=== PATIENT | female | born 1940 | race Caucasian/White ===

== ENCOUNTER → 2018-03-11 12:59 | Outpatient (CLI) | payer MEDICARE, OTHER, SELFPAY ==
--- NOTE | 2018-03-11 | DI.CT.S_ITS ---
PROCEDURE: CT KIDNEY URETER BLADDER (KUB) INDICATIONS: 78 year-old female with hematuria for 2 weeks, and suspected kidney stone. TECHNIQUE: Noncontrast 5 mm thick sections acquired from the diaphragms to the symphysis. 5 mm thick coronal and sagittal reformats were then performed. For radiation dose reduction, the following was used: automated exposure control, adjustment of mA and/or kV according to patient size. COMPARISON: [facility], CT, KIDNEY/ URETER/BLADDER, 06/09/2017, 11:42. [facility], CT, KIDNEY/ URETER/BLADDER, 11/09/2016, 9:14. [facility], CT, IVP (ABD & PEL WWO CONTRAST), 05/30/2014, 10:50. FINDINGS: Image quality: Excellent. Lung bases: Lung bases are clear. Heart size is normal. Urinary system: Both kidneys are normal in size. Several small nonobstructing right renal stones are present, measuring up to 5 mm inferiorly. 2.0 x 1.2 x 1.2 cm inferior nonobstructing left renal stone is also present, measuring 616 Hounsfield units in density. No hydronephrosis or perinephric fat stranding. Both ureters appear non-dilated throughout their expected courses. Left double-J ureteral stent remains in expected position. Right ureteral stent has been withdrawn. Bladder wall thickness is normal; no calcified bladder stones. Other solid organs: Liver is normal in size, with several small hepatic cysts as before. Gallbladder is contracted at the time of scan. Pancreas is normal in contours. Spleen is normal in size. No adrenal nodules. Peritoneum and bowel: Unenhanced bowel loops demonstrate normal wall thickness and caliber. There is sigmoid colon diverticulosis. No free fluid or air. Nodes and vessels: No retroperitoneal or mesenteric adenopathy by size criteria. Aorta and inferior vena cava are normal in caliber. Abdominal wall: No ventral hernias. Pelvis: No free pelvic fluid. No inguinal hernias or adenopathy. Uterus is normal in size. The ovaries are not well seen in the absence of contrast. There is bilateral gluteus minimus muscle atrophy. Bones: No suspicious bony lesions. No vertebral body compression fractures. There is multilevel lumbar spine disc degeneration, with associated scoliosis again noted. IMPRESSION: 1. Inferior left renal nonobstructing staghorn calculus is not significantly changed, with density measurements consistent with cystine or struvite composition. Left double-J ureteral stent remains in expected position. No hydronephrosis. 2. Multifocal right staghorn calculi have significantly decreased in overall numbers and sizes, with several residual small nonobstructing stones measuring up to 5 mm. 3. Sigmoid colon diverticulosis, without acute diverticulitis. 4. Bilateral gluteus minimus muscle atrophy may reflect chronic full-thickness corresponding tendon tears. Dictated by: Garrett Mahan M.D. on 03/11/2018 at 14:43 Approved by: Garrett Mahan M.D. on 03/11/2018 at 15:24
== END ==
PROVIDERS: PCP Nurse Practitioner Family; Visit Provider Urology
DX: R31.9 Hematuria, unspecified (principal); N20.0 Calculus of kidney
CPT/HCPCS: 74176

== ENCOUNTER → 2018-04-05 09:45 | Outpatient (CLI) | payer MEDICARE, OTHER, SELFPAY ==
[2018-04-05 09:51] LABS: Bacteria Urine None Seen
[2018-04-05 10:35] LABS: Appearance Urine UA CLOUDY; Bilirubin Urine UA NEGATIVE (NEGATIVE); Glucose Urine UA NEGATIVE (Normal); Ketones Urine UA NEGATIVE (NEGATIVE); Leukocyte Esterase Urine UA 3+ (NEGATIVE); Nitrite Urine UA Negative (Negative); Occult Blood Urine UA 3+ (Negative); Protein Urine UA 1+ (Negative); Specific Gravity Urine UA <=1.005 (1.000-1.035); Urobilinogen Urine UA 0.2 E.U./dL (0.2)
[2018-04-05 10:44] LABS: Color Urine UA YELLOW
[2018-04-05 10:46] LABS: RBC Urine 10-30/HPF (0-5/HPF); WBC Urine 30-100/HPF (0-5/HPF)
[2018-04-05 10:47] LABS: Culture Indicated Urine Specimen Cultured
== END ==
PROVIDERS: PCP Nurse Practitioner Family; Visit Provider Urology
DX: N39.0 Urinary tract infection, site not specified (principal)
CPT/HCPCS: 81001; 87086

== ENCOUNTER → 2018-04-08 15:20 | Outpatient (CLI) | payer MEDICARE, OTHER, SELFPAY ==
[2018-04-08 15:30] LABS: Bacteria Urine None Seen; RBC Urine None Seen (0-5/HPF)
[2018-04-08 16:00] LABS: Appearance Urine UA CLOUDY; Bilirubin Urine UA NEGATIVE (NEGATIVE); Color Urine UA YELLOW; Glucose Urine UA NEGATIVE (Normal); Ketones Urine UA NEGATIVE (NEGATIVE); Leukocyte Esterase Urine UA 3+ (NEGATIVE); Nitrite Urine UA POSITIVE (Negative); Occult Blood Urine UA 2+ (Negative); Protein Urine UA 1+ (Negative); Specific Gravity Urine UA <=1.005 (1.000-1.035); Urobilinogen Urine UA 0.2 E.U./dL (0.2); pH Urine UA 5.5 (4.5-8.0)
[2018-04-08 16:08] LABS: Culture Indicated Urine Specimen Cultured; WBC Urine 30-100/HPF (0-5/HPF)
== END ==
PROVIDERS: PCP Nurse Practitioner Family; Visit Provider Urology
DX: R30.0 Dysuria (principal)
CPT/HCPCS: 81001; 87086

== ENCOUNTER → 2018-07-18 09:54 | Outpatient (CLI) | payer MEDICARE, OTHER, SELFPAY | PROVIDERS: PCP Nurse Practitioner Family; Visit Provider Urology | DX: N20.0 Calculus of kidney (principal) ==

== ENCOUNTER → 2018-07-23 13:23 | Outpatient (CLI) | payer MEDICARE, OTHER, SELFPAY ==
--- NOTE | 2018-07-23 13:25 | DI.MRI.S_ITS ---
PROCEDURE: MR CERVICAL SPINE WO CON INDICATIONS: CERVICALGIA TECHNIQUE: Noncontrast sagittal T1 spin echo and T2 fast spin echo, sagittal STIR, foraminal oblique sagittal T2 fast spin echo, and axial gradient echo or T2 fast spin echo through the cervical spine. COMPARISON: [facility], CT, UPPER EXTREMITY WO CONTRAST, 08/23/2017, 10:32. [facility], CR, XR CERVICAL SPINE 2 OR 3 VIEWS, 07/20/2018, 13:45. FINDINGS: Image quality: Excellent. Alignment and Curvature: There is mild, grade 1 anterolisthesis of C3 on C4, C4 and C5, and C7 on T1. There is mild, grade 1 retrolisthesis of C5 on C6. Bone Marrow: Marrow demonstrates normal overall signal. There is mild reactive signal within the endplates adjacent to the C3-C4, C4-C5, C5-C6, C6-C7, and C7-T1 intervertebral discs, as well as the endplates of the upper thoracic spine. Spinal Cord: Visualized spinal cord has normal size and signal. No cerebellar tonsillar herniation. Paraspinous Soft Tissues: No paravertebral masses. Prevertebral soft tissues are normal in thickness. Within the left paraspinous soft tissues at the T1-T2 level adjacent to the T1-T2 neural foramen, there is a 19 mm diameter well-circumscribed high T2 intensity focus which demonstrated water density on the ..17 CT examination, consistent with a perineural cyst. C2-C3: Disc desiccation and diffuse disc bulge. Mild bilateral facet hypertrophy. Moderate canal stenosis. Mild bilateral foraminal stenosis. C3-C4: Moderate disc desiccation and moderate diffuse disc bulge. Moderate facet and uncovertebral hypertrophy bilaterally. Moderate canal stenosis. Severe left and moderate right foraminal stenosis. C4-C5: Moderate disc height loss and desiccation. Mild diffuse disc bulge with superimposed left posterolateral and far lateral protrusion. Left greater than right facet and uncovertebral hypertrophy. Moderate canal stenosis. Severe left and moderate right foraminal stenosis. C5-C6: Moderate disc height loss and desiccation. Mild diffuse disc bulge/osteophyte. Moderate facet and uncovertebral hypertrophy bilaterally. Severe left and mild right foraminal stenosis. Moderate canal stenosis. C6-C7: Severe disc height loss and desiccation. Moderate diffuse disc bulge/osteophyte. Left greater than right facet and uncovertebral hypertrophy. Moderate canal stenosis. Severe left and mild right foraminal stenosis. C7-T1: Severe disc height loss and desiccation. Mild diffuse disc bulge. Mild facet and uncovertebral hypertrophy bilaterally. Mild canal stenosis. Mild bilateral foraminal stenosis. IMPRESSION: 1. Multilevel degenerative disc and facet disease, as well as uncovertebral hypertrophy. 2. Multilevel canal stenoses, worst at C3-C4, C4-C5, C5-C6, and C6-C7, where there are moderate canal stenoses. 3. Multilevel foraminal stenoses, worst on the left at C3-C4, C4-C5, C5-C6, and C6-C7, where there are severe foraminal stenosis present. 4. 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 Dictated by: Ramsey Gonzalez M.D. on 07/25/2018 at 11:00 Approved by: Ramsey Gonzalez M.D. on 07/25/2018 at 11:11
== END ==
PROVIDERS: PCP Nurse Practitioner Family; Visit Provider Orthopaedic Surgery
DX: M50.31 Other cervical disc degeneration, high cervical region (principal); M48.02 Spinal stenosis, cervical region; G96.19 Other disorders of meninges, not elsewhere classified
CPT/HCPCS: 72141

== ENCOUNTER 2018-07-26 03:36 | Emergency (ER) | payer MEDICARE, OTHER, SELFPAY ==
[2018-07-26 03:51] VITALS: BP 137/75; PULSE 78; RESP 16; TEMP 37.4; O2SAT 96; BMI 23.3
--- NOTE | 2018-07-26 04:09 | DI.CT.S_ITS ---
PROCEDURE: CT HEAD/BRAIN WO CON INDICATIONS: fall hit head left side TECHNIQUE: Noncontrast 4.5 mm thick angled axial sections acquired from the foramen magnum to the vertex, with coronal and sagittal reformats. For radiation dose reduction, the following was used: automated exposure control, adjustment of mA and/or kV according to patient size. COMPARISON: [facility], MR, MR CERVICAL SPINE WO CON, 07/23/2018, 13:42. FINDINGS: Image quality: Excellent. CSF spaces: Basal cisterns are patent. No extra-axial fluid collections. The ventricles are symmetric in size and shape. Brain: No intracranial bleeds or masses. There is cerebral volume loss for age, with resultant ventricular and sulcal prominence. There are periventricular and deep white matter chronic small vessel ischemic changes. There is intracranial internal carotid artery atherosclerosis. Skull and face: Calvarium and visualized facial bones appear intact, without suspicious lesions. Left parietal scalp hematoma and soft tissue swelling status post laceration repair. Sinuses: Visualized sinuses and mastoids are clear. IMPRESSION: No acute intracranial process. Dictated by: Peterson Forrester M.D. on 07/26/2018 at 7:27 Approved by: Peterson Forrester M.D. on 07/26/2018 at 7:29
--- NOTE | 2018-07-26 04:10 | ED.FALL ---
HPI - Fall General Chief Complaint: Fall Stated Complaint: dizziness, fall in bathroom, cut head Time Seen by Provider: 07/26/18 03:55 Source: patient Mode of arrival: ambulatory Limitations: no limitations History of Present Illness HPI Narrative: Patient is a 78-year-old female who presents with dizziness and head injury. She said she was seen by Urology yesterday who put in stents. She is actually supposed to have a lithotripsy later today. She said that the positions she was lying in really put a kink into her neck. She went home was doing okay and then felt dizzy every time she turned her head or neck. This evening she was sitting on the toilet when she fell she was dizzy she was lying herself down on the bathroom floor when she hit her head on the left side. She denies any loss of consciousness no numbness or tingling. She is not on any blood thinners. She has had dizziness in the past. She actually had an MRI of the cervical spine 2 days ago. Which did show multilevel degenerative disc disease is and multilevel foraminal stenosis. She currently does not want anything for her dizziness. She denies chest pain or heart palpitations. MD complaint: fall Onset (ago): minute(s) Place fall occurred: home Related Data Home Medications Medication Instructions Recorded Confirmed cyclosporine [Restasis] 1 drp OPHTH BID #0 09/24/16 estradiol [Vagifem] 10 mcg VG SEE INSTRUCTIONS #0 09/28/16 VITAMIN D (Vitamin D3) 1,000 units PO SEE INSTRUCTIONS #0 11/03/17 alprazolam 0.25 mg PO QDAYP PRN #0 11/03/17 ciprofloxacin HCl 125 mg PO HS #0 11/03/17 citalopram 30 mg PO QAM #0 11/03/17 Previous Rx's Medication Instructions Recorded docusate sodium [Colace] 100 mg PO BID PRN #20 cap 10/24/17 aspirin 81 mg PO BID #60 11/17/17 aspirin 81 mg PO BID #60 tab 11/17/17 hydrocodone-acetaminophen [[place]] 1 tab PO Q4H PRN #40 tab 11/17/17 cephalexin [Keflex] 500 mg PO Q6H 7 Days #0 cap 01/09/18 Allergies Allergy/AdvReac Type Severity Reaction Status Date / Time adhesive [ADHESIVE] AdvReac Severe THIN Unverified 01/05/18 11:45 SKIN, PULLS SKIN OFF PAPER/SILK TAPE OK Sulfa (Sulfonamide AdvReac Severe I GET Unverified 01/05/18 11:45 Antibiotics) EXTREMELY [SULFA (SULFONAMIDE NERVOUS, ANTIBIOTICS)] JITTERY PAIN MEDICATIONS AdvReac Unknown I GET ALL Uncoded 01/05/18 11:45 OF THE SIDE EFFECTS, NO PAIN RELIEF Review of Systems Review of Systems All systems reviewed & are unremarkable except as noted in HPI and below Constitutional Denies chills, Denies fever(s), Denies lethargy and Denies weakness Eyes Denies change in vision, Denies eye discharge, Denies irritation and Denies loss of vision Cardiovascular Denies chest pain, Denies irregular heart rhythm, Denies lightheadedness, Denies palpitations, Denies dyspnea, Denies dyspnea on exertion and Denies orthopnea Respiratory Denies cough, Denies dyspnea, Denies dyspnea on exertion and Denies wheezing Genitourinary Reports as per HPI Musculoskeletal Denies back pain, Denies muscle weakness, Denies numbness and Denies tingling Integumentary/Breasts Denies pruritus, Denies erythema, Denies rash and Denies wounds Neurologic Denies loss of vision, Denies numbness, Denies tingling and Denies weakness Endocrine Denies palpitations Allergic/Immunologic Denies wheezing Exam Initial Vital Signs Initial Vital Signs: Vital Signs Temperature 99.4 F 07/26/18 03:51 Pulse Rate 78 07/26/18 03:51 Respiratory Rate 16 07/26/18 03:51 Blood Pressure 137/75 07/26/18 03:51 Pulse Oximetry 96 07/26/18 03:51 GENERAL: Ambulatory alert well-appearing elderly female in no acute distress speaking easily A&O times 3 HEENT: Head left-sided soft spot and 2 cm laceration left temporal lobe. No crepitations or depression,EOMI, pupils reactive, face symmetric, CARDIOVASCULAR: Regular rate and rhythm without murmurs, rubs or gallops. RESPIRATORY: Breath sounds equal bilaterally, no wheezes rales or rhonchi. ABDOMEN: Soft, nontender. Normoactive bowel sounds all 4 quadrants. No guarding or rebound. EXTREMITIES: Normal range of motion, no clubbing or edema. Neurovascularly intact NEUROLOGICAL: Alert and oriented x4.Normal gait and speech. Cranial nerves II through XII grossly intact. 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 PFSH Medical History Kidney stones (Acute) Surgical History History of cataract removal with insertion of prosthetic lens History of knee replacement Family History Brother Age: 87 Dementia Heart disease Mental health disorder Pacemaker Grandfather Mental health disorder Grandmother Arthritis Grandmother Mental health disorder Procedures Laceration Repair Laceration 1: Site: scalp Side (If applicable): left Size (cm): 2 Description: linear Depth: simple, single layer Skin layer closed with: other (deisy) Number of sutures: 2 Course Orders Ordered: ED Orders 07/26/18 EKG-12 Lead Routine 07/26/18 04:09 CT head/brain wo con Stat Basic Metabolic Panel Stat Complete Blood Count AUTO DIFF Stat Vital Signs - 8 hr 07/26/18 03:51 Temperature 99.4 F Pulse Rate 78 Respiratory Rate 16 Blood Pressure 137/75 Pulse Oximetry 96 MDM - Fall Lab Data Attestation: I reviewed the patient's lab results. Result diagrams: 07/26/18 04:20 07/26/18 04:20 Lab Results 07/26/18 07/26/18 Range/Units 04:20 04:20 WBC 9.4 (4.5-11.0) X10^3/uL RBC 3.70 L (4.0-5.2) X10^6/uL Hgb 11.5 L (12.0-16.0) g/dL Hct 34.5 L (36-46) % MCV 93.2 (80-100) fL MCH 31.0 (26-34) PG MCHC 33.3 (30-36) % RDW 13.0 (11.6-14.8) % Plt Count 222 (150-400) X10^3/uL Neut % (Auto) 84.3 H (50-75) % Lymph % (Auto) 5.2 L (25-40) % [place] % (Auto) 9.4 (3-14) % Eos % (Auto) 0.4 L (2-4) % Baso % (Auto) 0.7 (0-2) % Neut # (Auto) 8000 H (6076-2694) /uL Sodium 136 L (137-145) mmol/L Potassium 4.0 (3.4-5.1) mmol/L Chloride 104 (98-107) mmol/L Carbon Dioxide 24 (22-32) mmol/L BUN 32 H (7-17) mg/dL Creatinine 1.50 H (0.52-1.04) mg/dL Estimated GFR 33.5 L (>60) mL/min BUN/Creatinine Ratio 21.3 (6-22) Glucose 108 (80-110) mg/dL Calcium 9.6 (8.4-10.2) mg/dL Imaging Data CT scan - head: Radiologist's impression: Night should report: Mild left parietal scalp hematoma/laceration repair. Age-related findings. No acute intracranial abnormality ECG Data Attestation: I personally reviewed and interpreted this ECG as follows: Prior ECG tracings: available for review Interpretation: Normal sinus rhythm rate [address] changes appear interval 141 QRS 92 no T-wave inversions Q-waves noted in V2 similar to previous EKGs MDM Narrative Medical decision making narrative: Patient overall is feeling better. She says that this is the same dizziness that she has had many times in past. She has no focal deficits. She is feeling better after just sitting here. Head CT is negative. She would like to try go to [facility] to have her lithotripsy. Discharge Plan Departure Patient Disposition: Home Clinical Impression: Laceration of head, Vertigo Discharge Date/Time: 07/26/18 05:12 Interventions: ED Discharge Assessment Last Done: 07/26/18 05:06 Instructions: DI for Laceration Repair -- [place], DI for Vertigo Activity Restrictions/Additional Instructions: *You have been diagnosed with a closed head injury, head laceration, vertigo *What to do: Deisy should be removed in 5-7 days. No hair cuts, may shower and bathe normally. May go to PCP, walk-in clinic or return to ED for staple removal. -carotid should be evaluated this can be done with her PCP *Continue to take medications as directed *Follow up with your primary care provider in 2-3 days *Return to ER if you should have worsening dizziness, heart palpitations, increased fall or any new, worsening or concerning symptoms Prescriptions: No Action cyclosporine [Restasis] 1 EACH dropperette 1 drp OPHTH BID Qty: 0 RF: 0 estradiol [Vagifem] 10 MCG tablet 10 mcg VG SEE INSTRUCTIONS Qty: 0 RF: 0 docusate sodium [Colace] 100 MG capsule 100 mg PO BID PRNQty: 20 RF: 0 ciprofloxacin HCl 250 MG tablet 125 mg PO HS Qty: 0 RF: 0 VITAMIN D (Vitamin D3) 1,000 units PO SEE INSTRUCTIONS Qty: 0 RF: 0 alprazolam 0.25 MG tablet 0.25 mg PO QDAYP PRNQty: 0 RF: 0 citalopram 20 MG tablet 30 mg PO QAM Qty: 0 RF: 0 hydrocodone-acetaminophen [[place]] 5 MG/325 MG tablet 1 tab PO Q4H PRNQty: 40 RF: 0 aspirin 81 MG tablet,delayed release (DR/EC) 81 mg PO BID Qty: 60 RF: 0 aspirin 81 MG tablet,delayed release (DR/EC) 81 mg PO BID Qty: 60 RF: 0 cephalexin [Keflex] 500 MG capsule 500 mg PO Q6H 7 Days Qty: 0 RF: 0 Referrals: [facility] [Provider Group] Yashira Willoughby ARNP [Primary Care Provider] -
[2018-07-26 04:40] LABS: Add Manual Diff / Slide Review NO; Basophils Percent Auto 0.7 % (0-2); Eosinophils Percent Auto 0.4 % (2-4); Hematocrit 34.5 % (36-46); Hemoglobin 11.5 g/dL (12.0-16.0); Lymphocytes Percent Auto 5.2 % (25-40); Mean Corpuscular HGB Conc 33.3 % (30-36); Mean Corpuscular Volume 93.2 fL (80-100); Monocytes Percent Auto 9.4 % (3-14); Neutrophils Absolute Auto 8000 /uL (3000-5900); Neutrophils Percent Auto 84.3 % (50-75); Platelet Count 222 X10^3/uL (150-400); White Blood Cell Count 9.4 X10^3/uL (4.5-11.0)
[2018-07-26 04:52] LABS: BUN Creatinine Ratio 21.3 (6-22); Blood Urea Nitrogen 32 mg/dL (7-17); Calcium 9.6 mg/dL (8.4-10.2); Carbon Dioxide 24 mmol/L (22-32); Chloride 104 mmol/L (98-107); Estimated Glomerular Filt Rate 33.5 mL/min (>60); Glucose 108 mg/dL (80-110); HEMOLYSIS < 15 (0-50); Sodium 136 mmol/L (137-145)
[2018-07-26 05:06] VITALS: BP 116/64; PULSE 60; RESP 16; TEMP 37.4; O2SAT 100
== END 2018-07-26 05:12 | disposition home or self-care (01) ==
PROVIDERS: Emergency Provider Emergency Medicine; PCP Nurse Practitioner Family
DX: S01.01XA Laceration without foreign body of scalp, initial encounter (principal); R42 Dizziness and giddiness; W18.11XA Fall from or off toilet without subsequent striking against object, initial encounter
CPT/HCPCS: 12001; 36591; 70450; 80048; 85025; 93005; 99283; 99285

== ENCOUNTER 2018-08-08 18:36 | Emergency (ER) | payer MEDICARE, OTHER, SELFPAY ==
[2018-08-08 18:40] VITALS: BP 141/89; PULSE 75; RESP 16; TEMP 36.9; O2SAT 100
[2018-08-08 20:34] LABS: Bacteria Urine Few (2-10); Culture Indicated Urine Specimen Cultured; RBC Urine 0-1/HPF (0-5/HPF); Squamous Epithelial Cell Urine 1-5 /HPF; WBC Urine 10-30/HPF (0-5/HPF)
[2018-08-08] MEDS: DOXYCYCLINE HYCLATE 100 MG TABLET PO ×2 (20:47)
--- NOTE | 2018-08-08 20:53 | ED_ITS ---
HPI - Wound/Laceration <Thu Dobson PA-C - Last Filed: 08/08/18 21:19> General Chief Complaint: Wound/Laceration Stated Complaint: KIDNEY INFECTION Time Seen by Provider: 08/08/18 20:24 Source: patient and family Mode of arrival: ambulatory Limitations: no limitations History of Present Illness HPI narrative: This 78-year-old female comes in due to concern for surgical wound infection. She states that she has kidney stones extracted on July 26. Since then, she has had some tenderness an irritation from the wound but today it has been draining fluid and her states that it was red, where as it was not previously Her thinks that it was draining thin fluid and some pus earlier (he pushed on it to remove it.). She states that she is feeling otherwise fine. She denies fever, chills, sweats. She denies appetite change, nausea, or vomiting or any other new complaints and states that she has been doing well postoperatively as far as any kidney pain, not having urinary symptoms at all Related Data Home Medications Medication Instructions Recorded Confirmed cyclosporine [Restasis] 1 drp OPHTH BID #0 09/24/16 estradiol [Vagifem] 10 mcg VG SEE INSTRUCTIONS #0 09/28/16 VITAMIN D (Vitamin D3) 1,000 units PO SEE INSTRUCTIONS #0 11/03/17 alprazolam 0.25 mg PO QDAYP PRN #0 11/03/17 ciprofloxacin HCl 125 mg PO HS #0 11/03/17 citalopram 30 mg PO QAM #0 11/03/17 Previous Rx's Medication Instructions Recorded docusate sodium [Colace] 100 mg PO BID PRN #20 cap 10/24/17 aspirin 81 mg PO BID #60 11/17/17 aspirin 81 mg PO BID #60 tab 11/17/17 hydrocodone-acetaminophen [[place]] 1 tab PO Q4H PRN #40 tab 11/17/17 cephalexin [Keflex] 500 mg PO Q6H 7 Days #0 cap 01/09/18 doxycycline monohydrate 100 mg PO BID #14 cap 08/08/18 Allergies Allergy/AdvReac Type Severity Reaction Status Date / Time adhesive [ADHESIVE] AdvReac Severe THIN Verified 08/08/18 18:40 SKIN, PULLS SKIN OFF PAPER/SILK TAPE OK Sulfa (Sulfonamide AdvReac Severe I GET Verified 08/08/18 18:40 Antibiotics) EXTREMELY [SULFA (SULFONAMIDE NERVOUS, ANTIBIOTICS)] JITTERY PAIN MEDICATIONS AdvReac Unknown I GET ALL Uncoded 08/08/18 18:40 OF THE SIDE EFFECTS, NO PAIN RELIEF Review of Systems <MARKOS Brito Last Filed: 08/08/18 21:19> Review of Systems All systems reviewed & are unremarkable except as noted in HPI and below PFSH <MARKOS Brito Last Filed: 08/08/18 21:19> Comment: Nonsmoker Exam <MARKOS Brito Last Filed: 08/08/18 21:19> Narrative Exam Narrative: GENERAL APPEARANCE: Patient sitting comfortably, in no distress. HEENT: PERRL, EOMI, no scleral icterus NECK: Supple LUNGS: Clear to auscultation bilaterally. HEART: Rate and rhythm regular, normal S1 and S2, no S3 or S4. ABDOMEN: Soft, nontender, nondistended, bowel sounds present x 4 quadrants, no CVAT DERMATOLOGIC: Left flank there is a tiny incision site which will drain a small amount of serous fluid with pressure on the area. Bandage is saturated with serous fluid. I am not able to express any pus. There is surrounding slightly warm erythema to 7 cm. Nontender. NEUROLOGIC: Alert and oriented with normal speech and coordination Initial Vital Signs Initial Vital Signs: Vital Signs Temperature 98.4 F 08/08/18 18:40 Pulse Rate 75 08/08/18 18:40 Respiratory Rate 16 08/08/18 18:40 Blood Pressure 141/89 H 08/08/18 18:40 Pulse Oximetry 100 18 18:40 <Yecenia Edmonds DO - Last Filed: 08/08/18 23:12> Initial Vital Signs Initial Vital Signs: Vital Signs Temperature 98.4 F 08/08/18 18:40 Pulse Rate 75 08/08/18 18:40 Respiratory Rate 16 08/08/18 18:40 Blood Pressure 141/89 H 08/08/18 18:40 Pulse Oximetry 100 08/08/18 18:40 Course <MARKOS Brito Last Filed: 08/08/18 21:19> Additional Information: It sounds like some pus may have drain from this wound earlier today along with serous fluid. I am not able to express any pus now. Advised hot packs, antibiotics started, and instructions given on monitoring. Advised follow up either with Urology or PCP after antibiotics for 72 hr, and she is agreeable. Bacteria noted on urinalysis but she is asymptomatic, likely asymptomatic bacteriuria, culture pending Orders Ordered: ED Orders 08/08/18 20:22 Urine Culture Stat Urine Microscopic Stat Discontinued Medications Doxycycline Hyclate (Vibramycin) 100 mg PO NOW ONE Stop: 08/08/18 20:43 Last Admin: 08/08/18 20:47 Dose: 100 mg Doxycycline Hyclate (Vibramycin) 100 mg PO NOW ONE Stop: 08/08/18 20:44 Last Admin: 08/08/18 20:47 Dose: 100 mg Vital Signs - 8 hr 08/08/18 18:40 08/08/18 21:04 Temperature 98.4 F Pulse Rate 75 77 Respiratory Rate 16 18 Blood Pressure 141/89 H 119/81 Pulse Oximetry 100 96 <Yecenia Edmonds DO - Last Filed: 08/08/18 23:12> Orders Ordered: ED Orders 08/08/18 20:22 Urine Culture Stat Urine Microscopic Stat Discontinued Medications Doxycycline Hyclate (Vibramycin) 100 mg PO NOW ONE Stop: 08/08/18 20:43 Last Admin: 08/08/18 20:47 Dose: 100 mg Doxycycline Hyclate (Vibramycin) 100 mg PO NOW ONE Stop: 08/08/18 20:44 Last Admin: 08/08/18 20:47 Dose: 100 mg Vital Signs - 8 hr 08/08/18 18:40 08/08/18 21:04 Temperature 98.4 F Pulse Rate 75 77 Respiratory Rate 16 18 Blood Pressure 141/89 H 119/81 Pulse Oximetry 100 96 MDM - Wound/Laceration <Thu Dobson PA-C - Last Filed: 08/08/18 21:19> Lab Data Lab Results 08/08/18 Range/Units 20:22 Urine RBC 0-1/hpf (0-5/HPF) Urine WBC 10-30/hpf H (0-5/HPF) Ur Squamous Epith Cells 1-5 /hpf Urine Bacteria Few (2-10) H (None) Ur Culture Indicated? Specimen cultured Micro UA Comment Not Reportable <Yecenia Edmonds DO - Last Filed: 08/08/18 23:12> Lab Data Lab Results 08/08/18 Range/Units 20:22 Urine RBC 0-1/hpf (0-5/HPF) Urine WBC 10-30/hpf H (0-5/HPF) Ur Squamous Epith Cells 1-5 /hpf Urine Bacteria Few (2-10) H (None) Ur Culture Indicated? Specimen cultured Micro UA Comment Not Reportable Discharge Plan Departure Patient Disposition: Home Clinical Impression: Postoperative wound infection, Gastroesophageal reflux disease Discharge Date/Time: 08/08/18 21:05 Interventions: ED Discharge Assessment Last Done: 08/08/18 21:04 Instructions: DI for Wound Infection Activity Restrictions/Additional Instructions: When I look at the wound now, it is draining what is called serous fluid, thin yellow fluid. This is not unusual, however it is red and it sounds like it was draining some pus earlier today. Please use a hot pack, such as a hot washcloth , on the area several times daily as this will help any pus and fluid drain out of the wound. You have been given the 1st dose of antibiotic tonight. Take the 2nd dose with food in about 12 hr, and picker tender helper the remainder from your pharmacy tomorrow. Please follow up at your PCP office or with your urologist for recheck after about 72 hr on the antibiotics to make sure improving. Please return here as we talked about if you have any acutely worsening symptoms or new symptoms such as fever. Thank you for your patience with the long wait this evening Prescriptions: New doxycycline monohydrate 100 mg capsule 100 mg PO BID Qty: 14 RF: 0 No Action cyclosporine [Restasis] 1 EACH dropperette 1 drp OPHTH BID Qty: 0 RF: 0 estradiol [Vagifem] 10 MCG tablet 10 mcg VG SEE INSTRUCTIONS Qty: 0 RF: 0 docusate sodium [Colace] 100 MG capsule 100 mg PO BID PRNQty: 20 RF: 0 ciprofloxacin HCl 250 MG tablet 125 mg PO HS Qty: 0 RF: 0 VITAMIN D (Vitamin D3) 1,000 units PO SEE INSTRUCTIONS Qty: 0 RF: 0 alprazolam 0.25 MG tablet 0.25 mg PO QDAYP PRNQty: 0 RF: 0 citalopram 20 MG tablet 30 mg PO QAM Qty: 0 RF: 0 hydrocodone-acetaminophen [Shepherd] 5 MG/325 MG tablet 1 tab PO Q4H PRNQty: 40 RF: 0 aspirin 81 MG tablet,delayed release (DR/EC) 81 mg PO BID Qty: 60 RF: 0 aspirin 81 MG tablet,delayed release (DR/EC) 81 mg PO BID Qty: 60 RF: 0 cephalexin [Keflex] 500 MG capsule 500 mg PO Q6H 7 Days Qty: 0 RF: 0 Referrals: [facility] [Provider Group] Alyx Umaña MD [Non-Staff] - <Yecenia Edmonds DO - Last Filed: 08/08/18 23:12> Cosign ED Attending Cosignature Attestation: I was immediately available in the department for consultation. This documentation has been reviewed and I agree with assessment and plan. Supervised by Yecenia Edmonds DO
[2018-08-08 21:04] VITALS: BP 119/81; PULSE 77; RESP 18; O2SAT 96
== END 2018-08-08 21:05 | disposition home or self-care (01) ==
PROVIDERS: Emergency Medicine; Emergency Provider Internal Medicine; PCP Nurse Practitioner Family
DX: T81.49XA Infection following a procedure, other surgical site, initial encounter (principal); K21.9 Gastro-esophageal reflux disease without esophagitis
CPT/HCPCS: 81003; 81015; 87086; 99283

== ENCOUNTER 2019-02-09 13:18 | Emergency (ER) | payer MEDICARE, OTHER, SELFPAY ==
[2019-02-09 13:32] VITALS: BP 131/76; PULSE 63; RESP 20; TEMP 36.7; O2SAT 97
--- NOTE | 2019-02-09 13:49 | ED_ITS ---
HPI - Fall <Rosanna Alamo DO - Last Filed: 02/09/19 18:33> General Chief Complaint: Fall Stated Complaint: Fell and split knee,hit head Time Seen by Provider: 02/09/19 13:48 Source: patient Mode of arrival: ambulatory Limitations: no limitations History of Present Illness HPI Narrative: Patient is a 78-year-old female presenting with ground level fall. She was walking in the [employer] parking lot when she tripped over a speed bump. Mostly landing on her knee and right wrist. She did hit her head but no loss of consciousness there is no laceration on her head. She denies any hip pain she is ambulatory. She does have a right knee skin tear. MD complaint: fall Onset (ago): minute(s) Fall from: standing Fall witnessed: yes, by family Place fall occurred: street Prolonged down time: no Symptoms prior to fall: none Related Data Home Medications Medication Instructions Recorded Confirmed Restasis 1 drp OPHTH BID #0 09/24/16 02/09/19 VITAMIN D (Vitamin D3) 1,000 units PO SEE INSTRUCTIONS #0 11/03/17 alprazolam 0.25 mg PO DAILY PRN #0 11/03/17 02/09/19 beclomethasone dipropionate [Qvar 02/09/19 RediHaler] citalopram 02/09/19 cyclosporine [Restasis] 02/09/19 esomeprazole magnesium 02/09/19 estradiol [Yuvafem] 02/09/19 pentosan polysulfate sodium 02/09/19 [Elmiron] Previous Rx's Medication Instructions Recorded aspirin 81 mg PO BID #60 11/17/17 hydrocodone-acetaminophen [[place]] 1 tab PO Q4H PRN #40 tab 11/17/17 Allergies Allergy/AdvReac Type Severity Reaction Status Date / Time adhesive [ADHESIVE] AdvReac Severe THIN Verified 08/08/18 18:40 SKIN, PULLS SKIN OFF PAPER/SILK TAPE OK Sulfa (Sulfonamide AdvReac Severe I GET Verified 08/08/18 18:40 Antibiotics) EXTREMELY [SULFA (SULFONAMIDE NERVOUS, ANTIBIOTICS)] JITTERY PAIN MEDICATIONS AdvReac Unknown I GET ALL Uncoded 08/08/18 18:40 OF THE SIDE EFFECTS, NO PAIN RELIEF Review of Systems <DO Tamera Guadarrama Last Filed: 02/09/19 18:33> Review of Systems GENERAL: Denies chills, fatigue, malaise, fever, sweats, travel HEENT: Denies sinus pain, ear pain, sore throat, difficulty swallowing, neck pain RESPIRATORY: Denies dyspnea, cough, wheezing, hemoptysis, sputum. CARDIOVASCULAR: Denies chest pain, palpitations, orthopnea, edema GASTROINTESTINAL: Denies nausea, vomiting, abdominal pain, diarrhea, constipation, melena. : Denies dysuria, frequency, incontinence, hematuria, urinary retention, flank pain. MUSCULOSKELETAL: Right wrist pain SKIN: Skin tear NEUROLOGIC: Denies weakness, dizziness, headache, numbness, change in speech, confusion PSYCHIATRIC: No concerning psychosocial issues. 12 point review of systems is negative except for those stated above and HPI Exam <Rosanna Alamo DO - Last Filed: 02/09/19 18:33> Initial Vital Signs Initial Vital Signs: Vital Signs Temperature 98.1 F 02/09/19 13:32 Pulse Rate 63 02/09/19 13:32 Respiratory Rate 20 02/09/19 13:32 Blood Pressure 131/76 02/09/19 13:32 Pulse Oximetry 97 02/09/19 13:32 GENERAL: Alert very pleasant and in no acute distress. HEENT: Head atraumatic, no contusion depression,EOMI, pupils reactive, face symmetric, moist mucous membranes Neck is supple no vertebral tenderness full range motion CARDIOVASCULAR: Regular rate and rhythm without murmurs, rubs or gallops. RESPIRATORY: Breath sounds equal bilaterally, no wheezes rales or rhonchi. EXTREMITIES: Normal range of motion, no clubbing or edema. Neurovascularly intact. Hips and pelvis stable. Able to flex fully. NEUROLOGICAL: Alert and oriented x4.Normal gait and speech. Cranial nerves II through XII grossly intact. SKIN: 8 cm laceration right knee superficial good skin approximation <RUSSELL Kaur - Last Filed: 02/09/19 14:59> Initial Vital Signs Initial Vital Signs: Vital Signs Temperature 98.1 F 02/09/19 13:32 Pulse Rate 63 02/09/19 13:32 Respiratory Rate 20 02/09/19 13:32 Blood Pressure 131/76 02/09/19 13:32 Pulse Oximetry 97 02/09/19 13:32 PFS <Rosanna Alamo DO - Last Filed: 02/09/19 18:33> Medical History Asthma (Chronic) GERD (gastroesophageal reflux disease) (Chronic) Osteoarthritis (Chronic) Kidney stones (Resolved) Surgical History History of cataract removal with insertion of prosthetic lens (Resolved) History of knee replacement (Resolved) History of shoulder surgery (Resolved) Family History (Updated 11/18/16 @ 00:00 by Conversion Provider) Brother Age: 88 Dementia Heart disease Mental health disorder Pacemaker Grandfather Mental health disorder Grandmother Arthritis Grandmother Mental health disorder Family History Brother Age: 88 Dementia Heart disease Mental health disorder Pacemaker Grandfather Mental health disorder Grandmother Arthritis Grandmother Mental health disorder Procedures <DO Tamera Guadarrama Last Filed: 02/09/19 18:33> Orthopedic Splinting/Casting Injury #1: Side: right Upper Extremity Injury Location: wrist Upper Extremity Immobilizer: wrist splint Post splinting neuro exam: intact Post splinting vascular exam: intact Placed by: Nursing <RUSSELL Kaur - Last Filed: 02/09/19 14:59> Laceration Repair Laceration 1: Site: lower extremity Side (If applicable): right Size (cm): 8.5 Description: linear and flap Depth: simple, single layer Local Anesthetic: lidocaine 1% and with epi Amount of anesthesia used (mL): 10 Pre-repair: wound explored and irrigated extensively Skin layer closed with: nylon Size (cm): 4-0 Number of sutures: 10 Technique: simple, interrupted Course <DO Tamera Guadarrama Last Filed: 02/09/19 18:33> Orders Ordered: ED Orders 02/09/19 13:54 XR wrist RT min 3V Stat Vital Signs - 8 hr 02/09/19 13:32 02/09/19 15:14 Temperature 98.1 F Pulse Rate 63 59 L Respiratory Rate 20 18 Blood Pressure 131/76 Blood Pressure [Left Arm] 152/74 H Pulse Oximetry 97 100 <RUSSELL Kaur - Last Filed: 02/09/19 14:59> Orders Ordered: ED Orders 02/09/19 13:54 XR wrist RT min 3V Stat Vital Signs - 8 hr 02/09/19 13:32 02/09/19 15:14 Temperature 98.1 F Pulse Rate 63 59 L Respiratory Rate 20 18 Blood Pressure 131/76 Blood Pressure [Left Arm] 152/74 H Pulse Oximetry 97 100 MDM - Fall <Rosanna Alamo, DO - Last Filed: 02/09/19 18:33> Imaging Data right wrist: Radiologist's impression: PROCEDURE: XR WRIST RT MIN 3V INDICATIONS: fall pain TECHNIQUE: 4 views of the wrist were acquired. COMPARISON: None. FINDINGS: Bones: There is possible fracture of the distal pole of scaphoid of uncertain ch ronicity. There is severe osteopenia. Severe osteoarthritic changes are present of the first carpometacarpal joint, triscaphe joint and the fifth proximal interphalangeal joint, and [id number] osteoarthritic changes of the radiocarpal joint and multiple metacarpal phalangeal joints. No suspicious bony lesions. Probable small intra-articular bodies at the distal radioulnar joint. There is triangular fibrocartilage calcification. Scaphoid view: Possible fracture of the distal pole of scaphoid Soft tissues: No suspicious soft tissue calcifications. Soft tissue swelling around the wrist. IMPRESSION: 1. Possible fracture of the distal pole of scaphoid of uncertain chronicity. 2. Severe osteopenia. 3. Osteoarthritis. Dictated by: Cesar Sung M.D. on 02/09/2019 at 14:16 Discharge Plan Departure Patient Disposition: Home Clinical Impression: Laceration of knee, right Qualifiers: Encounter type: initial encounter Qualified Code(s): S81.011A - Laceration without foreign body, right knee, initial encounter Closed fracture of right wrist Qualifiers: Encounter type: initial encounter Qualified Code(s): S62.101A - Fracture of unspecified carpal bone, right wrist, initial encounter for closed fracture Discharge Date/Time: 02/09/19 16:11 Interventions: ED Discharge Assessment Last Done: 02/09/19 16:11 Instructions: DI for Wrist Fracture, DI for Laceration Repair Activity Restrictions/Additional Instructions: *You have been diagnosed with right knee laceration, possible right wrist fr acture *What to do: Recommend repeating x-ray in 7-10 days with her PCP. It is possible that have a right wrist fracture recommend keeping the splint on to help with pain. -have sutures removed in 5-7 days. Keep clean and dry with soap and water. Apply antibacterial ointment on it 1-2 times daily. *Continue to take medications as directed Tylenol 650 mg every 4-6 hours if needed for pain *Follow up with your primary care provider in 2-3 days *Return to ER if you should have redness, pus, swelling, pain or any new, worsening or concerning symptoms Prescriptions: No Action Restasis 1 EACH dropperette 1 drp OPHTH BID Qty: 0 RF: 0 VITAMIN D (Vitamin D3) 1,000 units PO SEE INSTRUCTIONS Qty: 0 RF: 0 alprazolam 0.25 MG tablet 0.25 mg PO DAILY PRN (Reason: Anxiety) Qty: 0 RF: 0 hydrocodone-acetaminophen [[place]] 5 MG/325 MG tablet 1 tab PO Q4H PRNQty: 40 RF: 0 aspirin 81 MG tablet,delayed release (DR/EC) 81 mg PO BID Qty: 60 RF: 0 Elmiron 100 mg capsule RF: 0 citalopram 20 mg tablet RF: 0 esomeprazole magnesium 40 mg capsule,delayed release(DR/EC) RF: 0 Restasis 0.05 % dropperette RF: 0 estradiol [Yuvafem] 10 mcg tablet RF: 0 Qvar RediHaler 80 mcg/actuation HFA aerosol breath activated RF: 0 Referrals: Jean-Paul Olvera ARNP [Primary Care Provider] -
--- NOTE | 2019-02-09 13:54 | DI.RAD.S_ITS ---
PROCEDURE: XR WRIST RT MIN 3V INDICATIONS: fall pain TECHNIQUE: 4 views of the wrist were acquired. COMPARISON: None. FINDINGS: Bones: There is possible fracture of the distal pole of scaphoid of uncertain chronicity. There is severe osteopenia. Severe osteoarthritic changes are present of the first carpometacarpal joint, triscaphe joint and the fifth proximal interphalangeal joint, and [id number] osteoarthritic changes of the radiocarpal joint and multiple metacarpal phalangeal joints. No suspicious bony lesions. Probable small intra-articular bodies at the distal radioulnar joint. There is triangular fibrocartilage calcification. Scaphoid view: Possible fracture of the distal pole of scaphoid Soft tissues: No suspicious soft tissue calcifications. Soft tissue swelling around the wrist. IMPRESSION: 1. Possible fracture of the distal pole of scaphoid of uncertain chronicity. 2. Severe osteopenia. 3. Osteoarthritis. Dictated by: Cesar Sung M.D. on 02/09/2019 at 14:16 Approved by: Cesar Sung M.D. on 02/09/2019 at 14:24
[2019-02-09 15:14] VITALS: BP 152/74; PULSE 59; RESP 18; O2SAT 100
--- NOTE | 2019-02-09 16:07 | PC.NURSE ---
pt wanted an dylan wrap vs. wrist splint due to her osteoarthritis. aware.
== END 2019-02-09 16:11 | disposition home or self-care (01) ==
PROVIDERS: Emergency Provider Emergency Medicine; PCP Nurse Practitioner Family
DX: S81.011A Laceration without foreign body, right knee, initial encounter (principal); S62.101A Fracture of unspecified carpal bone, right wrist, initial encounter for closed fracture; W18.30XA Fall on same level, unspecified, initial encounter
CPT/HCPCS: 73110; 99283

== ENCOUNTER → 2019-05-09 13:54 | Outpatient (CLI) | payer MEDICARE, OTHER, SELFPAY ==
--- NOTE | 2019-05-09 | DI.RAD.S_ITS ---
PROCEDURE: XR HAND LT MIN 3V INDICATIONS: LEFT hand pain/5TH METACARPAL BRUISING/FALL ON WEDNESDAY TECHNIQUE: 3 views of the hand(s) acquired. COMPARISON: [facility], , HAND 2V LEFT, 01/09/2018, 20:37. FINDINGS: Bones: Severe diffuse osteopenia which lowers study sensitivity. There is question of irregularity at the base of the fifth metacarpal. However no definite or displaced fracture is identified. There is interphalangeal joint degeneration, with erosive appearance as before diffuse carpal joint degeneration. Severe DRUJ osteoarthritis. Soft tissues: No suspicious soft tissue calcifications. IMPRESSION: Mild cortical irregularity involving the base of the fifth metacarpal technically indeterminate. Diffuse osteopenia which lowers study sensitivity. If the patient's symptoms do not improve recommend followup radiographs in 10 days to assess for healing sclerosis/occult injury. Chronic changes as above. Dictated by: Peterson Forrester M.D. on 05/09/2019 at 17:17 Approved by: Peterson Forrester M.D. on 05/09/2019 at 17:20
--- NOTE | 2019-05-09 | DI.RAD.S_ITS ---
PROCEDURE: XR CHEST 2V INDICATIONS: Asthma TECHNIQUE: 2 views of the chest were acquired. COMPARISON: [facility], , CHEST 2 VIEW, 12/21/2016, 12:28. FINDINGS: Surgical changes and devices: Bilateral shoulder arthroplasties Lungs and pleura: Lungs are clear. No pleural effusions or pneumothorax. Mediastinum: Mediastinal contours are normal. Heart size is normal. Bones and chest wall: No suspicious bony abnormalities. Lateral curvature of the spine and spondylosis. Soft tissues appear unremarkable. IMPRESSION: No acute disease Dictated by: Peterson Forrester M.D. on 05/09/2019 at 17:20 Approved by: Peterson Forrester M.D. on 05/09/2019 at 17:21
== END ==
PROVIDERS: PCP Internal Medicine; Visit Provider Internal Medicine
DX: S60.222A Contusion of left hand, initial encounter (principal); M79.642 Pain in left hand; M85.842 Other specified disorders of bone density and structure, left hand; M19.042 Primary osteoarthritis, left hand; J45.40 Moderate persistent asthma, uncomplicated; W19.XXXA Unspecified fall, initial encounter
CPT/HCPCS: 71046; 73130

== ENCOUNTER 2019-05-19 14:03 | Emergency (ER) | payer MEDICARE, OTHER, SELFPAY ==
[2019-05-19 14:16] VITALS: BP 137/72; PULSE 72; RESP 14; TEMP 36.7; O2SAT 100; BMI 25.2
--- NOTE | 2019-05-19 15:28 | ED_ITS ---
HPI - URI/Sore Throat <RUSSELL Gregg - Last Filed: 05/19/19 22:01> General Chief Complaint: Upper Respiratory Symptoms Stated Complaint: states chest infection Time Seen by Provider: 05/19/19 14:37 Source: patient and family Mode of arrival: ambulatory Limitations: no limitations History of Present Illness HPI Narrative: This is pleasant 79-year-old female, nonsmoker, presents with her spouse with chest congestion, productive cough which is difficult to expectorated she for the last 4 days. Patient reports difficulty lying flat at night to sleep due to severe cough. Patient is currently on azithromycin for bronchitis for last 2 days. Her x-ray was done by her primary doctor, DR. Mcmillan, before the treatment with no acute findings. The patient reports T max was at home was up to 100.7 which gotten better with Tylenol intake. Patient reports she thinks actually dark green color mucus is improving. The patient reports has been orally hydrate well with fluid. Her energy level has been decreased from normal baseline. She reports resolved diarrhea after the 1st day. Related Data Home Medications Medication Instructions Recorded Confirmed alprazolam 0.25 mg PO DAILY PRN #0 11/03/17 02/09/19 cholecalciferol (vitamin D3) 1,000 unit PO DAILY #0 11/03/17 [Vitamin D3] cyclosporine [Restasis] 1 drp OPHTHALMIC (EYE) DIRECTED 02/09/19 05/19/19 esomeprazole magnesium 40 mg PO DAILY 02/09/19 05/19/19 albuterol sulfate [ProAir HFA] 1 puff INHALATION PRN PRN 05/19/19 05/19/19 azithromycin See Rx Instructions .ROUTE .COMPLEX 05/19/19 05/19/19 beclomethasone dipropionate [Qvar 1 puff INHALATION BID 05/19/19 05/19/19 RediHaler] citalopram 40 mg PO DAILY 05/19/19 05/19/19 estradiol [Yuvafem] 10 mcg VAGINAL 2XW 05/19/19 05/19/19 fluticasone propion-salmeterol 2 puff INHALATION BID 05/19/19 05/19/19 [Advair HFA] pentosan polysulfate sodium 100 mg PO TID 05/19/19 05/19/19 [Elmiron] Previous Rx's Medication Instructions Recorded aspirin 81 mg PO BID #60 11/17/17 benzonatate 150 mg PO Q8H PRN #14 cap 05/19/19 Allergies Allergy/AdvReac Type Severity Reaction Status Date / Time adhesive [ADHESIVE] AdvReac Severe THIN Verified 05/19/19 14:16 SKIN, PULLS SKIN OFF PAPER/SILK TAPE OK Sulfa (Sulfonamide AdvReac Severe I GET Verified 05/19/19 14:16 Antibiotics) EXTREMELY [SULFA (SULFONAMIDE NERVOUS, ANTIBIOTICS)] JITTERY PAIN MEDICATIONS AdvReac Unknown I GET ALL Uncoded 08/08/18 18:40 OF THE SIDE EFFECTS, NO PAIN RELIEF Review of Systems <RUSSELL Gregg - Last Filed: 05/19/19 22:01> Review of Systems ROS Unobtainable: All systems reviewed & are unremarkable except as noted in HPI and below PFSH <RUSSELL Gregg - Last Filed: 05/19/19 22:01> Medical History Asthma (Chronic) GERD (gastroesophageal reflux disease) (Chronic) Osteoarthritis (Chronic) Kidney stones (Resolved) Surgical History History of cataract removal with insertion of prosthetic lens (Resolved) History of knee replacement (Resolved) History of shoulder surgery (Resolved) Family History Brother Age: 88 Dementia Heart disease Mental health disorder Pacemaker Grandfather Mental health disorder Grandmother Arthritis Grandmother Mental health disorder Social History Smoking Status: Unknown if ever smoked Family History Brother Age: 88 Dementia Heart disease Mental health disorder Pacemaker Grandfather Mental health disorder Grandmother Arthritis Grandmother Mental health disorder Social History Smoking Status: Unknown if ever smoked Exam <RUSSELL Gregg - Last Filed: 05/19/19 22:01> Narrative Exam Narrative: General appearance: well developed, well nourished, in no acute distress. Head: normocephalic, atraumatic, no scalp lesions, non-tender. Eye: pupil equal, round. EOMI. Nose: nares patent. Oral: mucosa moist. Neck/Thyroid: neck supple, full range of motion, no visible masses. Skin: no suspicious rashes, lesions over visible areas. Warm and dry. Heart: S1 and S2 with RRR. no clubbing, no cyanosis, no edema. Lungs: Lungs CTAB. Breathing even and unlabored. No stridor. No accessory muscles used. Chest: normal shape and expansion. Abdomen: non-obese, non-distended. Neurologic: alert and oriented. 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 Psych: good eye contact, normal affect. Initial Vital Signs Initial Vital Signs: Vital Signs Temperature 98.1 F 05/19/19 14:16 Pulse Rate 72 05/19/19 14:16 Respiratory Rate 14 05/19/19 14:16 Blood Pressure 137/72 05/19/19 14:16 Pulse Oximetry 100 05/19/19 14:16 <Yecenia Edmonds DO - Last Filed: 05/23/19 07:22> Initial Vital Signs Initial Vital Signs: Vital Signs Temperature 98.1 F 05/19/19 14:16 Pulse Rate 72 05/19/19 14:16 Respiratory Rate 14 05/19/19 14:16 Blood Pressure 137/72 05/19/19 14:16 Pulse Oximetry 100 05/19/19 14:16 Course <RUSSELL Gregg - Last Filed: 05/19/19 22:01> Vital Signs - 8 hr 05/19/19 14:16 Temperature 98.1 F Pulse Rate 72 Respiratory Rate 14 Blood Pressure 137/72 Pulse Oximetry 100 <Yecenia Edmonds DO - Last Filed: 05/23/19 07:22> Vital Signs - 8 hr 05/19/19 14:16 Temperature 98.1 F Pulse Rate 72 Respiratory Rate 14 Blood Pressure 137/72 Pulse Oximetry 100 MDM - URI/Sore Throat <RUSSELL Gregg - Last Filed: 05/19/19 22:01> Differential Diagnosis Differential diagnosis: Likely upper respiratory infection and bronchitis Medical Records Attestation: I reviewed the patient's medical records. [facility] Narrative Medical decision making narrative: This is a pleasant 79-year-old female with chief complain of chest congestion, cough, difficulty with expectorating mucous that is worse at night when she is in supine position. She has started on azithromycin that was prescribed by Dr. Mcmillan, her primary physician with bronchitis/possible pneumonia. Chest x-ray two view on 05/09/19 shows no acute findings in patient reports her cough symptoms is actually improving after she started on azithromycin. Her thick green mucus has gotten child center assistant color and consistency. She denies chills, breathing difficulty, chest pain, swelling to her lower extremities, shortness breath with exertion or recent weight gain. Patient deferred another chest x-ray this time. Her physical finding is not consistent with heart failure and she does not have history CHF. We discussed in length about symptoms management to improve coughing and congestion. Patient discharged to home with Tessalon per and Mucinex DM. Return precautions were discussed with patient and no further questions were expressed at this time. The patient was advised to follow up with her primary care physician, Dr Mcmillan, next week. Discharge Plan Departure Patient Disposition: Home Clinical Impression: Bronchitis Discharge Date/Time: 05/19/19 15:25 Interventions: ED Discharge Assessment Last Done: 05/19/19 15:21 Instructions: DI for Acute Bronchitis Activity Restrictions/Additional Instructions: You have been diagnosed with [bronchitis. Please continue to take care azithromycin until it is gone]. What to do: *Take your medications as directed. You're medication has been transmitted to [facility] in [place]. Take cough per, Benzonatate as needed 3 times a day also please take maximum strength dose of Mucinex DS for cough and congestion. *Follow up with your primary care provider in 2-3 days, call for an appointment. Let them know you were seen in the ED and that we asked you to be seen in follow up. *Return to ED if you have any new, worsening, or concerning symptoms, such as [increasing breathing difficulty, chest pain, unable to tolerate fluids, any acute concerns]. Prescriptions: New benzonatate 150 mg capsule 150 mg PO Q8H PRN (Reason: cough) Qty: 14 RF: 0 No Action cholecalciferol (vitamin D3) [Vitamin D3] 1,000 unit Capsule 1,000 unit PO DAILY Qty: 0 RF: 0 alprazolam 0.25 MG tablet 0.25 mg PO DAILY PRN (Reason: Anxiety) Qty: 0 RF: 0 aspirin 81 MG tablet,delayed release (DR/EC) 81 mg PO BID Qty: 60 RF: 0 esomeprazole magnesium 40 mg capsule,delayed release(DR/EC) 40 mg PO DAILY RF: 0 Restasis 0.05 % dropperette 1 drp ophthalmic (eye) DIRECTED RF: 0 Elmiron 100 mg capsule 100 mg PO TID RF: 0 azithromycin 250 mg tablet See Rx Instructions .ROUTE .COMPLEX RF: 0 citalopram 20 mg tablet 40 mg PO DAILY RF: 0 albuterol sulfate [ProAir HFA] 90 mcg/actuation HFA aerosol inhaler 1 puff inhalation PRN PRN (Reason: Shortness Of Breath) RF: 0 Advair HFA 115-21 mcg/actuation HFA aerosol inhaler 2 puff inhalation BID RF: 0 estradiol [Yuvafem] 10 mcg tablet 10 mcg vaginal 2XW RF: 0 Qvar RediHaler 80 mcg/actuation HFA aerosol breath activated 1 puff inhalation BID RF: 0 Referrals: Percy Mcmillan MD [Primary Care Provider] - <Yecenia Edmonds DO - Last Filed: 05/23/19 07:22> Cosign ED Attending Cosignature Attestation: I was immediately available in the department for consultation. This documentation has been reviewed and I agree with assessment and plan. Supervised by Yecenia Edmonds DO
== END 2019-05-19 15:25 | disposition home or self-care (01) ==
PROVIDERS: Emergency Provider Nurse Practitioner Family; PCP Internal Medicine
DX: J40 Bronchitis, not specified as acute or chronic (principal)
CPT/HCPCS: 99282

== ENCOUNTER → 2019-06-23 13:30 | Outpatient (CLI) | payer MEDICARE, OTHER, SELFPAY | PROVIDERS: PCP Internal Medicine; Referring Provider Internal Medicine Rheumatology; Visit Provider Internal Medicine | DX: M81.0 Age-related osteoporosis without current pathological fracture (principal); Z78.0 Asymptomatic menopausal state | CPT/HCPCS: 77080 ==

== ENCOUNTER → 2019-09-05 14:38 | Outpatient (CLI) | payer MEDICARE, OTHER, SELFPAY ==
--- NOTE | 2019-09-05 | DI.RAD.S_ITS ---
PROCEDURE: XR HIP W PEL IF DONE LT 2V INDICATIONS: Left hip pain TECHNIQUE: 2 views of the hip were acquired. COMPARISON: None. FINDINGS: Bones: No fractures or dislocations. No suspicious bony lesions. The visualized pelvic ring appears intact. Mild joint narrowing with periarticular osteophyte formation. Soft tissues: No suspicious soft tissue calcifications or masses. IMPRESSION: Mild left hip joint degeneration. Dictated by: Solo OQUENDO Interpreted: Teresa Orozco MD on 09/05/2019 at 17:42 Approved by: Teresa Orozco M.D. on 09/05/2019 at 18:37
== END ==
PROVIDERS: PCP Internal Medicine; Visit Provider Internal Medicine
DX: M25.552 Pain in left hip (principal); M16.12 Unilateral primary osteoarthritis, left hip
CPT/HCPCS: 73502

== ENCOUNTER 2019-11-30 10:30 | Outpatient (RCR) | payer MEDICARE, OTHER, SELFPAY ==
--- NOTE | 2019-11-17 17:27 | ST.OPIE ---
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 Rosario, ENT. According to the records received and interview with Brian, she has had a rough voice for a while. She believes it is related to her asthma inhaler, which contains cortisone. She has used inhalers for years, she reported. Dr. Rosario viewed Brian's vocal folds via laryngoscopy, which indicated normally mobile vocal folds without lesion. There was evidence of tremor. At higher pitches ( singing pitches), her vocal quality was improved. Oral Motor Assessment Source: [place] [employer] ([employer]). Oral-Motor Eval Completed Yes: Informal observation noted structures/function to be WFL - Laryngeal Performance S/Z Ratio S/Z Ratio .69 Functional for Speech Yes Reduced Laryngeal Function Relative to No Respiration CAPE-V Overall Severity 85 Roughness 88 Breathiness 50 Strain 55 Pitch 85 Normal Resonance? Yes Additional Features Diplophonia,Glottal Rothman,Pitch Instability Maximum Phonation Time MPT Norms: Women (15-25) Men (25-35) Loudness (50-60 dB); Speaking Rate: Oral Reading of Sentences (190 Words Per Minute); Oral Reading of Paragraphs (160-170 WPM); Speaking Rate in Conversation (150-250 WPM) Maximum Phonation Time 14.2 Maximum Phonation Time Adequate for Speech Jitter/Shimmer Norms: Jitter (Less than or equal to 1.040% - Frequency) Norms: Shimmer (Less than or equal to 3.810% - Amplitude) Jitter 4.5 Shimmer 13.2 Pitch Homestead Pitch Homestead Pitch Breaks Pitch Homestead Comments Higher pitch observed to have better vocal quality than speaking voice Muscle Tension Assessment Muscle Tension Assessment None Breath Support Breath Support At Rest Abdominal Speaks on Room Air Yes Postural Alignment Stance Balanced Voice Pitch Range Norms: Women (100-300 Hz) Men (70-250 Hz) Fundamental Frequency Norms: Women (Mean: 225 Hz; Range: 155-334 Hz) Men ( Mean: 128 Hz; Range: 85-196 Hz) Voice Pitch Severely Low,Pitch Breaks, Diplophonia Voice Loudness Normal Voice Phonatory-based Quality Strident,Glottal Rothman, Diplophonia Fundamental Frequency 171.8 Hz (significantly low) Paradoxical Vocal Fold Movement No Indications Resonance Nasal Resonance Normal Oral Resonance Normal Therapeutic Techniques Other Tactics Vocal adduction exercises Findings Findings Moderate-Severe Impairment Observations Brian Carrillo presented with 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 She reported that she has used inhalers for decades, with and without corticosteroids. The use of these inhalers may be a contributing factor, however, Brian reported that she follows the instructions to rinse her mouth and drink water following inhaler use. 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 This may explain the diplophonia, high jitter/shimmer values and improved vocal quality with higher pitch. When pitch is elevated, the vocal folds elongate, increasing vocal tension. This tension may result in improved vocal fold vibration, improving vocal quality and reducing diplophonia. Prognosis Rehabilitation Potential Good - Recommendations Treatment Recommended Yes Treatment Frequency/Duration weekly Short Term Goals Pt will practice vocal adduction exercises daily to increase medial compression of the vocal folds. Pt will reduce glottal rothman and diplophonic qualities in her voice to WFL. Jitter/Shimmer values will be reduced to WNL. Referrals Referrals ENT Patient/Caregiver Education Patient/Family Education Described results of evaluation,Patient Understanding,Patient Demonstration Vocally Abusive Behavior Behavior Rating Mouth Breathing Always Environmental Irritant Exposure seasonal allergies Use of Inhalants Always
--- NOTE | 2019-11-24 12:03 | ST.OPTN ---
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 Brian has had a rough voice for a while. She believes it is related to her asthma inhaler, which contains cortisone. She has used inhalers for years, she reported. 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 Pt will reduce glottal candelario and diplophonic qualities in her voice to WFL. Pt's pitch will increase to between 185 and 225 Hz during most speaking setting. Care Home Goals Improved vocal quality and pitch Treatment Activities Pt reported that she is doing her vocal adduction exercises daily. She feels her voice may already be improving. Discussed optimal pitch range for pt. Her laugh and mm-hmm pitches were recorded and determined to be ~200-215Hz. She was introduced to a phone dannie for monitoring pitch as it is spoken. Target pitches for pt were set at minimum of 185 to maximum of 225. Pt to use automatic phrases to practice with her pitch. Assessment Patient Response to Treatment Excellent Rehab Potential Excellent Impairments Identified Vocal Quality Reviewed with Patient Goals,Home Exercise Program Plan Amount of Therapy Recommended 2 Months Frequency of Treatment Once a Week Length of Session 45 Minutes Therapeutic Contents Voice Training
--- NOTE | 2019-11-30 12:45 | ST.OPTN ---
Visit Care Team Role Provider Type Percy Mcmillan MD Primary Care Provider Physician Address: [address] [place] [address], [id number] Ramsey Rosario MD Attending Provider Physician Referring Provider Address: [address] [place] [address], [id number] EVENT STAFF Treatment Note EVENT STAFF Treatment Note Start: 11/17/19 16:45 Freq: Status: Active Protocol: Document 11/30/19 12:27 LL (Rec: 11/30/19 12:44 LL [email or web address]) Speech Pathology Treatment Note Session Time Visit Start Time 10:30 Visit Stop Time 11:20 Total Visit Minutes 50 Visit Information Visit Number 3 Plan of Care Dates 11/17/19-01/16/20 Setting Treatment Setting Outpatient Care Visit Type Note Type Treatment Note Next Note Type Next Note Type Treatment Note General Information General Information Brian Carrillo, age 79 years, was seen for a voice evaluation on 11/17/19. Brian has had a rough voice for a while. She believes it is related to her asthma inhaler, which contains cortisone. She has used inhalers for years, she reported. 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 Subjective Identification Type Name,Picture Others Present Family Chief Complaint(s) Voice Rehab Expectation/Goals: Patient Goals Improved vocal quality Patient Knowledge/Awareness of EVENT STAFF Role Good in Treatment Patient/Caregiver Compliance with Home Excellent Exercise Program Objective Short Term Goals Pt will practice vocal adduction exercises daily to increase medial compression of the vocal folds. Pt will reduce glottal candelario and diplophonic qualities in her voice to WFL. Pt's pitch will increaseto between 185 and 225 Hz during most speaking setting. [facility] Goals Improved vocal quality and pitch Treatment Activities Pt reported that she practices her vocal fold adduction exercises daily. Pt's maximum phonation time (MPT) was 9.82 seconds (e.g., 7.22 seconds, 14.12 seconds, and 8.14 seconds). Continuation of phone dannie training for monitoring pitch. Reviewed target pitches (e.g., minimum of 185 to maximum of 225) and practiced monitoring pitch during structured reading tasks. Pt's pitches were recorded and determined to be ~169-204Hz (e.g., 169 for first passage and 204 for second passage). Pt completed pitch range exercises (e.g., low to high, high to low, singing) given mod assistance to reduce glottal candelario, tension , and shimmer/jitter. EVENT STAFF reviewed and trained diaphragmatic breathing with patient to increase her breathing awareness and increase breath support. Patient reported that she frequently breathes and sleeps with her mouth open. EVENT STAFF instructed patient to practice diaphragmatic breathing at home as well as create a voice journal to keep track of vocal changes and/or progress. Patient verbalized understanding and agreement to home exercise program. Assessment Patient Response to Treatment Excellent Rehab Potential Excellent Impairments Identified Vocal Quality Reviewed with Patient Goals,Home Exercise Program Plan Amount of Therapy Recommended 2 Months Frequency of Treatment Once a Week Length of Session 45 Minutes Therapeutic Contents Voice Training
--- NOTE | 2020-03-06 16:07 | ST.OPDS ---
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 Brian has had a rough voice for a while. She believes it is related to her asthma inhaler, which contains cortisone. She has used inhalers for years, she reported. 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 Subjective Observations/Patient Presentation Brian called scheduling department on 02/22/2020 to request discharge from speech therapy. Brian stated that she will not be returning for some time. Objective Short Term Goals Pt will practice vocal adduction exercises daily to increase medial compression of the vocal folds. - DISCONTINUE GOAL Pt will reduce glottal candelario and diplophonic qualities in her voice to WFL. - DISCONTINUE GOAL Pt's pitch will increase to between 185 and 225 Hz during most speaking setting. 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 - DISCONTINUE GOAL Plan Amount of Therapy Recommended No Further Therapy Frequency of Treatment No Further Therapy Therapy Recommendations Discharge from Speech Therapy Reason for Discharge Patient request.
== END 2020-03-11 08:46 ==
LOC: SP 10:30
PROVIDERS: PCP Internal Medicine; Referring Provider Otolaryngology; Visit Provider Otolaryngology
DX: R49.0 Dysphonia (principal)
CPT/HCPCS: 92507; 92520; 92524

== ENCOUNTER 2020-02-29 15:30 | Emergency (ER) | payer MEDICARE, OTHER, SELFPAY ==
--- NOTE | 2020-02-29 15:33 | ED_ITS ---
HPI - General Adult General Chief complaint: Fall Stated complaint: GLF Time Seen by Provider: 02/29/20 15:33 Source: patient Mode of arrival: EMS Limitations: no limitations History of Present Illness HPI narrative: Patient is an 80-year-old female brought in by EMS for evaluation after she was on a walk with her on a gravel road and she states she tripped and fell forward. Hitting her face on the ground. She had no loss of consciousness. No neck pain. Was able to walk afterwards. Not on anticoagulation. Sustained injuries to the right side of her face in her right hand and her left knee. Is brought to the emergency department for evaluation of her injuries. No interventions prior to arrival. Related Data Home Medications Medication Instructions Recorded Confirmed alprazolam 0.25 mg PO DAILY PRN #0 11/03/17 02/09/19 cholecalciferol (vitamin D3) 1,000 unit PO DAILY #0 11/03/17 [Vitamin D3] cyclosporine [Restasis] 1 drp OPHTHALMIC (EYE) DIRECTED 02/09/19 05/19/19 esomeprazole magnesium 40 mg PO DAILY 02/09/19 05/19/19 albuterol sulfate [ProAir HFA] 1 puff INHALATION PRN PRN 05/19/19 05/19/19 azithromycin See Rx Instructions .ROUTE .COMPLEX 05/19/19 05/19/19 beclomethasone dipropionate [Qvar 1 puff INHALATION BID 05/19/19 05/19/19 RediHaler] citalopram 40 mg PO DAILY 05/19/19 05/19/19 estradiol [Yuvafem] 10 mcg VAGINAL 2XW 05/19/19 05/19/19 fluticasone propion-salmeterol 2 puff INHALATION BID 05/19/19 05/19/19 [Advair HFA] pentosan polysulfate sodium 100 mg PO TID 05/19/19 05/19/19 [Elmiron] Previous Rx's Medication Instructions Recorded aspirin 81 mg PO BID #60 11/17/17 benzonatate 150 mg PO Q8H PRN #14 cap 05/19/19 Allergies Allergy/AdvReac Type Severity Reaction Status Date / Time adhesive [ADHESIVE] AdvReac Severe THIN Verified 02/29/20 15:40 SKIN, PULLS SKIN OFF PAPER/SILK TAPE OK Sulfa (Sulfonamide AdvReac Severe I GET Verified 02/29/20 15:40 Antibiotics) EXTREMELY [SULFA (SULFONAMIDE NERVOUS, ANTIBIOTICS)] JITTERY PAIN MEDICATIONS AdvReac Unknown I GET ALL Uncoded 02/29/20 15:40 OF THE SIDE EFFECTS, NO PAIN RELIEF Review of Systems Constitutional Constitutional: Denies fever(s), Denies frequent falls and Denies headache(s) Eyes Eyes: Denies blurry vision and Denies change in vision ENT Ears, Nose, Mouth, and Throat: Denies headache(s) Cardiovascular Cardiovascular: Denies chest pain and Denies dyspnea Respiratory Respiratory: Denies dyspnea Gastrointestinal Gastrointestinal: Denies abdominal pain and Denies change in bowel habits Musculoskeletal Musculoskeletal: Denies arthralgias, Denies back pain and Denies myalgias Integumentary/Breasts Comments: Abrasions to the right side of face, skin tear right wrist and abrasions left knee Neurologic Neurologic: Denies behavioral changes, Denies frequent falls and Denies headache(s) Psychiatric Psychiatric: Denies behavioral changes Hematologic/Lymphatic Hematologic/Lymphatic: Denies easy bleeding and Denies easy bruising Allergic/Immunologic Allergic/Immunologic: Denies urticaria Patient History Medical History Asthma (Chronic) GERD (gastroesophageal reflux disease) (Chronic) Kidney stones (Resolved) Osteoarthritis (Chronic) Surgical History History of cataract removal with insertion of prosthetic lens (Resolved) History of knee replacement (Resolved) History of shoulder surgery (Resolved) Family History Brother Age: 89 Dementia Heart disease Mental health disorder Pacemaker Grandfather Mental health disorder Grandmother Arthritis Grandmother Mental health disorder Social History Smoking Status: Unknown if ever smoked Smoking Status: Unknown if ever smoked alcohol intake frequency: 0-2 drinks per day Substance Use Type: does not use Exam Initial Vital Signs Initial Vital Signs: Vital Signs Temperature 98.4 F 02/29/20 15:36 Pulse Rate 64 02/29/20 15:36 Respiratory Rate 16 02/29/20 15:36 Blood Pressure 180/91 H 02/29/20 15:36 Pulse Oximetry 99 02/29/20 15:36 Const General: cooperative, healthy appearing, comfortable and well developed Limitations: mental status not altered HENMT Head: normal to inspection and normocephalic Nose: septum normal, No epistaxis and No nasal discharge Face and sinus: abrasion on the right, no crepitus, edema on the right and no maxillary instability Mouth: oral mucosae normal and lip abnormal (Superficial laceration lower lip) Teeth and gingiva: dentition normal Throat: posterior oropharynx normal Eyes Pupils: PERRL EOM: EOM intact bilaterally Resp Effort & Inspection: normal respiratory effort Auscultation: clear to auscultation bilaterally Cardio Rate: regular rate Rhythm: regular rhythm Back/Spine/Pelvis Cervical Spine: No cervical spinal tenderness Skin Other: To left anterior knee, small superficial skin tear to the dorsum of the right hand. Abrasion to the palm of the right hand. Has multiple abrasions to the right side of the face. No active bleeding. Neuro General: patient alert, patient awake and patient oriented x3 Cognition: normal cognition Speech: speech normal Gait: normal gait Extrem General: normal to inspection and capillary refill normal Psych Appearance: grossly normal and well kempt Procedures Laceration Repair Laceration 1: Site: face Side (If applicable): right Size (cm): 0.5 Description: linear Depth: simple, single layer Pre-repair: irrigated extensively Skin layer closed with: other (Chromic) Size (cm): 5-0 Number of sutures: 1 Scores GCS Cristóbal coma scale eye opening: Spontaneous [place] coma scale verbal response: Orientated Cristóbal coma scale motor response: Obey commands Cristóbal coma scale total score: 15 Nexus Score for C-Spine Focal Neurologic deficit present: No Midline spinal tenderness present: No Altered level of conciousness present: No Intoxication present: No Distracting Injury Present: No Nexus Criteria for C-spine: 0 Course Orders Ordered: ED Orders 02/29/20 15:43 Urine Culture Stat Urine Microscopic Stat 02/29/20 15:54 CT facial bones wo con Stat CT head/brain wo con Stat Discontinued Medications Bacitracin (Bacitracin) 4 applic TOP NOW ONE Stop: 02/29/20 15:54 Vital Signs Vital signs: Vital Signs - 8 hr 02/29/20 15:36 Temperature 98.4 F Pulse Rate 64 Respiratory Rate 16 Blood Pressure 180/91 H Pulse Oximetry 99 Medical Decision Making Lab Data Lab results reviewed: Yes I reviewed the patient's lab results. Labs: Lab Results 02/29/20 Range/Units 15:43 Urine RBC 1-5/hpf (0-5/HPF) Urine WBC 10-30/hpf H (0-5/HPF) Ur Squamous Epith Cells 0-1 /hpf (0-5/HPF) Amorphous Sediment 1+ Urine Bacteria Few (2-10) H (None) Urine Mucus 1+ H (Negative) Ur Culture Indicated? Specimen cultured Urine Dip Bedside Urine Glucose Negative Bedside Urine Bilirubin - Negative Bedside Urine Ketone - Negative Urine Specific [place] 1.015 Bedside Urine Occult Blood + Bedside Urine pH 6.0 Bedside Urine Protein +/- 15 Bedside Urine Urobilinogen - Negative Bedside Urine Nitrite - Negative Bedside Urine Leukocytes +++ 500 Esterase Point of care testing: Urine Dip Bedside Urine Glucose Negative Bedside Urine Bilirubin - Negative Bedside Urine Ketone - Negative Urine Specific [place] 1.015 Bedside Urine Occult Blood + Bedside Urine pH 6.0 Bedside Urine Protein +/- 15 Bedside Urine Urobilinogen - Negative Bedside Urine Nitrite - Negative Bedside Urine Leukocytes +++ [address] scan - head: Radiologist's Impression: [address] [address] [address] Scan Report Signed Patient: Brian Carrillo [facility]#: [id number] : 1940Acct:[id number] Age/Sex: 80 / FDate of Service: 02/29/20 Loc: ED Accession Number: [id number] Procedure: CT head/brain wo con Ordering Provider: Reid Burkett D.O. PROCEDURE: CT HEAD/BRAIN WO CON INDICATIONS: Fall, hit right side of head TECHNIQUE: Noncontrast 4.5 mm thick angled axial sections acquired from the foramen magnum to the vertex, with coronal and sagittal reformats. For radiation dose reduction, the following was used: automated exposure control, adjustment of mA and/or kV according to patient size. COMPARISON: [facility], CT, CT HEAD/BRAIN WO CON, 07/26/2018, 4:09. FINDINGS: Image quality: Excellent. CSF spaces: Basal cisterns are patent. No extra-axial fluid collections. The ventricles are symmetric in size and shape. Brain: No intracranial bleeds or masses. There is cerebral volume loss for age, with resultant ventricular and sulcal prominence. There are mild periventricular and deep white matter chronic small vessel ischemic changes. There is intracranial internal carotid artery atherosclerosis. Skull and face: Calvarium and visualized facial bones appear intact, without suspicious lesions. Sinuses: Visualized sinuses and mastoids are clear. IMPRESSION: 1. Age related volume loss and mild small vessel ischemic change. 2. Negative for acute stroke, hemorrhage, or mass. 3. No evidence of significant intracranial sequelae of acute trauma. Dictated by: Daniel Hernandez M.D. on 02/29/2020 at 16:17 Approved by: Daniel Hernandez M.D. on 02/29/2020 at 16:1 CT face: Radiologist's Impression: [address] [address] [address] Scan Report Signed Patient: Brian Carrillo [facility]#: [id number] : 9Acct:[id number] Age/Sex: 80 / FDate of Service: 02/29/20 Loc: ED Accession Number: [id number] Procedure: CT facial bones wo con Ordering Provider: Reid Burkett D.O. PROCEDURE: CT FACIAL BONES WO CON INDICATIONS: Fall right-sided facial swelling concern for fracture TECHNIQUE: Noncontrast 2.5 mm thick axial images acquired from the mandible through the frontal sinuses, with coronal and sagittal reformatting. For radiation dose reduction, the following was used: automated exposure control, adjustment of mA and/or kV according to patient size. COMPARISON: [facility], CT, CT HEAD/BRAIN WO CON, 02/29/2020, 16:03. FINDINGS: Image quality: Excellent. Bones and teeth: Orbital kohler are intact. Sinus kohler show no fracture or deformity. Nasal bones and septum are intact. Visualized portions of the mandible d emonstrate no fractures or subluxation. Zygomatic arches are intact. Pterygoid plates are intact. Visualized portions of the skull base and auditory canals are intact. There is moderate to severe atlantoaxial joint effusion. 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 Sinuses: There is a small fluid level in the left sphenoid sinus. Sinuses are otherwise the clear. Mastoid air cells are aerated. Soft tissues: Right periorbital and premaxillary soft tissue contusion. Sub cutaneous gas collections are noted in the right cheek. No enlarged lymph nodes. No soft tissue lacerations or debris. Vascular: Visualized vascular structures appear normal in the absence of co ntrast. Bony vascular foramina and canals are intact. IMPRESSION: 1. No acute facial bone fractures. 2. Right periorbital and premaxillary soft tissue contusions. 3. Degenerative changes in cervical spine. 4. 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 Dictated by: Cesar Sung M.D. on 02/29/2020 at 16:24 Approved by: Cesar Sung M.D. on 02/29/2020 at 16:39 MDM Narrative Medical decision making narrative: Head CT facial CT unremarkable. Has multiple abrasions and skin tears most of which she no intervention. The small laceration on her right cheek was closed with 1 stitch. Patient was given return precautions and follow-up instructions. She expressed understanding and agreement. Discharge Plan Departure Patient Disposition: Home Clinical Impression: Skin tear Abrasion of face Qualifiers: Encounter type: initial encounter Qualified Code(s): S00.81XA - Abrasion of other part of head, initial encounter Facial laceration Qualifiers: Encounter type: initial encounter Qualified Code(s): S01.81XA - Laceration without foreign body of other part of head, initial encounter Fall Qualifiers: Encounter type: initial encounter Qualified Code(s): W19.XXXA - Unspecified fall, initial encounter Activity Restrictions/Additional Instructions: You can shower like normal. The 1 stitch that was placed in her right cheek will dissolve on its own. You will have a black eye on the right. Use some ice over this area. Contact your primary provider for follow-up. Return to the emergency department for any new or worsening symptoms Prescriptions: No Action cholecalciferol (vitamin D3) [Vitamin D3] 1,000 unit Capsule 1,000 unit PO DAILY Qty: 0 RF: 0 alprazolam 0.25 MG tablet 0.25 mg PO DAILY PRN (Reason: Anxiety) Qty: 0 RF: 0 aspirin 81 MG tablet,delayed release (DR/EC) 81 mg PO BID Qty: 60 RF: 0 esomeprazole magnesium 40 mg capsule,delayed release(DR/EC) 40 mg PO DAILY RF: 0 Restasis 0.05 % dropperette 1 drp ophthalmic (eye) DIRECTED RF: 0 Elmiron 100 mg capsule 100 mg PO TID RF: 0 azithromycin 250 mg tablet See Rx Instructions .ROUTE .COMPLEX RF: 0 citalopram 20 mg tablet 40 mg PO DAILY RF: 0 albuterol sulfate [ProAir HFA] 90 mcg/actuation HFA aerosol inhaler 1 puff inhalation PRN PRN (Reason: Shortness Of Breath) RF: 0 Advair HFA 115-21 mcg/actuation HFA aerosol inhaler 2 puff inhalation BID RF: 0 estradiol [Yuvafem] 10 mcg tablet 10 mcg vaginal 2XW RF: 0 Qvar RediHaler 80 mcg/actuation HFA aerosol breath activated 1 puff inhalation BID RF: 0 benzonatate 150 mg capsule 150 mg PO Q8H PRN (Reason: cough) Qty: 14 RF: 0 Referrals: Percy Mcmillan MD [Primary Care Provider] -
[2020-02-29 15:36] VITALS: BP 180/91; PULSE 64; RESP 16; TEMP 36.9; O2SAT 99; BMI 23.8
--- NOTE | 2020-02-29 15:54 | DI.CT.S_ITS ---
PROCEDURE: CT HEAD/BRAIN WO CON INDICATIONS: Fall, hit right side of head TECHNIQUE: Noncontrast 4.5 mm thick angled axial sections acquired from the foramen magnum to the vertex, with coronal and sagittal reformats. For radiation dose reduction, the following was used: automated exposure control, adjustment of mA and/or kV according to patient size. COMPARISON: [facility], CT, CT HEAD/BRAIN WO CON, 07/26/2018, 4:09. FINDINGS: Image quality: Excellent. CSF spaces: Basal cisterns are patent. No extra-axial fluid collections. The ventricles are symmetric in size and shape. Brain: No intracranial bleeds or masses. There is cerebral volume loss for age, with resultant ventricular and sulcal prominence. There are mild periventricular and deep white matter chronic small vessel ischemic changes. There is intracranial internal carotid artery atherosclerosis. Skull and face: Calvarium and visualized facial bones appear intact, without suspicious lesions. Sinuses: Visualized sinuses and mastoids are clear. IMPRESSION: 1. Age related volume loss and mild small vessel ischemic change. 2. Negative for acute stroke, hemorrhage, or mass. 3. No evidence of significant intracranial sequelae of acute trauma. Dictated by: Daniel Hernandez M.D. on 02/29/2020 at 16:17 Approved by: Daniel Hernandez M.D. on 02/29/2020 at 16:18
--- NOTE | 2020-02-29 15:54 | DI.CT.S_ITS ---
PROCEDURE: CT FACIAL BONES WO CON INDICATIONS: Fall right-sided facial swelling concern for fracture TECHNIQUE: Noncontrast 2.5 mm thick axial images acquired from the mandible through the frontal sinuses, with coronal and sagittal reformatting. For radiation dose reduction, the following was used: automated exposure control, adjustment of mA and/or kV according to patient size. COMPARISON: [facility], CT, CT HEAD/BRAIN WO CON, 02/29/2020, 16:03. FINDINGS: Image quality: Excellent. Bones and teeth: Orbital kohler are intact. Sinus kohler show no fracture or deformity. Nasal bones and septum are intact. Visualized portions of the mandible demonstrate no fractures or subluxation. Zygomatic arches are intact. Pterygoid plates are intact. Visualized portions of the skull base and auditory canals are intact. There is moderate to severe atlantoaxial joint effusion. 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 Sinuses: There is a small fluid level in the left sphenoid sinus. Sinuses are otherwise the clear. Mastoid air cells are aerated. Soft tissues: Right periorbital and premaxillary soft tissue contusion. Subcutaneous gas collections are noted in the right cheek. No enlarged lymph nodes. No soft tissue lacerations or debris. Vascular: Visualized vascular structures appear normal in the absence of contrast. Bony vascular foramina and canals are intact. IMPRESSION: 1. No acute facial bone fractures. 2. Right periorbital and premaxillary soft tissue contusions. 3. Degenerative changes in cervical spine. 4. 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 Dictated by: Cesar Sung M.D. on 02/29/2020 at 16:24 Approved by: Cesar Sung M.D. on 02/29/2020 at 16:39
[2020-02-29 16:00] LABS: Amorphous Sediment Urine 1+; Bacteria Urine Few (2-10); Culture Indicated Urine Specimen Cultured; Mucus Urine 1+ (Negative); RBC Urine 1-5/HPF (0-5/HPF); Squamous Epithelial Cell Urine 0-1 /HPF (0-5/HPF); WBC Urine 10-30/HPF (0-5/HPF)
[2020-02-29 16:58] VITALS: BP 159/71; PULSE 64; RESP 16; O2SAT 100
[2020-02-29] MEDS: BACITRACIN OINT 0.9 GM PCKT 4 APPLIC TOP (17:21)
== END 2020-02-29 17:23 | disposition home or self-care (01) ==
PROVIDERS: Emergency Provider Emergency Medicine; PCP Internal Medicine
DX: S01.411A Laceration without foreign body of right cheek and temporomandibular area, initial encounter (principal); S80.212A Abrasion, left knee, initial encounter; S60.511A Abrasion of right hand, initial encounter; W01.0XXA Fall on same level from slipping, tripping and stumbling without subsequent striking against object, initial encounter; Y93.01 Activity, walking, marching and hiking
CPT/HCPCS: 12011; 70450; 70486; 81003; 81015; 87086; 99283; 99284

== ENCOUNTER → 2020-07-11 12:08 | Outpatient (CLI) | payer MEDICARE, OTHER, SELFPAY ==
--- NOTE | 2020-07-11 | DI.US.S_ITS ---
7PROCEDURE: US ABDOMEN COMPLETE INDICATIONS: PAIN TECHNIQUE: Real-time scanning was performed of the abdominal and retroperitoneal organs, with image documentation. COMPARISON: None. FINDINGS: Liver: Liver is normal in size and homogeneous in echotexture. Simple appearing cyst seen in the left lobe measuring 2.1 cm. There is a septated cyst in the left lobe measuring 0.8 x 0.8 x 0.7 cm. Gallbladder: Sludge is noted within the gallbladder. There is no definite wall thickening or pericholecystic fluid. No sonographic Mayes sign identified. Incidentally noted Phrygian cap Biliary ducts: Intrahepatic bile ducts are non-dilated. Extrahepatic bile duct caliber measures 4-5 mm. Normal is 6-7 mm or less in diameter, or 10 mm or less post-cholecystectomy. Pancreas: Visualized portions of the pancreas are sonographically normal. Spleen: Spleen is normal in size and homogeneous in echotexture. Kidneys: Kidneys are normal in size and echotexture. Right kidney measures 8.3 cm long; left kidney measures 11.1 cm long. No hydronephrosis. Nonobstructive 5-6 mm calculus seen in the inferior pole the right kidney. 1.4 cm upper pole simple appearing right renal cyst.. No solid masses. Aorta: Visualized aorta is normal in caliber at less than 3 cm. Iliacs: Proximal common iliac arteries are normal in caliber at less than 2.5 cm. IVC: Intrahepatic inferior vena cava is patent. Miscellaneous: No free abdominal fluid. IMPRESSION: Hepatic and renal cysts. Gallbladder sludge however no other sonographic criteria for acute cholecystitis. Nonobstructive right renal calculus Dictated by: Peterson Forrester M.D. on 07/11/2020 at 16:12 Approved by: Peterson Forrester M.D. on 07/11/2020 at 16:15
--- NOTE | 2020-07-11 | DI.US.S_ITS ---
PROCEDURE: US PELVIC COMPLETE INDICATIONS: LEFT LOWER QUADRANT MASS TECHNIQUE: Real-time scanning was performed of the pelvic organs, with image documentation. Additional endovaginal scanning was not performed at the patient's request. COMPARISON: None. FINDINGS: Transabdominal scanning: Limited scanning through the kidneys shows no hydronephrosis. No pathologic free abdominal or pelvic fluid. Endovaginal scanning: Uterus: Uterus is normal in size at 6.4 x 2.6 x 4.8 cm. The endometrium measures 2.6 mm in combined thickness. Ovaries: Ovaries not identified. No adnexal masses. No left inguinal hernia. IMPRESSION: No pelvic mass identified. If there is continued clinical concern for pelvic mass, consider CT or MRI. Dictated by: Solo OQUENDO Interpreted: Ramsey Gonzalez MD on 07/11/2020 at 16:18 Approved by: Ramsey Gonzalez M.D. on 07/11/2020 at 16:33
== END ==
PROVIDERS: PCP Internal Medicine; Referring Provider Internal Medicine; Visit Provider Internal Medicine
DX: R10.32 Left lower quadrant pain (principal); K76.89 Other specified diseases of liver; N28.1 Cyst of kidney, acquired; N20.0 Calculus of kidney; K83.8 Other specified diseases of biliary tract
CPT/HCPCS: 76700; 76856

== ENCOUNTER 2020-07-28 11:11 | Emergency (ER) | payer MEDICARE, OTHER, SELFPAY ==
[2020-07-28 11:15] VITALS: BP 120/57; PULSE 79; RESP 16; TEMP 36.8; O2SAT 97; BMI 23.9
--- NOTE | 2020-07-28 12:20 | DI.RAD.S_ITS ---
PROCEDURE: XR CHEST 2V INDICATIONS: Chills, bodyaches, vomiting TECHNIQUE: 2 views of the chest were acquired. COMPARISON: [facility], CR, XR CHEST 2V, 05/09/2019, 14:05. FINDINGS: Surgical changes and devices: None. Lungs and pleura: Lungs are clear. No pleural effusions or pneumothorax. Mediastinum: Mediastinal contours are normal. Heart size is normal. Bones and chest wall: No suspicious bony abnormalities. Soft tissues appear unremarkable. IMPRESSION: No findings of pneumonia or other acute cardiopulmonary process. Dictated by: Matias Dickson M.D. on 07/28/2020 at 12:50 Approved by: Matias Dickson M.D. on 07/28/2020 at 12:50
--- NOTE | 2020-07-28 12:29 | ED.ALLEREA ---
HPI - Allergic Reaction <Jean-Paul Olvera DRAWING KILN SUPERVISOR - Last Filed: 07/28/20 17:52> General Chief complaint: Allergic Reaction Stated complaint: allergic reaction to shingles shot Time Seen by Provider: 07/28/20 12:04 Source: patient Mode of arrival: Ambulatory Limitations: no limitations History of Present Illness HPI narrative: This is a 80-year-old female, nonsmoker, with past medical history significant for arthritis, anxiety, osteoarthritis, GERD, asthma, interstitial cystitis presents to ED with spouse with chief complain of reaction to Shingles vaccination. Patient reports she had received a 2nd dose of Shingrix 3 days ago and had emesis following day and yesterday with chills, muscle aches, feeling tired, and exacerbation of arthritis pain, headache. Patient denies runny nose, sore throat, diarrhea, fever, nausea or cough. Patient denies unusual rashes. Reports mild tenderness to left submandibular/anterior cervical lymph nodes. She denies abnormal urinary symptoms. Patient had taken Tylenol regular strength 2 tabs this morning at 7 with limited efficacy. Patient has been pushing fluids to hydrate herself. Related Data Home Medications Medication Instructions Recorded Confirmed alprazolam 0.25 mg PO DAILY PRN #0 11/03/17 02/09/19 cholecalciferol (vitamin D3) 1,000 unit PO DAILY #0 11/03/17 [Vitamin D3] cyclosporine [Restasis] 1 drp OPHTHALMIC (EYE) DIRECTED 02/09/19 05/19/19 esomeprazole magnesium 40 mg PO DAILY 02/09/19 05/19/19 albuterol sulfate [ProAir HFA] 1 puff INHALATION PRN PRN 05/19/19 05/19/19 azithromycin See Rx Instructions .ROUTE .COMPLEX 05/19/19 05/19/19 beclomethasone dipropionate [Qvar 1 puff INHALATION BID 05/19/19 05/19/19 RediHaler] citalopram 40 mg PO DAILY 05/19/19 05/19/19 estradiol [Yuvafem] 10 mcg VAGINAL 2XW 05/19/19 05/19/19 fluticasone propion-salmeterol 2 puff INHALATION BID 05/19/19 05/19/19 [Advair HFA] pentosan polysulfate sodium 100 mg PO TID 05/19/19 05/19/19 [Elmiron] Previous Rx's Medication Instructions Recorded aspirin 81 mg PO BID #60 11/17/17 benzonatate 150 mg PO Q8H PRN #14 cap 05/19/19 lidocaine 1 patch TOP Q24H PRN #15 each 07/28/20 Allergies Allergy/AdvReac Type Severity Reaction Status Date / Time adhesive [ADHESIVE] AdvReac Severe THIN Verified 02/29/20 15:40 SKIN, PULLS SKIN OFF PAPER/SILK TAPE OK Sulfa (Sulfonamide AdvReac Severe I GET Verified 02/29/20 15:40 Antibiotics) EXTREMELY [SULFA (SULFONAMIDE NERVOUS, ANTIBIOTICS)] JITTERY PAIN MEDICATIONS AdvReac Unknown I GET ALL Uncoded 02/29/20 15:40 OF THE SIDE EFFECTS, NO PAIN RELIEF Review of Systems <RUSSELL Gregg - Last Filed: 07/28/20 17:52> Review of Systems Narrative: General: Denies fever, (+) chills, fatigue, malaise, sweats. HEENT: Denies sinus pain, ear pain, sore throat, difficulty swallowing, dizziness. Respiratory: Denies dyspnea, cough, wheezing, hemoptysis, sputum. Cardiovascular: Denies chest pain, palpitations, orthopnea, edema. Gastrointestinal: See HPI : Denies dysuria, frequency, incontinence, hematuria, urinary retention. Musculoskeletal: See HPI Skin: Denies rash, skin lesions, or other. Neurologic: Denies weakness, headache, numbness, change in speech, confusion, seizures, incoordination. Psychiatric: No concerning psychosocial issues. 12-point review of systems is negative except for those stated above. Patient History <RUSSELL Gregg - Last Filed: 07/28/20 17:52> Medical History (Updated 07/28/20 @ 15:00 by RUSSELL Gregg) Asthma (Chronic) GERD (gastroesophageal reflux disease) (Chronic) Kidney stones (Resolved) Osteoarthritis (Chronic) Surgical History History of cataract removal with insertion of prosthetic lens (Resolved) History of knee replacement (Resolved) History of shoulder surgery (Resolved) Family History Brother Age: 89 Dementia Heart disease Mental health disorder Pacemaker Grandfather Mental health disorder Grandmother Arthritis Grandmother Mental health disorder Social History Smoking Status: Unknown if ever smoked Smoking Status: Unknown if ever smoked alcohol intake frequency: 0-2 drinks per day Substance Use Type: does not use Exam <RUSSELL Gregg - Last Filed: 07/28/20 17:52> Narrative Exam Narrative: GEN: Alert, oriented x 3, well appearing and nourished, and in no acute distress. Head: Normal cephalic, atraumatic. No scalp or temporal tenderness, palpable mass or rash. EYES: Pupils are equal, round, and reactive to light and accommodation. Extraocular muscles are intact bilaterally. There is no subconjunctival hemorrhage, exudate and sclera non-icteric. ENT: Bilateral auditory canals and tympanic membranes clear. Hearing grossly intact. Nose without bleeding, purulent discharge or deviation. Facial sinuses nontender to palpate. Mucous membrane moist, no mucosal lesion. Throat without erythema, tonsillar hypertrophy or exudate. Uvula in midline, airway patent. Neck: Trachea in midline. No JVD, non-tender without lymphadenopathy. No masses or thyroid megaly. Supple, non-tender and no meningeal signs. CARDIAC: Normal regular rate and rhythm without murmurs, gallops, or rubs. No chest wall tenderness. No peripheral edema, cyanosis or pallor. Capillary refill is less than 2 seconds. RESPIRATORY: Lungs are clear to auscultate bilaterally. No cough, wheezes, rales, or rhonchi. No stridor, respiratory distress, increase work of breathing, or accessary muscle used. ABD: Abdomen soft, nontender and non-distended. No guarding or rebound tenderness to palpate. Bowel sounds are normal in all 4 quadrants. There is no palpable masses or organomegaly. EXT: Full painless ROM of all extremities with no loss of sensation, strength, effusion or edema. SKIN: Warm, dry, normal color for patient. No erythema, lesions or rash over visible areas. BACK: Nontender without deformity or crepitance. No flank tenderness. NEUROLOGICAL: Alert and oriented to place, time and person. Sensation and motor function intact bilaterally. No facial droops, dysphasia. PSYCHIATRIC: Good judgement and reason, without hallucinations, abnormal affect or abnormal behaviors during the examination. Patient is not suicidal. Initial Vital Signs Initial Vital Signs: Vital Signs Temperature 98.2 F 07/28/20 11:15 Pulse Rate 79 07/28/20 11:15 Respiratory Rate 16 07/28/20 11:15 Blood Pressure 120/57 L 07/28/20 11:15 Pulse Oximetry 97 07/28/20 11:15 <Rosanna Alamo DO - Last Filed: 08/09/20 07:22> Initial Vital Signs Initial Vital Signs: Vital Signs Temperature 98.2 F 07/28/20 11:15 Pulse Rate 79 07/28/20 11:15 Respiratory Rate 16 07/28/20 11:15 Blood Pressure 120/57 L 07/28/20 11:15 Pulse Oximetry 97 07/28/20 11:15 Scores <ESTELA GreggP - Last Filed: 07/28/20 17:52> GCS Piggott coma scale eye opening: Spontaneous P[place]ott coma scale verbal response: Orientated Cristóbal coma scale motor response: Obey commands Piggott coma scale total score: 15 qSOFA Altered Mental Status (GCS <15): No Respiratory rate greater than/equal to 22: No Systolic blood pressure less than or equal to 100: No qSOFA Total: 0 0-1 Not High Risk 1-3 High risk Course <ESTELA GreggP - Last Filed: 07/28/20 17:52> Orders Ordered: Discontinued Medications Acetaminophen (Tylenol) 650 mg PO NOW ONE Stop: 07/28/20 12:24 Last Admin: 07/28/20 12:57 Dose: 650 mg Documented by: KULWANT Lidocaine (Lidoderm) 1 each TOP NOW ONE Stop: 07/28/20 14:06 Last Admin: 07/28/20 14:09 Dose: 1 each Documented by: DESI Vital Signs Vital signs: Vital Signs - 8 hr 07/28/20 11:15 07/28/20 15:09 Temperature 98.2 F Pulse Rate 79 58 L Respiratory Rate 16 18 Blood Pressure 120/57 L 101/57 L Pulse Oximetry 97 98 <Rosanna Alamo DO - Last Filed: 08/09/20 07:22> Orders Ordered: Discontinued Medications Acetaminophen (Tylenol) 650 mg PO NOW ONE Stop: 07/28/20 12:24 Last Admin: 07/28/20 12:57 Dose: 650 mg Documented by: KULWANT Lidocaine (Lidoderm) 1 each TOP NOW ONE Stop: 07/28/20 14:06 Last Admin: 07/28/20 14:09 Dose: 1 each Documented by: DESI Vital Signs Vital signs: Vital Signs - 8 hr 07/28/20 11:15 07/28/20 15:09 Temperature 98.2 F Pulse Rate 79 58 L Respiratory Rate 16 18 Blood Pressure 120/57 L 101/57 L Pulse Oximetry 97 98 MDM - Allergic Reaction <Jean-Paul HorowitzRUSSELL Ferrer - Last Filed: 07/28/20 17:52> Differential Diagnosis Differential diagnosis: Likely other (Reaction to shingrix, UTI, pneumonia, viral illness,) Medical Records Attestation: I reviewed the patient's medical records. Lab Data Attestation: I reviewed the patient's lab results. Result diagrams: 07/28/20 13:20 07/28/20 13:20 Labs: Lab Results 07/28/20 07/28/20 07/28/20 Range/Units 13:01 13:20 13:20 WBC 13.9 H (4.5-11.0) X10^3/uL RBC 3.56 L (4.0-5.2) X10^6/uL Hgb 11.2 L (12.0-16.0) g/dL Hct 33.8 L (36-46) % MCV 95.1 (80-100) fL MCH 31.4 (26-34) PG MCHC 33.0 (30-36) % RDW 13.6 (11.6-14.8) % Plt Count 124 L (150-400) X10^3/uL Neut % (Auto) 80.1 H (50-75) % Lymph % (Auto) 6.9 L (25-40) % [place] % (Auto) 12.6 (3-14) % Eos % (Auto) 0.1 L (2-4) % Baso % (Auto) 0.3 (0-2) % Neut # (Auto) 67306 H (8579-0170) /uL Lymph # (Auto) 1000 L (8293-2977) /uL [place] # (Auto) 1800 H (0-900) /uL Eos # (Auto) 0 (0-450) /uL Baso # (Auto) 0 (0-100) /uL Sodium 132 L (137-145) mmol/L Potassium 4.3 (3.4-5.1) mmol/L Chloride 103 (98-107) mmol/L Carbon Dioxide 26 (22-32) mmol/L BUN 18 H (7-17) mg/dL Creatinine 1.21 H (0.52-1.04) mg/dL Estimated GFR 42.7 L (>60) mL/min BUN/Creatinine Ratio 14.9 (6-22) Glucose 115 H (80-110) mg/dL Lactate (0.7-2.1) mmol/L Calcium 9.3 (8.4-10.2) mg/dL Total Bilirubin 0.7 (0.2-1.3) mg/dL AST 71 H (14-36) IU/L ALT 171 H (<35) IU/L Alkaline Phosphatase 97 (38-126) U/L Total Protein 6.1 L (6.3-8.2) g/dL Albumin 3.3 L (3.5-5.0) g/dL Globulin 2.8 (1.7-4.1) g/dL Albumin/Globulin Ratio 1.2 (1.0-2.8) Urine RBC (0-5/HPF) Urine WBC (0-5/HPF) Ur Squamous Epith Cells (0-5/HPF) Amorphous Sediment Urine Bacteria (None) Ur Culture Indicated? COVID-19 PCR Negative (Negative) 07/28/20 07/28/20 Range/Units 13:20 14:20 WBC (4.5-11.0) X10^3/uL RBC (4.0-5.2) X10^6/uL Hgb (12.0-16.0) g/dL Hct (36-46) % MCV (80-100) fL MCH (26-34) PG MCHC (30-36) % RDW (11.6-14.8) % Plt Count (150-400) X10^3/uL Neut % (Auto) (50-75) % Lymph % (Auto) (25-40) % [place] % (Auto) (3-14) % Eos % (Auto) (2-4) % Baso % (Auto) (0-2) % Neut # (Auto) (7299-7770) /uL Lymph # (Auto) (8631-3814) /uL [place] # (Auto) (0-900) /uL Eos # (Auto) (0-450) /uL Baso # (Auto) (0-100) /uL Sodium (137-145) mmol/L Potassium (3.4-5.1) mmol/L Chloride (98-107) mmol/L Carbon Dioxide (22-32) mmol/L BUN (7-17) mg/dL Creatinine (0.52-1.04) mg/dL Estimated GFR (>60) mL/min BUN/Creatinine Ratio (6-22) Glucose (80-110) mg/dL Lactate 1.1 (0.7-2.1) mmol/L Calcium (8.4-10.2) mg/dL Total Bilirubin (0.2-1.3) mg/dL AST (14-36) IU/L ALT (<35) IU/L Alkaline Phosphatase (38-126) U/L Total Protein (6.3-8.2) g/dL Albumin (3.5-5.0) g/dL Globulin (1.7-4.1) g/dL Albumin/Globulin Ratio (1.0-2.8) Urine RBC 0-1/hpf (0-5/HPF) Urine WBC 10-30/hpf H (0-5/HPF) Ur Squamous Epith Cells 1-5 /hpf (0-5/HPF) Amorphous Sediment 1+ Urine Bacteria Few (2-10) H (None) Ur Culture Indicated? Specimen cultured COVID-19 PCR (Negative) Urine Dip Bedside Urine Glucose Negative Bedside Urine Bilirubin - Negative Bedside Urine Ketone - Negative Urine Specific [place] 1.015 Bedside Urine Occult Blood +/- Bedside Urine pH 6.0 Bedside Urine Protein + 30 Bedside Urine Urobilinogen - Negative Bedside Urine Nitrite - Negative Bedside Urine Leukocytes +/- 15 Esterase Imaging Data Chest x-ray: Radiologist's Impression: [address] [address] XRay Report Signed Patient: Brian Carrillo SMR#: [id number] : 9Acct:[id number] Age/Sex: 80 / FDate of Service: 07/28/20 Loc: ED Accession Number: [id number] Procedure: XR chest 2V Ordering Provider: Jean-Paul Olvera PROCEDURE: XR CHEST 2V INDICATIONS: Chills, bodyaches, vomiting TECHNIQUE: 2 views of the chest were acquired. COMPARISON: Located Within [facility], CR, XR CHEST 2V, 05/09/2019, 14:05. FINDINGS: Surgical changes and devices: None. Lungs and pleura: Lungs are clear. No pleural effusions or pneumothorax. Mediastinum: Mediastinal contours are normal. Heart size is normal. Bones and chest wall: No suspicious bony abnormalities. Soft tissues appear unremarkable. IMPRESSION: No findings of pneumonia or other acute cardiopulmonary process. Dictated by: Matias Dickson M.D. on 07/28/2020 at 12:50 Approved by: Matias Dickson M.D. on 07/28/2020 at 12:50 MDM Narrative Medical decision making narrative: This is a 80 year female who presents to ED with generalized body aches, headache, chills, worsening arthritis pain, vomiting after she received 2nd dose of Shingrix 3 days ago. Patient is afebrile with normal intensive and heart rate. Covid test was negative. Mild leukocytosis of 13.9 and slightly decreased H&H of 11.2/33.8 which is patient's near baseline. Test shows mild hyponatremia of 132. BUN slightly increased to 18 with creatinine level of 1.21 and estimated GFR of 42.7 which is her baseline/slightly improved. Elevated AST and ALT from her baseline 71/171. US of abdomen 2 weeks ago does not show cholecystitis and patient does not have epigastric or abdominal pain associated with this lab results. Chest x-ray is negative for acute findings. Patient is able to hydrate orally without nausea and vomiting. UA shows small amount of leukoesterase without nitrites. Micro urine test was positive for 10-30/hpf with few urine bacteria and scant amount of epithelia cells. In the past urine culture does not have growth or greater than 3+ growths. In shared decision making, she would like to wait for urine culture to come back before using antibiotic medication for possible UTI. She was advised to hydrate in small amount frequently with water and sports drinks. Considered short duration of prednisone course with the patient's request but deferred at this time. Patient advised to take [id number] Tylenol and tried lidocaine patch or Voltaren gel for neck and hand arthritic pain. Return precautions were discussed with patient and advised to follow up with primary care physician in 2-3 days as scheduled. <Rosanna Alamo DO - Last Filed: 08/09/20 07:22> Lab Data Labs: Lab Results 07/28/20 07/28/20 07/28/20 Range/Units 13:01 13:20 13:20 WBC 13.9 H (4.5-11.0) X10^3/uL RBC 3.56 L (4.0-5.2) X10^6/uL Hgb 11.2 L (12.0-16.0) g/dL Hct 33.8 L (36-46) % MCV 95.1 (80-100) fL MCH 31.4 (26-34) PG MCHC 33.0 (30-36) % RDW 13.6 (11.6-14.8) % Plt Count 124 L (150-400) X10^3/uL Neut % (Auto) 80.1 H (50-75) % Lymph % (Auto) 6.9 L (25-40) % [place] % (Auto) 12.6 (3-14) % Eos % (Auto) 0.1 L (2-4) % Baso % (Auto) 0.3 (0-2) % Neut # (Auto) 71739 H (0856-9572) /uL Lymph # (Auto) 1000 L (1654-6435) /uL [place] # (Auto) 1800 H (0-900) /uL Eos # (Auto) 0 (0-450) /uL Baso # (Auto) 0 (0-100) /uL Sodium 132 L (137-145) mmol/L Potassium 4.3 (3.4-5.1) mmol/L Chloride 103 (98-107) mmol/L Carbon Dioxide 26 (22-32) mmol/L BUN 18 H (7-17) mg/dL Creatinine 1.21 H (0.52-1.04) mg/dL Estimated GFR 42.7 L (>60) mL/min BUN/Creatinine Ratio 14.9 (6-22) Glucose 115 H (80-110) mg/dL Lactate (0.7-2.1) mmol/L Calcium 9.3 (8.4-10.2) mg/dL Total Bilirubin 0.7 (0.2-1.3) mg/dL AST 71 H (14-36) IU/L ALT 171 H (<35) IU/L Alkaline Phosphatase 97 (38-126) U/L Total Protein 6.1 L (6.3-8.2) g/dL Albumin 3.3 L (3.5-5.0) g/dL Globulin 2.8 (1.7-4.1) g/dL Albumin/Globulin Ratio 1.2 (1.0-2.8) Urine RBC (0-5/HPF) Urine WBC (0-5/HPF) Ur Squamous Epith Cells (0-5/HPF) Amorphous Sediment Urine Bacteria (None) Ur Culture Indicated? COVID-19 PCR Negative (Negative) 07/28/20 07/28/20 Range/Units 13:20 14:20 WBC (4.5-11.0) X10^3/uL RBC (4.0-5.2) X10^6/uL Hgb (12.0-16.0) g/dL Hct (36-46) % MCV (80-100) fL MCH (26-34) PG MCHC (30-36) % RDW (11.6-14.8) % Plt Count (150-400) X10^3/uL Neut % (Auto) (50-75) % Lymph % (Auto) (25-40) % [place] % (Auto) (3-14) % Eos % (Auto) (2-4) % Baso % (Auto) (0-2) % Neut # (Auto) (6152-9858) /uL Lymph # (Auto) (8416-7659) /uL [place] # (Auto) (0-900) /uL Eos # (Auto) (0-450) /uL Baso # (Auto) (0-100) /uL Sodium (137-145) mmol/L Potassium (3.4-5.1) mmol/L Chloride (98-107) mmol/L Carbon Dioxide (22-32) mmol/L BUN (7-17) mg/dL Creatinine (0.52-1.04) mg/dL Estimated GFR (>60) mL/min BUN/Creatinine Ratio (6-22) Glucose (80-110) mg/dL Lactate 1.1 (0.7-2.1) mmol/L Calcium (8.4-10.2) mg/dL Total Bilirubin (0.2-1.3) mg/dL AST (14-36) IU/L ALT (<35) IU/L Alkaline Phosphatase (38-126) U/L Total Protein (6.3-8.2) g/dL Albumin (3.5-5.0) g/dL Globulin (1.7-4.1) g/dL Albumin/Globulin Ratio (1.0-2.8) Urine RBC 0-1/hpf (0-5/HPF) Urine WBC 10-30/hpf H (0-5/HPF) Ur Squamous Epith Cells 1-5 /hpf (0-5/HPF) Amorphous Sediment 1+ Urine Bacteria Few (2-10) H (None) Ur Culture Indicated? Specimen cultured COVID-19 PCR (Negative) Urine Dip Bedside Urine Glucose Negative Bedside Urine Bilirubin - Negative Bedside Urine Ketone - Negative Urine Specific [place] 1.015 Bedside Urine Occult Blood +/- Bedside Urine pH 6.0 Bedside Urine Protein + 30 Bedside Urine Urobilinogen - Negative Bedside Urine Nitrite - Negative Bedside Urine Leukocytes +/- 15 Esterase Discharge Plan Departure Patient Disposition: Home Clinical Impression: Immunization reaction Qualifiers: Encounter type: initial encounter Qualified Code(s): T50.Z95A - Adverse effect of other vaccines and biological substances, initial encounter Discharge Date/Time: 07/28/20 15:10 Instructions: DI for Immunization Reaction-Adult Activity Restrictions/Additional Instructions: You have been diagnosed with [reaction to immunization Shingrix. White count of 13.9 and mild hyponatremia of 132. Kidney function is on your baseline. Slightly elevated liver function test of AST and ALT. Ultrasound on abdomen 2 weeks ago does not show cholecystitis. Urine culture is pending and you will receive a phone call if you require antibiotic medication treatment. Covid test and chest x-ray test were negative.]. What to do: *Take your medications as directed. You can take [id number] Tylenol as needed for discomfort. Lidocaine patch on right-sided neck for discomfort. The patch stays on for 12 hours and off for 12 hours. If you elected you can use Voltaren gel on painful areas on her bilateral hands and right-sided neck as needed when you are not using patch. *Follow up with your primary care provider in 2-3 days, call for an appointment. Let them know you were seen in the ED and that we asked you to be seen in follow up. *Return to ED if you have any new, worsening, or concerning symptoms, such as [chest pain, breathing difficulty, unable to tolerate fluids, fever, near fainting episode or any acute concerns]. Prescriptions: New lidocaine 5 % adhesive patch,medicated 1 patch TOP Q24H PRN (Reason: pain) Qty: 15 RF: 0 No Action cholecalciferol (vitamin D3) [Vitamin D3] 1,000 unit Capsule 1,000 unit PO DAILY Qty: 0 RF: 0 alprazolam 0.25 MG tablet 0.25 mg PO DAILY PRN (Reason: Anxiety) Qty: 0 RF: 0 aspirin 81 MG tablet,delayed release (DR/EC) 81 mg PO BID Qty: 60 RF: 0 esomeprazole magnesium 40 mg capsule,delayed release(DR/EC) 40 mg PO DAILY RF: 0 Restasis 0.05 % dropperette 1 drp ophthalmic (eye) DIRECTED RF: 0 Elmiron 100 mg capsule 100 mg PO TID RF: 0 azithromycin 250 mg tablet See Rx Instructions .ROUTE .COMPLEX RF: 0 citalopram 20 mg tablet 40 mg PO DAILY RF: 0 albuterol sulfate [ProAir HFA] 90 mcg/actuation HFA aerosol inhaler 1 puff inhalation PRN PRN (Reason: Shortness Of Breath) RF: 0 Advair HFA 115-21 mcg/actuation HFA aerosol inhaler 2 puff inhalation BID RF: 0 estradiol [Yuvafem] 10 mcg tablet 10 mcg vaginal 2XW RF: 0 Qvar RediHaler 80 mcg/actuation HFA aerosol breath activated 1 puff inhalation BID RF: 0 benzonatate 150 mg capsule 150 mg PO Q8H PRN (Reason: cough) Qty: 14 RF: 0 Referrals: Lucy Ye ARNP [Primary Care Provider] - <Rosanna Alamo DO - Last Filed: 08/09/20 07:22> Cosign ED Attending Rajinder Attestation: I was immediately available in the department for consultation. Documentation has been reviewed. I agree with assessment and plan.
[2020-07-28] MEDS: ACETAMINOPHEN 325 MG TABLET 650 MG PO (12:57)
[2020-07-28 13:22] LABS: COVID19 -Nasal RAPID Negative (Negative)
[2020-07-28 13:29] LABS: Add Manual Diff / Slide Review NO; Basophils Absolute Auto 0 /uL (0-100); Basophils Percent Auto 0.3 % (0-2); Eosinophils Absolute Auto 0 /uL (0-450); Eosinophils Percent Auto 0.1 % (2-4); Hematocrit 33.8 % (36-46); Hemoglobin 11.2 g/dL (12.0-16.0); Lymphocytes Absolute Auto 1000 /uL (1100-4500); Lymphocytes Percent Auto 6.9 % (25-40); Mean Corpuscular Hemoglobin 31.4 PG (26-34); Mean Corpuscular Volume 95.1 fL (80-100); Monocytes Absolute Auto 1800 /uL (0-900); Monocytes Percent Auto 12.6 % (3-14); Neutrophils Absolute Auto 11100 /uL (1500-7000); Neutrophils Percent Auto 80.1 % (50-75); Platelet Count 124 X10^3/uL (150-400); Red Blood Cell Count 3.56 X10^6/uL (4.0-5.2); Red Cell Distribution Width 13.6 % (11.6-14.8); White Blood Cell Count 13.9 X10^3/uL (4.5-11.0)
[2020-07-28 13:40] LABS: Alanine Aminotransferase 171 IU/L (<35); Albumin 3.3 g/dL (3.5-5.0); Albumin Globulin Ratio 1.2 (1.0-2.8); Alkaline Phosphatase 97 U/L (38-126); Aspartate Aminotransferase 71 IU/L (14-36); BUN Creatinine Ratio 14.9 (6-22); Bilirubin Total 0.7 mg/dL (0.2-1.3); Blood Urea Nitrogen 18 mg/dL (7-17); Calcium 9.3 mg/dL (8.4-10.2); Carbon Dioxide 26 mmol/L (22-32); Chloride 103 mmol/L (98-107); Estimated Glomerular Filt Rate 42.7 mL/min (>60); Globulin 2.8 g/dL (1.7-4.1); Glucose 115 mg/dL (80-110); HEMOLYSIS < 15 (0-50); Lactate (Lactic Acid) 1.1 mmol/L (0.7-2.1); Potassium 4.3 mmol/L (3.4-5.1); Sodium 132 mmol/L (137-145); Total Protein 6.1 g/dL (6.3-8.2)
[2020-07-28] MEDS: LIDOCAINE PATCH 1 EACH ADH..PATCH TOP (14:09)
[2020-07-28 14:47] LABS: Amorphous Sediment Urine 1+; Bacteria Urine Few (2-10); Culture Indicated Urine Specimen Cultured; RBC Urine 0-1/HPF (0-5/HPF); Squamous Epithelial Cell Urine 1-5 /HPF (0-5/HPF); WBC Urine 10-30/HPF (0-5/HPF)
[2020-07-28 15:09] VITALS: BP 101/57; PULSE 58; RESP 18; O2SAT 98
== END 2020-07-28 15:10 | disposition home or self-care (01) ==
PROVIDERS: Emergency Provider Nurse Practitioner Family; PCP Internal Medicine
DX: T78.40XA Allergy, unspecified, initial encounter (principal); T50.Z95A Adverse effect of other vaccines and biological substances, initial encounter; R51.9 Headache, unspecified; R11.10 Vomiting, unspecified; R68.83 Chills (without fever)
CPT/HCPCS: 36415; 71046; 80053; 81003; 81015; 83605; 85025; 87086; 87635; 99283; 99284

== ENCOUNTER → 2020-10-23 09:53 | Outpatient (CLI) | payer MEDICARE, OTHER, SELFPAY ==
--- NOTE | 2020-10-23 | DI.RAD.S_ITS ---
PROCEDURE: XR SHOULDER LT MIN 2V INDICATIONS: left shoulder injury, fall, hx of L shoulder replacement TECHNIQUE: 3 views of the shoulder were acquired. COMPARISON: [facility], , SHOULDER 1 VIEW LEFT, 11/16/2017, 10:13. FINDINGS: Bones: Patient is status post left shoulder arthroplasty. Alignment of shoulder is anatomic. No fractures or dislocations. No gross hardware loosening or failure. Moderate acromioclavicular joint osteoarthritic changes are seen. No suspicious bony lesions. Visualized ribs appear intact. Soft tissues: No suspicious soft tissue calcifications. IMPRESSION: No acute left shoulder fracture or dislocation. No gross hardware complication. Moderate acromioclavicular joint osteoarthritis. Dictated by: Jay Varela M.D. on 10/23/2020 at 10:31 Approved by: Jay Varela M.D. on 10/23/2020 at 10:32
== END ==
PROVIDERS: PCP Internal Medicine; Referring Provider Internal Medicine; Visit Provider Internal Medicine
DX: S49.92XA Unspecified injury of left shoulder and upper arm, initial encounter (principal); M19.012 Primary osteoarthritis, left shoulder; W19.XXXA Unspecified fall, initial encounter; Z96.612 Presence of left artificial shoulder joint
CPT/HCPCS: 73030

== ENCOUNTER → 2021-03-25 12:42 | Outpatient (CLI) | payer MEDICARE, OTHER, SELFPAY ==
--- NOTE | 2021-03-25 | DI.CT.S_ITS ---
PROCEDURE: CT HEAD/BRAIN WO CON INDICATIONS: contusion of other part of head, initial encounter TECHNIQUE: Noncontrast 4.5 mm thick angled axial sections acquired from the foramen magnum to the vertex, with coronal and sagittal reformats. For radiation dose reduction, the following was used: automated exposure control, adjustment of mA and/or kV according to patient size. COMPARISON: [facility], CT, CT HEAD/BRAIN WO CON, 02/29/2020, 16:03. FINDINGS: Image quality: Excellent. CSF spaces: Basal cisterns are patent. No extra-axial fluid collections. The ventricles are symmetric in size and shape. Brain: No intracranial bleeds or masses. There is cerebral volume loss for age, with resultant ventricular and sulcal prominence. There are periventricular and deep white matter chronic small vessel ischemic changes. There is intracranial internal carotid artery atherosclerosis. Chronic appearing lacunar infarct noted in the head of the left caudate nucleus. Skull and face: Calvarium and visualized facial bones appear intact, without suspicious lesions. Bilateral intraocular lens replacements noted. Sinuses: Visualized sinuses and mastoids are clear. IMPRESSION: 1. Atrophy and chronic ischemic change without acute hemorrhage or mass effect. The 2. Stable lacunar infarct, left basal ganglia Dictated by: Magen Monge M.D. on 03/25/2021 at 16:55 Approved by: Magen Monge M.D. on 03/25/2021 at 16:59
== END ==
PROVIDERS: PCP Internal Medicine; Referring Provider Internal Medicine; Visit Provider Internal Medicine
DX: S00.83XA Contusion of other part of head, initial encounter (principal); W19.XXXA Unspecified fall, initial encounter
CPT/HCPCS: 70450

== ENCOUNTER → 2021-03-28 10:16 | Outpatient (CLI) | payer MEDICARE, OTHER, SELFPAY | PROVIDERS: PCP Internal Medicine; Referring Provider Internal Medicine; Visit Provider Nurse Practitioner Family | DX: S81.802A Unspecified open wound, left lower leg, initial encounter (principal); S81.801A Unspecified open wound, right lower leg, initial encounter; S00.93XA Contusion of unspecified part of head, initial encounter; S61.002A Unspecified open wound of left thumb without damage to nail, initial encounter; R60.0 Localized edema | CPT/HCPCS: 97597; 97598; 99203; 99213 ==

== ENCOUNTER → 2021-04-04 13:46 | Outpatient (CLI) | payer MEDICARE, OTHER, SELFPAY | PROVIDERS: PCP Internal Medicine; Referring Provider Internal Medicine; Visit Provider Family Medicine | DX: R60.0 Localized edema (principal); S81.802A Unspecified open wound, left lower leg, initial encounter; S81.801A Unspecified open wound, right lower leg, initial encounter | CPT/HCPCS: 29581 ==

== ENCOUNTER → 2021-04-07 12:11 | Outpatient (CLI) | payer MEDICARE, OTHER, SELFPAY | PROVIDERS: PCP Internal Medicine; Referring Provider Internal Medicine; Visit Provider Family Medicine | DX: S81.802A Unspecified open wound, left lower leg, initial encounter (principal); S81.801A Unspecified open wound, right lower leg, initial encounter; L08.9 Local infection of the skin and subcutaneous tissue, unspecified | CPT/HCPCS: 11042; 87070; 87075; 87077; 87147; 87186; 87205; 97597; 99214 ==

== ENCOUNTER → 2021-04-14 13:02 | Outpatient (CLI) | payer MEDICARE, OTHER, SELFPAY | PROVIDERS: PCP Internal Medicine; Referring Provider Internal Medicine; Visit Provider Family Medicine | DX: S81.802A Unspecified open wound, left lower leg, initial encounter (principal); S81.801A Unspecified open wound, right lower leg, initial encounter; B95.7 Other staphylococcus as the cause of diseases classified elsewhere; B95.61 Methicillin susceptible Staphylococcus aureus infection as the cause of diseases classified elsewhere; R60.0 Localized edema | CPT/HCPCS: 11042; 99213 ==

== ENCOUNTER → 2021-04-21 14:35 | Outpatient (CLI) | payer MEDICARE, OTHER, SELFPAY | PROVIDERS: PCP Internal Medicine; Referring Provider Internal Medicine; Visit Provider Family Medicine | DX: S81.802A Unspecified open wound, left lower leg, initial encounter (principal); S81.801A Unspecified open wound, right lower leg, initial encounter | CPT/HCPCS: 97597 ==

== ENCOUNTER → 2021-04-28 14:46 | Outpatient (CLI) | payer MEDICARE, OTHER, SELFPAY | PROVIDERS: PCP Internal Medicine; Referring Provider Internal Medicine; Visit Provider Family Medicine | DX: S81.802A Unspecified open wound, left lower leg, initial encounter (principal); S81.801A Unspecified open wound, right lower leg, initial encounter; R60.0 Localized edema | CPT/HCPCS: 97597; 99212 ==

== ENCOUNTER → 2021-05-05 14:55 | Outpatient (CLI) | payer MEDICARE, OTHER, SELFPAY | PROVIDERS: PCP Internal Medicine; Referring Provider Internal Medicine; Visit Provider Family Medicine | DX: S81.802A Unspecified open wound, left lower leg, initial encounter (principal); S81.801A Unspecified open wound, right lower leg, initial encounter; R60.0 Localized edema | CPT/HCPCS: 99212 ==

== ENCOUNTER → 2021-10-08 10:16 | Outpatient (CLI) | payer MEDICARE, OTHER, SELFPAY ==
--- NOTE | 2021-10-08 10:20 | DI.RAD.S_ITS ---
PROCEDURE: XR HAND LT MIN 3V INDICATIONS: LT HAND INJURY POST FALL TECHNIQUE: 3 views of the hand(s) acquired. COMPARISON: None. FINDINGS: Bones: Diffuse osteopenia. Mildly displaced oblique fracture of the proximal 4th metacarpal. Multifocal joint space narrowing and periarticular osteophyte formation, indicating osteoarthritis, worst at the scaphoid trapezial, radiocarpal, 1st carpometacarpal joint, as well as the interphalangeal joints of the digits. Carpal bones are normally aligned. No suspicious bony lesions. Soft tissues: No suspicious soft tissue calcifications. IMPRESSION: 1. 4th metacarpal fracture. 2. Multifocal osteoarthritis. Dictated by: Ramsey Gonzalez M.D. on 10/08/2021 at 11:29 Approved by: Ramsey Gonzalez M.D. on 10/08/2021 at 11:30
== END ==
PROVIDERS: PCP Internal Medicine; Referring Provider Internal Medicine; Visit Provider Internal Medicine
DX: S62.325A Displaced fracture of shaft of fourth metacarpal bone, left hand, initial encounter for closed fracture (principal); M19.042 Primary osteoarthritis, left hand; W19.XXXA Unspecified fall, initial encounter
CPT/HCPCS: 73130

== ENCOUNTER 2021-10-22 13:29 | Emergency (ER) | payer MEDICARE, OTHER, SELFPAY ==
[2021-10-22] VITALS (18 sets, daily range): BP systolic 109–149; BP diastolic 57–94; PULSE 62–89; RESP 17–34; TEMP 37.1; O2SAT 92–99; BMI 27.0
--- NOTE | 2021-10-22 13:50 | DI.RAD.S_ITS ---
PROCEDURE: XR CHEST 1V INDICATIONS: chest pain TECHNIQUE: One view of the chest was acquired. COMPARISON: [facility], CR, XR CHEST 2V, 05/09/2019, 14:05. [facility], CR, XR CHEST 2V, 07/28/2020, 12:14. FINDINGS: Surgical changes and devices: Bilateral shoulder arthroplasty hardware is seen. Lungs and pleura: On this semiupright portable chest examination, no large pneumothorax or large pleural effusions are seen. No focal infiltrates are seen. Mediastinum: The cardiac contours are within normal limits. The aorta demonstrates calcification and tortuosity. Bones and chest wall: No suspicious bony lesions. Age-appropriate bony degenerative changes are seen. Mild dextroconvex scoliotic curvature is seen. Overlying soft tissues appear unremarkable. IMPRESSION: Portable chest within normal limits for age, with note made of postoperative and degenerative changes. Dictated by: Bobby Alex M.D. on 10/22/2021 at 13:14 Approved by: Bobby Alex M.D. on 10/22/2021 at 13:15
[2021-10-22 14:01] LABS: Add Manual Diff / Slide Review NO; Basophils Absolute Auto 0 /uL (0-100); Basophils Percent Auto 0.2 % (0-2); Eosinophils Absolute Auto 0 /uL (0-450); Eosinophils Percent Auto 0.2 % (2-4); Hematocrit 34.6 % (36-46); Hemoglobin 11.5 g/dL (12.0-16.0); INR 1.2 (0.9-1.3); Lymphocytes Absolute Auto 700 /uL (1100-4500); Lymphocytes Percent Auto 5.6 % (25-40); Mean Corpuscular HGB Conc 33.4 % (30-36); Mean Corpuscular Hemoglobin 31.1 PG (26-34); Mean Corpuscular Volume 93.3 fL (80-100); Monocytes Absolute Auto 1200 /uL (0-900); Monocytes Percent Auto 9.8 % (3-14); Neutrophils Absolute Auto 10300 /uL (1500-7000); Neutrophils Percent Auto 84.2 % (50-75); Platelet Count 167 X10^3/uL (150-400); Prothrombin Time 13.6 SECONDS (10.1-12.7); Red Blood Cell Count 3.71 X10^6/uL (4.0-5.2); Red Cell Distribution Width 13.5 % (11.6-14.8); White Blood Cell Count 12.2 X10^3/uL (4.5-11.0)
[2021-10-22 14:04] LABS: PTT Partial Thromboplastin Tim 28 SECONDS (26.4-36.2)
[2021-10-22 14:06] LABS: Alanine Aminotransferase 179 IU/L (<35); Albumin 3.8 g/dL (3.5-5.0); Albumin Globulin Ratio 1.2 (1.0-2.8); Alkaline Phosphatase 113 U/L (38-126); Aspartate Aminotransferase 120 IU/L (14-36); BUN Creatinine Ratio 13.3 (6-22); Bilirubin Total 2.1 mg/dL (0.2-1.3); Blood Urea Nitrogen 14 mg/dL (7-17); Calcium 9.6 mg/dL (8.4-10.2); Carbon Dioxide 25 mmol/L (22-32); Chloride 101 mmol/L (98-107); Creatine Kinase 105 U/L (30-135); Estimated Glomerular Filt Rate 50.2 mL/min (>60); Globulin 3.1 g/dL (1.7-4.1); Glucose 104 mg/dL (80-110); HEMOLYSIS < 15 (0-50); Lipase 82 U/L (23-300); Sodium 130 mmol/L (137-145); Total Protein 6.9 g/dL (6.3-8.2)
[2021-10-22 14:17] LABS: Troponin I < 0.012 ng/mL (0.01-0.034)
[2021-10-22 14:34] LABS: COVID19 -Nasal RAPID Negative (Negative)
--- NOTE | 2021-10-22 14:35 | ED.NAVMDI ---
HPI - Nausea/Vomiting/Diarrhea <Reid Burkett, DO - Last Filed: 10/23/21 08:36> General Chief complaint: Nausea/Vomiting/Diarrhea Stated complaint: throwing up, dizzy, gas Time Seen by Provider: 10/22/21 14:27 Source: patient and family Mode of arrival: Ambulatory History of Present Illness HPI Narrative: Patient is an 81-year-old female who is here for evaluation of several days of feeling nauseous. Feeling like she has a lot of gas and has to burp but is unable to. She has been vomiting. Epigastric abdominal discomfort. All this causing her to be somewhat dizzy. No chest pain. No shortness of breath. No change in bowel habits. No urinary symptoms. No prior abdominal surgeries. She has had a history of reflux in the past is on medication for this. Has been tolerating oral intake. She states the oral intake does not change any of the discomfort. She is here for evaluation of the symptoms. She also has a splint on her left hand. This was from a injury several weeks ago. She would like an x-ray of her hand because she states she was scheduled to have 1 today. Related Data Home Medications Medication Instructions Recorded Confirmed alprazolam 0.25 mg tablet 0.25 mg PO DAILY PRN #0 11/03/17 02/09/19 cholecalciferol (vitamin D3) 25 1,000 unit PO DAILY #0 11/03/17 mcg (1,000 unit) capsule (Vitamin D3) cyclosporine 0.05 % eye drops in a 1 drp OPHTHALMIC (EYE) DIRECTED 02/09/19 05/19/19 dropperette esomeprazole magnesium 40 mg 40 mg PO DAILY 02/09/19 05/19/19 capsule,delayed release albuterol sulfate 90 mcg/actuation 1 puff INHALATION PRN PRN 05/19/19 05/19/19 aerosol inhaler azithromycin 250 mg tablet See Rx Instructions .ROUTE .COMPLEX 05/19/19 05/19/19 beclomethasone dipropionate 80 1 puff INHALATION BID 05/19/19 05/19/19 mcg/actuation HFA breath activated aerosol citalopram 20 mg tablet 40 mg PO DAILY 05/19/19 05/19/19 estradiol 10 mcg vaginal tablet 10 mcg VAGINAL 2XW 05/19/19 05/19/19 fluticasone propionate 115 2 puff INHALATION BID 05/19/19 05/19/19 mcg-salmeterol 21 mcg/actuation HFA inhaler pentosan polysulfate sodium 100 mg 100 mg PO TID 05/19/19 05/19/19 capsule Previous Rx's Medication Instructions Recorded aspirin 81 mg tablet,delayed 81 mg PO BID #60 11/17/17 release benzonatate 150 mg capsule 150 mg PO Q8H PRN #14 cap 05/19/19 lidocaine 5 % topical patch 1 patch TOP Q24H PRN #15 each 07/28/20 Allergies Allergy/AdvReac Type Severity Reaction Status Date / Time adhesive [ADHESIVE] AdvReac Severe THIN Verified 10/22/21 15:21 SKIN, PULLS SKIN OFF PAPER/SILK TAPE OK Sulfa (Sulfonamide AdvReac Severe I GET Verified 10/22/21 15:21 Antibiotics) EXTREMELY [SULFA (SULFONAMIDE NERVOUS, ANTIBIOTICS)] JITTERY PAIN MEDICATIONS AdvReac Unknown I GET ALL Uncoded 10/22/21 15:21 OF THE SIDE EFFECTS, NO PAIN RELIEF Review of Systems <Reid Burkett DO - Last Filed: 10/23/21 08:36> Constitutional Constitutional: Denies fever(s) Cardiovascular Cardiovascular: Denies chest pain and Denies dyspnea Respiratory Respiratory: Denies dyspnea Gastrointestinal Gastrointestinal: Reports as per HPI and Reports system reviewed and no additional complaints, except as documented Genitourinary Genitourinary: Reports system reviewed and no additional complaints, except as documented Musculoskeletal Musculoskeletal: Reports system reviewed and no additional complaints, except as documented and Denies back pain Integumentary/Breasts Skin/Breast: Reports system reviewed and no additional complaints, except as documented Neurologic Neurologic: Reports system reviewed and no additional complaints, except as documented Hematologic/Lymphatic On Anticoagulants: No Allergic/Immunologic Allergic/Immunologic: Reports system reviewed and no additional complaints, except as documented Patient History <Reid Burkett DO - Last Filed: 10/23/21 08:36> Medical History (Updated 10/22/21 @ 20:21 by Tyrone Guerrero DO) Asthma GERD (gastroesophageal reflux disease) Kidney stones Osteoarthritis Surgical History History of cataract removal with insertion of prosthetic lens History of knee replacement History of shoulder surgery Family History Brother Age: 90 Dementia Heart disease Mental health disorder Pacemaker Grandfather Mental health disorder Grandmother Arthritis Grandmother Mental health disorder Social History Smoking Status: Unknown if ever smoked Smoking Status: Unknown if ever smoked alcohol intake frequency: 0-2 drinks per day Substance Use Type: does not use Exam <DO Tamera Lerma Last Filed: 10/23/21 08:36> Initial Vital Signs Initial Vital Signs: Vital Signs Temperature 98.8 F 10/22/21 13:35 Pulse Rate 79 10/22/21 13:35 Respiratory Rate 17 10/22/21 13:35 Blood Pressure 120/57 L 10/22/21 13:35 Pulse Oximetry 98 10/22/21 13:35 HENMT Head: normal to inspection and normocephalic Resp Effort & Inspection: normal respiratory effort and able to speak in complete sentences Cardio Rate: regular rate Rhythm: regular rhythm GI Palpation: soft, No firm and tender (Epigastric and right upper quadrant pain. No Mayes sign) Skin General: no rashes or lesions noted Neuro General: patient alert, patient awake, patient oriented x3 and moves all extremities Speech: speech normal Gait: normal gait Extrem General: normal to inspection and capillary refill normal Psych Appearance: grossly normal and well kempt Speech and Movement: speech and movement normal <Tyrone Guerrero DO - Last Filed: 10/23/21 19:44> Initial Vital Signs Initial Vital Signs: Vital Signs Temperature 98.8 F 10/22/21 13:35 Pulse Rate 79 10/22/21 13:35 Respiratory Rate 17 10/22/21 13:35 Blood Pressure 120/57 L 10/22/21 13:35 Pulse Oximetry 98 10/22/21 13:35 Scores <DO Tamera Lerma Last Filed: 10/23/21 08:36> GCS Mountain coma scale eye opening: Spontaneous Mountain coma scale verbal response: Orientated Mountain coma scale motor response: Obey commands Cristóbal coma scale total score: 15 <DO Tamera Flores Last Filed: 10/23/21 19:44> GCS Cristóbal coma scale total score: 15 Course <DO Tamera Lerma Last Filed: 10/23/21 08:36> Orders Ordered: Discontinued Medications Piperacillin Sod/Tazobactam (Sod 4.5 gm/ Sodium Chloride) 100 mls @ 200 mls/hr IV NOW ONE Stop: 10/22/21 20:22 Last Infusion: 10/22/21 21:14 Dose: 0 mls/hr Documented by: [email or web address] Admin: 10/22/21 20:32 Dose: 200 mls/hr Documented by: [email or web address] Lactated Ringer's (Lactated Ringers) 1,000 mls @ 125 mls/hr IV CONT KENYON Last Infusion: 10/23/21 08:40 Dose: 0 mls/hr Documented by: Admin: 10/23/21 02:11 Dose: 125 mls/hr Documented by: [email or web address] Infusion: 10/23/21 02:08 Dose: 0 mls/hr Documented by: Infusion: 10/22/21 21:30 Dose: 125 mls/hr Documented by: [email or web address] Infusion: 10/22/21 21:15 Dose: 999 mls/hr Documented by: [email or web address] Infusion: 10/22/21 20:34 Dose: 0 mls/hr Documented by: [email or web address] Admin: 10/22/21 20:33 Dose: 125 mls/hr Documented by: [email or web address] Piperacillin Sod/Tazobactam (Sod 4.5 gm/ Sodium Chloride) 100 mls @ 25 mls/hr IV Q8H [facility] Last Infusion: 10/23/21 08:40 Dose: 0 mls/hr Documented by: Admin: 10/23/21 07:13 Dose: 25 mls/hr Documented by: [email or web address] Vital Signs Vital signs: Vital Signs - 8 hr 10/23/21 01:00 10/23/21 01:30 10/23/21 02:00 Pulse Rate 63 64 65 Respiratory Rate 30 H 30 H 29 H Blood Pressure 126/64 Pulse Oximetry 94 94 95 10/23/21 02:30 10/23/21 03:00 10/23/21 03:30 Pulse Rate 59 L 58 L 58 L Respiratory Rate 28 H 27 H 27 H Blood Pressure Pulse Oximetry 94 95 95 10/23/21 04:00 10/23/21 04:30 10/23/21 05:00 Pulse Rate 58 L 59 L 58 L Respiratory Rate 27 H Blood Pressure 128/63 Pulse Oximetry 95 95 94 10/23/21 05:30 10/23/21 06:00 10/23/21 06:30 Pulse Rate 60 60 63 Respiratory Rate Blood Pressure 143/71 H Pulse Oximetry 93 93 94 10/23/21 07:00 10/23/21 07:20 10/23/21 07:30 Pulse Rate 59 L 56 L 57 L Respiratory Rate 20 20 22 Blood Pressure 138/65 Pulse Oximetry 96 96 92 10/23/21 07:40 10/23/21 08:00 Pulse Rate 63 Respiratory Rate Blood Pressure 154/68 H Pulse Oximetry 96 <Tyrone Guerrero, DO - Last Filed: 10/23/21 19:44> Orders Ordered: Discontinued Medications Piperacillin Sod/Tazobactam (Sod 4.5 gm/ Sodium Chloride) 100 mls @ 200 mls/hr IV NOW ONE Stop: 10/22/21 20:22 Last Infusion: 10/22/21 21:14 Dose: 0 mls/hr Documented by: [email or web address] Admin: 10/22/21 20:32 Dose: 200 mls/hr Documented by: [email or web address] Lactated Ringer's (Lactated Ringers) 1,000 mls @ 125 mls/hr IV CONT [facility] Last Infusion: 10/23/21 08:40 Dose: 0 mls/hr Documented by: Admin: 10/23/21 02:11 Dose: 125 mls/hr Documented by: [email or web address] Infusion: 10/23/21 02:08 Dose: 0 mls/hr Documented by: Infusion: 10/22/21 21:30 Dose: 125 mls/hr Documented by: [email or web address] Infusion: 10/22/21 21:15 Dose: 999 mls/hr Documented by: Infusion: 10/22/21 20:34 Dose: 0 mls/hr Documented by: [email or web address] Admin: 10/22/21 20:33 Dose: 125 mls/hr Documented by: SBALDW Piperacillin Sod/Tazobactam (Sod 4.5 gm/ Sodium Chloride) 100 mls @ 25 mls/hr IV Q8H [facility] Last Infusion: 10/23/21 08:40 Dose: 0 mls/hr Documented by: Admin: 10/23/21 07:13 Dose: 25 mls/hr Documented by: DANNY Vital Signs Vital signs: Vital Signs - 8 hr 10/23/21 01:00 10/23/21 01:30 10/23/21 02:00 Pulse Rate 63 64 65 Respiratory Rate 30 H 30 H 29 H Blood Pressure 126/64 Pulse Oximetry 94 94 95 10/23/21 02:30 10/23/21 03:00 10/23/21 03:30 Pulse Rate 59 L 58 L 58 L Respiratory Rate 28 H 27 H 27 H Blood Pressure Pulse Oximetry 94 95 95 10/23/21 04:00 10/23/21 04:30 10/23/21 05:00 Pulse Rate 58 L 59 L 58 L Respiratory Rate 27 H Blood Pressure 128/63 Pulse Oximetry 95 95 94 10/23/21 05:30 10/23/21 06:00 10/23/21 06:30 Pulse Rate 60 60 63 Respiratory Rate Blood Pressure 143/71 H Pulse Oximetry 93 93 94 10/23/21 07:00 10/23/21 07:20 10/23/21 07:30 Pulse Rate 59 L 56 L 57 L Respiratory Rate 20 20 22 Blood Pressure 138/65 Pulse Oximetry 96 96 92 10/23/21 07:40 10/23/21 08:00 Pulse Rate 63 Respiratory Rate Blood Pressure 154/68 H Pulse Oximetry 96 MDM - Nausea/Vomiting/Diarrhea <Reid Burkett DO - Last Filed: 10/23/21 08:36> Lab Data Attestation: I reviewed the patient's lab results. Result diagrams: 10/23/21 07:17 10/23/21 07:17 Labs: Lab Results 10/22/21 10/22/21 10/22/21 Range/Units 13:45 13:45 13:45 WBC 12.2 H (4.5-11.0) X10^3/uL RBC 3.71 L (4.0-5.2) X10^6/uL Hgb 11.5 L (12.0-16.0) g/dL Hct 34.6 L (36-46) % MCV 93.3 (80-100) fL MCH 31.1 (26-34) PG MCHC 33.4 (30-36) % RDW 13.5 (11.6-14.8) % Plt Count 167 (150-400) X10^3/uL Neut % (Auto) 84.2 H (50-75) % Lymph % (Auto) 5.6 L (25-40) % [place] % (Auto) 9.8 (3-14) % Eos % (Auto) 0.2 L (2-4) % Baso % (Auto) 0.2 (0-2) % Neut # (Auto) 66012 H (2857-2707) /uL Lymph # (Auto) 700 L (9128-4344) /uL [place] # (Auto) 1200 H (0-900) /uL Eos # (Auto) 0 (0-450) /uL Baso # (Auto) 0 (0-100) /uL Total Counted Seg Neutrophils % (38-70) % Band Neutrophils % (3-7) % Lymphocytes % (Manual) (25-45) % Monocytes % (Manual) (2-11) % Eosinophils % (Manual) (2-4) % Basophils % (Manual) (0-1) % Neutrophils # (Manual) (8722-5192) /uL RBC Morphology PT 13.6 H (10.1-12.7) SECONDS INR 1.2 (0.9-1.3) APTT 28 (26.4-36.2) SECONDS Sodium 130 L (137-145) mmol/L Potassium 4.0 (3.4-5.1) mmol/L Chloride 101 (98-107) mmol/L Carbon Dioxide 25 (22-32) mmol/L BUN 14 (7-17) mg/dL Creatinine 1.05 H (0.52-1.04) mg/dL Estimated GFR 50.2 L (>60) mL/min BUN/Creatinine Ratio 13.3 (6-22) Glucose 104 (80-110) mg/dL Calcium 9.6 (8.4-10.2) mg/dL Magnesium 2.0 (1.6-2.3) mg/dL Total Bilirubin 2.1 H (0.2-1.3) mg/dL AST 120 H (14-36) IU/L ALT 179 H (<35) IU/L Alkaline Phosphatase 113 (38-126) U/L Total Creatine Kinase 105 (30-135) U/L CK-MB (CK-2) 1.25 (<2.37) ng/mL CK-MB (CK-2) Rel Index 1.2 L (1.5-5.0) % Troponin I < 0.012 (0.01-0.034) ng/mL Total Protein 6.9 (6.3-8.2) g/dL Albumin 3.8 (3.5-5.0) g/dL Globulin 3.1 (1.7-4.1) g/dL Albumin/Globulin Ratio 1.2 (1.0-2.8) Lipase 82 (23-300) U/L Urine Color Urine Appearance Urine pH (4.5-8.0) Ur Specific [place] (1.000-1.035) Urine Protein (Negative) Urine Glucose (UA) (Negative) g/dL Urine Ketones (NEGATIVE) Urine Occult Blood (Negative) Urine Nitrate (Negative) Urine Bilirubin (NEGATIVE) Ur Bilirubin Confirm (Negative) Urine Urobilinogen (0.2) E.U./dL Ur Leukocyte Esterase (NEGATIVE) Urine RBC (0-5/HPF) Urine WBC (0-5/HPF) Ur Squamous Epith Cells (0-5/HPF) Urine Bacteria (None) Ur Culture Indicated? SARS-CoV-2 (PCR) (Negative) 10/22/21 10/22/21 10/23/21 Range/Units 13:45 13:45 07:17 WBC 9.3 (4.5-11.0) X10^3/uL RBC 3.31 L (4.0-5.2) X10^6/uL Hgb 10.6 L (12.0-16.0) g/dL Hct 30.9 L (36-46) % MCV 93.5 (80-100) fL MCH 32.2 (26-34) PG MCHC 34.4 (30-36) % RDW 14.0 (11.6-14.8) % Plt Count 139 L (150-400) X10^3/uL Neut % (Auto) Not Reportable (50-75) % Lymph % (Auto) Not Reportable (25-40) % [place] % (Auto) Not Reportable (3-14) % Eos % (Auto) Not Reportable (2-4) % Baso % (Auto) Not Reportable (0-2) % Neut # (Auto) (7529-7985) /uL Lymph # (Auto) Not Reportable (8259-8624) /uL [place] # (Auto) Not Reportable (0-900) /uL Eos # (Auto) (0-450) /uL Baso # (Auto) Not Reportable (0-100) /uL Total Counted 100 Seg Neutrophils % 66.0 (38-70) % Band Neutrophils % 2.0 L (3-7) % Lymphocytes % (Manual) 15.0 L (25-45) % Monocytes % (Manual) 13.0 H (2-11) % Eosinophils % (Manual) 2.0 (2-4) % Basophils % (Manual) 2.0 H (0-1) % Neutrophils # (Manual) 6324 H (2818-7171) /uL RBC Morphology Normal morphology PT (10.1-12.7) SECONDS INR (0.9-1.3) APTT (26.4-36.2) SECONDS Sodium (137-145) mmol/L Potassium (3.4-5.1) mmol/L Chloride (98-107) mmol/L Carbon Dioxide (22-32) mmol/L BUN (7-17) mg/dL Creatinine (0.52-1.04) mg/dL Estimated GFR (>60) mL/min BUN/Creatinine Ratio (6-22) Glucose (80-110) mg/dL Calcium (8.4-10.2) mg/dL Magnesium (1.6-2.3) mg/dL Total Bilirubin (0.2-1.3) mg/dL AST (14-36) IU/L ALT (<35) IU/L Alkaline Phosphatase (38-126) U/L Total Creatine Kinase (30-135) U/L CK-MB (CK-2) (<2.37) ng/mL CK-MB (CK-2) Rel Index (1.5-5.0) % Troponin I (0.01-0.034) ng/mL Total Protein (6.3-8.2) g/dL Albumin (3.5-5.0) g/dL Globulin (1.7-4.1) g/dL Albumin/Globulin Ratio (1.0-2.8) Lipase (23-300) U/L Urine Color Yellow Urine Appearance Sl cloudy Urine pH 6.5 (4.5-8.0) Ur Specific [place] 1.010 (1.000-1.035) Urine Protein 1+ H (Negative) Urine Glucose (UA) Trace H (Negative) g/dL Urine Ketones Negative (NEGATIVE) Urine Occult Blood 1+ H (Negative) Urine Nitrate Negative (Negative) Urine Bilirubin 1+ H (NEGATIVE) Ur Bilirubin Confirm Negative (Negative) Urine Urobilinogen 1.0 (0.2) E.U./dL Ur Leukocyte Esterase 2+ H (NEGATIVE) Urine RBC 1-5/hpf (0-5/HPF) Urine WBC 10-30/hpf H (0-5/HPF) Ur Squamous Epith Cells 10-30 /hpf H D (0-5/HPF) Urine Bacteria Few (2-10) H (None) Ur Culture Indicated? Cult not indicated SARS-CoV-2 (PCR) Negative (Negative) 10/23/21 Range/Units 07:17 WBC (4.5-11.0) X10^3/uL RBC (4.0-5.2) X10^6/uL Hgb (12.0-16.0) g/dL Hct (36-46) % MCV (80-100) fL MCH (26-34) PG MCHC (30-36) % RDW (11.6-14.8) % Plt Count (150-400) X10^3/uL Neut % (Auto) (50-75) % Lymph % (Auto) (25-40) % [place] % (Auto) (3-14) % Eos % (Auto) (2-4) % Baso % (Auto) (0-2) % Neut # (Auto) (1340-5550) /uL Lymph # (Auto) (0116-2943) /uL [place] # (Auto) (0-900) /uL Eos # (Auto) (0-450) /uL Baso # (Auto) (0-100) /uL Total Counted Seg Neutrophils % (38-70) % Band Neutrophils % (3-7) % Lymphocytes % (Manual) (25-45) % Monocytes % (Manual) (2-11) % Eosinophils % (Manual) (2-4) % Basophils % (Manual) (0-1) % Neutrophils # (Manual) (4044-2428) /uL RBC Morphology PT (10.1-12.7) SECONDS INR (0.9-1.3) APTT (26.4-36.2) SECONDS Sodium 134 L (137-145) mmol/L Potassium 3.7 (3.4-5.1) mmol/L Chloride 106 (98-107) mmol/L Carbon Dioxide 24 (22-32) mmol/L BUN 10 (7-17) mg/dL Creatinine 1.05 H (0.52-1.04) mg/dL Estimated GFR 50.2 L (>60) mL/min BUN/Creatinine Ratio 9.5 (6-22) Glucose 83 (80-110) mg/dL Calcium 9.4 (8.4-10.2) mg/dL Magnesium (1.6-2.3) mg/dL Total Bilirubin 1.0 (0.2-1.3) mg/dL AST 50 H (14-36) IU/L ALT 123 H (<35) IU/L Alkaline Phosphatase 91 (38-126) U/L Total Creatine Kinase (30-135) U/L CK-MB (CK-2) (<2.37) ng/mL CK-MB (CK-2) Rel Index (1.5-5.0) % Troponin I (0.01-0.034) ng/mL Total Protein 5.9 L (6.3-8.2) g/dL Albumin 3.2 L (3.5-5.0) g/dL Globulin 2.7 (1.7-4.1) g/dL Albumin/Globulin Ratio 1.2 (1.0-2.8) Lipase (23-300) U/L Urine Color Urine Appearance Urine pH (4.5-8.0) Ur Specific [place] (1.000-1.035) Urine Protein (Negative) Urine Glucose (UA) (Negative) g/dL Urine Ketones (NEGATIVE) Urine Occult Blood (Negative) Urine Nitrate (Negative) Urine Bilirubin (NEGATIVE) Ur Bilirubin Confirm (Negative) Urine Urobilinogen (0.2) E.U./dL Ur Leukocyte Esterase (NEGATIVE) Urine RBC (0-5/HPF) Urine WBC (0-5/HPF) Ur Squamous Epith Cells (0-5/HPF) Urine Bacteria (None) Ur Culture Indicated? SARS-CoV-2 (PCR) (Negative) Imaging Data Chest x-ray: Radiologist's Impression: [address] [address] XRay Report Signed Patient: Brian Carrillo MR#: [id number] : 1940 Acct:[id number] Age/Sex: 81 / F Date of Service: 10/22/21 Loc: ED Accession Number: [id number] ?? Procedure: XR chest 1V Ordering Provider: Reid Burkett D.O. PROCEDURE:? XR CHEST 1V ? INDICATIONS:? chest pain ? TECHNIQUE:? One view of the chest was acquired.? ? COMPARISON:? [facility], CR, XR CHEST 2V, 05/09/2019, 14:05.? [facility], CR, XR CHEST 2V, 07/28/2020, 12:14. ? FINDINGS:? ? Surgical changes and devices:? Bilateral shoulder arthroplasty hardware is seen. ? Lungs and pleura:? On this semiupright portable chest examination, no large pneumothorax or large pleural effusions are seen.? No focal infiltrates are seen.? ? Mediastinum:? The cardiac contours are within normal limits. The aorta demonstrates calcification and tortuosity. ? Bones and chest wall:? No suspicious bony lesions.? Age-appropriate bony degenerative changes are seen.? Mild dextroconvex scoliotic curvature is seen. ? ? Overlying soft tissues appear unremarkable.? ? ? IMPRESSION:? ? Portable chest within normal limits for age, with note made of postoperative and degenerative changes. ? ? ? Dictated by: Bobby Alex M.D. on 10/22/2021 at 13:14 ? ? Approved by: Bobby Alex M.D. on 10/22/2021 at 13:15?? Extremity x-ray #1: Radiologist's Impression: [address] [address] XRay Report Signed Patient: Brian Carrillo MR#: [id number] : 1940 Acct:[id number] Age/Sex: 81 / F Date of Service: 10/22/21 Loc: ED Accession Number: [id number] ?? Procedure: XR hand LT min 3V Ordering Provider: Reid Burkett D.O. PROCEDURE:? XR HAND LT MIN 3V ? INDICATIONS:? follow up on fracture ? TECHNIQUE:? 3 views of the hand(s) acquired.? ? COMPARISON:? [facility], CR, XR HAND LT MIN 3V, 10/08/2021, 10:12. ? FINDINGS:? ? Bones:? There is relatively unchanged appearance of proximal 4th metacarpal fracture.? No appreciable bridging callus is identified.? Significant diffuse arthritic changes are present, including 1st CMC IP joints, scaphoid, trapezial and radiocarpal. ? Soft tissues:? No suspicious soft tissue calcifications.? ? ? IMPRESSION:? Stable appearance of mildly displaced 4th metacarpal fracture without visualized interval healing.? Significant diffuse arthritic changes are present. ? ? Dictated by: Teresa Orozco M.D. on 10/22/2021 at 15:14 ? ? Approved by: Teresa Orozco M.D. on 10/22/2021 at 15:23 US - abdomen: Radiologist's Impression: [place] [address] Ultrasound Report Signed Patient: Brian Carrillo MR#: [id number] : 1940 Acct:[id number] Age/Sex: 81 / F Date of Service: 10/22/21 Loc: ED Accession Number: [id number] ?? Procedure: US abdomen limited Ordering Provider: Reid Burkett D.O. PROCEDURE:? US ABDOMEN LIMITED ? INDICATIONS:? ?GALLBLADDER PATHOLOGY ? TECHNIQUE:? Real-time scanning was performed of the upper abdomen, with image documentation.? ? COMPARISON:? [facility], CT, CT KIDNEY URETER BLADDER (KUB), 03/11/2018, 12:58.? [facility], US, US ABDOMEN COMPLETE, 07/11/2020, 12:46. ? FINDINGS:? ? Liver:? Liver is normal in size and homogeneous in echotexture.? Small anechoic cysts.? Left lower lobe medial measuring 2.4 cm. Left lower lobe mid measuring 1.3 cm.? ? Gallbladder:? Enlarged measuring 11.7 x 4.9 x 3.3 cm. Mobile gallstones and sludge.? Gallbladder wall is mildly thickened measuring 3.2 mm. No pericholecystic fluid. Negative sonographic Mayes's sign.? Overall the gallbladder appears similar to the prior ultrasound from 2019.? ? Biliary ducts:? Intrahepatic bile ducts are non-dilated.? Extrahepatic bile duct caliber measures 7 mm.? Normal is 6-7 mm or less in diameter, or 10 mm or less post-cholecystectomy.? ? Pancreas:? The visualized portions of the pancreatic head and body are unremarkable.? There is trace fluid anterior to the pancreas. ? ? IMPRESSION:? 1. Enlarged gallbladder with minimal gallbladder wall thickening.? Gallbladder is filled with stones and sludge.? However, the gallbladder appears similar to the prior ultrasound from 2019. Findings could be seen in cholecystitis.? ? 2. Trace fluid anterior to the pancreas. ? 3. Extrahepatic bile ducts are mildly prominent. ? Consider further evaluation with CT abdomen pelvis with IV contrast.? HIDA scan could also be considered for further evaluation. ? ? ? Dictated by: Luís Dixon M.D. on 10/22/2021 at 15:41 ? ? Approved by: Luís Dixon M.D. on 10/22/2021 at 15:48?? CT scan - abdomen/pelvis: Radiologist's Impression: [place] [address] CT Scan Report Signed Patient: Brian Carrillo MR#: [id number] : 1940 Acct:[id number] Age/Sex: 81 / F Date of Service: 10/22/21 Loc: ED Accession Number: [id number] ?? Procedure: CT abdomen pelvis w con Ordering Provider: Reid Burkett D.O. PROCEDURE:? CT ABDOMEN PELVIS W CON ? INDICATIONS:? epigastric abdomen pain ? TECHNIQUE:? After the administration of intravenous contrast, axial sections acquired from the lung bases to the pubic symphysis.? Coronal and sagittal reformats were performed.? For radiation dose reduction, the following was used:? automated exposure control, adjustment of mA and/or kV according to patient size.? ? COMPARISON:? None. ? FINDINGS:? Image quality:? Excellent.? ? Lung bases:? Unremarkable. Heart:? No significant findings. ? ABDOMEN: Liver:? Several hepatic cysts measure up to 2.3 cm.? There is intra and extrahepatic bile duct dilatation without calcified obstructing lesion.? Common bile duct measures up to 9 mm Gallbladder:? Distended without pericholecystic inflammation. Biliary ducts:? Unremarkable.? ? Pancreas:? Unremarkable.? ? Spleen:? Unremarkable.? ? Adrenal Glands:? Unremarkable.? ? Kidneys and Ureters:? Bilateral renal scarring noted.? Nonobstructing renal calculi measure up to 5 mm.? No hydronephrosis. ? Stomach and Bowel:? The stomach is nondistended, however, there is irregular mucosal hypertrophy in the stomach which is incompletely assessed.? No evidence of obstruction.? No hiatal hernia. Peritoneum:? No abnormal intraperitoneal fluid.? No free air.? ? Ventral Wall: ? No hernias.? Abdominal Nodes:? No retroperitoneal or mesenteric adenopathy by size criteria.? Vessels:? Aorta and inferior vena cava are normal in size.? ? PELVIS: Pelvic Organs:? Unremarkable.? ? Bladder:? Unremarkable.? ? Pelvic Nodes: No enlarged lymph nodes.? Miscellaneous: No hernias are seen. ? ? ? Bones:? Convex right thoracolumbar scoliosis as well as advanced degenerative disc disease and arthropathy noted.? No lytic or blastic lesion. ? ? IMPRESSION: ? 1. Irregular gastric mucosal hypertrophy may be related to gastritis.? Consider follow-up upper GI or direct visualization.? No obstruction. ? 2. Mild intra and extrahepatic bile duct dilatation and gallbladder distention.? Consider follow up MRCP for further evaluation.? No evidence of acute inflammation.? ? 3. Renal scarring and nonobstructive calculi.? No hydronephrosis. ? 4.? 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 ? Approved by: Magen Monge M.D. on 10/22/2021 at 16:17? ECG Data Attestation: I personally reviewed and interpreted this ECG as follows: Interpretation: Sinus rhythm Ventricular rate is 71 Left axis deviation Normal QRS Normal QTC ST T wave changes MDM Narrative Medical decision making narrative: Patient is nontoxic appearing. Afebrile. Not tachycardic. Does have a leukocytosis with a left shift. Has an elevation in her bilirubin and LFTs. Lipase is unremarkable. Discomfort is epigastric region right upper quadrant. Does have gallbladder disease with stones and sludge noted on the ultrasound. Confirmed with CT scan without other obvious potential etiology. Discussed the case with Dr. Lauren with General surgery. Concern is common bile duct stone potentially needing a ERCP. We will obtain a MRCP and disposition for these results. Case turned over to Dr. Guerrero to follow up and disposition. 1899 - (Cesar): Patient received in sign-out from Dr. Burkett. I performed an independent history and physical exam. MRCP shows a filling defect in the distal common bile duct. I have re-contacted general surgery on-call suggest this is sufficient criteria to transfer patient as we cannot perform ERCP at this facility. Antibiotics order, fluids continued, patient will remain NPO. Patient and understand and are in agreement with the plan. 2100 - Currently have multiple calls [facility] - no beds, received fax [facility] - no beds Prov - no beds [facility] - no outside beds [facility] - no beds, 4 ahead, will have GI call if available [facility] - accepted fax [phone] - Calls back. No luck thus far, will touch base at noon 0545 - [facility] requests we contact [facility] after 0800 to discuss with their GI/ERCP provider 0650 - Discussion with Dr. Soto () happy to accept, requets we speak to hospitalist Dr burkett 10/23/21: Received turned over from Dr. Guerrero. I did review patient's overnight events. Repeat labs today show an improvement in the leukocytosis and a slight improvement of her LFTs and also an improvement in her bilirubin. Patient has been getting antibiotics. Dr. Guerrero discussed the case with GI who is happy to see the patient. I discussed the case with Dr. Ramirez hospitalist at [place] who accepts the patient for transfer. Patient is stable for transport. Patient is aware of the need for transport. <Tyrone Guerrero, DO - Last Filed: 10/23/21 19:44> Lab Data Labs: Lab Results 10/22/21 10/22/21 10/22/21 Range/Units 13:45 13:45 13:45 WBC 12.2 H (4.5-11.0) X10^3/uL RBC 3.71 L (4.0-5.2) X10^6/uL Hgb 11.5 L (12.0-16.0) g/dL Hct 34.6 L (36-46) % MCV 93.3 (80-100) fL MCH 31.1 (26-34) PG MCHC 33.4 (30-36) % RDW 13.5 (11.6-14.8) % Plt Count 167 (150-400) X10^3/uL Neut % (Auto) 84.2 H (50-75) % Lymph % (Auto) 5.6 L (25-40) % [place] % (Auto) 9.8 (3-14) % Eos % (Auto) 0.2 L (2-4) % Baso % (Auto) 0.2 (0-2) % Neut # (Auto) 75577 H (5816-9235) /uL Lymph # (Auto) 700 L (8698-6986) /uL [place] # (Auto) 1200 H (0-900) /uL Eos # (Auto) 0 (0-450) /uL Baso # (Auto) 0 (0-100) /uL Total Counted Seg Neutrophils % (38-70) % Band Neutrophils % (3-7) % Lymphocytes % (Manual) (25-45) % Monocytes % (Manual) (2-11) % Eosinophils % (Manual) (2-4) % Basophils % (Manual) (0-1) % Neutrophils # (Manual) (0713-4204) /uL RBC Morphology PT 13.6 H (10.1-12.7) SECONDS INR 1.2 (0.9-1.3) APTT 28 (26.4-36.2) SECONDS Sodium 130 L (137-145) mmol/L Potassium 4.0 (3.4-5.1) mmol/L Chloride 101 (98-107) mmol/L Carbon Dioxide 25 (22-32) mmol/L BUN 14 (7-17) mg/dL Creatinine 1.05 H (0.52-1.04) mg/dL Estimated GFR 50.2 L (>60) mL/min BUN/Creatinine Ratio 13.3 (6-22) Glucose 104 (80-110) mg/dL Calcium 9.6 (8.4-10.2) mg/dL Magnesium 2.0 (1.6-2.3) mg/dL Total Bilirubin 2.1 H (0.2-1.3) mg/dL AST 120 H (14-36) IU/L ALT 179 H (<35) IU/L Alkaline Phosphatase 113 (38-126) U/L Total Creatine Kinase 105 (30-135) U/L CK-MB (CK-2) 1.25 (<2.37) ng/mL CK-MB (CK-2) Rel Index 1.2 L (1.5-5.0) % Troponin I < 0.012 (0.01-0.034) ng/mL Total Protein 6.9 (6.3-8.2) g/dL Albumin 3.8 (3.5-5.0) g/dL Globulin 3.1 (1.7-4.1) g/dL Albumin/Globulin Ratio 1.2 (1.0-2.8) Lipase 82 (23-300) U/L Urine Color Urine Appearance Urine pH (4.5-8.0) Ur Specific [place] (1.000-1.035) Urine Protein (Negative) Urine Glucose (UA) (Negative) g/dL Urine Ketones (NEGATIVE) Urine Occult Blood (Negative) Urine Nitrate (Negative) Urine Bilirubin (NEGATIVE) Ur Bilirubin Confirm (Negative) Urine Urobilinogen (0.2) E.U./dL Ur Leukocyte Esterase (NEGATIVE) Urine RBC (0-5/HPF) Urine WBC (0-5/HPF) Ur Squamous Epith Cells (0-5/HPF) Urine Bacteria (None) Ur Culture Indicated? SARS-CoV-2 (PCR) (Negative) 10/22/21 10/22/21 10/23/21 Range/Units 13:45 13:45 07:17 WBC 9.3 (4.5-11.0) X10^3/uL RBC 3.31 L (4.0-5.2) X10^6/uL Hgb 10.6 L (12.0-16.0) g/dL Hct 30.9 L (36-46) % MCV 93.5 (80-100) fL MCH 32.2 (26-34) PG MCHC 34.4 (30-36) % RDW 14.0 (11.6-14.8) % Plt Count 139 L (150-400) X10^3/uL Neut % (Auto) Not Reportable (50-75) % Lymph % (Auto) Not Reportable (25-40) % [place] % (Auto) Not Reportable (3-14) % Eos % (Auto) Not Reportable (2-4) % Baso % (Auto) Not Reportable (0-2) % Neut # (Auto) (2004-0351) /uL Lymph # (Auto) Not Reportable (1701-3670) /uL [place] # (Auto) Not Reportable (0-900) /uL Eos # (Auto) (0-450) /uL Baso # (Auto) Not Reportable (0-100) /uL Total Counted 100 Seg Neutrophils % 66.0 (38-70) % Band Neutrophils % 2.0 L (3-7) % Lymphocytes % (Manual) 15.0 L (25-45) % Monocytes % (Manual) 13.0 H (2-11) % Eosinophils % (Manual) 2.0 (2-4) % Basophils % (Manual) 2.0 H (0-1) % Neutrophils # (Manual) 6324 H (3181-5838) /uL RBC Morphology Normal morphology PT (10.1-12.7) SECONDS INR (0.9-1.3) APTT (26.4-36.2) SECONDS Sodium (137-145) mmol/L Potassium (3.4-5.1) mmol/L Chloride (98-107) mmol/L Carbon Dioxide (22-32) mmol/L BUN (7-17) mg/dL Creatinine (0.52-1.04) mg/dL Estimated GFR (>60) mL/min BUN/Creatinine Ratio (6-22) Glucose (80-110) mg/dL Calcium (8.4-10.2) mg/dL Magnesium (1.6-2.3) mg/dL Total Bilirubin (0.2-1.3) mg/dL AST (14-36) IU/L ALT (<35) IU/L Alkaline Phosphatase (38-126) U/L Total Creatine Kinase (30-135) U/L CK-MB (CK-2) (<2.37) ng/mL CK-MB (CK-2) Rel Index (1.5-5.0) % Troponin I (0.01-0.034) ng/mL Total Protein (6.3-8.2) g/dL Albumin (3.5-5.0) g/dL Globulin (1.7-4.1) g/dL Albumin/Globulin Ratio (1.0-2.8) Lipase (23-300) U/L Urine Color Yellow Urine Appearance Sl cloudy Urine pH 6.5 (4.5-8.0) Ur Specific [place] 1.010 (1.000-1.035) Urine Protein 1+ H (Negative) Urine Glucose (UA) Trace H (Negative) g/dL Urine Ketones Negative (NEGATIVE) Urine Occult Blood 1+ H (Negative) Urine Nitrate Negative (Negative) Urine Bilirubin 1+ H (NEGATIVE) Ur Bilirubin Confirm Negative (Negative) Urine Urobilinogen 1.0 (0.2) E.U./dL Ur Leukocyte Esterase 2+ H (NEGATIVE) Urine RBC 1-5/hpf (0-5/HPF) Urine WBC 10-30/hpf H (0-5/HPF) Ur Squamous Epith Cells 10-30 /hpf H D (0-5/HPF) Urine Bacteria Few (2-10) H (None) Ur Culture Indicated? Cult not indicated SARS-CoV-2 (PCR) Negative (Negative) 10/23/21 Range/Units 07:17 WBC (4.5-11.0) X10^3/uL RBC (4.0-5.2) X10^6/uL Hgb (12.0-16.0) g/dL Hct (36-46) % MCV (80-100) fL MCH (26-34) PG MCHC (30-36) % RDW (11.6-14.8) % Plt Count (150-400) X10^3/uL Neut % (Auto) (50-75) % Lymph % (Auto) (25-40) % [place] % (Auto) (3-14) % Eos % (Auto) (2-4) % Baso % (Auto) (0-2) % Neut # (Auto) (6631-4460) /uL Lymph # (Auto) (4124-2554) /uL [place] # (Auto) (0-900) /uL Eos # (Auto) (0-450) /uL Baso # (Auto) (0-100) /uL Total Counted Seg Neutrophils % (38-70) % Band Neutrophils % (3-7) % Lymphocytes % (Manual) (25-45) % Monocytes % (Manual) (2-11) % Eosinophils % (Manual) (2-4) % Basophils % (Manual) (0-1) % Neutrophils # (Manual) (7097-4957) /uL RBC Morphology PT (10.1-12.7) SECONDS INR (0.9-1.3) APTT (26.4-36.2) SECONDS Sodium 134 L (137-145) mmol/L Potassium 3.7 (3.4-5.1) mmol/L Chloride 106 (98-107) mmol/L Carbon Dioxide 24 (22-32) mmol/L BUN 10 (7-17) mg/dL Creatinine 1.05 H (0.52-1.04) mg/dL Estimated GFR 50.2 L (>60) mL/min BUN/Creatinine Ratio 9.5 (6-22) Glucose 83 (80-110) mg/dL Calcium 9.4 (8.4-10.2) mg/dL Magnesium (1.6-2.3) mg/dL Total Bilirubin 1.0 (0.2-1.3) mg/dL AST 50 H (14-36) IU/L ALT 123 H (<35) IU/L Alkaline Phosphatase 91 (38-126) U/L Total Creatine Kinase (30-135) U/L CK-MB (CK-2) (<2.37) ng/mL CK-MB (CK-2) Rel Index (1.5-5.0) % Troponin I (0.01-0.034) ng/mL Total Protein 5.9 L (6.3-8.2) g/dL Albumin 3.2 L (3.5-5.0) g/dL Globulin 2.7 (1.7-4.1) g/dL Albumin/Globulin Ratio 1.2 (1.0-2.8) Lipase (23-300) U/L Urine Color Urine Appearance Urine pH (4.5-8.0) Ur Specific [place] (1.000-1.035) Urine Protein (Negative) Urine Glucose (UA) (Negative) g/dL Urine Ketones (NEGATIVE) Urine Occult Blood (Negative) Urine Nitrate (Negative) Urine Bilirubin (NEGATIVE) Ur Bilirubin Confirm (Negative) Urine Urobilinogen (0.2) E.U./dL Ur Leukocyte Esterase (NEGATIVE) Urine RBC (0-5/HPF) Urine WBC (0-5/HPF) Ur Squamous Epith Cells (0-5/HPF) Urine Bacteria (None) Ur Culture Indicated? SARS-CoV-2 (PCR) (Negative) Imaging Data MRCP: Radiologist's Impression: [address] [address] XRay Report Signed Patient: Davy Singh MR#: [id number] : 04/12/1957 Acct:[id number] Age/Sex: 64 / M Date of Service: 10/22/21 Loc: ED Accession Number: [id number] ?? Procedure: XR acute abdomen series Ordering Provider: Tyrone Guerrero D.O. PROCEDURE:? XR ACUTE ABDOMEN SERIES ? INDICATIONS:? N/V, weakness ? TECHNIQUE:? One view chest and two views of the abdomen were acquired.? ? COMPARISON:? None. ? FINDINGS:? ? Surgical changes and devices:? None.? ? Chest:? Lungs are clear.? Heart size is normal.? No pleural effusions.? No pneumoperitoneum.? ? Abdomen:? Bowel gas pattern is normal.? No suspicious calcifications.? Visualized solid organ contours appear normal.? ? Bones:? No suspicious bony lesions.? ? IMPRESSION:? No acute cardiopulmonary process demonstrated radiographically.? Large burden of formed stool throughout the colon.? Otherwise unremarkable abdominal radiograph. ? ? Dictated by: Matias Dickson M.D. on 10/22/2021 at 20:01 ? ? Approved by: Matias Dickson M.D. on 10/22/2021 at 20:01 ? MDM Narrative Medical decision making narrative: Patient is nontoxic appearing. Afebrile. Not tachycardic. Does have a leukocytosis with a left shift. Has an elevation in her bilirubin and LFTs. Lipase is unremarkable. Discomfort is epigastric region right upper quadrant. Does have gallbladder disease with stones and sludge noted on the ultrasound. Confirmed with CT scan without other obvious potential etiology. Discussed the case with Dr. Lauren with General surgery. Concern is common bile duct stone potentially needing a ERCP. We will obtain a MRCP and disposition for these results. Case turned over to Dr. Guerrero to follow up and disposition. 1899 - (Cesar): Patient received in sign-out from Dr. Burkett. I performed an independent history and physical exam. MRCP shows a filling defect in the distal common bile duct. I have re-contacted general surgery on-call suggest this is sufficient criteria to transfer patient as we cannot perform ERCP at this facility. Antibiotics order, fluids continued, patient will remain NPO. Patient and understand and are in agreement with the plan. 2100 - Currently have multiple calls [facility] - no beds, received fax [facility] - no beds Prov - no beds [facility] - no outside beds [facility] - no beds, 4 ahead, will have GI call if available [facility] - accepted fax [phone] - Calls back. No luck thus far, will touch base at noon 0545 - [facility] requests we contact [facility] after 0800 to discuss with their GI/ERCP provider 0650 - Discussion with Dr. Soto (GI) happy to accept, requets we speak to hospitalist Discharge Plan Departure Patient Disposition: [facility] Clinical Impression: Choledocholithiasis with acute cholecystitis Prescriptions: No Action cholecalciferol (vitamin D3) [Vitamin D3] 1,000 unit Capsule 1,000 unit PO DAILY Qty: 0 0RF alprazolam 0.25 MG tablet 0.25 mg PO DAILY PRN (Reason: Anxiety) Qty: 0 0RF aspirin 81 MG tablet,delayed release (DR/EC) 81 mg PO BID Qty: 60 0RF esomeprazole magnesium 40 mg capsule,delayed release(DR/EC) 40 mg PO DAILY 0RF Restasis 0.05 % dropperette 1 drp ophthalmic (eye) DIRECTED 0RF Elmiron 100 mg capsule 100 mg PO TID 0RF azithromycin 250 mg tablet See Rx Instructions .ROUTE .COMPLEX 0RF Label Comments: TAKE 2 TABLETS BY MOUTH TODAY, THEN TAKE 1 TABLET DAILY FOR 4 DAYS. Rx Instructions: 1 dose orally citalopram 20 mg tablet 40 mg PO DAILY 0RF albuterol sulfate [ProAir HFA] 90 mcg/actuation HFA aerosol inhaler 1 puff inhalation PRN PRN (Reason: Shortness Of Breath) 0RF Advair HFA 115-21 mcg/actuation HFA aerosol inhaler 2 puff inhalation BID 0RF Label Comments: inhale 2 puffs by mouth twice a day WITH SPACER Rinse mouth after use estradiol [Yuvafem] 10 mcg tablet 10 mcg vaginal 2XW 0RF Qvar RediHaler 80 mcg/actuation HFA aerosol breath activated 1 puff inhalation BID 0RF benzonatate 150 mg capsule 150 mg PO Q8H PRN (Reason: cough) Qty: 14 0RF lidocaine 5 % adhesive patch,medicated 1 patch TOP Q24H PRN (Reason: pain) Qty: 15 0RF Rx Instructions: leave on most painful area for up to 12 hrs Referrals: Lucy Ye ARNP [Primary Care Provider] -
--- NOTE | 2021-10-22 14:36 | DI.RAD.S_ITS ---
PROCEDURE: XR HAND LT MIN 3V INDICATIONS: follow up on fracture TECHNIQUE: 3 views of the hand(s) acquired. COMPARISON: [facility], CR, XR HAND LT MIN 3V, 10/08/2021, 10:12. FINDINGS: Bones: There is relatively unchanged appearance of proximal 4th metacarpal fracture. No appreciable bridging callus is identified. Significant diffuse arthritic changes are present, including 1st CMC IP joints, scaphoid, trapezial and radiocarpal. Soft tissues: No suspicious soft tissue calcifications. IMPRESSION: Stable appearance of mildly displaced 4th metacarpal fracture without visualized interval healing. Significant diffuse arthritic changes are present. Dictated by: Teresa Orozco M.D. on 10/22/2021 at 15:14 Approved by: Teresa Orozco M.D. on 10/22/2021 at 15:23
--- NOTE | 2021-10-22 14:36 | DI.US.S_ITS ---
PROCEDURE: US ABDOMEN LIMITED INDICATIONS: ?GALLBLADDER PATHOLOGY TECHNIQUE: Real-time scanning was performed of the upper abdomen, with image documentation. COMPARISON: [facility], CT, CT KIDNEY URETER BLADDER (KUB), 03/11/2018, 12:58. [facility], US, US ABDOMEN COMPLETE, 07/11/2020, 12:46. FINDINGS: Liver: Liver is normal in size and homogeneous in echotexture. Small anechoic cysts. Left lower lobe medial measuring 2.4 cm. Left lower lobe mid measuring 1.3 cm. Gallbladder: Enlarged measuring 11.7 x 4.9 x 3.3 cm. Mobile gallstones and sludge. Gallbladder wall is mildly thickened measuring 3.2 mm. No pericholecystic fluid. Negative sonographic Mayes's sign. Overall the gallbladder appears similar to the prior ultrasound from 2019. Biliary ducts: Intrahepatic bile ducts are non-dilated. Extrahepatic bile duct caliber measures 7 mm. Normal is 6-7 mm or less in diameter, or 10 mm or less post-cholecystectomy. Pancreas: The visualized portions of the pancreatic head and body are unremarkable. There is trace fluid anterior to the pancreas. IMPRESSION: 1. Enlarged gallbladder with minimal gallbladder wall thickening. Gallbladder is filled with stones and sludge. However, the gallbladder appears similar to the prior ultrasound from 2019. Findings could be seen in cholecystitis. 2. Trace fluid anterior to the pancreas. 3. Extrahepatic bile ducts are mildly prominent. Consider further evaluation with CT abdomen pelvis with IV contrast. HIDA scan could also be considered for further evaluation. Dictated by: Luís Dixon M.D. on 10/22/2021 at 15:41 Approved by: Luís Dixon M.D. on 10/22/2021 at 15:48
[2021-10-22 14:37] LABS: CKMB % Relative Index 1.2 % (1.5-5.0); Creatine Kinase MB 1.25 ng/mL (<2.37)
[2021-10-22 14:43] LABS: Appearance Urine UA SL CLOUDY; Bilirubin Urine UA 1+ (NEGATIVE); Color Urine UA YELLOW; Glucose Urine UA TRACE g/dL (Negative); Ketones Urine UA NEGATIVE (NEGATIVE); Leukocyte Esterase Urine UA 2+ (NEGATIVE); Nitrite Urine UA NEGATIVE (Negative); Occult Blood Urine UA 1+ (Negative); Protein Urine UA 1+ (Negative)
[2021-10-22 14:44] LABS: pH Urine UA 6.5 (4.5-8.0)
[2021-10-22 14:57] LABS: Bacteria Urine Few (2-10); Culture Indicated Urine Cult Not Indicated; Ictotest Urine Negative (Negative); RBC Urine 1-5/HPF (0-5/HPF); Squamous Epithelial Cell Urine 10-30 /HPF (0-5/HPF); WBC Urine 10-30/HPF (0-5/HPF)
--- NOTE | 2021-10-22 16:13 | DI.CT.S_ITS ---
PROCEDURE: CT ABDOMEN PELVIS W CON INDICATIONS: epigastric abdomen pain TECHNIQUE: After the administration of intravenous contrast, axial sections acquired from the lung bases to the pubic symphysis. Coronal and sagittal reformats were performed. For radiation dose reduction, the following was used: automated exposure control, adjustment of mA and/or kV according to patient size. COMPARISON: None. FINDINGS: Image quality: Excellent. Lung bases: Unremarkable. Heart: No significant findings. ABDOMEN: Liver: Several hepatic cysts measure up to 2.3 cm. There is intra and extrahepatic bile duct dilatation without calcified obstructing lesion. Common bile duct measures up to 9 mm Gallbladder: Distended without pericholecystic inflammation. Biliary ducts: Unremarkable. Pancreas: Unremarkable. Spleen: Unremarkable. Adrenal Glands: Unremarkable. Kidneys and Ureters: Bilateral renal scarring noted. Nonobstructing renal calculi measure up to 5 mm. No hydronephrosis. Stomach and Bowel: The stomach is nondistended, however, there is irregular mucosal hypertrophy in the stomach which is incompletely assessed. No evidence of obstruction. No hiatal hernia. Peritoneum: No abnormal intraperitoneal fluid. No free air. Ventral Wall: No hernias. Abdominal Nodes: No retroperitoneal or mesenteric adenopathy by size criteria. Vessels: Aorta and inferior vena cava are normal in size. PELVIS: Pelvic Organs: Unremarkable. Bladder: Unremarkable. Pelvic Nodes: No enlarged lymph nodes. Miscellaneous: No hernias are seen. Bones: Convex right thoracolumbar scoliosis as well as advanced degenerative disc disease and arthropathy noted. No lytic or blastic lesion. IMPRESSION: 1. Irregular gastric mucosal hypertrophy may be related to gastritis. Consider follow-up upper GI or direct visualization. No obstruction. 2. Mild intra and extrahepatic bile duct dilatation and gallbladder distention. Consider follow up MRCP for further evaluation. No evidence of acute inflammation. 3. Renal scarring and nonobstructive calculi. No hydronephrosis. 4. 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 on 10/22/2021 at 16:17
--- NOTE | 2021-10-22 18:00 | DI.MRI.S_ITS ---
PROCEDURE: MR ABDOMEN WO CON INDICATIONS: eval for common GB stones TECHNIQUE: Coronal HASTE through the abdomen, axial 2-D FLASH in- and [id number], and breath-hold T2 FSE with fat saturation through the biliary system and pancreas. Oblique coronal and axial thin-slice HASTE, radial thick-slab HASTE centered on the extrahepatic bile ducts. Intravenous secretin: Not requested. COMPARISON: [facility], CT, CT ABDOMEN PELVIS W CON, 10/22/2021, 16:22. FINDINGS: There are multiple small filling defects within the cystic duct and in the distal common bile duct measuring up to 3 mm. A total 3 filling defects are identified in the cystic duct and 1 filling defect in the distal common bile duct. There are also tiny gallstones layering dependently in the gallbladder fundus. Trace pericholecystic fluid. No gallbladder wall thickening. Intrahepatic biliary ductal dilatation is similar. No pancreatic ductal dilatation. IMPRESSION: At least 1 filling defect consistent with common bile duct stone near the ampulla Vater. Additional cystic duct filling defects likely representing tiny calculi. Dictated by: Matias Dickson M.D. on 10/22/2021 at 20:02 Approved by: Matias Dickson M.D. on 10/22/2021 at 20:08
[2021-10-22] MEDS: PIPERACILLIN/TAZO 4.5 GM in SODIUM CHLORIDE 0.9% 100 ML 200 ML IV (20:32)
[2021-10-22] MEDS: LACTATED RINGERS 1,000 ML 125 ML IV (20:33)
--- NOTE | 2021-10-22 21:16 | PC.NURSE ---
Per MD verbal order, Dr. Guerrero wanted a 500 mL bolus of LR to run initially, followed with the remainder of the bag at a rate of 125 mL. DAVID Allen aware.
--- NOTE | 2021-10-22 21:58 | PC.NURSE ---
Agree with care/assessment/charting by Wolf Arciniega
[2021-10-23] VITALS (19 sets, daily range): BP systolic 117–154; BP diastolic 56–71; PULSE 56–69; RESP 20–30; O2SAT 92–96
[2021-10-23] MEDS: LACTATED RINGERS 1,000 ML 125 ML IV (02:11)
[2021-10-23] MEDS: PIPERACILLIN/TAZO 4.5 GM in SODIUM CHLORIDE 0.9% 100 ML 25 ML IV (07:13)
[2021-10-23 07:29] LABS: Hematocrit 30.9 % (36-46); Hemoglobin 10.6 g/dL (12.0-16.0); Mean Corpuscular HGB Conc 34.4 % (30-36); Mean Corpuscular Hemoglobin 32.2 PG (26-34); Mean Corpuscular Volume 93.5 fL (80-100); Platelet Count 139 X10^3/uL (150-400); Red Blood Cell Count 3.31 X10^6/uL (4.0-5.2); White Blood Cell Count 9.3 X10^3/uL (4.5-11.0)
[2021-10-23 07:34] LABS: Alanine Aminotransferase 123 IU/L (<35); Albumin 3.2 g/dL (3.5-5.0); Albumin Globulin Ratio 1.2 (1.0-2.8); Alkaline Phosphatase 91 U/L (38-126); Aspartate Aminotransferase 50 IU/L (14-36); BUN Creatinine Ratio 9.5 (6-22); Blood Urea Nitrogen 10 mg/dL (7-17); Calcium 9.4 mg/dL (8.4-10.2); Carbon Dioxide 24 mmol/L (22-32); Chloride 106 mmol/L (98-107); Estimated Glomerular Filt Rate 50.2 mL/min (>60); Globulin 2.7 g/dL (1.7-4.1); Glucose 83 mg/dL (80-110); HEMOLYSIS < 15 (0-50); Potassium 3.7 mmol/L (3.4-5.1); Sodium 134 mmol/L (137-145); Total Protein 5.9 g/dL (6.3-8.2)
[2021-10-23 07:35] LABS: Add Manual Diff / Slide Review YES
[2021-10-23 07:55] LABS: Neutrophils Absolute Manual 6324 /uL (3000-5900); Total Cells Counted 100
[2021-10-23 07:57] LABS: RBC Morphology Normal Morphology
--- NOTE | 2021-10-23 08:41 | PC.NURSE ---
Transfer report given to DAVID Castillo at [facility]. [phone] at 0838. Patient left with belongings via [facility] stretcher at 0843.
== END 2021-10-23 08:57 | disposition short-term general hospital (02) ==
PROVIDERS: Emergency Medicine; Emergency Provider Emergency Medicine; PCP Internal Medicine
DX: K80.42 Calculus of bile duct with acute cholecystitis without obstruction (principal); Z88.6 Allergy status to analgesic agent; Z88.2 Allergy status to sulfonamides; Z20.822 Contact with and (suspected) exposure to COVID-19
CPT/HCPCS: 36415; 71045; 73130; 74177; 74181; 76705; 80053; 81001; 82550; 82553; 83690; 83735; 84484; 85007; 85025; 85610; 85730; 87086; 87635; 93005; 96361; 96365; 96366; 99285; C9803; J2543; Q9967

== ENCOUNTER → 2021-12-02 11:01 | Outpatient (CLI) | payer MEDICARE, OTHER, SELFPAY ==
--- NOTE | 2021-12-02 | DI.RAD.S_ITS ---
PROCEDURE: XR HAND LT MIN 3V INDICATIONS: LEFT HAND PAIN TECHNIQUE: 3 views of the hand(s) acquired. COMPARISON: [facility], CR, XR HAND LT MIN 3V, 10/08/2021, 10:12. [facility], CR, XR HAND LT MIN 3V, 10/22/2021, 14:37. FINDINGS: Bones: Diffuse osteopenia. Stable alignment of known oblique fracture involving the left 4th metacarpal shaft. Possible nondisplaced fracture involving the base of the left 5th finger proximal phalanx. Severe polyarticular osteoarthritic changes with advanced joint space loss involving the distal interphalangeal and proximal interphalangeal joints of the 2nd through 5th fingers as well as the interphalangeal joint of the left thumb. Moderate degenerative changes of the metacarpophalangeal joints of the 2nd through 5th finger as well as severe degenerative changes at the 1st carpometacarpal joint and triscaphe joint. Significant joint space loss of the radiocarpal joint and distal radial ulnar joint. Subchondral degenerative cystic changes of the distal ulna. No fractures or dislocations. Carpal bones are normally aligned. No suspicious bony lesions. Soft tissues: No suspicious soft tissue calcifications. IMPRESSION: 1. Stable alignment of known oblique fracture of the left 4th metacarpal shaft. 2. Possible nondisplaced fracture involving the base of the left 5th finger proximal phalanx. Recommend correlation with physical examination for point tenderness in this region. 3. Diffuse osteopenia. 4. 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 Dictated by: Alfred Mcdaniel M.D. on 12/02/2021 at 14:16 Approved by: Alfred Mcdaniel M.D. on 12/02/2021 at 14:21
[2021-12-02 14:36] LABS: Blood Urea Nitrogen 19 mg/dL (7-17); Calcium 9.9 mg/dL (8.4-10.2); Carbon Dioxide 29 mmol/L (22-32); Chloride 103 mmol/L (98-107); Estimated Glomerular Filt Rate 40.3 mL/min (>60); Glucose 89 mg/dL (80-110); HEMOLYSIS < 15 (0-50); Potassium 4.4 mmol/L (3.4-5.1); Sodium 136 mmol/L (137-145)
== END ==
PROVIDERS: Otolaryngology; PCP Internal Medicine; Referring Provider Internal Medicine; Visit Provider Internal Medicine
DX: S62.325D Displaced fracture of shaft of fourth metacarpal bone, left hand, subsequent encounter for fracture with routine healing (principal); M85.842 Other specified disorders of bone density and structure, left hand; M79.642 Pain in left hand; X58.XXXD Exposure to other specified factors, subsequent encounter
CPT/HCPCS: 36415; 73130; 80048

== ENCOUNTER → 2021-12-04 10:03 | Outpatient (CLI) | payer MEDICARE, OTHER, SELFPAY ==
--- NOTE | 2021-12-04 10:18 | DI.CT.S_ITS ---
PROCEDURE: CT SOFT TISSUE NECK W CON INDICATIONS: Localized swelling, mass and lump, neck TECHNIQUE: After the administration of intravenous contrast, 3.0 mm axial sections acquired from the sella to the aortic arch. Additional oblique axial 3.0 mm sections acquired through the pharynx. 3 mm thick coronal and sagittal reformats were generated. For radiation dose reduction, the following was used: automated exposure control. COMPARISON: None. FINDINGS: Image quality: Limited by beam hardening artifact related to metallic dental hardware and metallic right shoulder arthroplasty prosthesis. Lymph nodes: No enlarged lymph nodes seen throughout the neck. Vessels: Visualized vasculature appears patent. Neck spaces: The oropharynx, nasopharynx, and pharynx demonstrate no mucosal lesions. The vocal cords, false vocal cords, pyriform sinuses, epiglottis, vallecula, and tongue base all appear normal. Extramucosal spaces appear unremarkable. Glands: There is a 1.9 x 2.2 x 2.3 centimeter enhancing mass involving the superficial and deep lobes of the left parotid gland that corresponds to clinically palpable lesion. Mass has relatively well-defined, slightly lobular margins. No necrosis or calcifications are identified in the mass. No inflammatory changes noted adjacent to the mass. Right parotid gland is normal in appearance. The submandibular glands appear normal. Thyroid gland is poorly visualized due to beam hardening artifact related to right shoulder arthroplasty. Miscellaneous: Visualized brain and orbits appear normal. Lung apices appear clear. Superficial soft tissues appear normal. Bones: No suspicious bony lesions. Spine degenerative disc disease and facet arthropathy. Visualized sinuses and mastoids appear unremarkable. IMPRESSION: 1. 1.9 x 2.2 x 2.3 centimeter enhancing mass in the right parotid gland corresponds to clinically palpable lesion. 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 2. No lymphadenopathy based on size criteria. Dictated by: Chhaya Rollins MD, PhD on 12/04/2021 at 15:04 Approved by: Chhaya Rollins MD, PhD on 12/04/2021 at 15:11
== END ==
PROVIDERS: PCP Internal Medicine; Referring Provider Otolaryngology; Visit Provider Otolaryngology
DX: R22.1 Localized swelling, mass and lump, neck (principal)
CPT/HCPCS: 70491

== ENCOUNTER → 2022-03-11 12:39 | Outpatient (CLI) | payer MEDICARE, OTHER, SELFPAY | PROVIDERS: PCP Internal Medicine; Referring Provider Internal Medicine; Visit Provider Internal Medicine | DX: M81.0 Age-related osteoporosis without current pathological fracture (principal); M85.89 Other specified disorders of bone density and structure, multiple sites | CPT/HCPCS: 77080 ==

== ENCOUNTER 2022-09-11 14:57 | Observation (INO) | payer MEDICARE, OTHER, SELFPAY ==
[2022-09-11] VITALS (18 sets, daily range): BP systolic 126–207; BP diastolic 66–125; PULSE 59–82; RESP 16–35; TEMP 36.8; O2SAT 97–99; BMI 26.2
--- NOTE | 2022-09-11 15:19 | DI.CT.S_ITS ---
PROCEDURE: CT HEAD/BRAIN WO CON INDICATIONS: dizziness TECHNIQUE: Noncontrast 4.5 mm thick angled axial sections acquired from the foramen magnum to the vertex, with coronal and sagittal reformats. For radiation dose reduction, the following was used: automated exposure control, adjustment of mA and/or kV according to patient size. COMPARISON: None. FINDINGS: Image quality: Excellent. CSF spaces: Basal cisterns are patent. No extra-axial fluid collections. The ventricles are symmetric in size and shape. Brain: No intracranial bleeds or masses. There is cerebral volume loss for age, with resultant ventricular and sulcal prominence. There are periventricular and deep white matter chronic small vessel ischemic changes. There is intracranial internal carotid artery atherosclerosis. Skull and face: Calvarium and visualized facial bones appear intact, without suspicious lesions. Sinuses: Visualized sinuses and mastoids are clear. IMPRESSION: No evidence acute intracranial abnormality. Dictated by: Daniel Hernandez M.D. on 09/11/2022 at 15:52 Approved by: Daniel Hernandez M.D. on 09/11/2022 at 15:55
--- NOTE | 2022-09-11 15:19 | ED.DIZZY ---
HPI - Dizziness General Chief Complaint: Dizziness Stated Complaint: Dizzy Time Seen by Provider: 09/11/22 15:06 Source: patient Mode of arrival: Wheelchair History of Present Illness HPI Narrative: 82-year-old female nonsmoker with a history of frequent UTIs, anemia, depression, anxiety presents with her in the chief complaint of increasing episodes of dizziness since yesterday. She denies any falls or trauma. She denies any recent upper respiratory infections with runny nose, nasal congestion, sore throat or cough. She is had no headaches or blurred vision or any chest pain, shortness of breath or palpitations. She has no shortness of breath, nausea, vomiting or diarrhea. She states that she feels like things are spinning and she becomes unsteady when she stands up but that seems to go away when she sits still. She denies any change in symptoms when she turns her head [id number], only when she stands. She denies any recent change in medications or appetite Related Data Home Medications Medication Instructions Recorded Confirmed alprazolam 0.25 mg tablet 0.25 mg PO DAILY PRN Anxiety ##0 11/03/17 02/09/19 cholecalciferol (vitamin D3) 25 1,000 unit PO DAILY ##0 11/03/17 mcg (1,000 unit) capsule (Vitamin D3) cyclosporine 0.05 % eye drops in a 1 drp ophthalmic (eye) DIRECTED 02/09/19 05/19/19 dropperette esomeprazole magnesium 40 mg 40 mg PO DAILY 02/09/19 05/19/19 capsule,delayed release albuterol sulfate 90 mcg/actuation 1 puff inhalation PRN PRN 05/19/19 05/19/19 aerosol inhaler Shortness Of Breath azithromycin 250 mg tablet See Rx Instructions .Route .COMPLEX 05/19/19 05/19/19 beclomethasone dipropionate 80 1 puff inhalation BID 05/19/19 05/19/19 mcg/actuation HFA breath activated aerosol citalopram 20 mg tablet 40 mg PO DAILY 05/19/19 05/19/19 estradiol 10 mcg vaginal tablet 10 mcg vaginal 2XW 05/19/19 05/19/19 fluticasone propionate 115 2 puff inhalation BID 05/19/19 05/19/19 mcg-salmeterol 21 mcg/actuation HFA inhaler pentosan polysulfate sodium 100 mg 100 mg PO TID 05/19/19 05/19/19 capsule Previous Rx's Medication Instructions Recorded aspirin 81 mg tablet,delayed 81 mg PO BID ##60 11/17/17 release benzonatate 150 mg capsule 150 mg PO Q8H PRN cough #14 caps 05/19/19 lidocaine 5 % topical patch 1 patch topical Q24H PRN pain #15 07/28/20 ea Allergies Allergy/AdvReac Type Severity Reaction Status Date / Time Penicillins Allergy Severe Swelling Verified 09/11/22 15:15 of Lip/Tongue/Throat adhesive [ADHESIVE] AdvReac Severe THIN Verified 09/11/22 15:08 SKIN, PULLS SKIN OFF PAPER/SILK TAPE OK Sulfa (Sulfonamide AdvReac Severe I GET Verified 09/11/22 15:08 Antibiotics) EXTREMELY [SULFA (SULFONAMIDE NERVOUS, ANTIBIOTICS)] JITTERY trazodone AdvReac Severe Agitated Verified 09/11/22 15:15 amitriptyline AdvReac Intermediate Insomnia Verified 09/11/22 15:15 PAIN MEDICATIONS AdvReac Unknown I GET ALL Uncoded 12/03/21 12:10 OF THE SIDE EFFECTS, NO PAIN RELIEF Review of Systems Review of Systems Narrative: GENERAL: Denies chills, fatigue, malaise, fever, sweats. HEENT: Denies sinus pain, ear pain, sore throat, difficulty swallowing, dizziness. RESPIRATORY: Denies dyspnea, cough, wheezing, hemoptysis, sputum. CARDIOVASCULAR: Denies chest pain, palpitations, orthopnea, edema, GASTROINTESTINAL: Denies nausea, vomiting, abdominal pain, diarrhea, constipation, melena. : Denies dysuria, frequency, incontinence, hematuria, urinary retention. MUSCULOSKELETAL: denies weakness, joint pain, or bony pain SKIN: Denies rash, skin lesions, or other NEUROLOGIC: See HPI PSYCHIATRIC: No concerning psychosocial issues. 12 point review of systems is negative except for those stated above Patient History Medical History Asthma GERD (gastroesophageal reflux disease) Kidney stones Osteoarthritis Surgical History History of cataract removal with insertion of prosthetic lens History of knee replacement History of shoulder surgery Family History Brother Age: 91 Dementia Heart disease Mental health disorder Pacemaker Grandfather Mental health disorder Grandmother Arthritis Grandmother Mental health disorder Social History household members: spouse Smoking Status: Never smoker Smoking Status: Unknown if ever smoked alcohol intake frequency: 0-2 drinks per day Substance Use Type: does not use Exam Narrative Exam Narrative: GENERAL: [82] year old patient appears stated age. Well-developed patient, in mild distress. HEAD: Atraumatic. Normocephalic. EYES: Pupils equal round and reactive. Extraocular motions intact. No scleral icterus. No injection or drainage. ENT: Nose without bleeding, purulent drainage. Throat without erythema, tonsillar hypertrophy or exudate. Airway patent. NECK: Trachea midline. Non tender CARDIOVASCULAR: Regular rate and rhythm without murmurs, gallops, or rubs. RESPIRATORY: Clear to auscultation. Breath sounds equal bilaterally. No wheezes, rales, or rhonchi. GASTROINTESTINAL: Abdomen soft, non-tender, nondistended. EXTREMITIES: No edema or joint tenderness. BACK: Nontender without deformity or crepitance. No flank tenderness. NEURO: AOx3. SKIN: No rash or erythema of visible areas Initial Vital Signs Initial Vital Signs: Vital Signs Temperature 98.2 F 09/11/22 15:08 Pulse Rate 69 09/11/22 15:08 Respiratory Rate 18 09/11/22 15:08 Blood Pressure 126/66 09/11/22 15:08 Pulse Oximetry 99 09/11/22 15:08 Oxygen Delivery Method 09/11/22 15:08 Course Orders Ordered: ED Orders 09/12/22 07:10 Troponin & CK Cardiac Panel Stat Discontinued Medications Furosemide (Furosemide 40 Mg/4 Ml Vial) 40 mg IV NOW ONE Stop: 09/11/22 19:45 Last Admin: 09/11/22 20:06 Dose: 40 mg Documented By: ISADORA Sodium Chloride (Normal Saline 0.9%) 500 mls @ 1,000 mls/hr IV BOLUS ONE Stop: 09/11/22 15:47 Last Infusion: 09/11/22 17:19 Dose: 0 mls/hr Documented By: Admin: 09/11/22 16:14 Dose: 1,000 mls/hr Documented By: CHARLETTE Sodium Chloride (Normal Saline 0.9%) 1,823.43 mls @ 607.81 mls/hr 30 ml/kg infuse over 3 hr (1823.43 ml) IV NOW ONE Stop: 09/11/22 20:39 Last Admin: 09/11/22 17:43 Dose: Not Given Documented By: CHARLETTE Meclizine HCl (Meclizine Hcl 12.5 Mg Tablet) 25 mg PO NOW ONE Stop: 09/11/22 15:35 Last Admin: 09/11/22 16:12 Dose: 25 mg Documented By: CHARLETTE Vital Signs Vital signs: Vital Signs - 8 hr 09/11/22 15:08 09/11/22 15:42 09/11/22 15:43 Temperature 98.2 F Pulse Rate 69 62 61 Respiratory Rate 18 26 H 20 Blood Pressure 126/66 Pulse Oximetry 99 99 Oxygen Delivery Method Room Air 09/11/22 15:43 09/11/22 15:55 09/11/22 15:55 Temperature Pulse Rate 63 Respiratory Rate 23 Blood Pressure 143/69 H 152/76 H Pulse Oximetry 99 Oxygen Delivery Method Room Air 09/11/22 16:00 09/11/22 16:00 Temperature Pulse Rate 60 Respiratory Rate 18 Blood Pressure 142/70 H Pulse Oximetry 99 Oxygen Delivery Method MDM - Dizziness Lab Data Result diagrams: 09/11/22 16:05 09/11/22 15:18 Labs: Lab Results 09/11/22 09/11/22 09/11/22 Range/Units 15:18 15:18 16:00 WBC (4.5-11.0) X10^3/uL RBC (4.0-5.2) X10^6/uL Hgb (12.0-16.0) g/dL Hct (36-46) % MCV (80-100) fL MCH (26-34) PG MCHC (30-36) % RDW (11.6-14.8) % Plt Count (150-400) X10^3/uL Neut % (Auto) (50-75) % Lymph % (Auto) (25-40) % [place] % (Auto) (3-14) % Eos % (Auto) (2-4) % Baso % (Auto) (0-2) % Neut # (Auto) (1541-0990) /uL Lymph # (Auto) (7823-4707) /uL [place] # (Auto) (0-900) /uL Eos # (Auto) (0-450) /uL Baso # (Auto) (0-100) /uL D-Dimer 447 (<500) ng/ml Sodium 135 L (137-145) mmol/L Potassium 4.3 (3.4-5.1) mmol/L Chloride 103 (98-107) mmol/L Carbon Dioxide 26 (22-32) mmol/L BUN 33 H (7-17) mg/dL Creatinine 1.16 H (0.52-1.04) mg/dL Estimated GFR 47 L (>60) mL/min BUN/Creatinine Ratio 28.4 H (6-22) Glucose 95 (80-110) mg/dL Calcium 9.7 (8.4-10.2) mg/dL Magnesium 2.1 (1.6-2.3) mg/dL Total Bilirubin 0.3 (0.2-1.3) mg/dL AST 23 (14-36) IU/L ALT 20 (<35) IU/L Alkaline Phosphatase 56 (38-126) U/L Total Creatine Kinase 81 (30-135) U/L CK-MB (CK-2) TNP CK-MB (CK-2) Rel Index TNP Troponin I 0.093 H (0.01-0.034) ng/mL NT-Pro-B Natriuret Pep 954 H (<450) pg/mL Total Protein 7.0 (6.3-8.2) g/dL Albumin 3.8 (3.5-5.0) g/dL Globulin 3.2 (1.7-4.1) g/dL Albumin/Globulin Ratio 1.2 (1.0-2.8) Urine RBC 5-10/hpf H (0-5/HPF) Urine WBC 30-100/hpf H (0-5/HPF) Ur Squamous Epith Cells 1-5 /hpf D (0-5/HPF) Ur Transition Epith Cell 1-5/hpf (0-5/HPF) Urine Bacteria Moderate (10-30) H (None) Ur Culture Indicated? Specimen cultured SARS-CoV-2 (PCR) (Negative) 09/11/22 09/11/22 09/11/22 Range/Units 16:05 18:48 22:10 WBC 9.3 (4.5-11.0) X10^3/uL RBC 3.88 L (4.0-5.2) X10^6/uL Hgb 12.2 (12.0-16.0) g/dL Hct 36.6 (36-46) % MCV 94.3 (80-100) fL MCH 31.5 (26-34) PG MCHC 33.4 (30-36) % RDW 13.6 (11.6-14.8) % Plt Count 261 (150-400) X10^3/uL Neut % (Auto) 71.0 (50-75) % Lymph % (Auto) 19.5 L (25-40) % [place] % (Auto) 8.0 (3-14) % Eos % (Auto) 0.9 L (2-4) % Baso % (Auto) 0.6 (0-2) % Neut # (Auto) 6600 (1196-8895) /uL Lymph # (Auto) 1800 (3084-9910) /uL [place] # (Auto) 700 (0-900) /uL Eos # (Auto) 100 (0-450) /uL Baso # (Auto) 100 (0-100) /uL D-Dimer (<500) ng/ml Sodium (137-145) mmol/L Potassium (3.4-5.1) mmol/L Chloride (98-107) mmol/L Carbon Dioxide (22-32) mmol/L BUN (7-17) mg/dL Creatinine (0.52-1.04) mg/dL Estimated GFR (>60) mL/min BUN/Creatinine Ratio (6-22) Glucose (80-110) mg/dL Calcium (8.4-10.2) mg/dL Magnesium (1.6-2.3) mg/dL Total Bilirubin (0.2-1.3) mg/dL AST (14-36) IU/L ALT (<35) IU/L Alkaline Phosphatase (38-126) U/L Total Creatine Kinase 87 (30-135) U/L CK-MB (CK-2) TNP CK-MB (CK-2) Rel Index TNP Troponin I 0.102 H (0.01-0.034) ng/mL NT-Pro-B Natriuret Pep (<450) pg/mL Total Protein (6.3-8.2) g/dL Albumin (3.5-5.0) g/dL Globulin (1.7-4.1) g/dL Albumin/Globulin Ratio (1.0-2.8) Urine RBC (0-5/HPF) Urine WBC (0-5/HPF) Ur Squamous Epith Cells (0-5/HPF) Ur Transition Epith Cell (0-5/HPF) Urine Bacteria (None) Ur Culture Indicated? SARS-CoV-2 (PCR) Negative (Negative) Urine Dip Bedside Urine Glucose Negative Bedside Urine Bilirubin - Negative Bedside Urine Ketone - Negative Urine Specific [place] 1.01 Bedside Urine Occult Blood +/- Bedside Urine pH 6.0 Bedside Urine Protein - Negative Bedside Urine Urobilinogen - Negative Bedside Urine Nitrite - Negative Bedside Urine Leukocytes ++ 125 Esterase Imaging Data Chest x-ray: Radiologist's Impression: [address] [address] XRay Report Signed Patient: Brian Carrillo MR#: [id number] : 1940 Acct:[id number] Age/Sex: 82 / F Date of Service: 09/11/22 Loc: ED Accession Number: [id number] ?? Procedure: XR chest 2V Ordering Provider: Tyrone Guerrero D.O. PROCEDURE:? XR CHEST 2V ? INDICATIONS:? weakness, SOB ? TECHNIQUE:? 2 views of the chest were acquired.? ? COMPARISON:? None. ? FINDINGS:? ? Surgical changes and devices:? Patient is status post bilateral shoulder arthroplasty.? ? Lungs and pleura:? Lungs are clear.? No pleural effusions or pneumothorax.? ? Mediastinum:? Mediastinal contours are normal.? Heart size is normal.? ? Bones and chest wall:? No suspicious bony abnormalities.? Soft tissues appear unremarkable.? ? IMPRESSION:? No acute cardiopulmonary pathology. ? ? Dictated by: Jay Varela M.D. on 09/11/2022 at 18:39 ? ? Approved by: Jay Varela M.D. on 09/11/2022 at 18:40 ? ECG Data Interpretation: 1525] EKG is normal sinus rhythm rate [60 ] and free of any signs of ischemia or ectopy. No ST segmental elevation or depression. No T wave inversions Discharge Plan Departure Patient Disposition: Admitted as Observation Clinical Impression: Dizziness, Elevated troponin, Elevated brain natriuretic peptide (BNP) level Admit Date/Time: 09/11/22 23:42 Admit Provider: Bishop Gibson
[2022-09-11] MEDS: MECLIZINE HCL 12.5 MG TABLET 25 MG PO (16:12)
[2022-09-11] MEDS: SODIUM CHLORIDE 0.9% 500 ML 1000 ML IV (16:14)
[2022-09-11 16:33] LABS: Add Manual Diff / Slide Review NO; Basophils Absolute Auto 100 /uL (0-100); Basophils Percent Auto 0.6 % (0-2); Eosinophils Absolute Auto 100 /uL (0-450); Eosinophils Percent Auto 0.9 % (2-4); Hematocrit 36.6 % (36-46); Hemoglobin 12.2 g/dL (12.0-16.0); Lymphocytes Absolute Auto 1800 /uL (1100-4500); Lymphocytes Percent Auto 19.5 % (25-40); Mean Corpuscular HGB Conc 33.4 % (30-36); Mean Corpuscular Hemoglobin 31.5 PG (26-34); Mean Corpuscular Volume 94.3 fL (80-100); Monocytes Absolute Auto 700 /uL (0-900); Neutrophils Absolute Auto 6600 /uL (1500-7000); Platelet Count 261 X10^3/uL (150-400); Red Blood Cell Count 3.88 X10^6/uL (4.0-5.2); Red Cell Distribution Width 13.6 % (11.6-14.8); White Blood Cell Count 9.3 X10^3/uL (4.5-11.0)
[2022-09-11 16:44] LABS: Alanine Aminotransferase 20 IU/L (<35); Albumin 3.8 g/dL (3.5-5.0); Albumin Globulin Ratio 1.2 (1.0-2.8); Alkaline Phosphatase 56 U/L (38-126); Aspartate Aminotransferase 23 IU/L (14-36); BUN Creatinine Ratio 28.4 (6-22); Bilirubin Total 0.3 mg/dL (0.2-1.3); Blood Urea Nitrogen 33 mg/dL (7-17); Calcium 9.7 mg/dL (8.4-10.2); Carbon Dioxide 26 mmol/L (22-32); Chloride 103 mmol/L (98-107); Creatine Kinase 81 U/L (30-135); Estimated Glomerular Filt Rate 47 mL/min (>60); Globulin 3.2 g/dL (1.7-4.1); Glucose 95 mg/dL (80-110); HEMOLYSIS < 15 (0-50); Magnesium 2.1 mg/dL (1.6-2.3); Potassium 4.3 mmol/L (3.4-5.1); Sodium 135 mmol/L (137-145)
[2022-09-11 16:53] LABS: RBC Urine 5-10/HPF (0-5/HPF); WBC Urine 30-100/HPF (0-5/HPF)
[2022-09-11 16:54] LABS: Bacteria Urine Moderate (10-30); Culture Indicated Urine Specimen Cultured; Squamous Epithelial Cell Urine 1-5 /HPF (0-5/HPF); Transitional Epi Cells Urine 1-5/HPF (0-5/HPF)
[2022-09-11 16:56] LABS: NT-proBNP (BNP-Adult 18+) 954 pg/mL (<450); Troponin I 0.093 ng/mL (0.01-0.034)
--- NOTE | 2022-09-11 17:35 | DI.RAD.S_ITS ---
PROCEDURE: XR CHEST 2V INDICATIONS: weakness, SOB TECHNIQUE: 2 views of the chest were acquired. COMPARISON: None. FINDINGS: Surgical changes and devices: Patient is status post bilateral shoulder arthroplasty. Lungs and pleura: Lungs are clear. No pleural effusions or pneumothorax. Mediastinum: Mediastinal contours are normal. Heart size is normal. Bones and chest wall: No suspicious bony abnormalities. Soft tissues appear unremarkable. IMPRESSION: No acute cardiopulmonary pathology. Dictated by: Jay Varela M.D. on 09/11/2022 at 18:39 Approved by: Jay Varela M.D. on 09/11/2022 at 18:40
[2022-09-11 18:24] LABS: D Dimer 447 ng/ml (<500)
[2022-09-11 19:04] LABS: Creatine Kinase 87 U/L (30-135)
[2022-09-11 19:17] LABS: Troponin I 0.102 ng/mL (0.01-0.034)
[2022-09-11] MEDS: FUROSEMIDE 40 MG/4 ML VIAL IV (20:06)
[2022-09-11 22:33] LABS: COVID19 -Nasal RAPID Negative (Negative)
[2022-09-12 00:16] VITALS: BMI 26.2
--- NOTE | 2022-09-12 01:08 | PC.NURSE ---
Admit/NOC Shift Note- Patient arrived to room via wheelchair at 2400. Patient alert and oriented and able to make needs known to staff. No complaints of pain or discomfort. Admit questions done, physical assessment done, medications reviewed, and skin check completed. Patient oriented to bed and bed controls, room, bathroom, lights, menu, phone, and call wray/tv remote. Patient agrees to call for assistance due to dizziness. Safety measures in place. call wray and phone within reach. will continue to monitor.
[2022-09-12 01:16] VITALS: BP 145/72; PULSE 66; RESP 16; TEMP 37; O2SAT 99
[2022-09-12 04:00] VITALS: BP 142/68; PULSE 72; RESP 16; TEMP 36.9; O2SAT 99
[2022-09-12 07:39] LABS: Creatine Kinase 135 U/L (30-135)
[2022-09-12 07:52] LABS: Troponin I 0.073 ng/mL (0.01-0.034)
[2022-09-12 07:54] LABS: CKMB % Relative Index 1.4 % (1.5-5.0); Creatine Kinase MB 1.95 ng/mL (<2.37)
[2022-09-12 08:45] VITALS: BP 151/67; PULSE 78; RESP 16; TEMP 36.8; O2SAT 97
--- NOTE | 2022-09-12 09:11 | P.HP_ITS ---
History of Present Illness History of Present Illness Date Patient Seen: 09/12/22 Time Patient Seen: 09:11 Date of Onset of Symptoms: 09/10/22 Chief complaint: Dizzy Narrative: Pt presented to ED with CC of increased dizziness and was found to have bacteriuria and a mild troponinemia. She chronically has interstitial cystitis and leukocyturia however she is surprised to hear there was pallavi bacteriuria on UA. She feels a bit better this morning after resting overnight. she ate breakfast and is interested in lunch. Feels a bit steadier on her feet but cannot say the dizziness is gone at this time. Denies any other previous cardiac history. Patient History Medical History Asthma GERD (gastroesophageal reflux disease) Kidney stones Osteoarthritis Surgical History History of cataract removal with insertion of prosthetic lens History of knee replacement History of shoulder surgery Family & Social History Family History Brother Age: 91 Dementia Heart disease Mental health disorder Pacemaker Grandfather Mental health disorder Grandmother Arthritis Grandmother Mental health disorder Social History: household members spouse Prior Living Arrangements House Safety & Behavioral: Feels Safe in Current Yes Environment Been Physically Hurt or No Threatened By a Person Tobacco & Substance use: Smoking Status Never smoker alcohol intake frequency 0-2 drinks per day Substance Use Type does not use Meds Home Medications and Allergies Home Medications Medication Instructions Recorded Confirmed Type alprazolam 0.25 mg tablet 0.25 mg PO DAILY PRN Anxiety ##0 11/03/17 02/09/19 History cholecalciferol (vitamin D3) 25 1,000 unit PO DAILY ##0 11/03/17 History mcg (1,000 unit) capsule (Vitamin D3) aspirin 81 mg tablet,delayed 81 mg PO BID ##60 11/17/17 Rx release cyclosporine 0.05 % eye drops in a 1 drp ophthalmic (eye) DIRECTED 02/09/19 05/19/19 History dropperette esomeprazole magnesium 40 mg 40 mg PO DAILY 02/09/19 05/19/19 History capsule,delayed release albuterol sulfate 90 mcg/actuation 1 puff inhalation PRN PRN 05/19/19 05/19/19 History aerosol inhaler Shortness Of Breath azithromycin 250 mg tablet See Rx Instructions .Route .COMPLEX 05/19/19 05/19/19 History beclomethasone dipropionate 80 1 puff inhalation BID 05/19/19 05/19/19 History mcg/actuation HFA breath activated aerosol benzonatate 150 mg capsule 150 mg PO Q8H PRN cough #14 caps 05/19/19 Rx citalopram 20 mg tablet 40 mg PO DAILY 05/19/19 05/19/19 History estradiol 10 mcg vaginal tablet 10 mcg vaginal 2XW 05/19/19 05/19/19 History fluticasone propionate 115 2 puff inhalation BID 05/19/19 05/19/19 History mcg-salmeterol 21 mcg/actuation HFA inhaler pentosan polysulfate sodium 100 mg 100 mg PO TID 05/19/19 05/19/19 History capsule lidocaine 5 % topical patch 1 patch topical Q24H PRN pain #15 07/28/20 Rx ea Allergies Allergy/AdvReac Type Severity Reaction Status Date / Time Penicillins Allergy Severe Swelling Verified 09/11/22 15:15 of Lip/Tongue/Throat adhesive [ADHESIVE] AdvReac Severe THIN Verified 09/11/22 15:08 SKIN, PULLS SKIN OFF PAPER/SILK TAPE OK Sulfa (Sulfonamide AdvReac Severe I GET Verified 09/11/22 15:08 Antibiotics) EXTREMELY [SULFA (SULFONAMIDE NERVOUS, ANTIBIOTICS)] JITTERY trazodone AdvReac Severe Agitated Verified 09/11/22 15:15 amitriptyline AdvReac Intermediate Insomnia Verified 09/11/22 15:15 PAIN MEDICATIONS AdvReac Unknown I GET ALL Uncoded 12/03/21 12:10 OF THE SIDE EFFECTS, NO PAIN RELIEF Review of Systems Review of Systems Narrative: all systems reviewed and negative except as otherwise documented in HPI Exam Vital Signs (past 8 hours): - 09/12/22 01:16 09/12/22 04:00 Temperature 98.6 F 98.4 F Pulse Rate 66 72 Respiratory Rate 16 16 Blood Pressure 145/72 H 142/68 H Pulse Oximetry 99 99 Oxygen Flow Rate 0 0 Oxygen Delivery Method Room Air Oxygen Flow Rate 0 Narrative Exam Narrative: alert elder in bed examining lunch menu Const General: cooperative, healthy appearing and comfortable Nutritional Appearance: well nourished HENNJ Head: normocephalic and atraumatic Eyes General: appearance normal, both eyes and all related structures Resp Auscultation: clear to auscultation bilaterally Cardio Rate: regular rate Rhythm: regular rhythm Heart Sounds: S1 normal and S2 normal GI Auscultation: normal bowel sounds Other: no CVA ttp Neuro General: patient oriented x3, moves all extremities and no focal motor deficits Extrem General: no pedal edema Psych Appearance: grossly normal Mental Status: mental status grossly normal Speech and Movement: speech and movement normal Objective Labs Result Diagrams: 09/11/22 16:05 09/11/22 15:18 Labs: Laboratory Results - last 24 hr 09/11/22 09/11/22 09/11/22 15:18 15:18 16:00 WBC RBC Hgb Hct MCV MCH MCHC RDW Plt Count Neut % (Auto) Lymph % (Auto) [place] % (Auto) Eos % (Auto) Baso % (Auto) Neut # (Auto) Lymph # (Auto) [place] # (Auto) Eos # (Auto) Baso # (Auto) D-Dimer 447 Sodium 135 L Potassium 4.3 Chloride 103 Carbon Dioxide 26 BUN 33 H Creatinine 1.16 H Estimated GFR 47 L BUN/Creatinine Ratio 28.4 H Glucose 95 Calcium 9.7 Magnesium 2.1 Total Bilirubin 0.3 AST 23 ALT 20 Alkaline Phosphatase 56 Total Creatine Kinase 81 CK-MB (CK-2) TNP CK-MB (CK-2) Rel Index TNP Troponin I 0.093 H NT-Pro-B Natriuret Pep 954 H Total Protein 7.0 Albumin 3.8 Globulin 3.2 Albumin/Globulin Ratio 1.2 Urine RBC 5-10/hpf H Urine WBC 30-100/hpf H Ur Squamous Epith Cells 1-5 /hpf D Ur Transition Epith Cell 1-5/hpf Urine Bacteria Moderate (10-30) H Ur Culture Indicated? Specimen cultured SARS-CoV-2 (PCR) 09/11/22 09/11/22 09/11/22 16:05 18:48 22:10 WBC 9.3 RBC 3.88 L Hgb 12.2 Hct 36.6 MCV 94.3 MCH 31.5 MCHC 33.4 RDW 13.6 Plt Count 261 Neut % (Auto) 71.0 Lymph % (Auto) 19.5 L [place] % (Auto) 8.0 Eos % (Auto) 0.9 L Baso % (Auto) 0.6 Neut # (Auto) 6600 Lymph # (Auto) 1800 [place] # (Auto) 700 Eos # (Auto) 100 Baso # (Auto) 100 D-Dimer Sodium Potassium Chloride Carbon Dioxide BUN Creatinine Estimated GFR BUN/Creatinine Ratio Glucose Calcium Magnesium Total Bilirubin AST ALT Alkaline Phosphatase Total Creatine Kinase 87 CK-MB (CK-2) TNP CK-MB (CK-2) Rel Index TNP Troponin I 0.102 H NT-Pro-B Natriuret Pep Total Protein Albumin Globulin Albumin/Globulin Ratio Urine RBC Urine WBC Ur Squamous Epith Cells Ur Transition Epith Cell Urine Bacteria Ur Culture Indicated? SARS-CoV-2 (PCR) Negative 09/12/22 07:10 WBC RBC Hgb Hct MCV MCH MCHC RDW Plt Count Neut % (Auto) Lymph % (Auto) [place] % (Auto) Eos % (Auto) Baso % (Auto) Neut # (Auto) Lymph # (Auto) [place] # (Auto) Eos # (Auto) Baso # (Auto) D-Dimer Sodium Potassium Chloride Carbon Dioxide BUN Creatinine Estimated GFR BUN/Creatinine Ratio Glucose Calcium Magnesium Total Bilirubin AST ALT Alkaline Phosphatase Total Creatine Kinase 135 CK-MB (CK-2) 1.95 CK-MB (CK-2) Rel Index 1.4 L Troponin I 0.073 H NT-Pro-B Natriuret Pep Total Protein Albumin Globulin Albumin/Globulin Ratio Urine RBC Urine WBC Ur Squamous Epith Cells Ur Transition Epith Cell Urine Bacteria Ur Culture Indicated? SARS-CoV-2 (PCR) Assessment & Plan Assessment & Plan narrative: #dizziness #elevated troponins #demand ischemia vs NSTEMI clinical improvement with rest, troponins trending down, quality assurance monitor final PT consulted use RW #Bacteriuria #chronic interstitial cystitis Will tx with levaquin given allergies, QT interval looks ok discussed with pharmacy #MDD stable continue home SSRI and benzo prn dispo: if improved today may be able to discharge home PCP: Yvrose Ye code: DNR diet: heart healthy dvt: lovenox lowdose MDM: Malik [id number] Time Spent With Patient Critical Care time: I spent a total of [] minutes of critical care time on this patient's care today; this time is exclusive of procedural time. Quality VTE Deep Vein Thrombosis/Pulmonary Embolism Present on Admission: No
[2022-09-12] MEDS: CITALOPRAM 10 MG TABLET 20 MG PO (10:15)
[2022-09-12] MEDS: levoFLOXacin 250 MG TABLET 750 MG PO (10:15)
[2022-09-12] MEDS: ALPRAZolam 0.25 MG TABLET PO (10:25)
--- NOTE | 2022-09-12 10:32 | PT.IIE ---
Surgical History (Last Reviewed 09/11/22 @ 15:35 by Tyrone Guerrero DO) History of cataract removal with insertion of prosthetic lens History of knee replacement History of shoulder surgery Medical History (Last Reviewed 09/11/22 @ 15:35 by Tyrone Guerrero DO) Asthma GERD (gastroesophageal reflux disease) Kidney stones Osteoarthritis Physical Therapy Inpatient Evaluation/Re-Eval M1 PT/OT-IP Prior Functional Status Start: 09/12/22 12:02 Freq: NEEDED Status: Active Protocol: Document 09/12/22 10:32 AB (Rec: 09/12/22 12:14 AB [id number]) Medical Review Prior Functional Status Medical History Reviewed Yes Communication able to make needs known Mobility and Gait pt stated that she is modified independent with all mobilities and ambulation without AD indoors and uses a SPC for outdoor mobility. spouse provided SBA to pt as needed Social History Household Members spouse Living Arrangements House Number of Floors (Floors) One Floor Number of Stairs To Enter/Railing? 2 steps to enter without rails Home Environment High Toilet,Walk in Shower Home Equipment Front Wheel Walker,Straight Cane,Hand Held Shower M2 PT-IP Current Condition Start: 09/12/22 12:02 Freq: NEEDED Status: Active Protocol: Document 09/12/22 10:32 AB (Rec: 09/12/22 12:14 AB [id number]) Physical Therapy Current Condition Current Condition Evaluation Date 09/12/22 Treatment Diagnosis dizziness; difficulty in walking Onset Date 09/11/22 M3 PT-IP Subjective Start: 09/12/22 12:02 Freq: NEEDED Status: Active Protocol: Document 09/12/22 10:32 AB (Rec: 09/12/22 12:14 AB [id number]) Subjective Physical Therapy Visit Type Type Initial Evaluation Visit Start Time 10:32 Visit Stop Time 11:00 Total Visit Minutes 28 Number of SEO ASSISTANT Visits 0 Physical Therapy Visit Comments Patient Comments agreeable to do PT M4 PT-IP Mobility and Gait Start: 09/12/22 12:02 Freq: NEEDED Status: Active Protocol: Document 09/12/22 10:32 AB (Rec: 09/12/22 12:14 AB [id number]) PT-Bed Mobility Assessment Supine to Sit Supine to Sit Independent Sit to Supine Sit to Supine Independent PT-Transfer Assessment Sit to and From Stand Sit to and from Stand Standby Assistance Equipment Transfer Assistive Device None,Straight Cane Orthotic/Prosthetic Devices or Brace: No Transfers Transfer Destination Bed,Chair Transfer Technique ambulated Transfer Ability Level of Assist Standby Assistance,1 Person Assistance,Use of Upper Extremities Comments Mobility Comments checked on pt and pt walking out from the toilet with spouse assisting pt. pt sat on window bench. pt stated that she feels unsteady and has been using the FWW in the hospital. nurse has allowed pt to walk in the hallway using FWW with spouse. pt stated that she prefer a SPC to use. assessed ambulation without AD . pt completed sit to stand SBA and ambulated in room ~ 20 ft without AD SBA. presents with unsteady antalgic gait without LOB but very guarded. pt sat on EOB. demonstrated bed mobility mod I. assessed ambulation using SPC and pt completed SBA ~ 125 ft. steadier gait compared to without AD but continues to have antalgic gait with RLE tending to cross midline during heel down phase. cued pt to correct. pt also has increase forward trunk flexion and lateral trunk lean to the L affecting balance and ambulation but no LOB during ambulation. pt completed up/down step stool using SPC and PARALEGAL SECRETARY min A. spouse will be able to provide assistance to pt. pt repeated x 2 sets. pt sat on window seat. Left pt with spouse. pt agreed that no further PT intervention needed. Gait Assessment Gait Gait Assistance Required: Standby Assistance,1 Person Assist Distance (Feet) 125 Able to Maintain Weight Bearing Status Yes During Gait Assistive Devices Assistive Device None,Gait Belt,Straight Cane Orthotic/Prosthetic Devices or Brace: No Gait Deviations General Gait Pattern Antalgic,Decreased Stride Length,Decreased Feet Clearance,Flexed Trunk,Lateral Trunk Lean Factors Limiting Gait Function Factors Limiting Gait Function Decreased Activity Tolerance, Decreased Strength,Limited Range of Motion,Poor Balance, Poor Safety Awareness Stair Climbing Assessment Evaluation Level of Assist On Stairs Minimal Assistance Devices Stair Climbing Assistive Devices Straight Cane Technique/Endurance Stair Climbing Direction Ascend and Descend Stair Climbing Technique Step to Step Number of Steps Climbed 1 Query Text: Stair Climbing Set # Repetitions (reps) 2 Comments Stair Climbing Comments pls refer to mobility section for details PT-Balance Assessment Sitting Balance and Reactions Static Sitting Balance Ability Normal Dynamic Sitting Balance Ability Normal Standing Balance and Reactions Static Standing Balance Ability Good Dynamic Standing Balance Ability Fair Device Used SPC M5 PT-IP Objective Assessments Start: 09/12/22 12:02 Freq: NEEDED Status: Active Protocol: Document 09/12/22 10:32 AB (Rec: 09/12/22 12:14 AB [id number]) Orientation Orientation/Cognition Level of Alertness Alert Orientation Name,Place,Situation Language Function Ability No Deficits Noted Safety Awareness Understands Safety Issues Memory Description No Deficits Noted Gross Range of Motion Lower Extremity ROM Assessment Within Functional Limits Strength Lower Extremity Strength Hip 4-/5 Knee 4-/5 Coordination Assessment Gross Coordination Gross Coordination WNL Sensation Assessment Sensation Gross Sensation WNL Muscle Tone Muscle Tone WNL Yes M6 PT-IP Treatment Start: 09/12/22 12:02 Freq: NEEDED Status: Active Protocol: Document 09/12/22 10:32 AB (Rec: 09/12/22 12:14 AB [id number]) Physical Therapy Treatment Education Education Provided Safety M7 PT-IP Assessment and Plan Start: 09/12/22 12:02 Freq: NEEDED Status: Active Protocol: Document 09/12/22 10:32 AB (Rec: 09/12/22 12:14 AB [id number]) PT Summary Assessment and Plan Potential Rehabilitation Potential Good Status of Condition at Evaluation Stable Summary Impairments Balance,Transfers,Gait, Activity Tolerance Assessment Summary PT eval completed and no further PT intervention indicated at this time. pt will have her spouse at home to assist her as needed. Frequency of Treatment Frequency Of Treatment Discharge Recommendations To Nursing Amount of Assist Needed Standby Assistance Discharge Recommendations PT Discharge Recommendations Home with Assistance Transportation Needs at Discharge Private Vehicle
--- NOTE | 2022-09-12 11:50 | CM.DANOTE ---
DCP: Case received, EMR reviewed and met with patient. Introduced self and role. Was able to obtain information regarding patient's baseline activity status prior to hospitalization. DCP assessment completed with information currently available. Patient is an 82 year old female who admitted yesterday to the care of the hospitalist team. PCP: confirmed: RUSSELL Lindquist. Payer: confirmed: Medicare/[facility]. Patient came to the hospital via private vehicle secondary to having dizziness. Patient has history of UTIs, anemia, depression and anxiety. Patient was noted to be admitted for observation, dizziness, elevated troponin and BNP. Met with patient in her room. She is alert and oriented, and resides here in [facility] on [facility], with spouse, Malik. She uses a cane, otherwise, is independent at her baseline. P: DCP to continue to follow. Dr. Gibson indicated, if symptoms improve, should be able to go home today, may wirk with P.T. first. Veronica Quiros RN/Lighting Director Discharge Planning/Care Management CM Discharge Assessment Start: 09/12/22 11:49 Freq: Status: Active Protocol: Document 09/12/22 11:49 (Rec: 09/12/22 11:50 [id number]) Discharge Planning Assessment Assigned Sewing Pattern Layout Technician Veronica Quiros RN/Lighting Director Advance Directives? Yes: POLST Advance Directives on File Yes History Provided By Patient,Medical Record Prior Living Arrangements House Household Members spouse Type of transporation used prior to Drives own vehicle admit Independent with ADL's Yes Is patient alert and oriented? Yes Caregiver for Another No Barriers to Discharge No Discharge Plan Home Transportation Arrangement Spouse Referrals Initiated None needed Whiteboard Updated in Patient Room with Yes name and ext. # of Sewing Pattern Layout Technician Review Status In Process Next Review Type Continued Stay Review
[2022-09-12 13:05] VITALS: BP 118/74; PULSE 78; RESP 16; O2SAT 100
--- NOTE | 2022-09-12 13:30 | P.DS_ITS ---
History of Present Illness History of Present Illness Date Patient Seen: 09/12/22 Time Patient Seen: 13:30 Date of Onset of Symptoms: 09/10/22 Chief complaint: Dizzy Narrative: Later now in the day, she reports the dizziness is basically gone and she has been able to work with PT who see no issue with her gait requiring further intervention. Ate lunch just fine and reports the dizziness is gone at this time. Has her cane in the car, which she usually uses. Discharge Providers Provider Date of admission: 09/11/22 23:42 Discharge Date: 09/12/22 Primary care physician: RUSSELL Lindquist Consults: 09/12/22 09:20 Consult to Physical Therapy Evaluate & Treat Comment: Physician Instructions: Evaluate and Treat Discharge provider: Bishop Gibson MD Summary Hospital Course Discharge Diagnosis: #dizziness #elevated troponins - demand ischemia vs NSTEMI #Bacteriuria #chronic interstitial cystitis #MDD Hospital Course: Pt presented to ED with CC of increased dizziness and was found to have b acteriuria and a mild troponinemia. She chronically has interstitial cystitis and leukocyturia however she is surprised to hear there was pallavi bacteriuria on UA. She felt a bit better this morning after resting overnight. she ate breakfast and is interested in lunch. Clements a bit steadier on her feet. Later now in the day, she reports the dizziness is basically gone and she has been able to work with PT who see no issue with her gait requiring further intervention. Ate lunch just fine and reports the dizziness is gone at this time. Status at Discharge Cognitive/behavioral status at discharge: at baseline, oriented Functional status at discharge: uses cane/walker Overall status at discharge: patient is progressing back to baseline Exam Vital Signs (past 8 hours): - 09/12/22 08:45 09/12/22 13:05 Temperature 98.3 F Pulse Rate 78 78 Respiratory Rate 16 16 Blood Pressure 151/67 H 118/74 Pulse Oximetry 97 100 Oxygen Delivery Method Room Air Oxygen Flow Rate 0 Narrative Exam Narrative: wearing street clothes in chair Const Nutritional Appearance: average body habitus HENMT Head: normocephalic and atraumatic Eyes General: appearance normal, both eyes and all related structures Resp Auscultation: clear to auscultation bilaterally Cardio Rate: regular rate Rhythm: regular rhythm Heart Sounds: S1 normal and S2 normal GI Auscultation: normal bowel sounds Back/Spine/Pelvis Other: no CVA ttp Extrem General: full ROM and no pedal edema Psych Mental Status: mental status grossly normal Objective Labs Result Diagrams: 09/11/22 16:05 09/11/22 15:18 Labs: Laboratory Results - last 24 hr 09/11/22 09/11/22 09/11/22 15:18 15:18 16:00 WBC RBC Hgb Hct MCV MCH MCHC RDW Plt Count Neut % (Auto) Lymph % (Auto) Allen % (Auto) Eos % (Auto) Baso % (Auto) Neut # (Auto) Lymph # (Auto) Allen # (Auto) Eos # (Auto) Baso # (Auto) D-Dimer 447 Sodium 135 L Potassium 4.3 Chloride 103 Carbon Dioxide 26 BUN 33 H Creatinine 1.16 H Estimated GFR 47 L BUN/Creatinine Ratio 28.4 H Glucose 95 Calcium 9.7 Magnesium 2.1 Total Bilirubin 0.3 AST 23 ALT 20 Alkaline Phosphatase 56 Total Creatine Kinase 81 CK-MB (CK-2) TNP CK-MB (CK-2) Rel Index TNP Troponin I 0.093 H NT-Pro-B Natriuret Pep 954 H Total Protein 7.0 Albumin 3.8 Globulin 3.2 Albumin/Globulin Ratio 1.2 Urine RBC 5-10/hpf H Urine WBC 30-100/hpf H Ur Squamous Epith Cells 1-5 /hpf D Ur Transition Epith Cell 1-5/hpf Urine Bacteria Moderate (10-30) H Ur Culture Indicated? Specimen cultured SARS-CoV-2 (PCR) 09/11/22 09/11/22 09/11/22 16:05 18:48 22:10 WBC 9.3 RBC 3.88 L Hgb 12.2 Hct 36.6 MCV 94.3 MCH 31.5 MCHC 33.4 RDW 13.6 Plt Count 261 Neut % (Auto) 71.0 Lymph % (Auto) 19.5 L Allen % (Auto) 8.0 Eos % (Auto) 0.9 L Baso % (Auto) 0.6 Neut # (Auto) 6600 Lymph # (Auto) 1800 Allen # (Auto) 700 Eos # (Auto) 100 Baso # (Auto) 100 D-Dimer Sodium Potassium Chloride Carbon Dioxide BUN Creatinine Estimated GFR BUN/Creatinine Ratio Glucose Calcium Magnesium Total Bilirubin AST ALT Alkaline Phosphatase Total Creatine Kinase 87 CK-MB (CK-2) TNP CK-MB (CK-2) Rel Index TNP Troponin I 0.102 H NT-Pro-B Natriuret Pep Total Protein Albumin Globulin Albumin/Globulin Ratio Urine RBC Urine WBC Ur Squamous Epith Cells Ur Transition Epith Cell Urine Bacteria Ur Culture Indicated? SARS-CoV-2 (PCR) Negative 09/12/22 07:10 WBC RBC Hgb Hct MCV MCH MCHC RDW Plt Count Neut % (Auto) Lymph % (Auto) Allen % (Auto) Eos % (Auto) Baso % (Auto) Neut # (Auto) Lymph # (Auto) Allen # (Auto) Eos # (Auto) Baso # (Auto) D-Dimer Sodium Potassium Chloride Carbon Dioxide BUN Creatinine Estimated GFR BUN/Creatinine Ratio Glucose Calcium Magnesium Total Bilirubin AST ALT Alkaline Phosphatase Total Creatine Kinase 135 CK-MB (CK-2) 1.95 CK-MB (CK-2) Rel Index 1.4 L Troponin I 0.073 H NT-Pro-B Natriuret Pep Total Protein Albumin Globulin Albumin/Globulin Ratio Urine RBC Urine WBC Ur Squamous Epith Cells Ur Transition Epith Cell Urine Bacteria Ur Culture Indicated? SARS-CoV-2 (PCR) [facility] Medical History Asthma GERD (gastroesophageal reflux disease) Kidney stones Osteoarthritis Surgical History History of cataract removal with insertion of prosthetic lens History of knee replacement History of shoulder surgery Family History Brother Age: 91 Dementia Heart disease Mental health disorder Pacemaker Grandfather Mental health disorder Grandmother Arthritis Grandmother Mental health disorder Social History household members: spouse Smoking Status: Never smoker Discharge Assessment & Plan Assessment and Plan Assessment: #dizziness #elevated troponins #demand ischemia vs NSTEMI clinical improvement with rest, troponins trending down, youth nutritional monitor unconcerning ok to dc home and f/u with PCP #Bacteriuria #chronic interstitial cystitis Improving, continue levaquin as outpt to complete 5 day course #MDD stable continue home SSRI and benzo prn dispo: home with PCP:? E Ephraim code: DNR diet: heart healthy dvt: lovenox lowdose MDM: Malik [phone] Discharge Plan Discharge Plan Patient Disposition: Home Nursing Discharge Comment: call MD / return to ER if symptoms return or increase: (signs of dizziness, any palpitations, shortness of breath, or panic symptoms that do not resolve w/ xanax use) follow up w/ PCP w/in 7 days of d/c from [facility]. take your time w/ moving at home, make sure your footing is secure, youre wearing your fancy black shoes ( : and that you are using your cane. if you go from a laying position up to sitting, take your time and sit for a moment before getting up to walk. drink plenty of fluids, take your medications as instructed. talk to your doctor about the xanax taper you wanted to do. it was a pleasure to be your nurse today, please take care of yourself and have a very nice [place] w/ your hubby of 65 years! Discharge orders & Medications Prescriptions: New levofloxacin 750 mg tablet 750 mg PO Q24H Qty: 4 0RF Continued cholecalciferol (vitamin D3) [Vitamin D3] 1,000 unit Capsule 1,000 unit PO DAILY Qty: 0 alprazolam 0.25 MG tablet 0.25 mg PO DAILY PRN (Reason: Anxiety) Qty: 0 aspirin 81 MG tablet,delayed release (DR/EC) 81 mg PO BID Qty: 60 0RF esomeprazole magnesium 40 mg capsule,delayed release(DR/EC) 40 mg PO DAILY cyclosporine 0.05 % dropperette 1 drp ophthalmic (eye) DIRECTED pentosan polysulfate sodium 100 mg capsule 100 mg PO TID azithromycin 250 mg tablet See Rx Instructions .ROUTE .COMPLEX Label Comments: TAKE 2 TABLETS BY MOUTH TODAY, THEN TAKE 1 TABLET DAILY FOR 4 DAYS. Rx Instructions: 1 dose orally citalopram 20 mg tablet 40 mg PO DAILY albuterol sulfate 90 mcg/actuation HFA aerosol inhaler 1 puff inhalation PRN PRN (Reason: Shortness Of Breath) fluticasone propion-salmeterol 115-21 mcg/actuation HFA aerosol inhaler 2 puff inhalation BID Label Comments: inhale 2 puffs by mouth twice a day WITH SPACER Rinse mouth after use estradiol 10 mcg tablet 10 mcg vaginal 2XW beclomethasone dipropionate 80 mcg/actuation HFA aerosol breath activated 1 puff inhalation BID benzonatate 150 mg capsule 150 mg PO Q8H PRN (Reason: cough) Qty: 14 0RF lidocaine 5 % adhesive patch,medicated 1 patch TOP Q24H PRN (Reason: pain) Qty: 15 0RF Rx Instructions: leave on most painful area for up to 12 hrs Follow up/Referrals: Lucy Ye ARNP [Primary Care Provider] - Discharge Data Primary Care Provider: Lucy Ye Quality VTE Deep Vein Thrombosis/Pulmonary Embolism Present on Admission: No
== END 2022-09-12 14:14 | disposition home or self-care (01) ==
LOC: ED 19:41 → AC 23:53
PROVIDERS: Admitting Provider Family Medicine; Emergency Provider Emergency Medicine; PCP Internal Medicine; Referring Provider Emergency Medicine; Visit Provider Family Medicine
DX: R42 Dizziness and giddiness (principal); R77.8 Other specified abnormalities of plasma proteins; R82.71 Bacteriuria; N30.10 Interstitial cystitis (chronic) without hematuria; Z20.822 Contact with and (suspected) exposure to COVID-19
CPT/HCPCS: 36415; 70450; 71046; 80053; 81003; 81015; 82550; 82553; 83735; 83880; 84484; 85025; 85379; 87077; 87086; 87186; 87635; 93005; 93010; 96361; 96374; 97161; 99284; C9803; G0378; J1940

== ENCOUNTER → 2022-10-20 09:58 | Outpatient (CLI) | payer MEDICARE, OTHER, SELFPAY ==
--- NOTE | 2022-10-20 10:43 | DI.CT.S_ITS ---
PROCEDURE: CT IVP A/P W/WO INDICATIONS: Hematuria TECHNIQUE: Optional 5 mm thick noncontrast images acquired from the diaphragm to the symphysis pubis. After the administration of intravenous contrast, 5 mm thick images acquired from the diaphragm to the symphysis pubis after a 10-minute delay. 2 mm thick coronal and sagittal reformats were then performed of the kidneys and ureters. For radiation dose reduction, the following was used: automated exposure control, adjustment of mA and/or kV according to patient size. COMPARISON: [facility], CT, CT ABDOMEN PELVIS W CON, 10/22/2021, 16:22. [facility], MR, MR ABDOMEN WO CON, 10/22/2021, 18:55. FINDINGS: Image quality: Good Lower chest: Basal atelectasis/scarring. Mild cardiomegaly and biatrial enlargement. Solid organs: Hepatic cysts. Gallbladder is absent. Moderate dilation of the biliary tree, slightly increased compared to 2021 imaging, with CBD measuring up to 1.1 cm No splenomegaly. No pathologic pancreatic ductal dilation. Similar adrenal thickening. No hydronephrosis. Nonobstructing bilateral renal calculi are present, under 5 mm. Prominent projection of cortex is seen in the right interpolar region (3/66), appears to be stable compared to 2018. This is likely related to asymmetric scarring. No ureteral dilation. Wall thickening of the bladder, with mild perivesicular stranding, particularly around the UVJ is bilaterally. Vessels and lymph nodes: No abdominal aortic aneurysm. No pathologic adenopathy by size criteria. Bowel and peritoneum: No bowel obstruction or pathologic ascites. Colonic diverticula. Body wall: Unremarkable Pelvis: Bladder findings as above. Reproductive organs are not well evaluated on CT. Overall appearance is physiologic. There is laxity of the right levator, with outpouching of the rectosigmoid junction Bones: Degenerative changes and scoliosis without acute or suspicious osseous abnormality. IMPRESSION: Bilateral calcified nonobstructing renal calculi measuring under 5 mm. Outpouching of the right interpolar region cortex, stable, favored to represent asymmetric scarring (3/66). Bilateral cortical scarring may be from prior infection or inflammation. No hydronephrosis. Fat stranding and wall thickening, particularly around the posterior bladder and UVJ insertions. Lower tract disease is better evaluated with cystoscopy. Moderately dilated biliary system, even allowing for post cholecystectomy state. Consider correlation with LFTs and repeat MRCP if necessary. Other senescent findings as above. Dictated by: Shlomo Peres M.D. on 10/20/2022 at 13:40 Approved by: Shlomo Peres M.D. on 10/20/2022 at 13:51
== END ==
PROVIDERS: PCP Internal Medicine; Referring Provider Internal Medicine; Visit Provider Internal Medicine
DX: N30.11 Interstitial cystitis (chronic) with hematuria (principal); N20.0 Calculus of kidney; K83.8 Other specified diseases of biliary tract; I51.7 Cardiomegaly; K76.89 Other specified diseases of liver; K57.90 Diverticulosis of intestine, part unspecified, without perforation or abscess without bleeding; Z90.49 Acquired absence of other specified parts of digestive tract; Z87.440 Personal history of urinary (tract) infections
CPT/HCPCS: 74178; Q9967

== ENCOUNTER 2023-05-23 08:32 | Emergency (ER) | payer MEDICARE, OTHER, SELFPAY ==
[2023-05-23] VITALS (14 sets, daily range): BP systolic 122–144; BP diastolic 60–79; PULSE 61–78; RESP 16–20; TEMP 36.4; O2SAT 94–99; BMI 26.4
--- NOTE | 2023-05-23 08:34 | ED_ITS ---
HPI - General Adult General Chief complaint: Abdominal Pain Stated complaint: rt side abd pain, poss appendix per pt Time Seen by Provider: 05/23/23 08:34 History of Present Illness HPI narrative: 83-year-old female nonsmoker with a history of UTI and sepsis, constipation, GERD, basal cell carcinoma presents with her in the chief complaint of gradually worsening lower abdominal pain over the past week or so. She states it is becoming increasingly intense and though initially she noticed it most on the right lower quadrant it is now probably more pronounced in the left lower quadrant. Her pain is worse when she moves and improves with rest. She denies nausea, vomiting or diarrhea. She admits that she does not have a great appetite but is unclear if it is related to this. She denies dysuria, frequency or urgency. She is concerned that she may have appendicitis. She does state that her symptoms may have started possibly after using a recumbent bicycle. She states that her pain was worsened when she got a haircut yesterday and was reclined in their chair. Related Data Home Medications Medication Instructions Recorded Confirmed alprazolam 0.25 mg tablet 0.25 mg PO DAILY PRN Anxiety ##0 11/03/17 02/09/19 cholecalciferol (vitamin D3) 25 1,000 unit PO DAILY ##0 11/03/17 mcg (1,000 unit) capsule (Vitamin D3) cyclosporine 0.05 % eye drops in a 1 drp ophthalmic (eye) DIRECTED 02/09/19 05/19/19 dropperette esomeprazole magnesium 40 mg 40 mg PO DAILY 02/09/19 05/19/19 capsule,delayed release albuterol sulfate 90 mcg/actuation 1 puff inhalation PRN PRN 05/19/19 05/19/19 aerosol inhaler Shortness Of Breath azithromycin 250 mg tablet See Rx Instructions .Route .COMPLEX 05/19/19 05/19/19 beclomethasone dipropionate 80 1 puff inhalation BID 05/19/19 05/19/19 mcg/actuation HFA breath activated aerosol citalopram 20 mg tablet 40 mg PO DAILY 05/19/19 05/19/19 estradiol 10 mcg vaginal tablet 10 mcg vaginal 2XW 05/19/19 05/19/19 fluticasone propionate 115 2 puff inhalation BID 08/23/19 08/23/19 mcg-salmeterol 21 mcg/actuation HFA inhaler pentosan polysulfate sodium 100 mg 100 mg PO TID 05/19/19 05/19/19 capsule Previous Rx's Medication Instructions Recorded aspirin 81 mg tablet,delayed 81 mg PO BID ##60 11/17/17 release benzonatate 150 mg capsule 150 mg PO Q8H PRN cough #14 caps 05/19/19 lidocaine 5 % topical patch 1 patch topical Q24H PRN pain #15 07/28/20 ea levofloxacin 750 mg tablet 750 mg PO Q24H #4 tabs 09/12/22 Allergies Allergy/AdvReac Type Severity Reaction Status Date / Time Penicillins Allergy Severe Swelling Verified 09/11/22 15:15 of Lip/Tongue/Throat adhesive [ADHESIVE] AdvReac Severe THIN Verified 09/11/22 15:08 SKIN, PULLS SKIN OFF PAPER/SILK TAPE OK Sulfa (Sulfonamide AdvReac Severe I GET Verified 09/11/22 15:08 Antibiotics) EXTREMELY [SULFA (SULFONAMIDE NERVOUS, ANTIBIOTICS)] JITTERY trazodone AdvReac Severe Agitated Verified 09/11/22 15:15 amitriptyline AdvReac Intermediate Insomnia Verified 09/11/22 15:15 PAIN MEDICATIONS AdvReac Unknown I GET ALL Uncoded 12/03/21 12:10 OF THE SIDE EFFECTS, NO PAIN RELIEF Review of Systems Review of Systems Narrative: GENERAL: Denies chills, fatigue, malaise, fever, sweats. HEENT: Denies sinus pain, ear pain, sore throat, difficulty swallowing, dizziness. RESPIRATORY: Denies dyspnea, cough, wheezing, hemoptysis, sputum. CARDIOVASCULAR: Denies chest pain, palpitations, orthopnea, edema, GASTROINTESTINAL: See HPI : Denies dysuria, frequency, incontinence, hematuria, urinary retention. MUSCULOSKELETAL: denies weakness, joint pain, or bony pain SKIN: Denies rash, skin lesions, or other NEUROLOGIC: Denies weakness, headache, numbness, change in speech, confusion, seizures, incoordination. PSYCHIATRIC: No concerning psychosocial issues. 12 point review of systems is negative except for those stated above Patient History Medical History Asthma GERD (gastroesophageal reflux disease) Kidney stones Osteoarthritis Surgical History History of cataract removal with insertion of prosthetic lens History of knee replacement History of shoulder surgery Family History Brother Age: 92 Dementia Heart disease Mental health disorder Pacemaker Grandfather Mental health disorder Grandmother Arthritis Grandmother Mental health disorder Social History household members: spouse Smoking Status: Never smoker Smoking Status: Never smoker alcohol intake frequency: 0-2 drinks per day Substance Use Type: does not use Exam Narrative Exam Narrative: GENERAL: [83] year old patient appears stated age. Well-developed patient, in mild distress. HEAD: Atraumatic. Normocephalic. EYES: Pupils equal round and reactive. Extraocular motions intact. No scleral icterus. No injection or drainage. ENT: Nose without bleeding, purulent drainage. Throat without erythema, tonsillar hypertrophy or exudate. Airway patent. NECK: Trachea midline. Non tender CARDIOVASCULAR: Regular rate and rhythm without murmurs, gallops, or rubs. RESPIRATORY: Clear to auscultation. Breath sounds equal bilaterally. No wheezes, rales, or rhonchi. GASTROINTESTINAL: Abdomen soft, tender in the left lower quadrant with voluntary guarding, fullness over the bladder but patient denies pain, nondistended. Bowel sounds present EXTREMITIES: No edema or joint tenderness. BACK: Nontender without deformity or crepitance. No flank tenderness. NEURO: AOx3. SKIN: No rash or erythema of visible areas Initial Vital Signs Initial Vital Signs: Vital Signs Pulse Rate 77 05/23/23 08:44 Respiratory Rate 20 05/23/23 08:44 Blood Pressure 126/69 05/23/23 08:44 Pulse Oximetry 99 05/23/23 08:44 Oxygen Delivery Method Room Air 05/23/23 08:44 Course Orders Ordered: ED Orders 05/23/23 08:51 CT abdomen pelvis w con Stat Complete Blood Count AUTO DIFF Stat Comprehensive Metabolic Panel Stat Lactate (Lactic Acid) Stat Lipase Stat Magnesium Stat 05/23/23 09:17 Urinalysis and Microscopic Stat Urine Culture Stat 05/23/23 12:35 HH [Hemoglobin and Hematocrit] Stat Discontinued Medications Fentanyl (Fentanyl 100 Mcg/2 Ml Inj) 25 mcg IV Q1H PRN PRN Reason: Pain, Severe (7-10) Last Admin: 05/23/23 09:00 Dose: 25 mcg Documented By: STUART Sodium Chloride (Normal Saline 0.9%) 1,000 mls @ 1,000 mls/hr IV BOLUS ONE Stop: 05/23/23 09:49 Last Infusion: 05/23/23 10:40 Dose: 0 mls/hr Documented By: Admin: 05/23/23 09:00 Dose: 1,000 mls/hr Documented By: STUART Ondansetron HCl (Ondansetron 4 Mg/2 Ml Inj) 4 mg IV NOW ONE Stop: 05/23/23 08:51 Last Admin: 05/23/23 09:00 Dose: 4 mg Documented By: STUART Vital Signs Vital signs: Vital Signs - 8 hr 05/23/23 08:48 05/23/23 08:44 05/23/23 08:44 Temperature 97.6 F Pulse Rate 75 77 Respiratory Rate 16 20 Blood Pressure 126/69 126/69 Pulse Oximetry 97 99 Oxygen Delivery Method Room Air Room Air Oxygen Flow Rate 05/23/23 09:00 05/23/23 09:00 05/23/23 09:30 Temperature Pulse Rate 61 Respiratory Rate Blood Pressure 122/60 133/79 Pulse Oximetry 98 Oxygen Delivery Method Oxygen Flow Rate 05/23/23 09:30 05/23/23 10:07 05/23/23 10:30 Temperature Pulse Rate 66 70 70 Respiratory Rate Blood Pressure Pulse Oximetry 96 99 94 Oxygen Delivery Method Oxygen Flow Rate 05/23/23 10:39 05/23/23 10:39 05/23/23 11:00 Temperature Pulse Rate 71 Respiratory Rate Blood Pressure 137/63 133/71 Pulse Oximetry 96 Oxygen Delivery Method Oxygen Flow Rate 05/23/23 11:00 05/23/23 11:30 05/23/23 11:30 Temperature Pulse Rate 69 70 Respiratory Rate Blood Pressure 131/68 Pulse Oximetry 95 96 Oxygen Delivery Method Oxygen Flow Rate 05/23/23 12:00 05/23/23 12:00 05/23/23 12:30 Temperature Pulse Rate 68 Respiratory Rate Blood Pressure 136/65 138/65 Pulse Oximetry 97 Oxygen Delivery Method Oxygen Flow Rate 05/23/23 12:30 05/23/23 13:00 05/23/23 13:00 Temperature Pulse Rate 78 68 Respiratory Rate Blood Pressure 134/70 Pulse Oximetry 98 97 Oxygen Delivery Method Oxygen Flow Rate 05/23/23 13:30 05/23/23 13:30 05/23/23 14:00 Temperature Pulse Rate 66 Respiratory Rate Blood Pressure 144/69 H 133/75 Pulse Oximetry 96 Oxygen Delivery Method Nasal Cannula Oxygen Flow Rate 1 05/23/23 14:00 Temperature Pulse Rate 74 Respiratory Rate Blood Pressure Pulse Oximetry 97 Oxygen Delivery Method Room Air Oxygen Flow Rate Medical Decision Making Lab Data 05/23/23 12:35 05/23/23 08:51 Labs: Lab Results 05/23/23 05/23/23 05/23/23 Range/Units 08:51 08:51 08:51 WBC 15.7 H (4.5-11.0) X10^3/uL RBC 3.58 L (4.0-5.2) X10^6/uL Hgb 11.4 L (12.0-16.0) g/dL Hct 34.4 L (36-46) % MCV 96.1 (80-100) fL MCH 31.9 (26-34) PG MCHC 33.2 (30-36) % RDW 13.7 (11.6-14.8) % Plt Count 244 (150-400) X10^3/uL Neut % (Auto) 81.5 H (50-75) % Lymph % (Auto) 10.3 L (25-40) % Lawrence % (Auto) 6.9 (3-14) % Eos % (Auto) 0.9 L (2-4) % Baso % (Auto) 0.4 (0-2) % Neut # (Auto) 58690 H (7611-5283) /uL Lymph # (Auto) 1600 (2858-1987) /uL Lawrence # (Auto) 1100 H (0-900) /uL Eos # (Auto) 100 (0-450) /uL Baso # (Auto) 100 (0-100) /uL Sodium 135 L (137-145) mmol/L Potassium 4.3 (3.4-5.1) mmol/L Chloride 104 (98-107) mmol/L Carbon Dioxide 26 (22-32) mmol/L BUN 42 H (7-17) mg/dL Creatinine 1.21 H (0.52-1.04) mg/dL Estimated GFR 44 L (>60) mL/min BUN/Creatinine Ratio 34.7 H (6-22) Glucose 111 H (80-110) mg/dL Lactate 1.2 (0.7-2.1) mmol/L Calcium 10.1 (8.4-10.2) mg/dL Magnesium (1.6-2.3) mg/dL Total Bilirubin 0.5 (0.2-1.3) mg/dL AST 28 (14-36) IU/L ALT 19 (<35) IU/L Alkaline Phosphatase 52 (38-126) U/L Total Protein 6.8 (6.3-8.2) g/dL Albumin 3.9 (3.5-5.0) g/dL Globulin 2.9 (1.7-4.1) g/dL Albumin/Globulin Ratio 1.3 (1.0-2.8) Lipase (23-300) U/L Urine Color Urine Appearance Urine pH (4.5-8.0) Ur Specific [place] (1.000-1.035) Urine Protein (Negative) Urine Glucose (UA) (Negative) g/dL Urine Ketones (NEGATIVE) Urine Occult Blood (Negative) Urine Nitrate (Negative) Urine Bilirubin (NEGATIVE) Urine Urobilinogen (0.2) E.U./dL Ur Leukocyte Esterase (NEGATIVE) Urine RBC (0-5/HPF) Urine WBC (0-5/HPF) Ur Squamous Epith Cells (0-5/HPF) Urine Bacteria (None) Ur Culture Indicated? 05/23/23 05/23/23 05/23/23 Range/Units 08:51 09:17 12:35 WBC (4.5-11.0) X10^3/uL RBC (4.0-5.2) X10^6/uL Hgb 11.0 L (12.0-16.0) g/dL Hct 32.4 L (36-46) % MCV (80-100) fL MCH (26-34) PG MCHC (30-36) % RDW (11.6-14.8) % Plt Count (150-400) X10^3/uL Neut % (Auto) (50-75) % Lymph % (Auto) (25-40) % Lawrence % (Auto) (3-14) % Eos % (Auto) (2-4) % Baso % (Auto) (0-2) % Neut # (Auto) (6962-2659) /uL Lymph # (Auto) (5321-4749) /uL Lawrence # (Auto) (0-900) /uL Eos # (Auto) (0-450) /uL Baso # (Auto) (0-100) /uL Sodium (137-145) mmol/L Potassium (3.4-5.1) mmol/L Chloride (98-107) mmol/L Carbon Dioxide (22-32) mmol/L BUN (7-17) mg/dL Creatinine (0.52-1.04) mg/dL Estimated GFR (>60) mL/min BUN/Creatinine Ratio (6-22) Glucose (80-110) mg/dL Lactate (0.7-2.1) mmol/L Calcium (8.4-10.2) mg/dL Magnesium 2.0 (1.6-2.3) mg/dL Total Bilirubin (0.2-1.3) mg/dL AST (14-36) IU/L ALT (<35) IU/L Alkaline Phosphatase (38-126) U/L Total Protein (6.3-8.2) g/dL Albumin (3.5-5.0) g/dL Globulin (1.7-4.1) g/dL Albumin/Globulin Ratio (1.0-2.8) Lipase 143 (23-300) U/L Urine Color Yellow Urine Appearance Clear Urine pH 6.0 (4.5-8.0) Ur Specific [place] 1.010 (1.000-1.035) Urine Protein Negative (Negative) Urine Glucose (UA) Negative (Negative) g/dL Urine Ketones Negative (NEGATIVE) Urine Occult Blood Negative (Negative) Urine Nitrate Negative (Negative) Urine Bilirubin Negative (NEGATIVE) Urine Urobilinogen 0.2 (0.2) E.U./dL Ur Leukocyte Esterase 1+ H (NEGATIVE) Urine RBC 0-1/hpf (0-5/HPF) Urine WBC 0-1/hpf (0-5/HPF) Ur Squamous Epith Cells None seen (0-5/HPF) Urine Bacteria None seen (None) Ur Culture Indicated? Specimen cultured MDM Narrative Medical decision making narrative: CC: 83-year-old female with gradually worsening lower abdominal pain over the past week Complicating co-morbidities: Age, chronic UTI, asthma Data collected from: Patient Medical records reviewed: Prior notes reviewed in our EMR Differential considered, but not limited to: Appendicitis versus diverticulitis versus UTI versus bowel obstruction versus musculoskeletal such as abdominal wall strain versus other Exam documented above, pertinent findings include: Heart rate regular, lungs clear, abdomen is soft but tender in the lower portions of her abdomen, most notably in the left lower quadrant Lab Test results independently reviewed as above. Pertinent findings: Independently reviewed EKG as above Imaging studies independently reviewed: CT of the abdomen and pelvis with IV contrast demonstrates abdominal wall hematoma Consultations: Discussed with on-call general surgeon (Dr. Lauren). We discussed history and physical exam as well as vital signs, labs and imaging findings. We are both quite reassured by her hemodynamic stability and repeat labs being normal. He recommends that she is safe for discharge, arrange for outpatient repeat H&H in the next day or 2 Treatments: Fentanyl, saline and ondansetron Re-evaluations: Patient with improved symptoms Discussion: Patient has left lower abdominal pain for the past week or so. Her symptoms are worse when she moves and improves with rest. She denies fever or chills nor change in bowel habits. She denies change in appetite. Labs are jennifer ssuring and imaging demonstrates a left abdominal wall hematoma. Patient is hemodynamically stable and H/H remains unchanged x2, stable with her baseline. She is not anticoagulated and there is no evidence of ongoing bleeding. Pain is well controlled and she is appropriate for discharge Disposition: see below, along with detailed discharge instructions that have been reviewed with patient as well as indications for ED re-evaluation and additional outpatient follow up Discharge Plan Departure Patient Disposition: Home Clinical Impression: Acute retention of urine, Abdominal wall hematoma Instructions: DI for Urinary Retention in Women Activity Restrictions/Additional Instructions: *You have been diagnosed with [abdominal wall hematoma and urinary retention. As we discussed your labs and imaging are very reassuring and there is no evidence of active bleeding or anemia, you have no signs of bowel obstruction or appendicitis. The pain in your abdomen is from a collection blood within your abdominal muscles which will resolve with time.] *What to do: *Please continue to take your regular medications as directed. [ ] New medication prescriptions sent to your pharmacy: [ ] [ ] New medication written as a paper prescription [ ] No new medications given * as we discussed please use the outpatient lab form to get a repeat blood count tomorrow or the following day, and habits so the result goes to your primary care provider and also the surgeon's office. Please contact your urologist in [place] tomorrow, let them know that you were seen in the emergency department and we would like you seen in follow-up for urinary retention. *Return to Emergency Department if you should have any new, worsening or concerning symptoms, such as [fever greater than 101 F, shaking chills, worsening pain, persistent vomiting or other bothersome symptoms] Prescriptions: No Action cholecalciferol (vitamin D3) [Vitamin D3] 1,000 unit Capsule 1,000 unit PO DAILY Qty: 0 alprazolam 0.25 MG tablet 0.25 mg PO DAILY PRN (Reason: Anxiety) Qty: 0 aspirin 81 MG tablet,delayed release (DR/EC) 81 mg PO BID Qty: 60 0RF esomeprazole magnesium 40 mg capsule,delayed release(DR/EC) 40 mg PO DAILY cyclosporine 0.05 % dropperette 1 drp ophthalmic (eye) DIRECTED pentosan polysulfate sodium 100 mg capsule 100 mg PO TID azithromycin 250 mg tablet See Rx Instructions .ROUTE .COMPLEX Patient Comments: TAKE 2 TABLETS BY MOUTH TODAY, THEN TAKE 1 TABLET DAILY FOR 4 DAYS. Rx Instructions: 1 dose orally citalopram 20 mg tablet 40 mg PO DAILY albuterol sulfate 90 mcg/actuation HFA aerosol inhaler 1 puff inhalation PRN PRN (Reason: Shortness Of Breath) fluticasone propion-salmeterol 115-21 mcg/actuation HFA aerosol inhaler 2 puff inhalation BID Patient Comments: inhale 2 puffs by mouth twice a day WITH SPACER Rinse mouth after use estradiol 10 mcg tablet 10 mcg vaginal 2XW beclomethasone dipropionate 80 mcg/actuation HFA aerosol breath activated 1 puff inhalation BID benzonatate 150 mg capsule 150 mg PO Q8H PRN (Reason: cough) Qty: 14 0RF lidocaine 5 % adhesive patch,medicated 1 patch TOP Q24H PRN (Reason: pain) Qty: 15 0RF Rx Instructions: leave on most painful area for up to 12 hrs levofloxacin 750 mg tablet 750 mg PO Q24H Qty: 4 0RF Referrals: Lucy Ye ARNP [Primary Care Provider] - Stand Alone Forms: Patient Portal/API
--- NOTE | 2023-05-23 08:51 | DI.CT.S_ITS ---
PROCEDURE: CT ABDOMEN PELVIS W CON INDICATIONS: severe lower ABD pain TECHNIQUE: After the administration of intravenous contrast, axial sections acquired from the lung bases to the pubic symphysis. Coronal and sagittal reformats were performed. For radiation dose reduction, the following was used: automated exposure control, adjustment of mA and/or kV according to patient size. COMPARISON: None. FINDINGS: Image quality: Excellent. Lung bases: Bibasilar atelectasis.. Heart: No significant findings. ABDOMEN: Liver: Stable hepatic cysts.. Gallbladder: Status post cholecystectomy. Biliary ducts: Similar moderate dilatation of the biliary tree since 10/20/2022. Pancreas: Unremarkable. Spleen: Unremarkable. Adrenal Glands: Unremarkable. Kidneys and Ureters: Unremarkable. Stomach and Bowel: Stomach, small bowel loops, and colon are unremarkable. Colonic diverticula without evidence of acute diverticulitis. Peritoneum: No abnormal intraperitoneal fluid. No free air. Ventral Wall: Large left rectus abdominus sheath hematoma measuring 4.6 x 9.6 x 11.0 cm. Small right rectal sheath hematoma measuring 1.4 x 3.2 x 2.9 cm. Abdominal Nodes: No retroperitoneal or mesenteric adenopathy by size criteria. Vessels: Aorta and inferior vena cava are normal in size. PELVIS: Pelvic Organs: Unremarkable. Bladder: Bladder is decompressed around a Lux catheter in situ. Pelvic Nodes: No enlarged lymph nodes. Miscellaneous: No hernias are seen. Trace pelvic fluid in the cul-de-sac. Bones: No acute or suspicious osseous lesion. IMPRESSION: 1. Bilateral left greater than right rectus abdominus hematomas. 2. Status post cholecystectomy with similar dilation of the biliary system since 10/20/2022. Dictated by: Virginia Che M.D. on 05/23/2023 at 10:59 Approved by: Virginia Che M.D. on 05/23/2023 at 11:13
[2023-05-23] MEDS: ONDANSETRON 4 MG/2 ML INJ IV (09:00)
[2023-05-23] MEDS: fentaNYL 100 MCG/2 ML INJ 25 MCG IV (09:00)
[2023-05-23] MEDS: SODIUM CHLORIDE 0.9% 1,000 ML 1000 ML IV (09:00)
[2023-05-23 09:01] LABS: Add Manual Diff / Slide Review NO; Basophils Absolute Auto 100 /uL (0-100); Basophils Percent Auto 0.4 % (0-2); Eosinophils Absolute Auto 100 /uL (0-450); Eosinophils Percent Auto 0.9 % (2-4); Hematocrit 34.4 % (36-46); Hemoglobin 11.4 g/dL (12.0-16.0); Lymphocytes Absolute Auto 1600 /uL (1100-4500); Lymphocytes Percent Auto 10.3 % (25-40); Mean Corpuscular HGB Conc 33.2 % (30-36); Mean Corpuscular Hemoglobin 31.9 PG (26-34); Mean Corpuscular Volume 96.1 fL (80-100); Monocytes Absolute Auto 1100 /uL (0-900); Monocytes Percent Auto 6.9 % (3-14); Neutrophils Absolute Auto 12800 /uL (1500-7000); Neutrophils Percent Auto 81.5 % (50-75); Platelet Count 244 X10^3/uL (150-400); Red Blood Cell Count 3.58 X10^6/uL (4.0-5.2); Red Cell Distribution Width 13.7 % (11.6-14.8); White Blood Cell Count 15.7 X10^3/uL (4.5-11.0)
[2023-05-23 09:28] LABS: Alanine Aminotransferase 19 IU/L (<35); Albumin 3.9 g/dL (3.5-5.0); Albumin Globulin Ratio 1.3 (1.0-2.8); Alkaline Phosphatase 52 U/L (38-126); Aspartate Aminotransferase 28 IU/L (14-36); BUN Creatinine Ratio 34.7 (6-22); Bilirubin Total 0.5 mg/dL (0.2-1.3); Blood Urea Nitrogen 42 mg/dL (7-17); Calcium 10.1 mg/dL (8.4-10.2); Carbon Dioxide 26 mmol/L (22-32); Chloride 104 mmol/L (98-107); Estimated Glomerular Filt Rate 44 mL/min (>60); Globulin 2.9 g/dL (1.7-4.1); Glucose 111 mg/dL (80-110); HEMOLYSIS < 15 (0-50); Potassium 4.3 mmol/L (3.4-5.1); Sodium 135 mmol/L (137-145); Total Protein 6.8 g/dL (6.3-8.2)
[2023-05-23 09:29] LABS: Lactate (Lactic Acid) 1.2 mmol/L (0.7-2.1)
[2023-05-23 09:30] LABS: Lipase 143 U/L (23-300)
--- NOTE | 2023-05-23 09:31 | PC.NURSE ---
Pt reports she has been unable to urinate since yesterday. States she has cystitis and is seeing urology. Bladder scan = 233 ml. Provider notified. Pt asked to urinate in order to obtain true PVR. Pt is unable. Lux catheter placed, specimen obtained, and sent to lab.
[2023-05-23 09:41] LABS: Bilirubin Urine UA NEGATIVE (NEGATIVE); Color Urine UA YELLOW; Glucose Urine UA NEGATIVE (Negative); Ketones Urine UA NEGATIVE (NEGATIVE); Leukocyte Esterase Urine UA 1+ (NEGATIVE); Nitrite Urine UA NEGATIVE (Negative); Occult Blood Urine UA NEGATIVE (Negative); Protein Urine UA NEGATIVE (Negative); Urobilinogen Urine UA 0.2 E.U./dL (0.2)
[2023-05-23 09:53] LABS: Appearance Urine UA Clear; Bacteria Urine None Seen; Culture Indicated Urine Specimen Cultured; RBC Urine 0-1/HPF (0-5/HPF); Squamous Epithelial Cell Urine None Seen (0-5/HPF); WBC Urine 0-1/HPF (0-5/HPF)
[2023-05-23 12:39] LABS: Hematocrit 32.4 % (36-46)
== END 2023-05-23 15:02 | disposition home or self-care (01) ==
PROVIDERS: Emergency Provider Emergency Medicine; PCP Internal Medicine
DX: R33.8 Other retention of urine (principal); S30.1XXA Contusion of abdominal wall, initial encounter; Z79.899 Other long term (current) drug therapy
CPT/HCPCS: 36415; 74177; 80053; 81001; 83605; 83690; 83735; 85014; 85018; 85025; 87086; 96361; 96374; 96375; 99284; 99285; J2405; J3010; Q9967

== ENCOUNTER → 2023-05-24 14:22 | Outpatient (CLI) | payer MEDICARE, OTHER, SELFPAY ==
[2023-05-24 15:04] LABS: Hematocrit 29.7 % (36-46)
== END ==
PROVIDERS: PCP Internal Medicine; Referring Provider Surgery; Visit Provider Surgery
DX: S30.1XXA Contusion of abdominal wall, initial encounter (principal); D64.9 Anemia, unspecified
CPT/HCPCS: 36415; 85014; 85018

== ENCOUNTER 2023-05-31 15:54 | Emergency (ER) | payer MEDICARE, OTHER, SELFPAY ==
[2023-05-31 16:26] VITALS: BP 171/91; PULSE 63; RESP 17; TEMP 37.2; O2SAT 98; BMI 27.3
[2023-05-31 16:43] LABS: Appearance Urine UA CLOUDY; Bilirubin Urine UA NEGATIVE (NEGATIVE); Color Urine UA YELLOW; Glucose Urine UA NEGATIVE (Negative); Ketones Urine UA NEGATIVE (NEGATIVE); Leukocyte Esterase Urine UA 1+ (NEGATIVE); Nitrite Urine UA NEGATIVE (Negative); Occult Blood Urine UA 3+ (Negative); Protein Urine UA 1+ (Negative); Urobilinogen Urine UA 0.2 E.U./dL (0.2)
[2023-05-31 16:55] LABS: Bacteria Urine Few (2-10); Culture Indicated Urine Specimen Cultured; RBC Urine >100/HPF (0-5/HPF); Squamous Epithelial Cell Urine 0-1 /HPF (0-5/HPF); WBC Urine 1-5/HPF (0-5/HPF)
--- NOTE | 2023-05-31 17:33 | PC.NURSE ---
Called @ [phone]. No answer.
--- NOTE | 2023-05-31 19:09 | ED_ITS ---
HPI - Female Genitourinary <Cresencio James PA-C - Last Filed: 06/01/23 19:35> General Chief complaint: Urogenital-Female Stated complaint: Catheter issues Time Seen by Provider: 05/31/23 16:53 Source: patient Mode of arrival: Ambulatory History of Present Illness HPI Narrative: 83-year-old female presents to the ED complaining of discomfort from a urinary catheter. Patient had a urinary catheter put in since she had an abdominal hematoma which was causing difficulties in urinating. Patient states that the urinary catheter has been painful and that her urethra feels inflamed. Patient would like the catheter removed today. Patient denies fever, chills, nausea, vomiting. Related Data Home Medications Medication Instructions Recorded Confirmed alprazolam 0.25 mg tablet 0.25 mg PO DAILY PRN Anxiety ##0 11/03/17 02/09/19 cholecalciferol (vitamin D3) 25 1,000 unit PO DAILY ##0 11/03/17 mcg (1,000 unit) capsule (Vitamin D3) cyclosporine 0.05 % eye drops in a 1 drp ophthalmic (eye) DIRECTED 02/09/19 05/19/19 dropperette esomeprazole magnesium 40 mg 40 mg PO DAILY 02/09/19 05/19/19 capsule,delayed release albuterol sulfate 90 mcg/actuation 1 puff inhalation PRN PRN 05/19/19 05/19/19 aerosol inhaler Shortness Of Breath azithromycin 250 mg tablet See Rx Instructions .Route .COMPLEX 05/19/19 05/19/19 beclomethasone dipropionate 80 1 puff inhalation BID 05/19/19 05/19/19 mcg/actuation HFA breath activated aerosol citalopram 20 mg tablet 40 mg PO DAILY 05/19/19 05/19/19 estradiol 10 mcg vaginal tablet 10 mcg vaginal 2XW 05/19/19 05/19/19 fluticasone propionate 115 2 puff inhalation BID 05/19/19 05/19/19 mcg-salmeterol 21 mcg/actuation HFA inhaler pentosan polysulfate sodium 100 mg 100 mg PO TID 05/19/19 05/19/19 capsule Previous Rx's Medication Instructions Recorded aspirin 81 mg tablet,delayed 81 mg PO BID ##60 11/17/17 release benzonatate 150 mg capsule 150 mg PO Q8H PRN cough #14 caps 05/19/19 lidocaine 5 % topical patch 1 patch topical Q24H PRN pain #15 07/28/20 ea levofloxacin 750 mg tablet 750 mg PO Q24H #4 tabs 09/12/22 Allergies Allergy/AdvReac Type Severity Reaction Status Date / Time Penicillins Allergy Severe Swelling Verified 09/11/22 15:15 of Lip/Tongue/Throat adhesive [ADHESIVE] AdvReac Severe THIN Verified 09/11/22 15:08 SKIN, PULLS SKIN OFF PAPER/SILK TAPE OK Sulfa (Sulfonamide AdvReac Severe I GET Verified 09/11/22 15:08 Antibiotics) EXTREMELY [SULFA (SULFONAMIDE NERVOUS, ANTIBIOTICS)] JITTERY trazodone AdvReac Severe Agitated Verified 09/11/22 15:15 amitriptyline AdvReac Intermediate Insomnia Verified 09/11/22 15:15 PAIN MEDICATIONS AdvReac Unknown I GET ALL Uncoded 12/03/21 12:10 OF THE SIDE EFFECTS, NO PAIN RELIEF Review of Systems <Cresencio James PA-C - Last Filed: 06/01/23 19:35> Review of Systems ROS Unobtainable: All systems reviewed & are unremarkable except as noted in HPI and below Constitutional Constitutional: Denies chills, Denies fatigue, Denies fever(s), Denies frequent falls, Denies lethargy and Denies weakness Eyes Eyes: Denies change in vision, Denies eye discharge, Denies irritation and Denies loss of vision ENT Ears, Nose, Mouth, and Throat: Denies change in voice, Denies dizziness, Denies neck pain, Denies sore throat and Denies throat swelling Cardiovascular Cardiovascular: Denies chest pain, Denies irregular heart rhythm, Denies lightheadedness, Denies palpitations, Denies dyspnea, Denies dyspnea on exertion and Denies orthopnea Respiratory Respiratory: Denies cough, Denies dyspnea, Denies dyspnea on exertion and Denies wheezing Gastrointestinal Gastrointestinal: Denies abdominal pain, Denies change in bowel habits, Denies diarrhea, Denies nausea and Denies vomiting Genitourinary Genitourinary: Denies hematuria, Denies flank pain, Denies urinary incontinence and Denies urinary urgency Comments: Discomfort from urinary catheter Musculoskeletal Musculoskeletal: Denies back pain, Denies muscle weakness, Denies neck pain, Denies numbness and Denies tingling Integumentary/Breasts Skin/Breast: Denies pruritus, Denies erythema, Denies rash and Denies wounds Neurologic Neurologic: Denies behavioral changes, Denies confusion, Denies dizziness, Denies frequent falls, Denies loss of vision, Denies numbness, Denies tingling and Denies weakness Psychiatric Psychiatric: Denies anxiety, Denies behavioral changes, Denies confusion, Denies depression, Denies homicidal ideation and Denies suicidal ideation Endocrine Endocrine: Denies fatigue, Denies flushing and Denies palpitations Hematologic/Lymphatic Hematologic/Lymphatic: Denies easy bruising Allergic/Immunologic Allergic/Immunologic: Denies urticaria, Denies throat swelling and Denies wheezing Patient History <Cresencio James PA-C - Last Filed: 06/01/23 19:35> Medical History Asthma GERD (gastroesophageal reflux disease) Kidney stones Osteoarthritis Surgical History History of cataract removal with insertion of prosthetic lens History of knee replacement History of shoulder surgery Family History Brother Age: 92 Dementia Heart disease Mental health disorder Pacemaker Grandfather Mental health disorder Grandmother Arthritis Grandmother Mental health disorder alcohol intake frequency: 0-2 drinks per day Substance Use Type: does not use Exam <Cresencio James PA-C - Last Filed: 06/01/23 19:35> Narrative Exam Narrative: Const General:?cooperative, healthy appearing and comfortable [facility] Head:?normal to inspection Ears:?hearing grossly normal bilaterally Nose:?external nose normal Face and sinus:?normal facial exam and sinuses nontender Mouth:?oral mucosae normal Throat:?posterior oropharynx normal Eyes General:?appearance normal, both eyes and all related structures Neck Neck:?normal visual inspection and no lymphadenopathy noted Resp Effort & Inspection:?normal respiratory effort Auscultation:?clear to auscultation bilaterally Cardio Rate:?regular rate Rhythm:?regular rhythm Urethra appears somewhat inflamed but no signs of infection. Neuro General:?patient alert, patient awake and patient oriented x3 Initial Vital Signs Initial Vital Signs: Vital Signs Temperature 98.9 F 05/31/23 16:26 Pulse Rate 63 05/31/23 16:26 Respiratory Rate 17 05/31/23 16:26 Blood Pressure 171/91 H 05/31/23 16:26 Pulse Oximetry 98 05/31/23 16:26 Oxygen Delivery Method Room Air 05/31/23 16:26 <Yecenia Bernal MD - Last Filed: 06/02/23 13:05> Initial Vital Signs Initial Vital Signs: Vital Signs Temperature 98.9 F 05/31/23 16:26 Pulse Rate 63 05/31/23 16:26 Respiratory Rate 17 05/31/23 16:26 Blood Pressure 171/91 H 05/31/23 16:26 Pulse Oximetry 98 05/31/23 16:26 Oxygen Delivery Method Room Air 05/31/23 16:26 Course <Cresencio James PA-C - Last Filed: 06/01/23 19:35> Orders Ordered: ED Orders 05/31/23 16:30 Urinalysis and Microscopic Stat Urine Culture Stat Vital Signs Vital signs: Vital Signs - 8 hr 05/31/23 16:26 Temperature 98.9 F Pulse Rate 63 Respiratory Rate 17 Blood Pressure 171/91 H Pulse Oximetry 98 Oxygen Delivery Method Room Air <Yecenia Bernal MD - Last Filed: 06/02/23 13:05> Orders Ordered: ED Orders 05/31/23 16:30 Urinalysis and Microscopic Stat Urine Culture Stat Vital Signs Vital signs: Vital Signs - 8 hr 05/31/23 16:26 Temperature 98.9 F Pulse Rate 63 Respiratory Rate 17 Blood Pressure 171/91 H Pulse Oximetry 98 Oxygen Delivery Method Room Air MDM - Female Genitourinary <Cresencio James PA-C - Last Filed: 06/01/23 19:35> Lab Data Labs: Lab Results 05/31/23 Range/Units 16:30 Urine Color Yellow Urine Appearance Cloudy Urine pH 7.0 (4.5-8.0) Ur Specific [place] 1.010 (1.000-1.035) Urine Protein 1+ H (Negative) Urine Glucose (UA) Negative (Negative) g/dL Urine Ketones Negative (NEGATIVE) Urine Occult Blood 3+ H (Negative) Urine Nitrate Negative (Negative) Urine Bilirubin Negative (NEGATIVE) Urine Urobilinogen 0.2 (0.2) E.U./dL Ur Leukocyte Esterase 1+ H (NEGATIVE) Urine RBC >100/hpf H (0-5/HPF) Urine WBC 1-5/hpf (0-5/HPF) Ur Squamous Epith Cells 0-1 /hpf (0-5/HPF) Urine Bacteria Few (2-10) H (None) Ur Culture Indicated? Specimen cultured MDM Narrative Medical decision making narrative: 83-year-old female presents to the ED complaining of discomfort from a urinary catheter. Catheter was removed and trial of urination performed. Patient was able to successfully void, with no significant residual urine on postvoid bladder scan. UA without infection. Discussed ED return precautions with patient. Patient verbalized understanding. Medical records reviewed: Yes <Yecenia Bernal MD - Last Filed: 06/02/23 13:05> Lab Data Labs: Lab Results 05/31/23 Range/Units 16:30 Urine Color Yellow Urine Appearance Cloudy Urine pH 7.0 (4.5-8.0) Ur Specific [place] 1.010 (1.000-1.035) Urine Protein 1+ H (Negative) Urine Glucose (UA) Negative (Negative) g/dL Urine Ketones Negative (NEGATIVE) Urine Occult Blood 3+ H (Negative) Urine Nitrate Negative (Negative) Urine Bilirubin Negative (NEGATIVE) Urine Urobilinogen 0.2 (0.2) E.U./dL Ur Leukocyte Esterase 1+ H (NEGATIVE) Urine RBC >100/hpf H (0-5/HPF) Urine WBC 1-5/hpf (0-5/HPF) Ur Squamous Epith Cells 0-1 /hpf (0-5/HPF) Urine Bacteria Few (2-10) H (None) Ur Culture Indicated? Specimen cultured Discharge Plan Departure Patient Disposition: Home Clinical Impression: Lux catheter problem Instructions: DI for Urinary Catheter Removal Activity Restrictions/Additional Instructions: You were evaluated in the ED today for discomfort from a urinary catheter. We removed your catheter today, and you were able to empty your bladder successfully without it. Please return to the ED if you have trouble emptying your bladder, discomfort with urination, persistent vomiting, fever, chills. Please follow-up with your PCP as soon as possible. Prescriptions: No Action cholecalciferol (vitamin D3) [Vitamin D3] 1,000 unit Capsule 1,000 unit PO DAILY Qty: 0 alprazolam 0.25 MG tablet 0.25 mg PO DAILY PRN (Reason: Anxiety) Qty: 0 aspirin 81 MG tablet,delayed release (DR/EC) 81 mg PO BID Qty: 60 0RF esomeprazole magnesium 40 mg capsule,delayed release(DR/EC) 40 mg PO DAILY cyclosporine 0.05 % dropperette 1 drp ophthalmic (eye) DIRECTED pentosan polysulfate sodium 100 mg capsule 100 mg PO TID azithromycin 250 mg tablet See Rx Instructions .ROUTE .COMPLEX Patient Comments: TAKE 2 TABLETS BY MOUTH TODAY, THEN TAKE 1 TABLET DAILY FOR 4 DAYS. Rx Instructions: 1 dose orally citalopram 20 mg tablet 40 mg PO DAILY albuterol sulfate 90 mcg/actuation HFA aerosol inhaler 1 puff inhalation PRN PRN (Reason: Shortness Of Breath) fluticasone propion-salmeterol 115-21 mcg/actuation HFA aerosol inhaler 2 puff inhalation BID Patient Comments: inhale 2 puffs by mouth twice a day WITH SPACER Rinse mouth after use estradiol 10 mcg tablet 10 mcg vaginal 2XW beclomethasone dipropionate 80 mcg/actuation HFA aerosol breath activated 1 puff inhalation BID benzonatate 150 mg capsule 150 mg PO Q8H PRN (Reason: cough) Qty: 14 0RF lidocaine 5 % adhesive patch,medicated 1 patch TOP Q24H PRN (Reason: pain) Qty: 15 0RF Rx Instructions: leave on most painful area for up to 12 hrs levofloxacin 750 mg tablet 750 mg PO Q24H Qty: 4 0RF Referrals: Lucy Ye ARNP [Primary Care Provider] - Stand Alone Forms: Patient Portal/API <Yecenia Bernal MD - Last Filed: 06/02/23 13:05> Cosign ED Attending Cosignature Attestation: I did not see this patient. I was available all times for consultation.
== END 2023-05-31 18:50 | disposition home or self-care (01) ==
PROVIDERS: Emergency Medicine; Emergency Provider Student in an Organized Health Care Education/Training Program; PCP Internal Medicine
DX: T83.9XXA Unspecified complication of genitourinary prosthetic device, implant and graft, initial encounter (principal)
CPT/HCPCS: 51798; 81001; 87077; 87086; 87185; 87186; 99282; 99283

== ENCOUNTER 2024-08-29 08:02 | Inpatient (IN) | payer MEDICARE, OTHER, SELFPAY ==
[2024-08-23 14:34] VITALS: BMI 26.4
[2024-08-29] VITALS (15 sets, daily range): BP systolic 106–152; BP diastolic 62–85; PULSE 63–99; RESP 12–22; TEMP 35.6–36.8; O2SAT 95–98; BMI 25.7
--- NOTE | 2024-08-29 | PATH_ITS ---
[facility] Accession Number: [id number] No. of containers..01 Tissue . 01 Material submitted: . rectum - RECTUM, SEGMENTAL RESECTION . 01 Diagnosis: RECTUM, SEGMENTAL RESECTION: Segment of rectal tissue, with no diagnostic histologic alterations. No active inflammation or dysplasia identified. [facility] 08/31/2024 1257 Local . 01 Electronically signed: . Robert Reilly MD, Pathologist NPI- [id number] . 01 Gross description: . Received in formalin with two patient identifiers and rectum, is an unoriented segment of rectum (6.3 cm in length and ranging from 2.0 to 4.2 cm in diameter) with a diffusely ragged external surface and a small amount of violaceous smooth serosa. Both ends are patent with the narrower end inked blue and the wider end inked black, with a small amount of mucoid material. The mucosa is roman to brown and velvety with slightly edematous folds. The kohler average 0.4 cm thick with no diverticula or lesions identified. Outside Cutter Hand sections are submitted as follows: . A1: Proximal and distal margins, en face. A2: Full thickness sections. ([id number]) /MRV 08/31/2024 1257 Local . 01 Pathologist provided ICD-10: K62.3 . 01 CPT . 906199 Specimen Comment: A courtesy copy of this report has been sent to [phone] Performed at: [address] [id number] MD Robert Reilly MD Phone: [phone]
[2024-08-29] MEDS: LACTATED RINGERS 1,000 ML 42 ML IV (08:30)
--- NOTE | 2024-08-29 08:44 | SUR.OPER ---
Prone on padded OR bed, head in foam head support, gel chest rolls, gel pad under knees, pillow under lower legs, toes free of pressure, arms secured on padded arm boards at <90 degrees abduction. Safety belt at thigh.
--- NOTE | 2024-08-29 08:50 | PM.PREOP ---
Pre-operative Note COVID-19 COVID-19 status: Not tested Interval Note History & Physical reviewed/Exam performed by Physician: Yes Changes to H&P: No ASA Class (for procedural sedation): II
[2024-08-29] MEDS: CLINDAMYCIN 900 MG/50 ML PIGGYBACK 50 MG IV ×2 (09:26→16:42)
[2024-08-29] MEDS: BUPIVACAINE 0.5% W/ EPI (PF) 30 ML VIAL INJ ×2 (10:47→17:06)
--- NOTE | 2024-08-29 11:03 | PM.OP.1 ---
Operative Date/Time/Diagnoses Date of procedure: 08/29/24 Time of procedure: 11:04 Pre-op diagnosis: Rectal prolapse Post-op diagnosis: same Procedure & Clinicians Procedure: Altemeier procedure (perineal rectosigmoidectomy) Same procedure as scheduled: Yes Surgeon: Jan Lauren Commissioner Of Conciliation: Frandy Monteiro Anesthesia Type: General Operative Notes Procedure in detail: The patient was intubated on the gurney and placed on the table in the prone jacknife position. Bharati projections were padded. She was secured to the operating room table. The buttocks were taped apart. The perineum was prepped with betadine. Clindamycin was administered. We used Allis clamps to reduce rectal prolapse. We used the bovie cautery to jan a line about 2.5 cm proximal to the dentate line. We cauterized through the mucosa and the layers of smooth muscle, entering the pouch of Leo anteriorly. A finger was inserted into the vagina and the rectovaginal seputm was noted to be quite thin but intact. We then continued the division of the bowel wall circumferentially. We then took down the mesentery with a ligasure staying close to the bowel. We resected roughly 12 cm of rectum and colon. We set up the lone star retractor to retract the skin away from the anus. We then performed a hand sewn anastomosis using multiple 3-0 vicryl sutures in an interrupted fashion. At the conclusion of the case there was no prolapse and a digital rectal exam revealed average sphincter tone. A gel foam was placed into the rectum followed by some guaze and mesh underwear. EBL: 60 mL Frandy HARRISON provided assistance with exposure, retraction and closure of incisions. Post-operative Condition: stable Disposition: PACU
[2024-08-29] MEDS: IBUPROFEN 600 MG TABLET PO (12:06)
[2024-08-29] MEDS: ACETAMINOPHEN 325 MG TABLET 650 MG PO (12:07)
[2024-08-29] MEDS: HYDROMORPHONE 0.5 MG INJ 0.25 MG IV ×2 (13:03→14:59)
[2024-08-29] MEDS: ONDANSETRON 4 MG/2 ML INJ IV (14:59)
--- NOTE | 2024-08-29 15:55 | PM.PN.1 ---
Subjective Subjective Date Patient Seen: 08/29/24 Time Patient Seen: 15:55 Interval history: Called to bedside for report of recurrent prolapse. She reports low back pain and bladder pain in the lower abdomen. Exam Vital Signs (past 8 hours): - 08/29/24 08:31 08/29/24 11:13 08/29/24 11:18 Temperature 97.7 F 97.6 F Pulse Rate 82 81 Respiratory Rate 15 12 Blood Pressure 141/79 H 141/75 H Pulse Oximetry 95 95 Oxygen Delivery Method Blow By Room Air Room Air 08/29/24 11:23 08/29/24 11:29 Temperature 97.6 F 97.6 F Pulse Rate 77 71 Respiratory Rate 19 14 Blood Pressure 131/76 146/71 H Pulse Oximetry 95 96 Oxygen Delivery Method Room Air Room Air Oxygen Delivery Method Room Air Narrative Exam Narrative: There are several loops of dusky small bowel protruding through the anus [facility] Medical History (Updated 08/29/24 @ 15:57 by Darell Lauren MD) GERD (gastroesophageal reflux disease) Osteoarthritis Asthma Kidney stones Surgical History (Updated 08/23/24 @ 14:50 by Nicole Mcmillan RN) 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) History of bilateral knee replacement History of cataract removal with insertion of prosthetic lens Family History Brother Age: 92 Dementia Heart disease Mental health disorder Pacemaker Grandfather Mental health disorder Grandmother Arthritis Grandmother Mental health disorder Social History household members: spouse Smoking Status: Never smoker alcohol intake: current Assessment & Plan Assessment and plan (1) Evisceration of bowel: Status: Acute Plan It appears that Brian has eviscerated loops of small bowel through her anastomosis and the bowel is now coming through her anal canal. It appears viable but dusky. I will take her back to the operating room to try to reduce the bowel, close the gap in the anastomosis and possibly perform a exploratory laparotomy to observe the bowel to make sure it is well perfused. If it is not well perfused she we will need a small-bowel resection. Time-Based Coding :: [TOTAL MINUTES] spent with patient and on the chart (including review of chart, obtaining history, exam, reviewing outside data, placing orders, documenting exam and treatment plan, and counseling patient) on [DATE]. Quality VTE Deep Vein Thrombosis/Pulmonary Embolism Present on Admission: No
--- NOTE | 2024-08-29 16:52 | SUR.OPER ---
Lithotomy on padded OR bed, head on pillow, arms secured on padded arm boards at <90 degrees abduction. Legs secured in padded yellow fins stirrups.
--- NOTE | 2024-08-29 18:02 | PC.NURSE ---
@1500 0.25 IV Dilaudid was given to Pt for abdominal pain. I went to reassess Pain @1544 and pain was mildly improved in abdomen but Pt reported 10/10 Bck pain. We were going to reposition Pt to chair to help pain at this time I noticed a small amount of prolapsed bowel coming out of anus w/ scant blood. @[address] Lauren to inform him of Pt status. Message was relayed to him while he was in OR performing surgery.No new orders given. Dr. Lauren arrived on floor to see Pt @ 1638 and @ that time more of the Pt's bowel had come out and we covered bowel w/saline soaked gauze. Pt was taken from acute care to OR @1655
--- NOTE | 2024-08-29 18:51 | P.OP_ITS ---
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 Several hours after she went to her room she developed back pain and abdominal pain and it was noted that she had bowel protruding through her anus. She was consented for an exploratory laparotomy. The patient was given a dose of clindamycin. She was positioned in lithotomy and the abdomen was prepped and draped in the usual fashion and a time-out was performed. A first, an attempt was made to manually reduce the dusky small bowel through the anus however could not be completed from a perianal approach so we made a low midline incision. There is a distended bladder obscuring the view into the pelvis and so a Lux catheter was inserted to decompress the bladder. The urine came out red consistent with her history of cystitis. A combination of pulling the small bowel back into the abdomen and pushing from the perineum resulted in complete reduction of the small bowel. It appeared rather dusky but viable. We then covered the bowel was a moist lap. Next, we went between the legs and inspected the anastomosis using a Hill- Floyd type retractor. We also examined the anastomosis using the rigid s igmoidoscope. It became clear that there was a gap in the left lateral position. The gap was then closed using several interrupted full-thickness sutures with 3-0 Vicryl. The anastomosis was again visualized with the rigid sigmoidoscope and appeared to be complete. We then returned to the abdomen. There was a peritoneal defect in the pelvis from the Altemeier procedure which was closed with a running 3-0 Vicryl to ensure that there would be no further herniation of small bowel in the pelvis. The peritoneal cavity was irrigated with 3 L warm saline which all returned clear. We then injected Exparel and Marcaine into the abdominal wall and closed the low midline incision with a running 0 PDS. The skin was closed with deisy. Dressings were applied over the midline wound. Mesh panties were applied. EBL: 30 mL Frandy HARRISON provided assistance with exposure, retraction and closure of incisions. Post-operative Condition: stable Disposition: PACU
[2024-08-29] MEDS: ACETAMINOPHEN IV 1,000 MG/100 ML VIAL 400 MG IV (19:24)
[2024-08-30] VITALS (14 sets, daily range): BP systolic 112–200; BP diastolic 63–103; PULSE 65–94; RESP 14–17; TEMP 36.6–37.2; O2SAT 92–96
--- NOTE | 2024-08-30 05:39 | PC.NURSE ---
Addendum entered by Noa Bobby R.N. 08/30/24 06:12: Patient given an electrolyte drink. Original Note: Pt reports pain in her bladder, urine draining, 300cc of brownish urine draining. Flushed catheter , able to flush, no blood clots noted. Unable to bladder scan due to surgical site. Noted small amount of vaginal bleeding. Notified Dr. Lauren, he stated that she feels like she has to pee because she has the catheter in , to tell her not to focus on her bladder so much. No new orders at this time.
[2024-08-30] MEDS: PANTOPRAZOLE DR 40 MG TABLET PO (05:57)
[2024-08-30 06:35] LABS: Add Manual Diff / Slide Review NO; Basophils Absolute Auto 0 /uL (0-100); Eosinophils Absolute Auto 0 /uL (0-450); Hematocrit 38.4 % (36-46); Hemoglobin 12.7 g/dL (12.0-16.0); Lymphocytes Absolute Auto 1000 /uL (1100-4500); Lymphocytes Percent Auto 4.4 % (25-40); Mean Corpuscular HGB Conc 33.1 % (30-36); Mean Corpuscular Hemoglobin 31.8 PG (26-34); Mean Corpuscular Volume 96.2 fL (80-100); Monocytes Absolute Auto 2000 /uL (0-900); Monocytes Percent Auto 8.6 % (3-14); Neutrophils Absolute Auto 20300 /uL (1500-7000); Platelet Count 258 X10^3/uL (150-400); Red Blood Cell Count 3.99 X10^6/uL (4.0-5.2); Red Cell Distribution Width 13.8 % (11.6-14.8); White Blood Cell Count 23.4 X10^3/uL (4.5-11.0)
--- NOTE | 2024-08-30 08:33 | P.PN_ITS ---
Subjective Subjective Date Patient Seen: 08/30/24 Time Patient Seen: 08:33 Interval history: Brian states she is a mess today. Primary complaint seemed to be related to not receiving enough alprazolam and cramping in her legs. She has also had some lower abdominal incisional pain. Exam Vital Signs (past 8 hours): - 08/30/24 00:45 08/30/24 05:34 Temperature 97.8 F Pulse Rate 79 86 Respiratory Rate 16 16 Blood Pressure 112/63 112/74 Pulse Oximetry 92 96 Oxygen Flow Rate 0 Oxygen Delivery Method Room Air Oxygen Flow Rate 0 Narrative Exam Narrative: Abdomen is soft Dressings clean dry and intact No recurrence of prolapsed viscera Objective Labs 08/30/24 05:52 Labs: Laboratory Results - last 24 hr 08/30/24 05:52 WBC 23.4 H RBC 3.99 L Hgb 12.7 Hct 38.4 MCV 96.2 MCH 31.8 MCHC 33.1 RDW 13.8 Plt Count 258 Neut % (Auto) 87.0 H Lymph % (Auto) 4.4 L [place] % (Auto) 8.6 Eos % (Auto) 0.0 L Baso % (Auto) 0.0 Neut # (Auto) 12240 H Lymph # (Auto) 1000 L [place] # (Auto) 2000 H Eos # (Auto) 0 Baso # (Auto) 0 PFSH Medical History (Updated 08/29/24 @ 15:57 by Darell Lauren MD) GERD (gastroesophageal reflux disease) Osteoarthritis Asthma Kidney stones Surgical History (Updated 08/23/24 @ 14:50 by Nicole Mcmillan RN) 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) History of bilateral knee replacement History of cataract removal with insertion of prosthetic lens Family History Brother Age: 92 Dementia Heart disease Mental health disorder Pacemaker Grandfather Mental health disorder Grandmother Arthritis Grandmother Mental health disorder Social History household members: spouse Smoking Status: Never smoker alcohol intake: current Assessment & Plan Assessment and plan (1) Evisceration of bowel: Status: Acute Plan I suspect that the evisceration of small bowel through the suture line was due to a combination of incomplete suturing at the anastomosis and bearing down to void after surgery. Apparently this is common for her since developing bladder problems. I recommend she continue Lux catheterization for at least first postoperative week. Continue with clear liquid diet until she is passing flatus We will start Lovenox today Time-Based Coding :: [TOTAL MINUTES] spent with patient and on the chart (including review of chart, obtaining history, exam, reviewing outside data, placing orders, documenting exam and treatment plan, and counseling patient) on [DATE]. Quality VTE Deep Vein Thrombosis/Pulmonary Embolism Present on Admission: No
[2024-08-30] MEDS: BUDESONIDE 0.5 MG/2 ML NEB INH (08:34)
[2024-08-30] MEDS: ALPRAZolam 0.25 MG TABLET PO (09:03)
[2024-08-30] MEDS: CITALOPRAM 10 MG TABLET 40 MG PO (09:03)
[2024-08-30] MEDS: ENOXAPARIN 40 MG/0.4 ML SYRINGE SUBCUT (09:03)
[2024-08-30] MEDS: ONDANSETRON 4 MG/2 ML INJ IV (09:14)
[2024-08-30] MEDS: METOCLOPRAMIDE 10 MG/2 ML INJ 5 MG IV ×2 (10:23→17:48)
[2024-08-30] MEDS: HYDROMORPHONE 0.5 MG INJ 0.25 MG IV ×4 (10:48→20:25)
--- NOTE | 2024-08-30 13:32 | CM.DANOTE ---
Initial DCP Assessment Visit Note Reviewed EMR and team rounds for status updates. Met with pt and spouse at bedside to introduce self and role. Pt was found to be somnolent, had hardly eaten very much of his lunch, but able to answer simple questions. Pt's is the primary cg and historian for his healthcare hx and home functional status. Pt lives semi independently with his spouse in their own home here in [place]. He uses a walker for mobility, and relies on his spouse for care coordination, IADL's, and transportation needs. Spouse will also transport him home once he's medically cleared for home d/c. Payor: Medicare PCP: Lucycamilla Haganer Pt is a 84 year-old F with a hx of rectal prolapse, with symptoms having started about 6-months ago. She met with Dr. Leonidas PEDROZA and the decision was made to move forward for a planned Altemeier fixation surgery. Unfortunately, pt had a postoperative complication and needed to be brought back to surgery again for additional repair. This morning she did c/o leg cramping and anxiety, however no further issues during the day. Plan postoperatively is for her to d/c with her peterson in place for 1-week until her surgical f/u appt. DCP will continue to monitor for any further evolving needs and recommendations for d/c. Discharge Planning/Care Management CM Discharge Assessment Start: 08/30/24 13:29 Freq: Status: Active Protocol: Document 08/30/24 13:29 DPL (Rec: 08/30/24 13:32 DPL [id number]) Discharge Planning Assessment Assigned Pusher Runner DOMO Looney Advance Directives? Yes: ADDIS Advance Directives on File Yes History Provided By Patient,Medical Record Has Patient been admitted in last 30 No days? Prior Living Arrangements House Household Members spouse Type of transporation used prior to Relies on Others admit Comment provides all of the driving. Independent with ADL's No Is patient alert and oriented? No: Pt is oriented to self, has mild dementia/memory loss. Needs Assistance With Meal Prep,Managing Medications ,Home Chores / Shopping Caregiver for Another No Comment N/A DME Already Rented / Owned Bath Bench,Elevated Toilet Seat,FWW / Walker Comment No identified home d/c needs at this time. Barriers to Discharge No Discharge Plan Home Transportation Arrangement Spouse Referrals Initiated None needed Whiteboard Updated in Patient Room with Yes name and ext. # of Pusher Runner Review Status In Process Please Provide Date Initial DC 08/30/24 Assessment Was Performed Pre-Anesthesia Assessment Start: 08/23/24 14:33 Freq: Status: Active Protocol: Document 08/23/24 14:34 LB (Rec: 08/23/24 14:54 LB [id number]) Pre-Anesthesia Assessment PAC Comment 08/23/24 Chart review. Patient Information Reviewed Via Chart Review Comment No recent testing identified. 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 No Hx Sleep Apnea No Currently Taking a Beta Daniel No Anti-Coagulant Therapy No Cardiac Testing No Hx Pacemaker/ICD No Cardiac Clearance Received Not Applicable Gastrointestinal Symptoms Reflux Chronic UTI Yes Bladder Pattern Retention Urinary Catheter Present No Hx Urinary Self Catheterization No Diabetes No Patient No Lactating No Presence of External or Internal Medical Yes: Bilat knees, right Devices shoulder, IOL. Received a COVID vaccine? Yes Marital Status Lives With spouse Patient Discharge Plan Description Return Home Do You Have Any Spiritual Beliefs That No May Affect Your HC Choices? Do You Have Any Cultural Practices That No May Affect Your HC Choices? Emergency Contact Name Malik Carrillo - . Emergency Contact Advance Directives? Yes: POL Advance Directives on File Yes Power of Pet Store Merchandiser Yes Power of Pet Store Merchandiser Name Malik Carrillo - Power of Pet Store Merchandiser
[2024-08-30 13:40] LABS: Add Manual Diff / Slide Review NO; Basophils Absolute Auto 0 /uL (0-100); Basophils Percent Auto 0.1 % (0-2); Eosinophils Absolute Auto 0 /uL (0-450); Eosinophils Percent Auto 0.1 % (2-4); Hematocrit 39.1 % (36-46); Hemoglobin 12.9 g/dL (12.0-16.0); Lymphocytes Absolute Auto 800 /uL (1100-4500); Lymphocytes Percent Auto 3.6 % (25-40); Mean Corpuscular HGB Conc 33.1 % (30-36); Mean Corpuscular Hemoglobin 31.7 PG (26-34); Mean Corpuscular Volume 95.7 fL (80-100); Monocytes Absolute Auto 1900 /uL (0-900); Monocytes Percent Auto 8.2 % (3-14); Neutrophils Absolute Auto 20200 /uL (1500-7000); Platelet Count 238 X10^3/uL (150-400); Red Blood Cell Count 4.09 X10^6/uL (4.0-5.2)
[2024-08-30 13:46] LABS: BUN Creatinine Ratio 21.3 (6-22); Blood Urea Nitrogen 47 mg/dL (7-17); Calcium 9.1 mg/dL (8.4-10.2); Carbon Dioxide 19 mmol/L (22-32); Chloride 104 mmol/L (98-107); Estimated Glomerular Filt Rate 21 mL/min (>60); Glucose 139 mg/dL (80-110); HEMOLYSIS < 15 (0-50); Lactate (Lactic Acid) 0.9 mmol/L (0.7-2.1); Potassium 4.7 mmol/L (3.4-5.1); Sodium 132 mmol/L (137-145)
[2024-08-30] MEDS: HYDRALAZINE 20 MG/ML VIAL 10 MG IV (15:01)
--- NOTE | 2024-08-30 15:38 | PC.NURSE ---
Day shift: Patient stated feeling a mess and anxious at 0800 this AM. Spoke with MD Lauren and corrected PO alazopram dose. Pt emesis x 2 and absent bowel sounds. Notified MD Lauren, who ordered IV reglan which provided some relief. Still no appetite today. At 1300, patient's BP began to climb. Notified MD Lauren that patient has unexplained high BP and is diaphoretic. Pt denies increase in pain. Checked Lux, patent and draining. Bladder scanned - <9cc in bladder visualized. Urine cloudy. Sent UA to lab. Checked incision, Lux placement and rectum again, nothing concerning/no changes. Patient's BP still elevated at 1400 - notified MD Lauren again. Consult to MD Jane ordered. MD Jane ordered IV hydralazine but then said that patient is cared for by MD Gibson and MD Lauren will need to contact him. Let MD Lauren know who left [facility] a message. In the meantime, after IV hydralazine given BP slightly improved to 166/87. Notified MD Lauren and also that Lux output 100cc this shift. IV fluids ordered. Will contine to closely monitor.
[2024-08-30] MEDS: LACTATED RINGERS 1,000 ML 100 ML IV (15:55)
--- NOTE | 2024-08-30 17:05 | P.CONS_ITS ---
History of Present Illness Consult details Date Patient Seen: 08/30/24 Time Patient Seen: 17:05 Chief complaint: Altemeier procedure Reason for consult: Hypertension Requesting provider: Darell Lauren Narrative: Patient was a 84-year-old Altemeier procedure (perineal rectosigmoidectomy) on August 29 for rectal prolapse. The patient had complication of small-bowel coming through the anus requiring exploratory laparotomy and reduction on August 29 later in the day. Today she has been hypertensive. She was given a dose of hydralazine with minimal improvement of her symptoms. Her systolic blood pressure has been over 200. She denies symptoms of headache, confusion, dyspnea, or chest pain. She also denies a history of hypertension. She does take clonazepam chronically and has not been getting as much of this possibly. She does have a leukocytosis but denies any significant pain at the time of this interview. She rates her pain at 0/10, earlier was 5/10. Meds Home Medications and Allergies Home Medications Medication Instructions Recorded Confirmed Type alprazolam 0.25 mg tablet 0.25 mg PO DAILY PRN Anxiety ##0 11/03/17 08/29/24 History cholecalciferol (vitamin D3) 25 1,000 unit PO DAILY ##0 11/03/17 08/29/24 History mcg (1,000 unit) capsule (Vitamin D3) esomeprazole magnesium 40 mg 40 mg PO DAILY 02/09/19 08/29/24 History capsule,delayed release citalopram 20 mg tablet 40 mg PO DAILY 05/19/19 08/29/24 History krill oil 500 mg capsule 500 mg PO DAILY 08/02/24 08/29/24 History lactobacillus combination no.9 4 4,000 mmu cells PO DAILY 08/02/24 08/29/24 History billion cell capsule (Adult 50 Plus Probiotic) fluticasone furoate 100 1 ea inhalation DAILY 08/29/24 08/29/24 History mcg-vilanterol 25 mcg/dose inhalation powder (Breo Ellipta) Allergies Allergy/AdvReac Type Severity Reaction Status Date / Time Penicillins Allergy Severe Swelling Verified 08/29/24 08:39 of Lip/Tongue/Throat adhesive [ADHESIVE] AdvReac Severe THIN Verified 08/29/24 08:39 SKIN, PULLS SKIN OFF PAPER/SILK TAPE OK Sulfa (Sulfonamide AdvReac Severe I GET Verified 08/29/24 08:39 Antibiotics) EXTREMELY [SULFA (SULFONAMIDE NERVOUS, ANTIBIOTICS)] JITTERY trazodone AdvReac Severe Agitated Verified 08/29/24 08:39 amitriptyline AdvReac Intermediate Insomnia Verified 08/29/24 08:39 latex AdvReac Intermediate Rash Verified 08/29/24 08:39 PAIN MEDICATIONS AdvReac Unknown I GET ALL Uncoded 08/29/24 08:39 OF THE SIDE EFFECTS, NO PAIN RELIEF Review of Systems Review of Systems Narrative: All else reviewed and otherwise unremarkable except as noted in the history and physical. Exam Vital Signs (past 8 hours): - 08/30/24 12:00 08/30/24 13:30 08/30/24 14:00 Temperature 98.3 F 98.1 F Pulse Rate 73 73 Respiratory Rate 17 14 Blood Pressure 178/96 H 189/103 H 200/99 H Pulse Oximetry 93 94 Oxygen Flow Rate 0 0 08/30/24 15:01 08/30/24 15:32 Temperature Pulse Rate 80 Respiratory Rate Blood Pressure 186/102 H 166/87 H Pulse Oximetry Oxygen Flow Rate Oxygen Delivery Method Room Air Oxygen Flow Rate 0 Narrative Exam Narrative: NAD, alert and oriented, fluent speech, calm. Normocephalic skull, EOMI, anicteric sclera, symmetric pupils. Oropharynx unremarkable, no droop. Neck supple, midline trachea, no adenopathy. Lungs clear, normal rate and effort. Heart regular, no murmur gallop or rub. Abdomen is soft, non distended and non tender. She was dressings over her surgical wounds, there is no drainage. She was also not tender with palpation over the abdomen. Extremities are free of edema. Skin is free of rash or lesions. Joints are not swollen or deformed. Judgment appears to be normal. Objective Labs 08/30/24 13:25 08/30/24 13:25 Labs: Laboratory Results - last 24 hr 08/30/24 08/30/24 05:52 13:25 WBC 23.4 H 23.0 H RBC 3.99 L 4.09 Hgb 12.7 12.9 Hct 38.4 39.1 MCV 96.2 95.7 MCH 31.8 31.7 MCHC 33.1 33.1 RDW 13.8 14.0 Plt Count 258 238 Neut % (Auto) 87.0 H 88.0 H Lymph % (Auto) 4.4 L 3.6 L [place] % (Auto) 8.6 8.2 Eos % (Auto) 0.0 L 0.1 L Baso % (Auto) 0.0 0.1 Neut # (Auto) 87907 H 54554 H Lymph # (Auto) 1000 L 800 L [place] # (Auto) 2000 H 1900 H Eos # (Auto) 0 0 Baso # (Auto) 0 0 Sodium 132 L Potassium 4.7 Chloride 104 Carbon Dioxide 19 L BUN 47 H Creatinine 2.21 H Estimated GFR 21 L BUN/Creatinine Ratio 21.3 Glucose 139 H Lactate 0.9 Calcium 9.1 PFSH Medical History GERD (gastroesophageal reflux disease) Osteoarthritis Asthma Kidney stones Surgical History 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 Chronic use of clonazepam, present on admission and active. Chronic medical issues of asthma, GERD, nephrolithiasis, and osteoarthritis all appear to be stable. Plan: -hydralazine as needed for systolics over 170. -trial of amlodipine 5 mg p.o. daily, start now and monitor blood pressure. Time-Based Coding :: 35 min spent with patient and on the chart (including review of chart, obtaining history, exam, reviewing outside data, placing orders, documenting exam and treatment plan, and counseling patient) on 08/30.
[2024-08-30 17:29] LABS: Appearance Urine UA CLEAR; Bilirubin Urine UA NEGATIVE (NEGATIVE); Color Urine UA YELLOW; Glucose Urine UA NEGATIVE (Negative); Ketones Urine UA NEGATIVE (NEGATIVE); Leukocyte Esterase Urine UA TRACE (NEGATIVE); Nitrite Urine UA NEGATIVE (Negative); Occult Blood Urine UA 3+ (Negative); Protein Urine UA 1+ (Negative); Urobilinogen Urine UA 0.2 E.U./dL (0.2)
[2024-08-30] MEDS: AMLODIPINE 5 MG TABLET PO (17:29)
[2024-08-30 17:30] LABS: pH Urine UA 5.5 (4.5-8.0)
[2024-08-30 17:40] LABS: Bacteria Urine Moderate (10-30); RBC Urine 5-10/HPF (0-5/HPF); Squamous Epithelial Cell Urine 1-5 /HPF (0-5/HPF); Urine Volume 10mL (spun); WBC Urine 5-10/HPF (0-5/HPF)
[2024-08-30 17:41] LABS: Amorphous Sediment Urine 1+; Culture Indicated Urine Specimen Cultured
[2024-08-30] MEDS: cefTRIAXone 1,000 MG in SODIUM CHLORIDE 0.9% 100 ML 200 MG IV (18:41)
[2024-08-30] MEDS: SODIUM CHLORIDE 0.9% 1,000 ML 100 ML IV (18:41)
[2024-08-30] MEDS: ALPRAZolam 0.25 MG TABLET 0.5 MG PO (20:25)
[2024-08-30] MEDS: HYDRALAZINE 10 MG TABLET PO (20:26)
[2024-08-31] VITALS (10 sets, daily range): BP systolic 101–136; BP diastolic 54–91; PULSE 89–170; RESP 14–28; TEMP 36.8–37.2; O2SAT 93–98
[2024-08-31] MEDS: HYDRALAZINE 10 MG TABLET PO (05:10)
[2024-08-31] MEDS: SODIUM CHLORIDE 0.9% 1,000 ML 100 ML IV ×2 (05:12→15:57)
[2024-08-31] MEDS: PANTOPRAZOLE DR 40 MG TABLET PO (05:12)
[2024-08-31 05:42] LABS: Add Manual Diff / Slide Review NO; Basophils Absolute Auto 0 /uL (0-100); Basophils Percent Auto 0.1 % (0-2); Eosinophils Absolute Auto 0 /uL (0-450); Eosinophils Percent Auto 0.1 % (2-4); Hemoglobin 11.9 g/dL (12.0-16.0); Lymphocytes Absolute Auto 1000 /uL (1100-4500); Lymphocytes Percent Auto 4.8 % (25-40); Mean Corpuscular HGB Conc 33.1 % (30-36); Mean Corpuscular Hemoglobin 31.8 PG (26-34); Mean Corpuscular Volume 96.1 fL (80-100); Monocytes Absolute Auto 2100 /uL (0-900); Monocytes Percent Auto 10.5 % (3-14); Neutrophils Absolute Auto 16800 /uL (1500-7000); Neutrophils Percent Auto 84.5 % (50-75); Platelet Count 236 X10^3/uL (150-400); Red Blood Cell Count 3.75 X10^6/uL (4.0-5.2); White Blood Cell Count 19.9 X10^3/uL (4.5-11.0)
[2024-08-31 05:53] LABS: BUN Creatinine Ratio 22.9 (6-22); Blood Urea Nitrogen 49 mg/dL (7-17); Calcium 8.4 mg/dL (8.4-10.2); Carbon Dioxide 20 mmol/L (22-32); Chloride 106 mmol/L (98-107); Estimated Glomerular Filt Rate 22 mL/min (>60); Glucose 114 mg/dL (80-110); HEMOLYSIS < 15 (0-50); Potassium 4.3 mmol/L (3.4-5.1); Sodium 133 mmol/L (137-145)
--- NOTE | 2024-08-31 07:23 | PM.PN.1 ---
Subjective Subjective Interval history: Summary: Patient was a 84-year-old Altemeier procedure (perineal rectosigmoidectomy) on August 29 for rectal prolapse. The patient had complication of small-bowel coming through the anus requiring exploratory laparotomy and reduction on August 29 later in the day. Today she has been hypertensive. She was given a dose of hydralazine with minimal improvement of her symptoms. Her systolic blood pressure has been over 200. She denies symptoms of headache, confusion, dyspnea, or chest pain. She also denies a history of hypertension. She does take clonazepam chronically and has not been getting as much of this possibly. She does have a leukocytosis but denies any significant pain at the time of this interview. She rates her pain at 0/10, earlier was 5/10. S: Doing better today. No rectal or abdominal pain. Her blood pressure is better as well. She was started on blood pressure medications but has no history of blood pressure issues. We will monitor today. Exam Vital Signs (past 8 hours): - 08/31/24 00:00 08/31/24 04:00 08/31/24 05:10 Temperature 98.5 F 98.9 F Pulse Rate 92 H 94 H 95 H Respiratory Rate 14 14 Blood Pressure 136/84 119/74 129/75 Pulse Oximetry 95 94 08/31/24 06:05 Temperature Pulse Rate 96 H Respiratory Rate Blood Pressure 121/70 Pulse Oximetry Oxygen Delivery Method Room Air Oxygen Flow Rate 0 Narrative Exam Narrative: NAD, alert and oriented. Fluent speech. Lungs are clear, normal rate and effort. Heart is regular, no murmur gallop or rub. Abdomen is soft, non distended. There is minimal tenderness around the midline wound. No guarding. Extremities are free of edema. Objective Labs 08/31/24 05:20 08/31/24 05:20 Labs: Laboratory Results - last 24 hr 08/30/24 08/30/24 08/31/24 13:25 17:00 05:20 WBC 23.0 H 19.9 H RBC 4.09 3.75 L Hgb 12.9 11.9 L Hct 39.1 36.0 MCV 95.7 96.1 MCH 31.7 31.8 MCHC 33.1 33.1 RDW 14.0 14.0 Plt Count 238 236 Neut % (Auto) 88.0 H 84.5 H Lymph % (Auto) 3.6 L 4.8 L [place] % (Auto) 8.2 10.5 Eos % (Auto) 0.1 L 0.1 L Baso % (Auto) 0.1 0.1 Neut # (Auto) 10786 H 54059 H Lymph # (Auto) 800 L 1000 L [place] # (Auto) 1900 H 2100 H Eos # (Auto) 0 0 Baso # (Auto) 0 0 Sodium 132 L 133 L Potassium 4.7 4.3 Chloride 104 106 Carbon Dioxide 19 L 20 L BUN 47 H 49 H Creatinine 2.21 H 2.14 H Estimated GFR 21 L 22 L BUN/Creatinine Ratio 21.3 22.9 H Glucose 139 H 114 H Lactate 0.9 Calcium 9.1 8.4 Urine Color Yellow Urine Appearance Clear Urine pH 5.5 Ur Specific [place] 1.020 Urine Protein 1+ H Urine Glucose (UA) Negative Urine Ketones Negative Urine Occult Blood 3+ H Urine Nitrate Negative Urine Bilirubin Negative Urine Urobilinogen 0.2 Ur Leukocyte Esterase Trace H Urine RBC 5-10/hpf H Urine WBC 5-10/hpf H Ur Squamous Epith Cells 1-5 /hpf Amorphous Sediment 1+ Urine Bacteria Moderate (10-30) H Ur Culture Indicated? 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 Uncontrolled hypertension in the postoperative phase, new and improved. 2. Chronic use of clonazepam, present on admission and active. Chronic medical issues of asthma, GERD, nephrolithiasis, and osteoarthritis all appear to be stable. Plan: -discontinue hydralazine 10 PO TID. -continue amlodipine 5 mg p.o. daily -monitor creatinine to see if there is any improvement. Unclear if this is acute or more subacute in nature. -slow diet advanced per General surgery. VALE: 09/01 (per surgery) Time-Based Coding :: [TOTAL MINUTES] spent with patient and on the chart (including review of chart, obtaining history, exam, reviewing outside data, placing orders, documenting exam and treatment plan, and counseling patient) on [DATE]. Quality VTE Deep Vein Thrombosis/Pulmonary Embolism Present on Admission: No
[2024-08-31] MEDS: HYDROMORPHONE 0.5 MG INJ 0.25 MG IV ×3 (07:53→17:39)
[2024-08-31] MEDS: METOCLOPRAMIDE 10 MG/2 ML INJ 5 MG IV (07:53)
[2024-08-31] MEDS: CITALOPRAM 10 MG TABLET 40 MG PO (08:50)
[2024-08-31] MEDS: AMLODIPINE 5 MG TABLET PO (08:51)
[2024-08-31] MEDS: ALPRAZolam 0.25 MG TABLET PO (08:51)
[2024-08-31] MEDS: BUDESONIDE 0.5 MG/2 ML NEB INH (09:00)
[2024-08-31] MEDS: ENOXAPARIN 40 MG/0.4 ML SYRINGE SUBCUT (09:03)
--- NOTE | 2024-08-31 09:10 | PM.PN.1 ---
Subjective Subjective Date Patient Seen: 08/31/24 Time Patient Seen: 09:10 Interval history: Feeling slightly better today but denies recent flatus. No nausea but she does not have her appetite back yet. Exam Vital Signs (past 8 hours): - 08/31/24 04:00 08/31/24 05:10 08/31/24 06:05 Temperature 98.9 F Pulse Rate 94 H 95 H 96 H Respiratory Rate 14 Blood Pressure 119/74 129/75 121/70 Pulse Oximetry 94 Oxygen Delivery Method 08/31/24 09:01 Temperature Pulse Rate 89 Respiratory Rate 16 Blood Pressure Pulse Oximetry 96 Oxygen Delivery Method Room Air Oxygen Delivery Method Room Air Oxygen Flow Rate 0 Narrative Exam Narrative: There was some clot coming through the incision Abdomen is soft nontender Objective Labs 08/31/24 05:20 08/31/24 05:20 Labs: Laboratory Results - last 24 hr 08/30/24 08/30/24 08/31/24 13:25 17:00 05:20 WBC 23.0 H 19.9 H RBC 4.09 3.75 L Hgb 12.9 11.9 L Hct 39.1 36.0 MCV 95.7 96.1 MCH 31.7 31.8 MCHC 33.1 33.1 RDW 14.0 14.0 Plt Count 238 236 Neut % (Auto) 88.0 H 84.5 H Lymph % (Auto) 3.6 L 4.8 L [place] % (Auto) 8.2 10.5 Eos % (Auto) 0.1 L 0.1 L Baso % (Auto) 0.1 0.1 Neut # (Auto) 03055 H 94855 H Lymph # (Auto) 800 L 1000 L [place] # (Auto) 1900 H 2100 H Eos # (Auto) 0 0 Baso # (Auto) 0 0 Sodium 132 L 133 L Potassium 4.7 4.3 Chloride 104 106 Carbon Dioxide 19 L 20 L BUN 47 H 49 H Creatinine 2.21 H 2.14 H Estimated GFR 21 L 22 L BUN/Creatinine Ratio 21.3 22.9 H Glucose 139 H 114 H Lactate 0.9 Calcium 9.1 8.4 Urine Color Yellow Urine Appearance Clear Urine pH 5.5 Ur Specific [place] 1.020 Urine Protein 1+ H Urine Glucose (UA) Negative Urine Ketones Negative Urine Occult Blood 3+ H Urine Nitrate Negative Urine Bilirubin Negative Urine Urobilinogen 0.2 Ur Leukocyte Esterase Trace H Urine RBC 5-10/hpf H Urine WBC 5-10/hpf H Ur Squamous Epith Cells 1-5 /hpf Amorphous Sediment 1+ Urine Bacteria Moderate (10-30) H Ur Culture Indicated? Specimen cultured Vol Urine Centrifuged 10ml (spun) 08/31/24 06:50 WBC RBC Hgb Hct MCV MCH MCHC RDW Plt Count Neut % (Auto) Lymph % (Auto) [place] % (Auto) Eos % (Auto) Baso % (Auto) Neut # (Auto) Lymph # (Auto) [place] # (Auto) Eos # (Auto) Baso # (Auto) Sodium Potassium Chloride Carbon Dioxide BUN Creatinine Estimated GFR BUN/Creatinine Ratio Glucose Lactate 1.0 Calcium Urine Color Urine Appearance Urine pH Ur Specific [place] Urine Protein Urine Glucose (UA) Urine Ketones Urine Occult Blood Urine Nitrate Urine Bilirubin Urine Urobilinogen Ur Leukocyte Esterase Urine RBC Urine WBC Ur Squamous Epith Cells Amorphous Sediment Urine Bacteria Ur Culture Indicated? 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) History of bilateral knee replacement History of cataract removal with insertion of prosthetic lens Family History Brother Age: 93 Dementia Heart disease Mental health disorder Pacemaker Grandfather Mental health disorder Grandmother Arthritis Grandmother Mental health disorder Social History household members: spouse Smoking Status: Never smoker alcohol intake: current Assessment & Plan Assessment and plan (1) Rectal prolapse: Status: Acute Plan The using through incision could be related to her Lovenox Advance diet as she tolerates Continue Lux catheter to decompress bladder Time-Based Coding :: [TOTAL MINUTES] spent with patient and on the chart (including review of chart, obtaining history, exam, reviewing outside data, placing orders, documenting exam and treatment plan, and counseling patient) on [DATE]. Quality VTE Deep Vein Thrombosis/Pulmonary Embolism Present on Admission: No
--- NOTE | 2024-08-31 09:32 | PC.NURSE ---
Addendum entered by Priyanka Parson R.N. 08/31/24 17:52: At 1600 this afternoon, this RN notified MD Lauren again due to patient's dressing being completely saturated with blood. MD Lauren attempted to wrap coban around patient's abdomen with little desired compression effects. This RN applied abdominal binder after changing gauze once more (an hour later) and the gauze was again blood-filled. Asked MD Lauren if he recommended repeat H&H - he said not at this time. Will repeat in the AM. Patient's BP much improved today, compared to yesterday. MD Jane notified. Pt OOB to chair x1 this shift. 2PA + FWW. PT consult ordered as patient is increasingly weak and having difficulty ambulating. Patient still has no appetite but has been able to tolerate sips of gatorade today. No emesis or nausea. Will continue to monitor. Original Note: Day shift: Dressing on abdomen saturated with serosanguinous drainage this AM. Notified MD Lauren who removed dressing - there was a large blood clot (approximately the size of a half dollar) - that Leonidas removed. This RN redressed the incision with gauze and medipore tape. Incision was well approximated, no redness or swelling. Lily present. Will continue to monitor.
--- NOTE | 2024-08-31 16:44 | PT-IP ANOTE ---
PT order received. PT checked on pt who is resting in bed with spouse nearby. She states she is not ready for PT. PT encourages her that if she declines today, she does need to participate with PT assessment next date and she verbalizes understanding. Pt states she got up today.
[2024-08-31] MEDS: cefTRIAXone 1,000 MG in SODIUM CHLORIDE 0.9% 100 ML 100 MG IV (17:39)
[2024-08-31] MEDS: ALPRAZolam 0.25 MG TABLET 0.5 MG PO (19:58)
--- NOTE | 2024-08-31 22:32 | PC.NURSE ---
Addendum entered by Noa Bobby R.N. 09/01/24 04:59: Clarification: 08/31/24, 22:32- Hospitalist/Coordinator notified of abnormal result from EKG. Late entry: 08/31/24 23:51- Troponin result from lab positive, relayed to hospitalist document control manager and nursing associate notified. Addendum entered by Noa Bobby R.N. 09/01/24 04:56: Late entry for 08/31/24 22:32- EKG per c/o chest discomfort, hospitalist notified. Coordinator notified. Original Note: Troponin result from lab positive relayed to hospitalist document control manager. residence life coordinator notified.
--- NOTE | 2024-08-31 22:32 | EKG_ITS ---
[facility] [address] [place] [address] Test Date: 2024-08-31 Pat Name: Brian Carrillo Department: [facility] Room: 211 Gender: Female Load Planner: ISADORA : 1940 Requested By: Order Number: [id number] Reading MD: Mariusz Munoz MD Measurements Intervals [place] Rate: 176 P: [place]: QRS: 35 QRSD: 94 T: 208 QT: 250 QTc: 427 Interpretive Statements Critical Test Result: High HR Atrial fibrillation with rapid ventricular response Minimal voltage criteria for LVH, may be normal variant ( [place] product ) Septal infarct , age undetermined Marked ST abnormality, possible inferolateral subendocardial injury Electronically Signed On 09-01-2024 6:42:13 PST by Mariusz Munoz MD
[2024-08-31 23:16] LABS: Add Manual Diff / Slide Review NO; Basophils Absolute Auto 0 /uL (0-100); Basophils Percent Auto 0.2 % (0-2); Eosinophils Absolute Auto 0 /uL (0-450); Eosinophils Percent Auto 0.1 % (2-4); Hematocrit 29.6 % (36-46); Hemoglobin 9.9 g/dL (12.0-16.0); Lymphocytes Absolute Auto 900 /uL (1100-4500); Lymphocytes Percent Auto 5.6 % (25-40); Mean Corpuscular HGB Conc 33.6 % (30-36); Mean Corpuscular Volume 95.2 fL (80-100); Monocytes Absolute Auto 1400 /uL (0-900); Neutrophils Absolute Auto 13600 /uL (1500-7000); Neutrophils Percent Auto 85.1 % (50-75); Platelet Count 210 X10^3/uL (150-400); Red Cell Distribution Width 14.1 % (11.6-14.8); White Blood Cell Count 15.9 X10^3/uL (4.5-11.0)
[2024-08-31 23:26] LABS: BUN Creatinine Ratio 24.8 (6-22); Blood Urea Nitrogen 39 mg/dL (7-17); Calcium 8.3 mg/dL (8.4-10.2); Carbon Dioxide 18 mmol/L (22-32); Chloride 108 mmol/L (98-107); Estimated Glomerular Filt Rate 32 mL/min (>60); Glucose 131 mg/dL (80-110); HEMOLYSIS < 15 (0-50); Potassium 4.1 mmol/L (3.4-5.1); Sodium 131 mmol/L (137-145)
[2024-08-31 23:46] LABS: NT-proBNP (BNP-Adult 18+) 8370 pg/mL (<450)
[2024-08-31] MEDS: dilTIAZem 25 MG/5 ML SDV 10 MG IV (23:58)
--- NOTE | 2024-08-31 23:58 | EKG_ITS ---
[facility] [address] [place] [address] Test Date: 2024-08-31 Pat Name: Brian Carrillo Department: [facility] Room: 211 Gender: Female Computer Information Systems Professor: ISADORA : 1940 Requested By: Order Number: [id number] Reading MD: Mariusz Munoz MD Measurements Intervals [place] Rate: 180 P: [place]: QRS: 35 QRSD: 94 T: 214 QT: 254 QTc: 439 Interpretive Statements Critical Test Result: High HR Atrial fibrillation with rapid ventricular response Minimal voltage criteria for LVH, may be normal variant ( [place] product ) Septal infarct , age undetermined Marked ST abnormality, possible inferolateral subendocardial injury NO SIGNIFICANT CHANGE FROM PRIOR TRACING Electronically Signed On 09-01-2024 6:42:23 PST by Mariusz Munoz MD
--- NOTE | 2024-08-31 23:58 | PC.NURSE ---
Follow up EKG done due to patient complaint of chest pain. EKG result relayed to hospitalist medical receptionist biller. Pain medication administered for chest pain with relief. fitness coordinator notified.
[2024-09-01] VITALS (58 sets, daily range): BP systolic 88–154; BP diastolic 54–79; PULSE 58–165; RESP 17–38; TEMP 36.9–37; O2SAT 89–99
--- NOTE | 2024-09-01 00:13 | PC.NURSE ---
Addendum entered by Noa Bobby R.N. 09/01/24 00:50: Transferred to ICU at 12:50. Addendum entered by Noa Bobby R.N. 09/01/24 00:37: Pt reports improvement to chest pain. Addendum entered by Noa Bobby R.N. 09/01/24 00:23: Pt reports chest pain radiating to arm, Dilauded given per order. Original Note: Apical hear rate 120's, tele HR 205 at highest reading, diltiazem 10 mg pushed. HR 140's now.
[2024-09-01] MEDS: HYDROMORPHONE 0.5 MG INJ 0.25 MG IV ×2 (00:20→08:05)
--- NOTE | 2024-09-01 01:20 | P.CALLCOV_ITS ---
Call Coverage Note Note Date of Patient Contact: 09/01/24 Time of Patient Contact: 01:21 Narrative of Care Provided: I was called by the nursing staff due to the pt c/o her heart beating hard and sudden SOB. EKG was done that showed that the pt was in A-fib with RVR of HR 120-150's. EKG also showing some questionable ST changes in lateral leads, troponin ordered, BP was 86/68, one liter NS given despite high BNP, pt appears dry, she was then moved to the ICU, I consulted and spoke with the tele- legal entity controller about the pt, she was started on Amiodarone drip.
[2024-09-01] MEDS: dilTIAZem 125 MG in SODIUM CHLORIDE 0.9% 100 ML IV (02:00)
--- NOTE | 2024-09-01 02:45 | PM.CN.EICU ---
History of Present Illness Consult details IF CAMERA ACTIVATED, patient seen via real-time interactive audiovisual communication: Camera activated Chief complaint: Altemeier procedure Consent obtained for tele-assistant gm of content & delivery care: Yes Patient Location: ICU Provider location (State): [place] Other participants/roles: None Narrative: 84 yo F w/ PMHx of GERD, OA, nephrolithiasis who required ICU transfer due to hemodynamically stable AFib w/ RVR. Tele-hospitalist gave 1 L crystalloid and started a diltiazem gtt. Given fact that this is apparently new-onset, I recommended a transition to amiodarone protocol for chemical cardioversion. NIBPs are somewhat soft so I have ordered phenylephrine gtt in case he requires it. He is POD #3 from perineal rectosigmoidectomy which required exploratory laparotomy/closure of colorectal anastomosis on the same day due to small bowel that eviscerated through the anus. 22:50 labs notable for troponin-I of 1.04 and NT-proBNP of 8370. Labs also significant for creatinine of 1.57 which is down from 2.14. (baseline in 2022 was ~ 1.2). [facility] Medical History GERD (gastroesophageal reflux disease) Osteoarthritis Asthma Kidney stones Surgical History 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) History of bilateral knee replacement History of cataract removal with insertion of prosthetic lens Family History Brother Age: 93 Dementia Heart disease Mental health disorder Pacemaker Grandfather Mental health disorder Grandmother Arthritis Grandmother Mental health disorder Social History household members: spouse Smoking Status: Never smoker alcohol intake: current Current Medications Current Medications Medications: Home Medications alprazolam 0.25 mg tablet 0.25 mg PO DAILY PRN Anxiety ##0 11/03/17 [History Confirmed 08/29/24] cholecalciferol (vitamin D3) 25 mcg (1,000 unit) capsule (Vitamin D3) 1,000 unit PO DAILY ##0 11/03/17 [History Confirmed 08/29/24] esomeprazole magnesium 40 mg capsule,delayed release 40 mg PO DAILY 02/09/19 [History Confirmed 08/29/24] citalopram 20 mg tablet 40 mg PO DAILY 05/19/19 [History Confirmed 08/29/24] krill oil 500 mg capsule 500 mg PO DAILY 08/02/24 [History Confirmed 08/29/24] lactobacillus combination no.9 4 billion cell capsule (Adult 50 Plus Probiotic) 4,000 mmu cells PO DAILY 08/02/24 [History Confirmed 08/29/24] fluticasone furoate 100 mcg-vilanterol 25 mcg/dose inhalation powder (Breo Ellipta) 1 ea inhalation DAILY 08/29/24 [History Confirmed 08/29/24] Visit Medications (administered) Generic Name Dose Route Start Last Admin Trade Name Freq PRN Reason Stop Dose Admin Acetaminophen 650 mg 08/29/24 11:50 08/29/24 12:07 Acetaminophen 325 Mg Tablet PO 650 mg Q6H PRN Administration Fever/Mild Pain (1-3) Alprazolam 0.25 mg 08/30/24 09:00 08/31/24 08:51 Alprazolam 0.25 Mg Tablet PO 0.25 mg DAILY KENYON Administration Alprazolam 0.5 mg 08/30/24 21:00 08/31/24 19:58 Alprazolam 0.25 Mg Tablet PO 0.5 mg BEDTIME KENYON Administration Budesonide 0.5 mg 08/29/24 20:00 08/31/24 19:38 Budesonide 0.5 Mg/2 Ml Neb INH Not Given RTBID KENYON Citalopram Hydrobromide 40 mg 08/30/24 09:00 08/31/24 08:50 Citalopram 10 Mg Tablet PO 40 mg DAILY KENYON Administration Hydromorphone HCl 0.25 mg 08/29/24 11:50 08/31/24 17:39 Hydromorphone 0.5 Mg Inj IV 0.25 mg Q2H PRN Administration Pain, Severe (7-10) Ceftriaxone Sodium 1,000 mg/ 100 mls @ 200 mls/hr 08/30/24 18:00 08/31/24 18:54 Sodium Chloride IV Infused Q24H KENYON Infusion Sodium Chloride 1,000 mls @ 75 mls/hr 08/30/24 18:45 08/31/24 15:57 Normal Saline 0.9% IV 100 mls/hr CONT KENYON Administration Metoclopramide HCl 5 mg 08/30/24 10:13 08/31/24 07:53 Metoclopramide 10 Mg/2 Ml Inj IV 5 mg Q6HR PRN Administration Nausea And Vomiting Ondansetron HCl 4 mg 08/29/24 11:50 08/30/24 09:14 Ondansetron 4 Mg/2 Ml Inj IV 4 mg Q8HR PRN Administration Nausea And Vomiting Pantoprazole Sodium 40 mg 08/30/24 06:00 08/31/24 05:[address] 40 Mg Tablet PO 40 mg 0600 KENYON Administration Exam Vital Signs (past 8 hours): - 08/31/24 20:00 08/31/24 23:58 09/01/24 00:00 Temperature 98.5 F 98.5 F Pulse Rate 94 H 170 H 89 Respiratory Rate 28 H 26 H Blood Pressure 116/70 101/54 L 88/59 L Pulse Oximetry 93 96 Oxygen Flow Rate 0 1 09/01/24 02:00 Temperature Pulse Rate 165 H Respiratory Rate Blood Pressure 101/59 L Pulse Oximetry Oxygen Flow Rate Oxygen Delivery Method Room Air Oxygen Flow Rate 1 Const General: comfortable Resp Other: non-labored respirations Cardio Other: atrial fibrillation in 130s-150s while on diltiazem 10 mg/hr Objective Labs 08/31/24 22:50 08/31/24 22:50 Labs: Laboratory Results - last 24 hr 08/31/24 08/31/24 08/31/24 05:20 06:50 22:50 WBC 19.9 H 15.9 H RBC 3.75 L 3.10 L Hgb 11.9 L 9.9 L Hct 36.0 29.6 L MCV 96.1 95.2 MCH 31.8 32.0 MCHC 33.1 33.6 RDW 14.0 14.1 Plt Count 236 210 Neut % (Auto) 84.5 H 85.1 H Lymph % (Auto) 4.8 L 5.6 L [place] % (Auto) 10.5 9.0 Eos % (Auto) 0.1 L 0.1 L Baso % (Auto) 0.1 0.2 Neut # (Auto) 37571 H 78090 H Lymph # (Auto) 1000 L 900 L [place] # (Auto) 2100 H 1400 H Eos # (Auto) 0 0 Baso # (Auto) 0 0 Sodium 133 L 131 L Potassium 4.3 4.1 Chloride 106 108 H Carbon Dioxide 20 L 18 L BUN 49 H 39 H Creatinine 2.14 H 1.57 H Estimated GFR 22 L 32 L BUN/Creatinine Ratio 22.9 H 24.8 H Glucose 114 H 131 H Lactate 1.0 Calcium 8.4 8.3 L Troponin I 1.040 H* NT-Pro-B Natriuret Pep 8370 H Assessment & Plan Assessment and plan (1) Atrial fibrillation with rapid ventricular response: Status: Acute Plan: -Switch diltiazem gtt to amiodarone NABIL -Check TSH -Check Mg+2 -Decrease IVF rate given elevated BNP as atrial stretch may be potentiating this -Analgesia PRN (2) Evisceration of bowel: Status: Acute Plan: -As per general surgery (3) Rectal prolapse: Status: Acute Plan: -As per general surgery (4) Elevated brain natriuretic peptide (BNP) level: Status: Acute Plan: -See IVF rate reduction above -Consider 2D echo (5) Elevated serum creatinine: Status: Acute Plan: -See IVF rate reduction above but will continue some IVF as creatinine is still elevated above baseline -Change prophylactic enoxaparin to subcutaneous heparin Time-Based Coding :: 50' spent with patient and on the chart (including review of chart, obtaining history, exam, reviewing outside data, placing orders, documenting exam and treatment plan, and counseling patient) on 09/01/2024.
[2024-09-01] MEDS: AMIODARONE 150 MG/100 ML PIGGYBACK 600 MG IV (03:16)
[2024-09-01] MEDS: AMIODARONE 360 MG/200 ML PIGGYBACK 33.33 MG IV (03:32)
[2024-09-01 04:16] LABS: MRSA (Nasal) PCR NOT DETECTED (Not Detect)
--- NOTE | 2024-09-01 06:09 | PC.NURSE ---
Notified spouse that pt was transferred to the ICU.
[2024-09-01 06:17] LABS: Hematocrit 28.5 % (36-46); Hemoglobin 9.6 g/dL (12.0-16.0); Mean Corpuscular HGB Conc 33.9 % (30-36); Mean Corpuscular Hemoglobin 32.5 PG (26-34); Platelet Count 199 X10^3/uL (150-400); Red Blood Cell Count 2.96 X10^6/uL (4.0-5.2); Red Cell Distribution Width 14.1 % (11.6-14.8); White Blood Cell Count 13.8 X10^3/uL (4.5-11.0)
[2024-09-01 06:59] LABS: BUN Creatinine Ratio 28.4 (6-22); Blood Urea Nitrogen 38 mg/dL (7-17); Calcium 8.5 mg/dL (8.4-10.2); Carbon Dioxide 18 mmol/L (22-32); Chloride 109 mmol/L (98-107); Estimated Glomerular Filt Rate 39 mL/min (>60); Glucose 119 mg/dL (80-110); HEMOLYSIS 26 (0-50); Magnesium 1.9 mg/dL (1.6-2.3); Sodium 132 mmol/L (137-145)
[2024-09-01 07:13] LABS: Troponin I 0.813 ng/mL (0.01-0.034)
--- NOTE | 2024-09-01 07:17 | DI.ECHO.S_ITS ---
[facility]+ [facility] : : [address] : : [place] : : [id number] : : Phone: [phone] Echocardiogram Report + + :Name: JOSEPH RUBY Study Date: 09/01/2024 Height: 60 in : :[facility] ReadingLocation: Weight: 132 lb : : Gender: Female BSA: 1.6 m2 : :: 1940 Age: 84 yrs BP: 108/69 mmHg: :Reason For Study: ATRIAL FIBRILLATION : :Ordering Physician: DEVIN, : :KELBY Godinez Performed By: Matias Domingo : :Referring: KELBY BELTRAN : + + Interpretation Summary The ejection fraction is estimated to be 60-65%. The patient was in atrial fibrillation with heart rates between 58-131 bpm during the exam. The right ventricle is normal in size and function. The right ventricular systolic pressure is estimated to be at least 35 mmHg based on an estimated right atrial pressure of 3 mm Hg. The left atrium is severely dilated. There is mild aortic regurgitation. There is mild tricuspid regurgitation. There is mild to moderate mitral regurgitation. Procedure: A two-dimensional transthoracic echocardiogram with color flow and Doppler was performed. The study quality was technically good. There is no prior echocardiogram noted for this patient. The patient was in atrial fibrillation with heart rates between 58-131 bpm during the exam. Left Ventricle: The left ventricle is normal in size. Left ventricular wall thickness is mild-moderately increased. There is no ventricular septal defect visualized. The ejection fraction is estimated to be 60-65%. Diastolic function could not be accurately assessed due to atrial fibrillation. Right Ventricle: The right ventricle is normal in size and function. Atria: The left atrium is severely dilated. Right atrial size is normal. There is no Doppler evidence for an interatrial shunt. Mitral Valve: The mitral valve leaflets appear to open well. There is mild to moderate mitral regurgitation. Aortic Valve: The aortic valve is trileaflet. The aortic valve is mildly calcified. There is mild aortic regurgitation. Tricuspid Valve: The tricuspid valve is normal in structure and function. There is mild tricuspid regurgitation. The right ventricular systolic pressure is estimated to be at least 35 mmHg based on an estimated right atrial pressure of 3 mm Hg. Pulmonic Valve: The pulmonic valve is normal in structure and function. There is trace pulmonic regurgitation. Great Vessels: The aortic root is normal size. The ascending aorta is mildly enlarged. The pulmonary artery is normal size. The IVC is of normal diameter and collapses greater than 50% with a sniff. This suggests a low right atrial pressure of 3 mm Hg. Pericardium/ Pleura There is no pericardial effusion. There is no pleural effusion. MMode/2D Measurements & Calculations LVIDd: 3.9 cm LVOT diam: 2.1 cm LVIDs: 3.0 cm Ao root diam: 3.2 cm FS: 23.2 % asc Aorta Diam: 3.7 cm EPSS: 0.23 cm IVSd: 1.5 cm LVPWd: 1.3 cm LV hoffman. diameter/BSA (cm/m^2): 2.5 LV sys. diameter/BSA (cm/m^2): 1.9 LA A2 area: 20.9 cm2 RA long axis: 4.3 cm LA A4 area: 19.4 cm2 RA area: 14.5 cm2 LA length (vol): 4.9 cm RA vol: 41.4 ml LA vol: 69.7 ml RA : 26.4 ml/m2 LA vol index: 44.6 ml/m2 IVC diam: 1.5 cm RVD1 (basal): 3.8 cm RVD2 (mid): 3.0 cm TAPSE: 1.8 cm Doppler Measurements & Calculations Ao V2 max: 179.5 cm/sec LVOT Max Breezy: 122.9 cm/sec Ao V2 mean: 125.6 cm/sec LV V1 max P.0 mmHg Ao max P.9 mmHg LV V1 VTI: 20.0 cm Ao mean P.0 mmHg AGUEDA(I,D): 2.6 cm2 Ao V2 VTI: 27.7 cm AGUEDA(V,D): 2.4 cm2 sev ratio: 0.72 AGUEDA indexed to BSA (cm^2/m^2): 1.6 MV E max breezy: 83.4 cm/sec TR max breezy: 282.0 cm/sec MV A max breezy: 54.0 cm/sec TR max P.8 mmHg MV E/A: 1.5 PA V2 max: 74.3 cm/sec Med Peak E' Breezy: 3.6 cm/sec PA V2 mean: 51.2 cm/sec E/E' med: 23.1 PA mean P.2 mmHg Lat Peak E' Breezy: 4.8 cm/sec PA pr(Accel): 55.0 mmHg E/E' lat: 17.4 E/e' average: 20.3 MV dec time: 0.11 sec [facility] 70.8 ml Reading Physician:MUNA
--- NOTE | 2024-09-01 07:19 | DI.RAD.S_ITS ---
PROCEDURE: XR CHEST 1V INDICATIONS: Dyspnea TECHNIQUE: One view of the chest was acquired. COMPARISON: [facility], CT, CT ABDOMEN PELVIS W CON, 05/23/2023, 9:06. [facility], CR, XR CHEST 2V, 09/11/2022, 17:48. FINDINGS: Surgical changes and devices: Bilateral shoulder arthroplasties. Lungs and pleura: Minimal blunting the left costophrenic angle new since 2022. Mediastinum: Mediastinal contours appear normal. Heart size is normal. Bones and chest wall: No suspicious bony lesions. Overlying soft tissues appear unremarkable. IMPRESSION: Minimal left costophrenic angle blunting possibly related to scarring versus effusion. Dictated by: Teresa Orozco M.D. on 09/01/2024 at 8:37 Approved by: Teresa Orozco M.D. on 09/01/2024 at 8:38
[2024-09-01 07:54] LABS: TSH w/ Reflex to FT4 2.17 uIU/mL (0.47-4.68)
[2024-09-01] MEDS: BUDESONIDE 0.5 MG/2 ML NEB INH ×2 (08:01→19:54)
--- NOTE | 2024-09-01 08:15 | DI.US.S_ITS ---
PROCEDURE: US ABDOMEN LIMITED INDICATIONS: r/o hemoperitoneum TECHNIQUE: Real-time focused scanning was performed of the abdomen, with image documentation. COMPARISON: [facility], , ABDOMEN LIMITED, 10/22/2021, 14:47. FINDINGS: A tiny amount of fluid is seen in the right upper quadrant. No fluid is seen in the right lower quadrant, the left lower quadrant or the left upper quadrant. IMPRESSION: No significant hemoperitoneum. Trace postoperative fluid in the right upper quadrant. Dictated by: Robert Mcdonald M.D. on 09/01/2024 at 11:45 Approved by: Robert Mcdonald M.D. on 09/01/2024 at 11:47
[2024-09-01] MEDS: PANTOPRAZOLE DR 40 MG TABLET PO (08:19)
[2024-09-01] MEDS: ALPRAZolam 0.25 MG TABLET PO (08:19)
[2024-09-01] MEDS: CITALOPRAM 10 MG TABLET 40 MG PO (08:19)
[2024-09-01] MEDS: ASPIRIN EC 81 MG TABLET PO (08:50)
[2024-09-01] MEDS: METOPROLOL TARTRATE 5 MG/5 ML INJ IV (08:50)
[2024-09-01] MEDS: AMIODARONE 360 MG/200 ML PIGGYBACK 16.7 MG IV (08:50)
--- NOTE | 2024-09-01 09:39 | PM.PNPO.1 ---
Subjective Subjective Date Patient Seen: 09/01/24 Time Patient Seen: 09:39 Interval history: Transferred to ICU overnight for AFib with RVR. Sustained a myocardial infarction. No flatus or BM Exam Vital Signs (past 8 hours): - 09/01/24 02:00 09/01/24 02:00 09/01/24 02:30 Pulse Rate 165 H 150 H 143 H Respiratory Rate 31 H 30 H Blood Pressure 101/59 L Pulse Oximetry 96 95 Oxygen Delivery Method 09/01/24 02:49 09/01/24 02:49 09/01/24 03:00 Pulse Rate 148 H 147 H Respiratory Rate 29 H 30 H Blood Pressure 109/76 Pulse Oximetry 94 93 Oxygen Delivery Method 09/01/24 03:30 09/01/24 04:00 09/01/24 04:00 Pulse Rate 145 H 138 H 139 H Respiratory Rate 31 H 28 H 29 H Blood Pressure 128/71 Pulse Oximetry 93 95 Oxygen Delivery Method 09/01/24 04:14 09/01/24 04:14 09/01/24 04:30 Pulse Rate 136 H 138 H Respiratory Rate 30 H 34 H Blood Pressure 128/71 Pulse Oximetry 94 95 Oxygen Delivery Method 09/01/24 05:00 09/01/24 05:00 09/01/24 05:30 Pulse Rate 136 H 133 H Respiratory Rate 23 27 H Blood Pressure 119/71 Pulse Oximetry 94 95 Oxygen Delivery Method 09/01/24 06:00 09/01/24 06:00 09/01/24 06:30 Pulse Rate 145 H 131 H Respiratory Rate 32 H 28 H Blood Pressure 111/73 Pulse Oximetry 95 95 Oxygen Delivery Method 09/01/24 07:00 09/01/24 07:00 09/01/24 07:00 Pulse Rate 141 H Respiratory Rate 30 H Blood Pressure 128/79 Pulse Oximetry 95 Oxygen Delivery Method Nasal Cannula 09/01/24 07:30 09/01/24 08:00 09/01/24 08:00 Pulse Rate 133 H 133 H Respiratory Rate 29 H 17 Blood Pressure 111/69 Pulse Oximetry 95 89 L Oxygen Delivery Method 09/01/24 08:01 Pulse Rate 140 H Respiratory Rate 22 Blood Pressure Pulse Oximetry 90 L Oxygen Delivery Method Room Air Oxygen Delivery Method Room Air Oxygen Flow Rate 1 Narrative Exam Narrative: General elderly woman alert oriented Chest mildly labored respiration Cardiac atrial fibrillation Abdomen tender distended some clot through the incision. Objective Labs 09/01/24 06:00 09/01/24 06:00 Labs: Laboratory Results - last 24 hr 08/31/24 09/01/24 09/01/24 22:50 01:40 06:00 WBC 15.9 H 13.8 H RBC 3.10 L 2.96 L Hgb 9.9 L 9.6 L Hct 29.6 L 28.5 L MCV 95.2 96.0 MCH 32.0 32.5 MCHC 33.6 33.9 RDW 14.1 14.1 Plt Count 210 199 Neut % (Auto) 85.1 H Lymph % (Auto) 5.6 L [place] % (Auto) 9.0 Eos % (Auto) 0.1 L Baso % (Auto) 0.2 Neut # (Auto) 62820 H Lymph # (Auto) 900 L [place] # (Auto) 1400 H Eos # (Auto) 0 Baso # (Auto) 0 Sodium 131 L 132 L Potassium 4.1 4.0 Chloride 108 H 109 H Carbon Dioxide 18 L 18 L BUN 39 H 38 H Creatinine 1.57 H 1.34 H Estimated GFR 32 L 39 L BUN/Creatinine Ratio 24.8 H 28.4 H Glucose 131 H 119 H Calcium 8.3 L 8.5 Magnesium 1.9 Troponin I 1.040 H* 0.813 H* NT-Pro-B Natriuret Pep 8370 H TSH 2.17 Nasal Screen MRSA (PCR) Not detected PFS Medical History GERD (gastroesophageal reflux disease) Osteoarthritis Asthma Kidney stones Surgical History 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) History of bilateral knee replacement History of cataract removal with insertion of prosthetic lens Family History Brother Age: 93 Dementia Heart disease Mental health disorder Pacemaker Grandfather Mental health disorder Grandmother Arthritis Grandmother Mental health disorder Social History household members: spouse Smoking Status: Never smoker alcohol intake: current Assessment & Plan Post-op Postoperative Procedures: Procedures Operation Date: 08/29/24 09:00 Actual Procedure Side Surgeon p Altemeir Procedure Darell Lauren MD Operation Date: 08/29/24 16:30 Actual Procedure Side Surgeon p Exploratory Laparotomy GEN Darell Lauren MD Postoperative status narrative: 84-year-old woman postoperative day 3 status post Altemeier procedure. Postoperatively she had evisceration of the small bowel through the anastomosis. Bowel was ischemic but viable but required an exploratory laparotomy in order to entirely reduce it. She has subsequently developed atrial fibrillation with RVR and a myocardial infarction requiring transferred to the intensive care unit. Presently hemodynamically stable. AFib with RVR medicine and tele ICU recommendations appreciated. -Cont Ammiodorone -echocardiogram Status post Altemeier -clear liquid diet until return of bowel function then advanced Urinary retention/small-bowel evisceration -continue Lux catheter. Will discharge with Lux in place for at least 1 week in order to avoid increased intra-abdominal pressure Quality VTE Deep Vein Thrombosis/Pulmonary Embolism Present on Admission: No
--- NOTE | 2024-09-01 10:38 | PT.IIE ---
Current Diagnoses Unspecified atrial fibrillation (08/29/24) Rectal prolapse (08/29/24) Other specified abnormal findings of blood chemistry (08/29/24) Surgery Performed Operation Date: 08/29/24 09:00 Actual Procedures p Altemeir Procedure - Darell Lauren MD Operation Date: 08/29/24 16:30 Actual Procedures p Exploratory Laparotomy GEN Tamera Lauren MD Surgical History (Last Reviewed 09/01/24 @ 02:45 by Yovani Ambrosio MD) History of bilateral knee replacement History of cataract removal with insertion of prosthetic lens 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) Medical History (Last Reviewed 09/01/24 @ 02:45 by Yovani Ambrosio MD) Asthma GERD (gastroesophageal reflux disease) Kidney stones Osteoarthritis Physical Therapy Inpatient Evaluation/Re-Eval M1 PT/OT-IP Prior Functional Status Start: 08/31/24 15:44 Freq: NEEDED Status: Active Protocol: Document 09/01/24 10:38 AB (Rec: 09/01/24 14:42 AB [id number]) Medical Review Prior Functional Status Medical History Reviewed Yes Communication able to make needs known Mobility and Gait pt stated that she was independent with all mobilities and ambulation without AD indoors and uses a SPC for outdoor mobility Social History Household Members spouse Living Arrangements House Number of Floors (Floors) One Floor Number of Stairs To Enter/Railing? 3 steps without rails to enter Home Environment High Toilet,Walk in Shower Home Equipment Front Wheel Walker,Straight Cane,Hand Held Shower,Grab Bars Near Toilet,Grab Bars In Shower M2 PT-IP Current Condition Start: 08/31/24 15:44 Freq: NEEDED Status: Active Protocol: Document 09/01/24 10:38 AB (Rec: 09/01/24 14:42 AB [id number]) Physical Therapy Current Condition Current Condition Evaluation Date 09/01/24 Treatment Diagnosis s/p rectosigmoidectomy; difficulty in walking Onset Date 08/29/24 M3 PT-IP Subjective Start: 08/31/24 15:44 Freq: NEEDED Status: Active Protocol: Document 09/01/24 10:38 AB (Rec: 09/01/24 14:42 AB [id number]) Subjective Physical Therapy Visit Type Type Initial Evaluation Visit Start Time 10:38 Visit Stop Time 11:30 Number of SHEET METAL FABRICATOR Visits 0 Physical Therapy Visit Comments Patient Comments agreeable to do PT Therapy Pain Assessment Pain When Pain Assessed During Mobility Pain Present Pain Present Pain Reported Location Abdomen Scale Used pain scale not stated Pain Behaviors Guarding,Wincing Pain Management Techniques Distraction,Modification of Treatment,Re-positioning, Timing of Activity with Medications M4 PT-IP Mobility and Gait Start: 08/31/24 15:44 Freq: NEEDED Status: Active Protocol: Document 09/01/24 10:38 AB (Rec: 09/01/24 14:42 AB [id number]) PT-Bed Mobility Assessment Rolling Level of Assist Maximal Assistance Supine to Sit Supine to Sit Maximum Assistance PT-Transfer Assessment Sit to and From Stand Sit to and from Stand Maximum Assistance,1 Person Assistance,2 Person Assistance ,Use of Upper Extremities Equipment Transfer Assistive Device Gait Belt,Front Wheeled Walker Orthotic/Prosthetic Devices or Brace: No Transfers Transfer Destination Chair Transfer Technique ambulated Transfer Ability Level of Assist Maximum Assistance,1 Person Assistance,2 Person Assistance ,Use of Upper Extremities Comments Mobility Comments pt in bed. spouse in room. obtained PLOF and home set up. educated pt and spouse regarding pt's abdominal precautions and log roll bed mobility. BP in supine: 107/ 67. pt completed log roll supine to sit max A and max cues. pt able to sit on EOB CGA. BP checked: 95/58. no c/ o dizziness/lightheadedness. completed sit to stand max A x 1-2 and max cues. increase posterior trunk lean needing max A for standing balance and steadiness. ambulated ~ 5 ft using FWW max A x 1-2 and max cues. (+) LOB posteriorly needing max A for recovery. chair follow. pt sat on chair max A for controlled descent. positioned pt on the chair. call light and table placed within reach. informed pt and spouse regarding SNF rehab at this time and both agreed. Gait Assessment Gait Gait Assistance Required: Maximum Assistance,1 Person Assist,2 Person Assist Distance (Feet) 5 Able to Maintain Weight Bearing Status Yes During Gait Assistive Devices Assistive Device Gait Belt,Front Wheeled Walker Orthotic/Prosthetic Devices or Brace: No Gait Deviations General Gait Pattern Decreased Stride Length, Decreased Feet Clearance,Step- to Gait Factors Limiting Gait Function Factors Limiting Gait Function Decreased Activity Tolerance, Decreased Strength,Difficulty Following Directions,Limited Range of Motion,Pain,Poor Balance,Poor Safety Awareness PT-Balance Assessment Sitting Balance and Reactions Static Sitting Balance Ability Good Dynamic Sitting Balance Ability Fair Standing Balance and Reactions Static Standing Balance Ability Poor Dynamic Standing Balance Ability Poor Device Used FWW M5 PT-IP Objective Assessments Start: 08/31/24 15:44 Freq: NEEDED Status: Active Protocol: Document 09/01/24 10:38 AB (Rec: 09/01/24 14:42 AB [id number]) Orientation Orientation/Cognition Level of Alertness Alert Orientation Name,Place,Situation Language Function Ability No Deficits Noted Safety Awareness Decreased Safety Awareness Memory Description Short Term Impaired Gross Range of Motion Lower Extremity ROM Assessment Within Functional Limits Strength Lower Extremity Strength Hip 4-/5 Knee 4-/5 Coordination Assessment Gross Coordination Gross Coordination WNL Muscle Tone Muscle Tone WNL Yes M6 PT-IP Treatment Start: 08/31/24 15:44 Freq: NEEDED Status: Active Protocol: Document 09/01/24 10:38 AB (Rec: 09/01/24 14:42 AB [id number]) Physical Therapy Treatment Education Education Provided Precautions,Post-Op Packet, Safety M7 PT-IP Assessment and Plan Start: 08/31/24 15:44 Freq: NEEDED Status: Active Protocol: Document 09/01/24 10:38 AB (Rec: 09/01/24 14:42 AB [id number]) PT Summary Assessment and Plan Potential Rehabilitation Potential Fair Status of Condition at Evaluation Evolving Summary Impairments Pain,ROM,Strength,Balance, Coordination,Sensation,Tone, Cognition,Bed Mobility, Transfers,Gait,Activity Tolerance Assessment Summary pt is an 84 y/o F s/o rectosigmoidectomy POD 3. pt with abdominal precautions. pt requiring max A x 1-2 with transfers and ambulation using FWW. only able to ambulated ~ 5 ft using fWW requiring max A x 1-2 and max cues with (+) posterior LOB requiring max A for recovery. pt also presents with decrease activity tolerance affecting mobility level. pt will require SNF rehab at this time. will continue to assess progress. Goals Bed Mobility Goal Minimal Assistance Transfer Goal Minimal Assistance,Front Wheeled Walker Gait Goal Minimal Assistance,Front Wheel Walker Gait Distance 100 Other Goals improve bed mobility, transfers, ambulation using LRAD/without AD SBA 200 ft up/down 3 steps SBA Frequency of Treatment Frequency Of Treatment Once a Day Treatment Plan Physical Therapy Treatment Plan Bed Mobility Training,Transfer Training,Gait Training, Therapeutic Exercise,Balance Retraining,Post Op Education, Discharge Planning,Hot or Cold Pack,Neuromuscular Re-ed, Coordination Retraining,Manual Therapy Precautions Abdominal Surgery Precautions Log Roll,Lifting Restrictions, Gait Belt above Incisional Area Recommendations To Nursing Amount of Assist Needed 2 Person Assist Discharge Recommendations PT Discharge Recommendations SNF Rehab Transportation Needs at Discharge Wheelchair/Cabulance
--- NOTE | 2024-09-01 10:41 | PC.NURSE ---
Addendum entered by Chelo Herman R.N. 09/01/24 17:49: Both Dr Torrez and Dr Jane notified of pt conversion to NSR, with continue with Amiodarone gtt to finish the second bag, will add PO amiodarone to bridge the gap between IV and oral. Pt tolerating well, care ongoing Original Note: 1028 During ECHO exam pt converted from A-Fib RVR to NSR with BBB Hr 62, provider notified, no new orders at this time.
[2024-09-01 10:48] LABS: Troponin I 0.645 ng/mL (0.01-0.034)
--- NOTE | 2024-09-01 11:33 | PM.PN.1 ---
Subjective Subjective Interval history: Summary: She developed postoperative hypertension which required treatment with amlodipine and eventually hydralazine. She normalized her blood pressure in the hydralazine was stopped the next day. She then went into atrial fibrillation that night with rapid response. This was treated with an amiodarone infusion and ultimately she went back into sinus rhythm. Subjective: No palpitations or dyspnea. Some ongoing abdominal pain. Exam Vital Signs (past 8 hours): - 09/04/24 04:00 09/04/24 04:00 09/04/24 04:30 Temperature 97.9 F Pulse Rate 62 61 64 Respiratory Rate 18 25 H 27 H Blood Pressure 203/92 H Pulse Oximetry 92 Oxygen Delivery Method Oxygen Flow Rate 0 09/04/24 05:00 09/04/24 05:30 09/04/24 06:00 Temperature Pulse Rate 61 69 61 Respiratory Rate 23 29 H 23 Blood Pressure Pulse Oximetry Oxygen Delivery Method Oxygen Flow Rate 09/04/24 06:30 09/04/24 07:00 09/04/24 07:30 Temperature Pulse Rate 60 60 61 Respiratory Rate 22 24 25 H Blood Pressure Pulse Oximetry Oxygen Delivery Method Oxygen Flow Rate 09/04/24 07:53 09/04/24 08:00 09/04/24 08:00 Temperature Pulse Rate 62 67 Respiratory Rate 18 23 Blood Pressure Pulse Oximetry 96 Oxygen Delivery Method Room Air Room Air Oxygen Flow Rate 09/04/24 08:08 09/04/24 08:08 09/04/24 08:30 Temperature 98.0 F Pulse Rate 66 75 Respiratory Rate 31 H 29 H Blood Pressure 169/84 H Pulse Oximetry 95 Oxygen Delivery Method Oxygen Flow Rate 09/04/24 09:00 Temperature Pulse Rate 70 Respiratory Rate 28 H Blood Pressure Pulse Oximetry Oxygen Delivery Method Oxygen Flow Rate Oxygen Delivery Method Room Air Oxygen Flow Rate 0 Narrative Exam Narrative: No acute distress, fluent speech. Lungs are clear Heart is tachycardic and irregular Abdomen is tender around the midline incision. No leg edema. 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 Perioperative hypertension, new and improving. 2. Postoperative atrial fibrillation with rapid response, new and resolved. 3. Chronic issues of asthma, GERD, and nephrolithiasis are all stable. Plan: -antiemetics -transitioned to oral amiodarone. -monitor blood pressure. Time-Based Coding :: [TOTAL MINUTES] spent with patient and on the chart (including review of chart, obtaining history, exam, reviewing outside data, placing orders, documenting exam and treatment plan, and counseling patient) on [DATE]. Quality VTE Deep Vein Thrombosis/Pulmonary Embolism Present on Admission: No
--- NOTE | 2024-09-01 13:21 | PM.ICURNDS ---
- :: This patient was seen via real time interactive two-way audiovisual telecommunication. pt awake in NAD, remains on afib with HR in 120s, on amio and getting lopressor prn. awaint resuts of TTE as her low UO and fluid overload. I think she may need ionotropic agents, but will see once more information is available. d/w Dr. Jane
--- NOTE | 2024-09-01 16:20 | CM.DPNOTE ---
DCP Note RN TRANSITIONAL reviewed EMR. Pt is POD3. Pt was transferred to ICU last night due to new onset afib with RVR and hypoxia. started on ami drip. per hospitalist in morning rounds, likely here another few days. TeleICU provider involvement. Per PT, now rec SNF placement. RN TRANSITIONAL unable to meet with pt/spouse today due to triaging needs. Due to pt medical condition/fx at baseline, very likely she could progress to being safe to return home with spouse support once medically stable. CM team will continue to follow clinical course closely and coordinate with pt/spouse for appropriate SNF/HH referrals closer to dc. RN TRANSITIONAL unable to meet with pt/family today due to triaging needs. P: pending medical POC. Home with spouse vs HH vs SNF. referrals/PASRR/f2f needed. CM team will continue to follow pt's admission closely for DCP concerns. DOMO Cao
[2024-09-01] MEDS: cefTRIAXone 1,000 MG in SODIUM CHLORIDE 0.9% 100 ML 200 MG IV (17:42)
[2024-09-01] MEDS: METOCLOPRAMIDE 10 MG/2 ML INJ 5 MG IV (17:42)
[2024-09-01] MEDS: AMIODARONE 200 MG TABLET 400 MG PO (20:53)
[2024-09-01] MEDS: ALPRAZolam 0.25 MG TABLET 0.5 MG PO (20:53)
[2024-09-01] MEDS: ONDANSETRON 4 MG/2 ML INJ IV (21:47)
[2024-09-02] VITALS (46 sets, daily range): BP systolic 130–172; BP diastolic 70–85; PULSE 63–80; RESP 18–96; TEMP 36.4–36.6; O2SAT 24–98
[2024-09-02] MEDS: PANTOPRAZOLE DR 40 MG TABLET PO (07:39)
[2024-09-02] MEDS: HYDROMORPHONE 0.5 MG INJ 0.25 MG IV (08:01)
[2024-09-02] MEDS: AMIODARONE 200 MG TABLET 400 MG PO ×2 (08:01→17:34)
[2024-09-02] MEDS: ONDANSETRON 4 MG/2 ML INJ IV (08:01)
[2024-09-02] MEDS: ALPRAZolam 0.25 MG TABLET PO (08:30)
[2024-09-02] MEDS: CITALOPRAM 10 MG TABLET 40 MG PO (08:30)
[2024-09-02] MEDS: ASPIRIN EC 81 MG TABLET PO (08:30)
[2024-09-02 08:35] LABS: Hematocrit 32.6 % (36-46); Mean Corpuscular HGB Conc 33.8 % (30-36); Mean Corpuscular Hemoglobin 32.3 PG (26-34); Mean Corpuscular Volume 95.8 fL (80-100); Platelet Count 254 X10^3/uL (150-400); Red Blood Cell Count 3.41 X10^6/uL (4.0-5.2); Red Cell Distribution Width 13.7 % (11.6-14.8); White Blood Cell Count 10.1 X10^3/uL (4.5-11.0)
--- NOTE | 2024-09-02 08:41 | CM.DPNOTE ---
DCP note DISABILITY AIDE reviewed EMR. Per RN, pt concerned about her inability to mobilize and going home. PT=SNF. DISABILITY AIDE entered room and introduced self and role. Spouse at bedside. Pt confirms interested in rehab prior to returning home. Preference is [facility] or closest to home, lives on [address]. DISABILITY AIDE answered questions to best of ability. Per RN, likely earliest would be medically stable to dc is wednesday. DISABILITY AIDE emailed Harper at asking her to review. PASRR needed. P: pending SNF/[facility] acceptance, anticipate dc to [facility] early/mid next week. CM team will continue to follow closely DOMO Cao
--- NOTE | 2024-09-02 09:49 | PM.PNPO.1 ---
Subjective Subjective Date Patient Seen: 09/02/24 Time Patient Seen: 09:49 Interval history: No acute events Troponin downtrending Tolerated full liquid diet no nausea flatus or BM Minimal pain Exam Vital Signs (past 8 hours): - 09/02/24 02:00 09/02/24 02:30 09/02/24 03:00 Temperature Pulse Rate 74 76 74 Respiratory Rate 26 H 47 H 28 H Blood Pressure Pulse Oximetry 94 95 94 Oxygen Delivery Method Oxygen Flow Rate 09/02/24 03:30 09/02/24 04:00 09/02/24 04:30 Temperature Pulse Rate 73 73 77 Respiratory Rate 22 39 H 23 Blood Pressure Pulse Oximetry 95 95 96 Oxygen Delivery Method Oxygen Flow Rate 09/02/24 05:00 09/02/24 05:30 09/02/24 06:00 Temperature Pulse Rate 76 75 77 Respiratory Rate 26 H 25 H 28 H Blood Pressure 172/85 H Pulse Oximetry 94 95 96 Oxygen Delivery Method Oxygen Flow Rate 0 09/02/24 06:00 09/02/24 06:11 09/02/24 06:11 Temperature Pulse Rate 79 79 Respiratory Rate 27 H 28 H Blood Pressure 172/85 H Pulse Oximetry 95 96 Oxygen Delivery Method Oxygen Flow Rate 09/02/24 06:30 09/02/24 07:00 09/02/24 07:30 Temperature Pulse Rate 79 74 74 Respiratory Rate 29 H 27 H 35 H Blood Pressure Pulse Oximetry 95 96 96 Oxygen Delivery Method Oxygen Flow Rate 09/02/24 07:49 09/02/24 07:49 09/02/24 08:00 Temperature Pulse Rate 74 72 Respiratory Rate 28 H 37 H Blood Pressure 153/77 H Pulse Oximetry 97 97 Oxygen Delivery Method Oxygen Flow Rate 09/02/24 08:00 09/02/24 08:00 09/02/24 08:00 Temperature 97.5 F L Pulse Rate Respiratory Rate Blood Pressure 153/83 H Pulse Oximetry Oxygen Delivery Method Room Air Oxygen Flow Rate 09/02/24 08:30 09/02/24 08:59 09/02/24 09:00 Temperature Pulse Rate 73 76 Respiratory Rate 27 H 30 H Blood Pressure 148/83 H Pulse Oximetry 95 97 Oxygen Delivery Method Oxygen Flow Rate Oxygen Delivery Method Room Air Oxygen Flow Rate 0 Narrative Exam Narrative: General elderly woman alert oriented no acute distress Abdomen soft appropriately tender to palpation. Midline dressing clean dry intact. 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) History of bilateral knee replacement History of cataract removal with insertion of prosthetic lens Family History Brother Age: 93 Dementia Heart disease Mental health disorder Pacemaker Grandfather Mental health disorder Grandmother Arthritis Grandmother Mental health disorder Social History household members: spouse Smoking Status: Never smoker alcohol intake: current Assessment & Plan Post-op Postoperative Procedures: Procedures Operation Date: 08/29/24 09:00 Actual Procedure Side Surgeon p Altemeir Procedure Darell Lauren MD Operation Date: 08/29/24 16:30 Actual Procedure Side Surgeon p Exploratory Laparotomy GEN Darell Lauren MD Postoperative status narrative: Status post Altemeier with small bowel evisceration postop required ex lap for bowel reduction. -may advance diet to regular -needs rehab [facility] patient until Wednesday 09/05 -SCDs and prophylactic Lovenox if kidney function has normalized, BMP pending. Quality VTE Deep Vein Thrombosis/Pulmonary Embolism Present on Admission: No
[2024-09-02 10:24] LABS: BUN Creatinine Ratio 22.5 (6-22); Blood Urea Nitrogen 27 mg/dL (7-17); Calcium 9.6 mg/dL (8.4-10.2); Carbon Dioxide 21 mmol/L (22-32); Chloride 107 mmol/L (98-107); Estimated Glomerular Filt Rate 44 mL/min (>60); Glucose 104 mg/dL (80-110); HEMOLYSIS < 15 (0-50); Sodium 133 mmol/L (137-145)
--- NOTE | 2024-09-02 13:09 | PT.IPTN ---
Current Diagnoses Unspecified atrial fibrillation (08/29/24) Rectal prolapse (08/29/24) Other specified abnormal findings of blood chemistry (08/29/24) Surgery Performed Operation Date: 08/29/24 09:00 Actual Procedures p Altemeir Procedure - Darell Lauren MD Operation Date: 08/29/24 16:30 Actual Procedures p Exploratory Laparotomy GEN Tamera Lauren MD Physical Therapy Treatment Note M2 PT-IP Current Condition Start: 08/31/24 15:44 Freq: NEEDED Status: Active Protocol: Document 09/01/24 10:38 AB (Rec: 09/01/24 14:42 AB [id number]) Physical Therapy Current Condition Current Condition Evaluation Date 09/01/24 Treatment Diagnosis s/p rectosigmoidectomy; difficulty in walking Onset Date 08/29/24 M3 PT-IP Subjective Start: 08/31/24 15:44 Freq: NEEDED Status: Active Protocol: Document 09/02/24 14:45 TS (Rec: 09/02/24 14:48 TS [id number]) Subjective Physical Therapy Visit Type Type Treatment Note Visit Start Time 13:09 Visit Stop Time 13:29 Number of POLICE LIEUTENANT Visits 1 Physical Therapy Visit Comments Patient Comments Pt agreeable to PT. M4 PT-IP Mobility and Gait Start: 08/31/24 15:44 Freq: NEEDED Status: Active Protocol: Document 09/02/24 14:45 TS (Rec: 09/02/24 14:48 TS [id number]) PT-Transfer Assessment Sit to and From Stand Sit to and from Stand Maximum Assistance,1 Person Assistance,Use of Upper Extremities Comments Mobility Comments STS with FWW MaxA , pt has a heavy posterior lean cues provided for posture. She ambualtes ~15'Viktoria with FWW, pt sits on EOB. She ambulates another ~10 with FWW. Pt was left in the chair, all needs met. Gait Assessment Gait Gait Assistance Required: Minimum Assistance,1 Person Assist Distance (Feet) 25 Assistive Devices Assistive Device Gait Belt,Front Wheeled Walker Orthotic/Prosthetic Devices or Brace: No Gait Deviations General Gait Pattern Decreased Stride Length, Decreased Feet Clearance,Step- to Gait Factors Limiting Gait Function Factors Limiting Gait Function Decreased Activity Tolerance, Decreased Strength,Difficulty Following Directions,Limited Range of Motion,Pain,Poor Balance,Poor Safety Awareness PT-Balance Assessment Sitting Balance and Reactions Static Sitting Balance Ability Good Dynamic Sitting Balance Ability Fair Standing Balance and Reactions Static Standing Balance Ability Poor Dynamic Standing Balance Ability Poor Device Used FWW M5 PT-IP Objective Assessments Start: 08/31/24 15:44 Freq: NEEDED Status: Active Protocol: Document 09/01/24 10:38 AB (Rec: 09/01/24 14:42 AB [id number]) Orientation Orientation/Cognition Level of Alertness Alert Orientation Name,Place,Situation Language Function Ability No Deficits Noted Safety Awareness Decreased Safety Awareness Memory Description Short Term Impaired Gross Range of Motion Lower Extremity ROM Assessment Within Functional Limits Strength Lower Extremity Strength Hip 4-/5 Knee 4-/5 Coordination Assessment Gross Coordination Gross Coordination WNL Muscle Tone Muscle Tone WNL Yes M6 PT-IP Treatment Start: 08/31/24 15:44 Freq: NEEDED Status: Active Protocol: Document 09/02/24 14:45 TS (Rec: 09/02/24 14:48 TS [id number]) Physical Therapy Treatment Education Education Provided Precautions,Post-Op Packet, Safety M7 PT-IP Assessment and Plan Start: 08/31/24 15:44 Freq: NEEDED Status: Active Protocol: Document 09/02/24 14:45 TS (Rec: 09/02/24 14:48 TS [id number]) PT Summary Assessment and Plan Potential Rehabilitation Potential Fair Summary Impairments Pain,ROM,Strength,Balance, Coordination,Sensation,Tone, Cognition,Bed Mobility, Transfers,Gait,Activity Tolerance Progress Towards Goals Slow Progress due to Pain,Slow Progress due to Activity Tolerance Assessment Summary Pt is making slow progress with her mobility. She requires MaxA for STS with FWW . She progressed her gaot to ~ 25 ith rest break inbetween. She has a low tolerance to activity. PT is recommending SNF. Goals Bed Mobility Goal Minimal Assistance Transfer Goal Minimal Assistance,Front Wheeled Walker Gait Goal Minimal Assistance,Front Wheel Walker Gait Distance 100 Other Goals improve bed mobility, transfers, ambulation using LRAD/without AD SBA 200 ft up/down 3 steps SBA Frequency of Treatment Frequency Of Treatment Once a Day Treatment Plan Physical Therapy Treatment Plan Bed Mobility Training,Transfer Training,Gait Training, Therapeutic Exercise,Balance Retraining,Post Op Education, Discharge Planning,Hot or Cold Pack,Neuromuscular Re-ed, Coordination Retraining,Manual Therapy Precautions Abdominal Surgery Precautions Log Roll,Lifting Restrictions, Gait Belt above Incisional Area Recommendations To Nursing Amount of Assist Needed 1 Person Assist Discharge Recommendations PT Discharge Recommendations SNF Rehab Transportation Needs at Discharge Wheelchair/Cabulance
--- NOTE | 2024-09-02 13:31 | PM.PN.1 ---
Subjective Subjective Date Patient Seen: 09/02/24 Time Patient Seen: 09:15 Interval history: Summary: Patient was a 84-year-old Altemeier procedure (perineal rectosigmoidectomy) on August 29 for rectal prolapse. The patient had complication of small-bowel coming through the anus requiring exploratory laparotomy and reduction on August 29 later in the day. Today she has been hypertensive. She was given a dose of hydralazine with minimal improvement of her symptoms. Her systolic blood pressure has been over 200. She denies symptoms of headache, confusion, dyspnea, or chest pain. She also denies a history of hypertension. She does take clonazepam chronically and has not been getting as much of this possibly. She does have a leukocytosis but denies any significant pain at the time of this interview. She rates her pain at 0/10, earlier was 5/10. S: She is remained stable without hypotension or arrhythmia. Exam Vital Signs (past 8 hours): - 09/02/24 06:00 09/02/24 06:00 09/02/24 06:11 Temperature Pulse Rate 77 79 Respiratory Rate 28 H 27 H Blood Pressure 172/85 H 172/85 H Pulse Oximetry 96 95 Oxygen Delivery Method Oxygen Flow Rate 0 09/02/24 06:11 09/02/24 06:30 09/02/24 07:00 Temperature Pulse Rate 79 79 74 Respiratory Rate 28 H 29 H 27 H Blood Pressure Pulse Oximetry 96 95 96 Oxygen Delivery Method Oxygen Flow Rate 09/02/24 07:30 09/02/24 07:49 09/02/24 07:49 Temperature Pulse Rate 74 74 Respiratory Rate 35 H 28 H Blood Pressure 153/77 H Pulse Oximetry 96 97 Oxygen Delivery Method Oxygen Flow Rate 09/02/24 08:00 09/02/24 08:00 09/02/24 08:00 Temperature 97.5 F L Pulse Rate 72 Respiratory Rate 37 H Blood Pressure 153/83 H Pulse Oximetry 97 Oxygen Delivery Method Oxygen Flow Rate 09/02/24 08:00 09/02/24 08:30 09/02/24 08:59 Temperature Pulse Rate 73 76 Respiratory Rate 27 H 30 H Blood Pressure Pulse Oximetry 95 97 Oxygen Delivery Method Room Air Oxygen Flow Rate 09/02/24 09:00 Temperature Pulse Rate Respiratory Rate Blood Pressure 148/83 H Pulse Oximetry Oxygen Delivery Method Oxygen Flow Rate Oxygen Delivery Method Room Air Oxygen Flow Rate 0 Narrative Exam Narrative: NAD, alert and oriented. Fluent speech. Lungs are clear, normal rate and effort. Heart is regular, no murmur gallop or rub. Abdomen is soft, non distended. There is minimal tenderness around the midline wound. No guarding. Extremities are free of edema. 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 -Analgesia PRN (2) Evisceration of bowel: Status: Acute Plan: -As per general surgery (3) Rectal prolapse: Status: Acute Plan: -As per general surgery (4) Elevated brain natriuretic peptide (BNP) level: Status: Acute (5) Elevated serum creatinine: Problem details: -resolving Status: Acute Plan: DVT: SQ heparin Time-Based Coding :: [TOTAL MINUTES] spent with patient and on the chart (including review of chart, obtaining history, exam, reviewing outside data, placing orders, documenting exam and treatment plan, and counseling patient) on [DATE]. Quality VTE Deep Vein Thrombosis/Pulmonary Embolism Present on Admission: No IH PROFEE Charge codes Subsequent inpatient/observation care: 77768
[2024-09-02] MEDS: HEPARIN 5,000 UNIT/ML VIAL 5000 UNIT SUBCUT ×2 (13:51→20:24)
[2024-09-02] MEDS: cefTRIAXone 1,000 MG in SODIUM CHLORIDE 0.9% 100 ML 200 MG IV (17:34)
[2024-09-02] MEDS: ALPRAZolam 0.25 MG TABLET 0.5 MG PO (20:23)
[2024-09-03] VITALS (56 sets, daily range): BP systolic 123–181; BP diastolic 65–83; PULSE 57–84; RESP 20–36; TEMP 36.4–36.7; O2SAT 79–98
[2024-09-03] MEDS: PANTOPRAZOLE DR 40 MG TABLET PO (05:05)
[2024-09-03] MEDS: ALPRAZolam 0.25 MG TABLET PO (08:04)
[2024-09-03] MEDS: CITALOPRAM 10 MG TABLET 40 MG PO (08:04)
[2024-09-03] MEDS: ASPIRIN EC 81 MG TABLET PO (08:04)
[2024-09-03] MEDS: AMIODARONE 200 MG TABLET 400 MG PO ×2 (08:04→17:15)
[2024-09-03] MEDS: HEPARIN 5,000 UNIT/ML VIAL 5000 UNIT SUBCUT ×2 (08:04→20:03)
[2024-09-03] MEDS: BUDESONIDE 0.5 MG/2 ML NEB INH (09:23)
--- NOTE | 2024-09-03 09:36 | PM.PNPO.1 ---
Subjective Subjective Date Patient Seen: 09/03/24 Time Patient Seen: 09:36 Interval history: Flatus, tolerating regular diet Awaiting discharge to [facility] rehab Wednesday Exam Vital Signs (past 8 hours): - 09/03/24 02:00 09/03/24 02:30 09/03/24 03:00 Temperature Pulse Rate 67 66 65 Respiratory Rate 20 29 H 23 Blood Pressure Pulse Oximetry 96 95 95 Oxygen Delivery Method Oxygen Flow Rate 09/03/24 03:30 09/03/24 04:00 09/03/24 04:00 Temperature Pulse Rate 64 75 63 Respiratory Rate 28 H 24 23 Blood Pressure 156/74 H Pulse Oximetry 96 96 94 Oxygen Delivery Method Oxygen Flow Rate 0 09/03/24 04:30 09/03/24 04:54 09/03/24 04:54 Temperature Pulse Rate 63 72 Respiratory Rate 23 26 H Blood Pressure 156/74 H Pulse Oximetry 94 97 Oxygen Delivery Method Oxygen Flow Rate 09/03/24 05:00 09/03/24 05:30 09/03/24 06:00 Temperature Pulse Rate 72 61 62 Respiratory Rate 27 H 36 H 25 H Blood Pressure Pulse Oximetry 96 97 96 Oxygen Delivery Method Oxygen Flow Rate 09/03/24 06:30 09/03/24 07:00 09/03/24 07:30 Temperature Pulse Rate 64 62 60 Respiratory Rate 28 H 27 H 31 H Blood Pressure Pulse Oximetry 95 96 96 Oxygen Delivery Method Oxygen Flow Rate 09/03/24 08:00 09/03/24 08:00 09/03/24 08:09 Temperature Pulse Rate 62 72 Respiratory Rate 30 H 31 H Blood Pressure Pulse Oximetry 96 95 Oxygen Delivery Method Room Air Oxygen Flow Rate 09/03/24 08:09 09/03/24 08:30 09/03/24 09:00 Temperature 98.0 F Pulse Rate 70 70 Respiratory Rate 33 H 32 H Blood Pressure 128/70 Pulse Oximetry 90 L 82 L Oxygen Delivery Method Oxygen Flow Rate 09/03/24 09:25 Temperature Pulse Rate Respiratory Rate Blood Pressure Pulse Oximetry 97 Oxygen Delivery Method Room Air Oxygen Flow Rate Oxygen Delivery Method Room Air Oxygen Flow Rate 0 Narrative Exam Narrative: General elderly woman alert oriented no acute distress Abdomen soft midline dressing clean dry intact. Minimally tender. 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) History of bilateral knee replacement History of cataract removal with insertion of prosthetic lens Family History Brother Age: 93 Dementia Heart disease Mental health disorder Pacemaker Grandfather Mental health disorder Grandmother Arthritis Grandmother Mental health disorder Social History household members: spouse Smoking Status: Never smoker alcohol intake: current Assessment & Plan Post-op Postoperative Procedures: Procedures Operation Date: 08/29/24 09:00 Actual Procedure Side Surgeon p Altemeir Procedure Darell Lauren MD Operation Date: 08/29/24 16:30 Actual Procedure Side Surgeon p Exploratory Laparotomy GEN Darell Lauren MD Postoperative status narrative: Doing well status post Altemeier followed by ex lap for small-bowel evisceration. -AFib and demand ischemia resolved -regular diet -SCDs and Lovenox -Lux catheter is to remain for a total of at least 1 week to decrease intra-abdominal pressure and reduce the risk of recurrent prolapse Quality VTE Deep Vein Thrombosis/Pulmonary Embolism Present on Admission: No
--- NOTE | 2024-09-03 11:30 | P.PN_ITS ---
Subjective Subjective Date Patient Seen: 09/03/24 Time Patient Seen: 10:55 Interval history: Summary: Patient was a 84-year-old Altemeier procedure (perineal rectosigmoidectomy) on August 29 for rectal prolapse. The patient had complication of small-bowel coming through the anus requiring exploratory laparotomy and reduction on August 29 later in the day. Today she has been hypertensive. She was given a dose of hydralazine with minimal improvement of her symptoms. Her systolic blood pressure has been over 200. She denies symptoms of headache, confusion, dyspnea, or chest pain. She also denies a history of hypertension. She does take clonazepam chronically and has not been getting as much of this possibly. She does have a leukocytosis but denies any significant pain at the time of this interview. She rates her pain at 0/10, earlier was 5/10. S: She is remained stable without hypotension or arrhythmia. Recall she developed atrial fibrillation on 09/01/2024 and was started on an amiodarone infusion. She converted to sinus rhythm over that night. She states no prior history of atrial fibrillation and has remained in sinus rhythm since then. She is under the primary care of RUSSELL Lindquist. Exam Vital Signs (past 8 hours): - 09/03/24 04:00 09/03/24 04:00 09/03/24 04:30 Temperature Pulse Rate 75 63 63 Respiratory Rate 24 23 23 Blood Pressure 156/74 H Pulse Oximetry 96 94 94 Oxygen Delivery Method Oxygen Flow Rate 0 09/03/24 04:54 09/03/24 04:54 09/03/24 05:00 Temperature Pulse Rate 72 72 Respiratory Rate 26 H 27 H Blood Pressure 156/74 H Pulse Oximetry 97 96 Oxygen Delivery Method Oxygen Flow Rate 09/03/24 05:30 09/03/24 06:00 09/03/24 06:30 Temperature Pulse Rate 61 62 64 Respiratory Rate 36 H 25 H 28 H Blood Pressure Pulse Oximetry 97 96 95 Oxygen Delivery Method Oxygen Flow Rate 09/03/24 07:00 09/03/24 07:30 09/03/24 08:00 Temperature Pulse Rate 62 60 Respiratory Rate 27 H 31 H Blood Pressure Pulse Oximetry 96 96 Oxygen Delivery Method Room Air Oxygen Flow Rate 09/03/24 08:00 09/03/24 08:09 09/03/24 08:09 Temperature 98.0 F Pulse Rate 62 72 Respiratory Rate 30 H 31 H Blood Pressure 128/70 Pulse Oximetry 96 95 Oxygen Delivery Method Oxygen Flow Rate 09/03/24 08:30 09/03/24 09:00 09/03/24 09:25 Temperature Pulse Rate 70 70 Respiratory Rate 33 H 32 H Blood Pressure Pulse Oximetry 90 L 82 L 97 Oxygen Delivery Method Room Air Oxygen Flow Rate Oxygen Delivery Method Room Air Oxygen Flow Rate 0 Narrative Exam Narrative: NAD, alert and oriented. Fluent speech. Lungs are clear, normal rate and effort. Heart is regular, no murmur gallop or rub. Abdomen is soft, non distended. There is minimal tenderness around the midline wound. No guarding. Extremities are free of edema. 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 likely discontinue at discharge stable and doing well. -Analgesia PRN (2) Evisceration of bowel: Status: Acute Plan: -As per general surgery (3) Rectal prolapse: Status: Acute Plan: -As per general surgery (4) Elevated brain natriuretic peptide (BNP) level: Status: Acute (5) Elevated serum creatinine: Problem details: -resolving Status: Acute Plan: DVT: SQ heparin Time-Based Coding :: [TOTAL MINUTES] spent with patient and on the chart (including review of chart, obtaining history, exam, reviewing outside data, placing orders, documenting exam and treatment plan, and counseling patient) on [DATE]. Quality VTE Deep Vein Thrombosis/Pulmonary Embolism Present on Admission: No IH PROFEE Charge codes Subsequent inpatient/observation care: [id number]
--- NOTE | 2024-09-03 13:50 | PT.IPTN ---
Current Diagnoses Unspecified atrial fibrillation (08/29/24) Rectal prolapse (08/29/24) Other specified abnormal findings of blood chemistry (08/29/24) Surgery Performed Operation Date: 08/29/24 09:00 Actual Procedures p Altemeir Procedure - Darell Lauren MD Operation Date: 08/29/24 16:30 Actual Procedures p Exploratory Laparotomy GEN Tamera Lauren MD Physical Therapy Treatment Note M2 PT-IP Current Condition Start: 08/31/24 15:44 Freq: NEEDED Status: Active Protocol: Document 09/01/24 10:38 AB (Rec: 09/01/24 14:42 AB [id number]) Physical Therapy Current Condition Current Condition Evaluation Date 09/01/24 Treatment Diagnosis s/p rectosigmoidectomy; difficulty in walking Onset Date 08/29/24 M3 PT-IP Subjective Start: 08/31/24 15:44 Freq: NEEDED Status: Active Protocol: Document 09/03/24 13:30 MB (Rec: 09/03/24 13:50 MB [id number]) Subjective Physical Therapy Visit Type Type Treatment Note Visit Start Time 13:30 Visit Stop Time 13:43 Number of CURBER Visits 0 Physical Therapy Visit Comments Patient Comments Pt is agreeable to PT. M4 PT-IP Mobility and Gait Start: 08/31/24 15:44 Freq: NEEDED Status: Active Protocol: Document 09/03/24 13:30 MB (Rec: 09/03/24 13:50 MB [id number]) PT-Bed Mobility Assessment Supine to Sit Supine to Sit Contact Guard Assistance,1 Person Assistance,Head of Bed Elevated,Bedrails Scooting Scooting to Edge of Bed Maximum Assistance PT-Transfer Assessment Sit to and From Stand Sit to and from Stand Moderate Assistance,1 Person Assistance,Use of Upper Extremities Equipment Transfer Assistive Device Gait Belt,Front Wheeled Walker Orthotic/Prosthetic Devices or Brace: No Transfers Transfer Destination Chair Transfer Technique ambulated Transfer Ability Level of Assist Maximum Assistance,1 Person Assistance,Use of Upper Extremities Comments Mobility Comments Pt with posterior lean and need to assist with balance and moving walker. Tends to walk on side of feet with toes up and decreased step-length and foot clearance, feet appear antalgic, small steps. Gait Assessment Gait Gait Assistance Required: Maximum Assistance,1 Person Assist Distance (Feet) 2 Assistive Devices Assistive Device Gait Belt,Front Wheeled Walker Orthotic/Prosthetic Devices or Brace: No Gait Deviations General Gait Pattern Antalgic,Decreased Stride Length,Decreased Feet Clearance,Flexed Trunk,Wide Based Gait Factors Limiting Gait Function Factors Limiting Gait Function Decreased Activity Tolerance, Decreased Strength,Difficulty Following Directions, Incoordination,Limited Range of Motion,Pain,Poor Balance, Poor Safety Awareness PT-Balance Assessment Sitting Balance and Reactions Static Sitting Balance Ability Good Dynamic Sitting Balance Ability Fair Standing Balance and Reactions Static Standing Balance Ability Poor Dynamic Standing Balance Ability Poor Device Used RW M5 PT-IP Objective Assessments Start: 08/31/24 15:44 Freq: NEEDED Status: Active Protocol: Document 09/01/24 10:38 AB (Rec: 09/01/24 14:42 AB [id number]) Orientation Orientation/Cognition Level of Alertness Alert Orientation Name,Place,Situation Language Function Ability No Deficits Noted Safety Awareness Decreased Safety Awareness Memory Description Short Term Impaired Gross Range of Motion Lower Extremity ROM Assessment Within Functional Limits Strength Lower Extremity Strength Hip 4-/5 Knee 4-/5 Coordination Assessment Gross Coordination Gross Coordination WNL Muscle Tone Muscle Tone WNL Yes M6 PT-IP Treatment Start: 08/31/24 15:44 Freq: NEEDED Status: Active Protocol: Document 09/03/24 13:30 MB (Rec: 09/03/24 13:50 MB [id number]) Physical Therapy Treatment Education Education Provided Safety Other Treatments Other Treatment Performed Log roll not performed today as HOB is increased greatly and pt can scoot legs to EOB M7 PT-IP Assessment and Plan Start: 08/31/24 15:44 Freq: NEEDED Status: Active Protocol: Document 09/03/24 13:30 MB (Rec: 09/03/24 13:50 MB [id number]) PT Summary Assessment and Plan Potential Rehabilitation Potential Fair Status of Condition at Evaluation Evolving Summary Impairments Pain,ROM,Strength,Balance, Coordination,Sensation, Cognition,Bed Mobility, Transfers,Gait,Activity Tolerance Progress Towards Goals Slow Progress - Other Assessment Summary Pt requires cues and CGA to start bed mobility today and final max A with pad to scoot left hip out. Cues and assist to stand and step to chair today with walker. Decreased foot flat, toe off and heel strike with gait and very small steps and posterior lean . Pt with some acute skin changes and chronic appearing skin changes in lower legs and upper back. Goals Bed Mobility Goal Independent Transfer Goal Standby Assistance,Front Wheeled Walker Gait Goal Standby Assistance,Front Wheel Walker Gait Distance 50 Other Goals Pt will ascend and descend 3 steps with LRAD and no more than CGA. Days to Meet Goals 5 Frequency of Treatment Frequency Of Treatment Once a Day Treatment Plan Physical Therapy Treatment Plan Bed Mobility Training,Transfer Training,Gait Training, Therapeutic Exercise,Balance Retraining,Post Op Education, Discharge Planning,Hot or Cold Pack,Neuromuscular Re-ed, Coordination Retraining,Manual Therapy Precautions Abdominal Surgery Precautions Log Roll,Lifting Restrictions, Gait Belt above Incisional Area Recommendations To Nursing Amount of Assist Needed 1 Person Assist Discharge Recommendations PT Discharge Recommendations SNF Rehab Transportation Needs at Discharge Wheelchair/Cabulance
--- NOTE | 2024-09-03 15:30 | CM.DPNOTE ---
DCP Cont [facility] accepts, likely will not have a bed until Wednesday. Transport via wheelchair. Follow up with [facility] admissions Tuesday 09/04. Hospital exempt PASRR done and signed. CM team following closely for coordination of discharge plan. MAGDALENO
[2024-09-03] MEDS: cefTRIAXone 1,000 MG in SODIUM CHLORIDE 0.9% 100 ML 200 MG IV (17:15)
[2024-09-03] MEDS: ACETAMINOPHEN 325 MG TABLET 650 MG PO (19:57)
[2024-09-03] MEDS: ONDANSETRON 4 MG/2 ML INJ IV (19:57)
[2024-09-03] MEDS: ALPRAZolam 0.25 MG TABLET 0.5 MG PO (20:03)
[2024-09-04] VITALS (28 sets, daily range): BP systolic 137–203; BP diastolic 66–92; PULSE 60–95; RESP 16–37; TEMP 36.4–36.7; O2SAT 92–98
[2024-09-04] MEDS: PANTOPRAZOLE DR 40 MG TABLET PO (06:03)
[2024-09-04] MEDS: BUDESONIDE 0.5 MG/2 ML NEB INH ×2 (07:51→20:00)
[2024-09-04] MEDS: AMIODARONE 200 MG TABLET 400 MG PO ×2 (08:24→17:41)
[2024-09-04] MEDS: HEPARIN 5,000 UNIT/ML VIAL 5000 UNIT SUBCUT ×2 (08:24→20:16)
[2024-09-04] MEDS: CITALOPRAM 10 MG TABLET 40 MG PO (08:24)
[2024-09-04] MEDS: ASPIRIN EC 81 MG TABLET PO (08:24)
[2024-09-04] MEDS: ONDANSETRON 4 MG/2 ML INJ IV (08:24)
[2024-09-04] MEDS: ALPRAZolam 0.25 MG TABLET PO (08:24)
--- NOTE | 2024-09-04 10:21 | DIET.CONS ---
Dietary Consultation Note Admission Date: 08/29/2024 08:02 Assessment: 84 y F admitted after Altemeier procedure and exploratory lap and reduction. RD screened for LOS. EMR reviewed. Pt with avg PO intake of 60%. DFM reviewed for meal composition. 2-3 days on clear liquids during stay. Diet was advanced to regular 09/03. Ht: 152.4 cm Wt: 59.874 kg BMI: 25.7 (normal BMI for age) UBW: 61 kg on 08/02/24 (-2% weight loss in 1 month, non-severe) Last BM: 08/28/24 (08/29/24 08:04) MNA: 14 Greyson Score: 20 Diet: 09/03/24 Lunch General (Regular) Diet Diet Modifications: Food Texture: Level 7 - Regular Liquid Consistency: Level 0 - Thin Nutrition Percent Meal Consumed 75% 09/03/24 18:00 Percent Meal Consumed 50% 09/03/24 17:58 Percent Meal Consumed 50% 09/02/24 18:14 Percent Meal Consumed 85 09/02/24 13:00 Labs: RBC 3.41 X10^6/uL (4.0-5.2) L 09/02/24 08:25 Hgb 11.0 g/dL (12.0-16.0) L 09/02/24 08:25 Hct 32.6 % (36-46) L 09/02/24 08:25 Creatinine 1.20 mg/dL (0.52-1.04) H 09/02/24 08:25 Lactate 1.0 mmol/L (0.7-2.1) 08/31/24 06:50 NT-Pro-B Natriuret Pep 8370 pg/mL (<450) H 08/31/24 22:50 Nutrition Diagnosis: Inadequate oral intake r/t advancing diet s/p surgery aeb average PO <75% EER for 5 days Interventions: 1. Monitor PO intakes with diet advanced to regular 2. ONS trial 1x/d to support EER EER: [id number] kcals, 50 g protein (.8 g/kg per renal) Monitoring/Evaluations: po intakes Electronically Signed by: Salud Mcmillan 09/04/24 10:21 Clinical Dietitian [address] [address]
--- NOTE | 2024-09-04 10:23 | PC.NURSE ---
Pt requested to ambulate in room. Pt 1PA with FWW, gait belt, and non-skid footwear. Pt ambulated in room two laps, passing gas and belching. Brushed teeth, washed face at sink. Experienced 100mL of emesis after brushing teeth. Ambulated into BR, small mucoid BM. Ambulated back to chair. care ongoing.
--- NOTE | 2024-09-04 11:06 | CM.DPNOTE ---
DCP note [facility] [employer] reviewed EMR. Per RN report, pt mobilizing better but likely could still benefit from SNF rehab for a little bit. Had a small BM/small amount of vomiting this morning. Hospitalist/surgeon both following, surgeon primary. Surgeon will be the one to write dc orders. Per Harper at , able to accept pt Tues/Wed. SIgned PASRR previously completed. [facility] met with pt and spouse in room. Reviewed plan. Pt/spouse remain agreeable. Deny questions at this time. P: pending medical stability, dc /Wed to . Transport time pending. CM team will continue to follow as needed DOMO Cao
--- NOTE | 2024-09-04 11:28 | P.PN_ITS ---
Subjective Subjective Interval history: Summary: Patient was a 84-year-old Altemeier procedure (perineal rectosigmoidectomy) on August 29 for rectal prolapse. The patient had complication of small-bowel coming through the anus requiring exploratory laparotomy and reduction on August 29 later in the day. Today she has been hypertensive. She was given a dose of hydralazine with minimal improvement of her symptoms. Her systolic blood pressure has been over 200. She denies symptoms of headache, confusion, dyspnea, or chest pain. She also denies a history of hypertension. She does take clonazepam chronically and has not been getting as much of this possibly. She does have a leukocytosis but denies any significant pain at the time of this interview. She rates her pain at 0/10, earlier was 5/10. She did well over the weekend without hypotension or arrhythmia. She was remained in sinus rhythm. She was going to go to [facility], and has been ambulating. She did have some nausea this morning. She vomited once. S: No abdominal pain, nausea improved. She would 1 small bowel movement. She denies any dyspnea. Exam Vital Signs (past 8 hours): - 09/04/24 03:30 09/04/24 04:00 09/04/24 04:00 Temperature 97.9 F Pulse Rate 60 62 61 Respiratory Rate 23 18 25 H Blood Pressure 203/92 H Pulse Oximetry 92 Oxygen Delivery Method Oxygen Flow Rate 0 09/04/24 04:30 09/04/24 05:00 09/04/24 05:30 Temperature Pulse Rate 64 61 69 Respiratory Rate 27 H 23 29 H Blood Pressure Pulse Oximetry Oxygen Delivery Method Oxygen Flow Rate 09/04/24 06:00 09/04/24 06:30 09/04/24 07:00 Temperature Pulse Rate 61 60 60 Respiratory Rate 23 22 24 Blood Pressure Pulse Oximetry Oxygen Delivery Method Oxygen Flow Rate 09/04/24 07:30 09/04/24 07:53 09/04/24 08:00 Temperature Pulse Rate 61 62 67 Respiratory Rate 25 H 18 23 Blood Pressure Pulse Oximetry 96 Oxygen Delivery Method Room Air Oxygen Flow Rate 09/04/24 08:00 09/04/24 08:08 09/04/24 08:08 Temperature 98.0 F Pulse Rate 66 Respiratory Rate 31 H Blood Pressure 169/84 H Pulse Oximetry 95 Oxygen Delivery Method Room Air Oxygen Flow Rate 09/04/24 08:30 09/04/24 09:00 Temperature Pulse Rate 75 70 Respiratory Rate 29 H 28 H Blood Pressure Pulse Oximetry Oxygen Delivery Method Oxygen Flow Rate Oxygen Delivery Method Room Air Oxygen Flow Rate 0 Narrative Exam Narrative: NAD, fluent speech. Lungs are clear with normal rate and effort. Heart is regular, no murmur. Abdomen is soft, minimally tender on the sides. No leg edema. 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 PAF with RVR. Resolved. 2. Uncontrolled hypertension post-operative. Resolved. 3. Nausea, active. PLAN: -continue measures and monitor blood pressure. -[facility] for rehab in the next 1-2 days. -Antiemetics for nausea. No other medication changes. Time-Based Coding :: [TOTAL MINUTES] spent with patient and on the chart (including review of chart, obtaining history, exam, reviewing outside data, placing orders, documenting exam and treatment plan, and counseling patient) on [DATE]. Quality VTE Deep Vein Thrombosis/Pulmonary Embolism Present on Admission: No
--- NOTE | 2024-09-04 12:54 | PM.PN.1 ---
Subjective Subjective Date Patient Seen: 09/04/24 Time Patient Seen: 12:54 Interval history: Brian is passing flatus. She did have emesis once this morning. Exam Vital Signs (past 8 hours): - 09/04/24 05:00 09/04/24 05:30 09/04/24 06:00 Temperature Pulse Rate 61 69 61 Respiratory Rate 23 29 H 23 Blood Pressure Pulse Oximetry Oxygen Delivery Method 09/04/24 06:30 09/04/24 07:00 09/04/24 07:30 Temperature Pulse Rate 60 60 61 Respiratory Rate 22 24 25 H Blood Pressure Pulse Oximetry Oxygen Delivery Method 09/04/24 07:53 09/04/24 08:00 09/04/24 08:00 Temperature Pulse Rate 95 H 67 Respiratory Rate 16 23 Blood Pressure Pulse Oximetry 96 Oxygen Delivery Method Room Air Room Air 09/04/24 08:08 09/04/24 08:08 09/04/24 08:30 Temperature 98.0 F Pulse Rate 66 75 Respiratory Rate 31 H 29 H Blood Pressure 169/84 H Pulse Oximetry 95 Oxygen Delivery Method 09/04/24 09:00 Temperature Pulse Rate 70 Respiratory Rate 28 H Blood Pressure Pulse Oximetry Oxygen Delivery Method Oxygen Delivery Method Room Air Oxygen Flow Rate 0 Const General: No acute distress Objective Labs 09/02/24 08:25 09/02/24 08:25 PFSH Medical History GERD (gastroesophageal reflux disease) Osteoarthritis Asthma Kidney stones Surgical History 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 Time-Based Coding :: [TOTAL MINUTES] spent with patient and on the chart (including review of chart, obtaining history, exam, reviewing outside data, placing orders, documenting exam and treatment plan, and counseling patient) on [DATE]. Quality VTE Deep Vein Thrombosis/Pulmonary Embolism Present on Admission: No
--- NOTE | 2024-09-04 16:03 | PT-IP ANOTE ---
PT clears with nsg and checks on pt. Pt is sleeping soundly. Nsg reports pt has gotten up several times today. Con't PT efforts. Pt to d/c to [facility] tomorrow.
[2024-09-04] MEDS: cefTRIAXone 1,000 MG in SODIUM CHLORIDE 0.9% 100 ML 200 MG IV (17:41)
[2024-09-04] MEDS: ALPRAZolam 0.25 MG TABLET 0.5 MG PO (20:17)
[2024-09-05] VITALS: BP 134/73; PULSE 67; RESP 17; TEMP 36.2; O2SAT 99
[2024-09-05 04:00] VITALS: BP 142/70; PULSE 53; RESP 17; TEMP 36.3; O2SAT 96
[2024-09-05] MEDS: PANTOPRAZOLE DR 40 MG TABLET PO (06:32)
[2024-09-05 07:24] VITALS: PULSE 59; RESP 16; O2SAT 95
[2024-09-05] MEDS: BUDESONIDE 0.5 MG/2 ML NEB INH (07:24)
[2024-09-05 08:26] VITALS: BP 131/66; PULSE 70; RESP 16; O2SAT 96
[2024-09-05] MEDS: ALPRAZolam 0.25 MG TABLET PO (08:48)
[2024-09-05] MEDS: AMIODARONE 200 MG TABLET 400 MG PO (08:48)
[2024-09-05] MEDS: HEPARIN 5,000 UNIT/ML VIAL 5000 UNIT SUBCUT (08:48)
[2024-09-05] MEDS: ASPIRIN EC 81 MG TABLET PO (08:48)
[2024-09-05] MEDS: CITALOPRAM 10 MG TABLET 40 MG PO (08:48)
[2024-09-05] MEDS: SODIUM CHLORIDE 0.9% FLUSH 10 ML IV (08:49)
--- NOTE | 2024-09-05 09:34 | P.PN_ITS ---
Subjective Subjective Interval history: S: She was doing well today. She did vomit yesterday and surgery put her on a full liquid diet. No nausea today. No abdominal pain either. No palpitations or AFib. She was going to [facility] facility later today from her report. Exam Vital Signs (past 8 hours): - 09/05/24 04:00 09/05/24 07:24 Temperature 97.3 F L Pulse Rate 53 L 59 L Respiratory Rate 17 16 Blood Pressure 142/70 H Pulse Oximetry 96 95 Oxygen Delivery Method Room Air Oxygen Flow Rate 0 Fraction of Inspired Oxygen 21 Fraction of Inspired Oxygen 21 SaO2/FiO2 Ratio 452 Oxygen Delivery Method Room Air Oxygen Flow Rate 0 Narrative Exam Narrative: NAD, alert and oriented. Fluent speech. Lungs are clear, normal rate and effort. Heart is regular, no murmur gallop or rub. Abdomen is soft, non distended. Extremities are free of edema. 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 PAF with RVR. Resolved. 2. Uncontrolled hypertension post-operative. Resolved. 3. Nausea, improved. Plan: -discharge to [facility] facility today. Her blood pressure is 142/70. Would continue amiodarone 400 b.i.d. for a week, then 400 daily for a week and then stop. Would continue to monitor blood pressure at [facility] facility and decide whether or not she should go back on amlodipine daily. Time-Based Coding :: [TOTAL MINUTES] spent with patient and on the chart (including review of chart, obtaining history, exam, reviewing outside data, placing orders, documenting exam and treatment plan, and counseling patient) on [DATE]. Quality VTE Deep Vein Thrombosis/Pulmonary Embolism Present on Admission: No
[2024-09-05 11:52] VITALS: TEMP 36.6; O2SAT 98
[2024-09-05 11:53] VITALS: BP 106/53; PULSE 62; O2SAT 97
--- NOTE | 2024-09-05 12:13 | P.DS_ITS ---
History of Present Illness History of Present Illness Chief complaint: Altemeier procedure Discharge Providers Provider Date of admission: 08/29/24 08:02 Discharge Date: 09/05/24 Primary care physician: RUSSELL Lindquist Consults: 08/30/24 14:34 Consult to Hospitalist Service Routine Comment: unexplained high BP, urine output 100cc this shift Consulting Provider: Yang Jane Reason for consultation: unexplained high BP, urine output 100cc this shift 08/31/24 13:20 Consult to Physical Therapy Evaluate & Treat Comment: Physician Instructions: Evaluate and Treat 09/01/24 01:16 Consult to Tele-film casting operator Routine Comment: Consulting Provider: [facility] [employer] 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 Postoperatively she managed to eviscerate several loops of small bowel through a small gap anastomosis. She was brought back to the operating room to reduce the herniation of small bowel and close the anastomosis. She had an expected ileus following surgery. She then developed atrial fibrillation and demand ischemia which resolved. She was discharged to a [facility] on 09/05/2024. 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) History of bilateral knee replacement History of cataract removal with insertion of prosthetic lens Family History Brother Age: 93 Dementia Heart disease Mental health disorder Pacemaker Grandfather Mental health disorder Grandmother Arthritis Grandmother Mental health disorder Social History household members: spouse Smoking Status: Never smoker alcohol intake: current Discharge Plan Discharge Plan Patient Disposition: SNF Transfer to: [facility] Discharge orders & Medications Prescriptions: Continued cholecalciferol (vitamin D3) [Vitamin D3] 1,000 unit Capsule 1,000 unit PO DAILY Qty: 0 alprazolam 0.25 MG tablet 0.25 mg PO DAILY PRN (Reason: Anxiety) Qty: 0 krill oil 500 mg capsule 500 mg PO DAILY Adult 50 Plus Probiotic 4 billion cell capsule 4,000 mmu cells PO DAILY Rx Instructions: administer with a meal esomeprazole magnesium 40 mg capsule,delayed release(DR/EC) 40 mg PO DAILY citalopram 20 mg tablet 40 mg PO DAILY fluticasone furoate-vilanterol [Breo Ellipta] 100-25 mcg/dose blister with device 1 ea inhalation DAILY Follow up/Referrals: Lucy Ye ARNP [Primary Care Provider] - Diet/Activity/Treatments Diet: Diet as Tolerated Catheter: 2-way Lux Visit Report/Discharge Packet Instructions: [facility]: Wound Care Stand Alone Forms: Patient Portal/API Discharge Data Primary Care Provider: Lucy Ye VTE Deep Vein Thrombosis/Pulmonary Embolism Present on Admission: No
--- NOTE | 2024-09-05 13:00 | PT.IPTN ---
Current Diagnoses Unspecified atrial fibrillation (08/29/24) Rectal prolapse (08/29/24) Other specified abnormal findings of blood chemistry (08/29/24) Surgery Performed Operation Date: 08/29/24 09:00 Actual Procedures p Altemeir Procedure - Darell Lauren MD Operation Date: 08/29/24 16:30 Actual Procedures p Exploratory Laparotomy GEN Tamera Lauren MD Physical Therapy Treatment Note M2 PT-IP Current Condition Start: 08/31/24 15:44 Freq: NEEDED Status: Discharge Protocol: Document 09/01/24 10:38 AB (Rec: 09/01/24 14:42 AB [id number]) Physical Therapy Current Condition Current Condition Evaluation Date 09/01/24 Treatment Diagnosis s/p rectosigmoidectomy; difficulty in walking Onset Date 08/29/24 M3 PT-IP Subjective Start: 08/31/24 15:44 Freq: NEEDED Status: Discharge Protocol: Document 09/05/24 14:47 TS (Rec: 09/05/24 14:55 TS [id number]) Subjective Physical Therapy Visit Type Type Treatment Note Visit Start Time 13:00 Visit Stop Time 13:15 Number of EP TECH Visits 1 Physical Therapy Visit Comments Patient Comments Pt found resting in the chair, she is agreeable to PT. M4 PT-IP Mobility and Gait Start: 08/31/24 15:44 Freq: NEEDED Status: Discharge Protocol: Document 09/05/24 14:47 TS (Rec: 09/05/24 14:55 TS [id number]) PT-Transfer Assessment Sit to and From Stand Sit to and from Stand Maximum Assistance,1 Person Assistance,Use of Upper Extremities Equipment Transfer Assistive Device Gait Belt,Front Wheeled Walker Orthotic/Prosthetic Devices or Brace: No Comments Mobility Comments STS with FWW MaxA, pt has a posterior lean. She ambulates with FWW CGA ~25', pt demonstrates quicker gait this session. Pt requests to use the toilet, pt was left in the restroom, nursing notified. Gait Assessment Gait Gait Assistance Required: Contact Guard Assist,1 Person Assist Distance (Feet) 25 Able to Maintain Weight Bearing Status Yes During Gait Assistive Devices Assistive Device Gait Belt,Front Wheeled Walker Orthotic/Prosthetic Devices or Brace: No Gait Deviations General Gait Pattern Antalgic,Decreased Stride Length,Decreased Feet Clearance,Flexed Trunk,Wide Based Gait Factors Limiting Gait Function Factors Limiting Gait Function Decreased Activity Tolerance, Decreased Strength,Difficulty Following Directions, Incoordination,Limited Range of Motion,Pain,Poor Balance, Poor Safety Awareness PT-Balance Assessment Sitting Balance and Reactions Static Sitting Balance Ability Good Dynamic Sitting Balance Ability Fair Standing Balance and Reactions Static Standing Balance Ability Fair Dynamic Standing Balance Ability Fair Device Used FWW M5 PT-IP Objective Assessments Start: 08/31/24 15:44 Freq: NEEDED Status: Discharge Protocol: Document 09/01/24 10:38 AB (Rec: 09/01/24 14:42 AB [id number]) Orientation Orientation/Cognition Level of Alertness Alert Orientation Name,Place,Situation Language Function Ability No Deficits Noted Safety Awareness Decreased Safety Awareness Memory Description Short Term Impaired Gross Range of Motion Lower Extremity ROM Assessment Within Functional Limits Strength Lower Extremity Strength Hip 4-/5 Knee 4-/5 Coordination Assessment Gross Coordination Gross Coordination WNL Muscle Tone Muscle Tone WNL Yes M6 PT-IP Treatment Start: 08/31/24 15:44 Freq: NEEDED Status: Discharge Protocol: Document 09/05/24 14:47 TS (Rec: 09/05/24 14:55 TS [id number]) Physical Therapy Treatment Education Education Provided Safety M7 PT-IP Assessment and Plan Start: 08/31/24 15:44 Freq: NEEDED Status: Discharge Protocol: Document 09/05/24 14:47 TS (Rec: 09/05/24 14:55 TS [id number]) PT Summary Assessment and Plan Potential Rehabilitation Potential Fair Summary Impairments Pain,ROM,Strength,Balance, Coordination,Sensation, Cognition,Bed Mobility, Transfers,Gait,Activity Tolerance Progress Towards Goals Slow Progress - Other Assessment Summary Pt made some progress with her mobility but continues to be limited. She is MaxA for STS with use of FWW. She proressed her gait to ~25' CGA with no rest break. She demonstrated a quicker pace gait and increased activity tolerance. PT is recommending SNF. Goals Bed Mobility Goal Independent Transfer Goal Standby Assistance,Front Wheeled Walker Gait Goal Standby Assistance,Front Wheel Walker Gait Distance 50 Other Goals Pt will ascend and descend 3 steps with LRAD and no more than CGA. Days to Meet Goals 5 Frequency of Treatment Frequency Of Treatment Once a Day Treatment Plan Physical Therapy Treatment Plan Bed Mobility Training,Transfer Training,Gait Training, Therapeutic Exercise,Balance Retraining,Post Op Education, Discharge Planning,Hot or Cold Pack,Neuromuscular Re-ed, Coordination Retraining,Manual Therapy Precautions Abdominal Surgery Precautions Log Roll,Lifting Restrictions, Gait Belt above Incisional Area Recommendations To Nursing Amount of Assist Needed 1 Person Assist Discharge Recommendations PT Discharge Recommendations SNF Rehab Transportation Needs at Discharge Wheelchair/Cabulance
== END 2024-09-05 14:36 | DRG 330 ==
LOC: AC 08-31 11:16 → ICU 09-01 01:01
PROVIDERS: Hospitalist; Internal Medicine; Internal Medicine Critical Care Medicine; Surgery; Admitting Provider Surgery; PCP Internal Medicine; Referring Provider Surgery; Visit Provider Surgery
PROC: 0DBN0ZZ Excision of Sigmoid Colon, Open Approach (ICD-10-PCS; CPT 45505; principal; 2024-08-29 09:00)
DX: K62.3 Rectal prolapse (principal); I24.89 Other forms of acute ischemic heart disease; N17.9 Acute kidney failure, unspecified; K91.89 Other postprocedural complications and disorders of digestive system; I97.191 Other postprocedural cardiac functional disturbances following other surgery; Y83.2 Surgical operation with anastomosis, bypass or graft as the cause of abnormal reaction of the patient, or of later complication, without mention of misadventure at the time of the procedure; R79.89 Other specified abnormal findings of blood chemistry; I48.91 Unspecified atrial fibrillation; K43.2 Incisional hernia without obstruction or gangrene; I48.0 Paroxysmal atrial fibrillation; I10 Essential (primary) hypertension; K21.9 Gastro-esophageal reflux disease without esophagitis; J45.909 Unspecified asthma, uncomplicated; Z79.899 Other long term (current) drug therapy
CPT/HCPCS: 36415; 71045; 76705; 80048; 81001; 83605; 83735; 83880; 84443; 84484; 85025; 85027; 87086; 87797; 93005; 93010; 93306; 94640; 97162; 97530; J0134; J0282; J0330; J0360; J0696; J1100; J1171; J1644; J1650; J2405; J2704; J2765; J3010

== ENCOUNTER → 2025-03-27 11:26 | Outpatient (CLI) | payer MEDICARE, OTHER, SELFPAY ==
[2024-08-29 08:04] VITALS: BMI 25.7
== END ==
LOC: WC 11:29
PROVIDERS: Family Provider Internal Medicine; PCP Internal Medicine; Referring Provider Radiology Radiation Oncology; Visit Provider Surgery
DX: L59.8 Other specified disorders of the skin and subcutaneous tissue related to radiation (principal); L98.422 Non-pressure chronic ulcer of back with fat layer exposed; J45.909 Unspecified asthma, uncomplicated; Z87.442 Personal history of urinary calculi; N30.20 Other chronic cystitis without hematuria; Z87.39 Personal history of other diseases of the musculoskeletal system and connective tissue
CPT/HCPCS: 11042; 99203; 99213

== ENCOUNTER → 2025-04-03 14:05 | Outpatient (CLI) | payer MEDICARE, OTHER, SELFPAY ==
[2024-08-29 08:04] VITALS: BMI 25.7
== END ==
PROVIDERS: Family Provider Internal Medicine; PCP Internal Medicine; Referring Provider Internal Medicine; Visit Provider Surgery
DX: L59.8 Other specified disorders of the skin and subcutaneous tissue related to radiation (principal); L98.422 Non-pressure chronic ulcer of back with fat layer exposed; L53.9 Erythematous condition, unspecified; R60.0 Localized edema
CPT/HCPCS: 11042; 11045; 87070; 87075; 87077; 87205

== ENCOUNTER → 2025-04-10 14:38 | Outpatient (CLI) | payer MEDICARE, OTHER, SELFPAY ==
[2024-08-29 08:04] VITALS: BMI 25.7
== END ==
LOC: WC 14:39
PROVIDERS: Family Provider Internal Medicine; PCP Internal Medicine; Referring Provider Internal Medicine; Visit Provider Surgery
DX: L59.8 Other specified disorders of the skin and subcutaneous tissue related to radiation (principal); L98.422 Non-pressure chronic ulcer of back with fat layer exposed
CPT/HCPCS: 11042; 11045

== ENCOUNTER → 2025-04-17 14:00 | Outpatient (CLI) | payer MEDICARE, OTHER, SELFPAY ==
[2024-08-29 08:04] VITALS: BMI 25.7
== END ==
LOC: WC 14:23
PROVIDERS: Family Provider Internal Medicine; PCP Internal Medicine; Referring Provider Internal Medicine; Visit Provider Surgery
DX: L59.8 Other specified disorders of the skin and subcutaneous tissue related to radiation (principal); L98.422 Non-pressure chronic ulcer of back with fat layer exposed; Z85.828 Personal history of other malignant neoplasm of skin
CPT/HCPCS: 11042; 11045

== ENCOUNTER → 2025-04-24 14:05 | Outpatient (CLI) | payer MEDICARE, OTHER, SELFPAY ==
[2024-08-29 08:04] VITALS: BMI 25.7
== END ==
LOC: WC 14:08
PROVIDERS: Family Provider Internal Medicine; PCP Internal Medicine; Referring Provider Internal Medicine; Visit Provider Surgery
DX: L59.8 Other specified disorders of the skin and subcutaneous tissue related to radiation (principal); L98.422 Non-pressure chronic ulcer of back with fat layer exposed; Z85.828 Personal history of other malignant neoplasm of skin
CPT/HCPCS: 11042; 11045; 99213

== ENCOUNTER → 2025-05-22 14:08 | Outpatient (CLI) | payer MEDICARE, OTHER, SELFPAY ==
[2024-08-29 08:04] VITALS: BMI 25.7
== END ==
LOC: WC 14:09
PROVIDERS: Family Provider Internal Medicine; PCP Internal Medicine; Referring Provider Internal Medicine; Visit Provider Surgery
DX: L59.8 Other specified disorders of the skin and subcutaneous tissue related to radiation (principal); L98.422 Non-pressure chronic ulcer of back with fat layer exposed; I78.1 Nevus, non-neoplastic; Z85.828 Personal history of other malignant neoplasm of skin
CPT/HCPCS: 11042; 11045; 99213

== ENCOUNTER → 2025-06-05 11:29 | Outpatient (CLI) | payer MEDICARE, OTHER, SELFPAY ==
[2024-08-29 08:04] VITALS: BMI 25.7
== END ==
LOC: WC 11:49
PROVIDERS: Family Provider Internal Medicine; PCP Family Medicine; Referring Provider Radiology Radiation Oncology; Visit Provider Surgery
DX: L59.8 Other specified disorders of the skin and subcutaneous tissue related to radiation (principal); L98.422 Non-pressure chronic ulcer of back with fat layer exposed; Z85.828 Personal history of other malignant neoplasm of skin; I78.8 Other diseases of capillaries; M40.209 Unspecified kyphosis, site unspecified; Z88.0 Allergy status to penicillin; Z88.1 Allergy status to other antibiotic agents; Z88.2 Allergy status to sulfonamides; Z88.8 Allergy status to other drugs, medicaments and biological substances
CPT/HCPCS: 11042; 11045

== ENCOUNTER → 2025-06-19 11:29 | Outpatient (CLI) | payer MEDICARE, OTHER, SELFPAY ==
[2024-08-29 08:04] VITALS: BMI 25.7
== END ==
LOC: WC 11:32
PROVIDERS: Family Provider Internal Medicine; PCP Family Medicine; Referring Provider Family Medicine; Visit Provider Surgery
DX: L59.8 Other specified disorders of the skin and subcutaneous tissue related to radiation (principal); L98.422 Non-pressure chronic ulcer of back with fat layer exposed; R60.0 Localized edema
CPT/HCPCS: 15271; 99213; Q4160

== ENCOUNTER → 2025-06-26 11:18 | Outpatient (CLI) | payer MEDICARE, OTHER, SELFPAY ==
[2024-08-29 08:04] VITALS: BMI 25.7
== END ==
LOC: WC 11:41
PROVIDERS: Family Provider Internal Medicine; PCP Family Medicine; Referring Provider Family Medicine; Visit Provider Surgery
DX: L59.8 Other specified disorders of the skin and subcutaneous tissue related to radiation (principal); L98.422 Non-pressure chronic ulcer of back with fat layer exposed; Z85.828 Personal history of other malignant neoplasm of skin; Z88.0 Allergy status to penicillin; Z88.1 Allergy status to other antibiotic agents; Z88.2 Allergy status to sulfonamides; Z88.8 Allergy status to other drugs, medicaments and biological substances
CPT/HCPCS: 15271; Q4160

== ENCOUNTER → 2025-07-03 15:49 | Outpatient (CLI) | payer MEDICARE, OTHER, SELFPAY ==
[2024-08-29 08:04] VITALS: BMI 25.7
== END ==
LOC: WC 15:50
PROVIDERS: Family Provider Internal Medicine; PCP Family Medicine; Referring Provider Family Medicine; Visit Provider Surgery
DX: L59.8 Other specified disorders of the skin and subcutaneous tissue related to radiation (principal); L98.422 Non-pressure chronic ulcer of back with fat layer exposed; L98.8 Other specified disorders of the skin and subcutaneous tissue; R60.0 Localized edema; Z85.828 Personal history of other malignant neoplasm of skin; I78.1 Nevus, non-neoplastic; M40.209 Unspecified kyphosis, site unspecified
CPT/HCPCS: 15271; 15272; Q4133

== ENCOUNTER → 2025-07-04 14:53 | Outpatient (CLI) | payer MEDICARE, OTHER, SELFPAY ==
[2024-08-29 08:04] VITALS: BMI 25.7
--- NOTE | 2025-07-04 14:59 | DI.RAD.S_ITS ---
PROCEDURE: XR CHEST 2V INDICATIONS: COUGH TECHNIQUE: 2 views of the chest were acquired. COMPARISON: [facility], CR, XR CHEST 2V, 09/11/2022, 17:48. [facility], CR, XR CHEST 1V, 09/01/2024, 7:34. FINDINGS: Heart size normal. Thoracic aortic ectasia. No pneumothorax or pleural effusion. No consolidation. Bilateral shoulder replacement. Surgical clips in the right upper quadrant. Scoliotic curvature of thoracolumbar spine and osseous demineralization. IMPRESSION: Descending thoracic aortic aneurysm suspected. No acute cardiopulmonary abnormality. Dictated by: Adrian Montez M.D. on 07/05/2025 at 13:13 Approved by: Adrian Montez M.D. on 07/05/2025 at 13:17
== END ==
PROVIDERS: Family Provider Internal Medicine; PCP Family Medicine; Referring Provider Family Medicine; Visit Provider Family Medicine
DX: R05.3 Chronic cough (principal); I77.810 Thoracic aortic ectasia
CPT/HCPCS: 71046

== ENCOUNTER → 2025-07-10 11:16 | Outpatient (CLI) | payer MEDICARE, OTHER, SELFPAY ==
[2024-08-29 08:04] VITALS: BMI 25.7
== END ==
LOC: WC 11:21
PROVIDERS: Family Provider Internal Medicine; PCP Family Medicine; Referring Provider Internal Medicine; Visit Provider Surgery
DX: L98.422 Non-pressure chronic ulcer of back with fat layer exposed (principal); L59.8 Other specified disorders of the skin and subcutaneous tissue related to radiation; R60.0 Localized edema
CPT/HCPCS: 15271; 15272; Q4133

== ENCOUNTER → 2025-07-17 14:29 | Outpatient (CLI) | payer MEDICARE, OTHER, SELFPAY ==
[2024-08-29 08:04] VITALS: BMI 25.7
== END ==
LOC: WC 14:32
PROVIDERS: Family Provider Internal Medicine; PCP Family Medicine; Referring Provider Family Medicine; Visit Provider Surgery
DX: L59.8 Other specified disorders of the skin and subcutaneous tissue related to radiation (principal); L98.422 Non-pressure chronic ulcer of back with fat layer exposed
CPT/HCPCS: 15271; 15272; 99213; Q4133

== ENCOUNTER → 2025-07-24 13:01 | Outpatient (CLI) | payer MEDICARE, OTHER, SELFPAY ==
[2024-08-29 08:04] VITALS: BMI 25.7
== END ==
LOC: WC 13:04
PROVIDERS: Family Provider Internal Medicine; PCP Family Medicine; Referring Provider Family Medicine; Visit Provider Surgery
DX: L98.422 Non-pressure chronic ulcer of back with fat layer exposed (principal); L59.8 Other specified disorders of the skin and subcutaneous tissue related to radiation
CPT/HCPCS: 11042; 11045

== ENCOUNTER → 2025-07-25 14:37 | Outpatient (CLI) | payer MEDICARE, OTHER, SELFPAY ==
[2024-08-29 08:04] VITALS: BMI 25.7
== END ==
LOC: WC 14:38
PROVIDERS: Family Provider Internal Medicine; PCP Family Medicine; Referring Provider Family Medicine; Visit Provider Surgery
DX: L59.8 Other specified disorders of the skin and subcutaneous tissue related to radiation (principal); S21.209A Unspecified open wound of unspecified back wall of thorax without penetration into thoracic cavity, initial encounter; L98.8 Other specified disorders of the skin and subcutaneous tissue; L90.8 Other atrophic disorders of skin
CPT/HCPCS: 99212

== ENCOUNTER → 2025-07-31 13:22 | Outpatient (CLI) | payer MEDICARE, OTHER, SELFPAY ==
[2024-08-29 08:04] VITALS: BMI 25.7
== END ==
LOC: WC 13:23
PROVIDERS: Family Provider Internal Medicine; PCP Family Medicine; Referring Provider Family Medicine; Visit Provider Surgery
DX: L59.8 Other specified disorders of the skin and subcutaneous tissue related to radiation (principal); L98.422 Non-pressure chronic ulcer of back with fat layer exposed
CPT/HCPCS: 11042; 11045; 87070; 87075; 87205

== ENCOUNTER → 2025-08-07 13:56 | Outpatient (CLI) | payer MEDICARE, OTHER, SELFPAY ==
[2024-08-29 08:04] VITALS: BMI 25.7
== END ==
LOC: WC 14:10
PROVIDERS: Family Provider Internal Medicine; PCP Family Medicine; Referring Provider Family Medicine; Visit Provider Surgery
DX: L59.8 Other specified disorders of the skin and subcutaneous tissue related to radiation (principal); S21.209A Unspecified open wound of unspecified back wall of thorax without penetration into thoracic cavity, initial encounter
CPT/HCPCS: 11042; 11045

== ENCOUNTER → 2025-08-14 14:00 | Outpatient (CLI) | payer MEDICARE, OTHER, SELFPAY ==
[2024-08-29 08:04] VITALS: BMI 25.7
== END ==
LOC: WC 14:04
PROVIDERS: Family Provider Internal Medicine; PCP Family Medicine; Referring Provider Family Medicine; Visit Provider Surgery
DX: L59.8 Other specified disorders of the skin and subcutaneous tissue related to radiation (principal); L98.422 Non-pressure chronic ulcer of back with fat layer exposed
CPT/HCPCS: 11042; 11045; 99213

== ENCOUNTER → 2025-08-21 14:02 | Outpatient (CLI) | payer MEDICARE, OTHER, SELFPAY ==
[2024-08-29 08:04] VITALS: BMI 25.7
== END ==
LOC: WC 14:03
PROVIDERS: Family Provider Internal Medicine; PCP Family Medicine; Referring Provider Family Medicine; Visit Provider Surgery
DX: L59.8 Other specified disorders of the skin and subcutaneous tissue related to radiation (principal); S21.209A Unspecified open wound of unspecified back wall of thorax without penetration into thoracic cavity, initial encounter
CPT/HCPCS: 11042; 11045

== ENCOUNTER → 2025-08-28 13:24 | Outpatient (CLI) | payer MEDICARE, OTHER, SELFPAY ==
[2024-08-29 08:04] VITALS: BMI 25.7
== END ==
PROVIDERS: Family Provider Internal Medicine; PCP Family Medicine; Referring Provider Family Medicine; Visit Provider Surgery
DX: L59.8 Other specified disorders of the skin and subcutaneous tissue related to radiation (principal); S21.209A Unspecified open wound of unspecified back wall of thorax without penetration into thoracic cavity, initial encounter; Z85.828 Personal history of other malignant neoplasm of skin
CPT/HCPCS: 11042; 11045

== ENCOUNTER → 2025-08-28 13:44 | Outpatient (CLI) | payer MEDICARE, OTHER, SELFPAY ==
[2024-08-29 08:04] VITALS: BMI 25.7
--- NOTE | 2025-08-28 13:46 | DI.RAD.S_ITS ---
PROCEDURE: XR THORACIC SPINE 3V INDICATIONS: eval for osteo TECHNIQUE: 3 views of the thoracic spine were acquired. COMPARISON: None. FINDINGS: Bones: No fractures or dislocations. No suspicious bony lesions. 12 pairs of ribs are noted, and appear intact where visualized. There is thoracolumbar S-shaped scoliosis. There is exaggerated kyphosis of the thoracic spine. Bilateral shoulder arthroplasties are present. Multilevel degenerative changes. Soft tissues: No paravertebral stripe thickening. IMPRESSION: No acute compression fracture or traumatic subluxation. S shaped scoliosis and multilevel degenerative changes. If there is clinical concern for osteomyelitis, recommend further evaluation with MRI which is more sensitive modality. Approved by: Virginia Che M.D.,Ph.D. on 08/29/2025 at 13:49
== END ==
PROVIDERS: Family Provider Internal Medicine; PCP Family Medicine; Referring Provider Family Medicine; Visit Provider Surgery
DX: L98.422 Non-pressure chronic ulcer of back with fat layer exposed (principal); M41.9 Scoliosis, unspecified; M47.814 Spondylosis without myelopathy or radiculopathy, thoracic region
CPT/HCPCS: 11042; 11045; 72072

== ENCOUNTER → 2025-09-04 13:05 | Outpatient (CLI) | payer MEDICARE, OTHER, SELFPAY ==
[2024-08-29 08:04] VITALS: BMI 25.7
== END ==
LOC: WC 13:06
PROVIDERS: Family Provider Internal Medicine; PCP Family Medicine; Referring Provider Family Medicine; Visit Provider Surgery
DX: L98.422 Non-pressure chronic ulcer of back with fat layer exposed (principal); L59.8 Other specified disorders of the skin and subcutaneous tissue related to radiation
CPT/HCPCS: 11042; 11045

== ENCOUNTER → 2025-09-11 15:12 | Outpatient (CLI) | payer MEDICARE, OTHER, SELFPAY ==
[2024-08-29 08:04] VITALS: BMI 25.7
== END ==
LOC: WC 15:14
PROVIDERS: Family Provider Internal Medicine; PCP Family Medicine; Referring Provider Family Medicine; Visit Provider Surgery
DX: L59.8 Other specified disorders of the skin and subcutaneous tissue related to radiation (principal); L98.422 Non-pressure chronic ulcer of back with fat layer exposed
CPT/HCPCS: 11042; 11045

== ENCOUNTER → 2025-09-25 13:59 | Outpatient (CLI) | payer MEDICARE, OTHER, SELFPAY ==
[2024-08-29 08:04] VITALS: BMI 25.7
== END ==
LOC: WC 14:00
PROVIDERS: Family Provider Internal Medicine; PCP Family Medicine; Referring Provider Family Medicine; Visit Provider Surgery
DX: L59.8 Other specified disorders of the skin and subcutaneous tissue related to radiation (principal); L98.422 Non-pressure chronic ulcer of back with fat layer exposed; L90.8 Other atrophic disorders of skin; Z85.828 Personal history of other malignant neoplasm of skin; I87.8 Other specified disorders of veins
CPT/HCPCS: 11042; 11045; 99213